=== PATIENT | male | born 1965 | race African-American/Black ===

== ENCOUNTER 2017-05-05 19:10 | Emergency (ER) | payer MEDICAID ==
[~2017-05-05] VITALS: Ht 180.3 cm; Wt 79.4 kg
[~2017-05-05 19:10] MED LIST: ASPI81CT89 PO; ATOR10TA PO; GABA300C PO; METF500T PO
[2017-05-05 19:20] VITALS: BP 137/73
[2017-05-05] MEDS ORDERED: KETOROLAC 60 MG/2 ML VIAL IM ONE (21:40)
[2017-05-05] MEDS ORDERED: VANCOMYCIN PER PHARMACY MC PRN (22:05)
[2017-05-05] MEDS ORDERED: VANCOMYCIN 1GM/DEXT 5% PREMIX 200 ML IV ONE (22:05)
[2017-05-05] MEDS ORDERED: NACL 0.9% 1,000 ML IV ONE (22:05)
[2017-05-05 22:30] LABS: HEMATOCRIT 40.6 % (36-52); HEMOGLOBIN 13.5 g/dL (12.0-18.0); MEAN CORPUSCULAR HEMOGLOBIN 30 pg (27-31); MEAN CORPUSCULAR HGB CONC 33 g/dL (33-37); MEAN CORPUSCULAR VOLUME 89 fL (80-94); PLATELET COUNT (AUTO) 405 K/uL (140-450); RED BLOOD CELL COUNT(AUTO) 4.54 MIL/uL (4.20-6.10); RED CELL DISTRIBUTION WIDTH 11.9 % (11.6-13.7)
[2017-05-05] MEDS ORDERED: VANCOMYCIN 1,000 MG in DEXTROSE 5% 250 ML IV ONE (22:30)
[2017-05-05] MEDS ORDERED: VANCOMYCIN 1,000 MG VIAL ONE (22:35)
[2017-05-05 22:41] LABS: WHITE BLOOD COUNT (AUTO) 15.6 K/uL (4.8-10.8)
[2017-05-05 22:42] LABS: LYMPHOCYTES % (MANUAL) 15 % (20-46); MONOCYTES % (MANUAL) 7 % (5-12)
[2017-05-05 22:50] LABS: ALBUMIN 2.7 g/dL (3.4-5.0); CARBON DIOXIDE 25.8 mmol/L (21-32); CREATININE 0.9 mg/dL (0.7-1.3); POTASSIUM 3.8 mmol/L (3.5-5.1); TOTAL BILIRUBIN 0.2 mg/dL (0.0-1.0)
[2017-05-05] MEDS ORDERED: INSULIN HUMAN REGULAR 100 UNITS/ML 10 ML VIAL IVP ONE (22:55)
[2017-05-06 06:05] VITALS: BP 115/70
== END 2017-05-06 06:06 | disposition short-term general hospital (02) ==
LOC: MED 19:10
DX: S61.241A Puncture wound with foreign body of left index finger without damage to nail, initial encounter (principal); L03.114 Cellulitis of left upper limb; E11.65 Type 2 diabetes mellitus with hyperglycemia; E78.5 Hyperlipidemia, unspecified; W32.0XXA Accidental handgun discharge, initial encounter; Y93.89 Activity, other specified; Y92.89 Other specified places as the place of occurrence of the external cause; Y99.8 Other external cause status
CPT/HCPCS: 36415; 73140; 80053; 85025; 87040; 87070; 87186; 90471; 90715; 96365; 96366; 96372; 96375; 99285; J1815; J1885; J3370; J7030; J7060

== ENCOUNTER 2022-03-11 15:14 | Emergency (ER) | payer MEDICAID ==
[~2022-03-11] VITALS: Ht 180.3 cm; Wt 68.0 kg
[~2022-03-11 15:14] MED LIST changes: +ASPI-1822 PO; -ASPI81CT89 PO; +METF-346 PO; -METF500T PO
[2022-03-11 16:05] VITALS: BP 118/72
--- NOTE | 2022-03-11 16:25 | NUR ---
BIB FRIEND C/O NECK , BACK PAIN X 4 DAYS. BLOOD SUGAR 304 AT THIS FERCHO. PMH: DM MED : NONE
[2022-03-11] MEDS ORDERED: NACL 0.9% 1,000 ML IV SCH (16:35)
[2022-03-11] MEDS ORDERED: LIDOCAINE 5% 1 EA PATCH TP SCH (17:30)
[2022-03-11] MEDS ORDERED: BACLOFEN 10 MG TAB PO SCH (17:30)
[2022-03-11] MEDS ORDERED: GABAPENTIN 300 MG CAP PO ONE (17:30)
[2022-03-11] MEDS ORDERED: KETOROLAC 30 MG/ML VIAL IVP ONE (17:30)
[2022-03-11 17:34] LABS: BASOPHILS # (AUTO) 0.1 K/uL (0.00-0.22); BASOPHILS % (AUTO) 0.8 % (0.0-2.0); EOSINOPHILS # (AUTO) 0.2 K/uL (0-0.4); EOSINOPHILS % (AUTO) 2.6 % (0.0-4.0); HEMATOCRIT 36.1 % (36-52); HEMOGLOBIN 11.7 g/dL (12.0-18.0); LYMPHOCYTES # (AUTO) 2.9 K/uL (2.0-11.5); LYMPHOCYTES % (AUTO) 40.5 % (20.5-51.1); MEAN CORPUSCULAR HEMOGLOBIN 28 pg (27-31); MEAN CORPUSCULAR HGB CONC 33 g/dL (33-37); MEAN CORPUSCULAR VOLUME 86.9 fL (80-94); MONOCYTES # (AUTO) 0.6 K/uL (0.8-1.0); MONOCYTES % (AUTO) 7.7 % (1.7-9.3); NEUTROPHILS # (AUTO) 3.5 K/uL (1.8-7.7); NEUTROPHILS % (AUTO) 48.4 % (42.2-75.2); PLATELET COUNT (AUTO) 294 K/uL (140-450); RED BLOOD CELL COUNT(AUTO) 4.16 MIL/uL (4.20-6.10); RED CELL DISTRIBUTION WIDTH 13.7 % (11.6-13.7); WHITE BLOOD COUNT (AUTO) 7.2 K/uL (4.8-10.8)
[2022-03-11 17:40] LABS: ACETONE, SERUM NEGATIVE (NEGATIVE)
[2022-03-11 17:52] LABS: ANION GAP 10.8 (8-16); CARBON DIOXIDE 30.6 mmol/L (21-32); CHLORIDE 103 mmol/L (98-107); CREATININE 1.2 mg/dL (0.6-1.3); GLUCOSE 331 mg/dL (74-106); POTASSIUM 4.4 mmol/L (3.5-5.1); SODIUM SERUM 140 mmol/L (136-145); UREA NITROGEN, BLOOD 21 mg/dL (7-18)
[2022-03-11 17:53] LABS: ALBUMIN 2.7 g/dL (3.4-5.0); ASPARTATE AMINOTRANSFERASE 33 U/L (15-37); GFR ARICAN-AMERICAN 80 mL/min (>90); LIPASE 80 U/L (73-393); TOTAL BILIRUBIN 0.4 mg/dL (0.0-1.0)
[2022-03-11 18:36] LABS: APPEARANCE,URINE CLEAR (CLEAR); BILIRUBIN,URINE NEGATIVE (NEGATIVE); BLOOD, URINE TRACE-I (NEGATIVE); COLOR,URINE YELLOW (YELLOW); LEUKOCYTE ESTERASE ,URINE NEGATIVE (NEGATIVE); NITRITE, URINE NEGATIVE (NEGATIVE); UGLUCOSE 1+ (NEGATIVE)
--- NOTE | 2022-03-11 18:37 | NUR ---
Damaris gilbert in ED - 03/11/22 at 1900 by [email or web address] PT AMB TO BED 12.
[2022-03-11 18:53] LABS: WBC,URINE 0-5 /HPF (0-5)
[2022-03-11 18:54] LABS: OTHER CASTS, URINE None Seen /LPF (None Seen)
[2022-03-11] MEDS ORDERED: KETOROLAC 30 MG/ML VIAL IM ONE (19:00)
[2022-03-11] MEDS ORDERED: METF-346 PO (19:00)
[2022-03-11] MEDS ORDERED: IBUP-2213 PO (19:00)
[2022-03-11] MEDS ORDERED: GABA300C PO (19:00)
[2022-03-11] MEDS ORDERED: BACL10TA4 PO (19:00)
[2022-03-11] MEDS ORDERED: GABAPENTIN 300 MG CAP ONE (19:06)
[2022-03-11 19:20] VITALS: BP 114/72
--- NOTE | 2022-03-11 19:21 | NUR ---
Patient discharged with v/s stable. Written and verbal after care instructions given and explained. Patient alert, oriented and verbalized understanding of instructions. Ambulatory with steady gait. All questions addressed prior to discharge. ID band removed. Patient advised to follow up with PMD. Rx of NEURONTIN, GLUCOPHAGE, IBUPROFEN given. Patient educated on indication of medication including possible reaction and side effects. Opportunity to ask questions provided and answered.
== END 2022-03-11 19:21 | disposition home or self-care (01) ==
LOC: MED 15:14
DX: S16.1XXA Strain of muscle, fascia and tendon at neck level, initial encounter (principal); S46.812A Strain of other muscles, fascia and tendons at shoulder and upper arm level, left arm, initial encounter; E11.65 Type 2 diabetes mellitus with hyperglycemia; F17.210 Nicotine dependence, cigarettes, uncomplicated; F12.90 Cannabis use, unspecified, uncomplicated; Z79.84 Long term (current) use of oral hypoglycemic drugs; Z79.82 Long term (current) use of aspirin; Z79.899 Other long term (current) drug therapy; Z98.890 Other specified postprocedural states; W01.0XXA Fall on same level from slipping, tripping and stumbling without subsequent striking against object, initial encounter; Y93.89 Activity, other specified; Y92.512 Supermarket, store or market as the place of occurrence of the external cause; Y99.8 Other external cause status
CPT/HCPCS: 36415; 71045; 72040; 80053; 81001; 82009; 83605; 83690; 85025; 87040; 87086; 96372; 99284; J1885

== ENCOUNTER 2022-06-23 19:37 | Emergency (ER) | payer MEDICAID ==
[~2022-06-23] VITALS: Ht 180.3 cm; Wt 65.8 kg
[~2022-06-23 19:37] MED LIST changes: +BACL10TA4 PO; +IBUP-2213 PO
[2022-06-23 19:49] VITALS: BP 129/84
--- NOTE | 2022-06-23 19:49 | NUR ---
to bed via wheelchair
--- NOTE | 2022-06-23 20:17 | NUR ---
ERMD by bedside
--- NOTE | 2022-06-23 20:30 | NUR ---
Pt came to ED accompanied by family member due to wound on left leg. Open wound noted on left leg, per pt, denies any pain at this time. Wound cleaned and dressing changed. Pt noted confused per pt, he drank 'alcohol and did drugs' today. Addendum: 06/23/22 at 2109 by [email or web address] PMHX: DM2 Allergy: JUAN
--- NOTE | 2022-06-23 20:35 | NUR ---
clin tech by bedside
[2022-06-23 20:43] LABS: BASOPHILS % (AUTO) 0.5 % (0.0-2.0); EOSINOPHILS # (AUTO) 0.1 K/uL (0-0.4); LYMPHOCYTES # (AUTO) 2.2 K/uL (2.0-11.5); MEAN CORPUSCULAR HEMOGLOBIN 27 pg (27-31); MEAN CORPUSCULAR HGB CONC 32 g/dL (33-37); MONOCYTES # (AUTO) 0.4 K/uL (0.8-1.0); MONOCYTES % (AUTO) 6.8 % (1.7-9.3); NEUTROPHILS # (AUTO) 2.6 K/uL (1.8-7.7); NEUTROPHILS % (AUTO) 49.7 % (42.2-75.2); PLATELET COUNT (AUTO) 136 K/uL (140-450); RED BLOOD CELL COUNT(AUTO) 3.68 MIL/uL (4.20-6.10); WHITE BLOOD COUNT (AUTO) 5.3 K/uL (4.8-10.8)
[2022-06-23 21:02] LABS: ANION GAP 11.4 (8-16); CARBON DIOXIDE 28.6 mmol/L (21-32); CREATININE 1.5 mg/dL (0.6-1.3); TOTAL BILIRUBIN 0.2 mg/dL (0.0-1.0)
[2022-06-23] MEDS ORDERED: INSULIN REGULAR, HUMAN 100 UNIT/ML VIAL SUBQ ONE (21:10)
--- NOTE | 2022-06-23 22:08 | NUR ---
Urine collected sent to lab
[2022-06-23 22:09] LABS: APPEARANCE,URINE CLEAR (CLEAR); BILIRUBIN,URINE NEGATIVE (NEGATIVE); BLOOD, URINE 1+ (NEGATIVE); COLOR,URINE YELLOW (YELLOW); LEUKOCYTE ESTERASE ,URINE NEGATIVE (NEGATIVE); NITRITE, URINE NEGATIVE (NEGATIVE); UGLUCOSE 3+ (NEGATIVE)
[2022-06-23 22:21] LABS: BARBITURATE, URINE NEGATIVE ng/ml (NEG <=200); BENZODIAZEPINE, URINE NEGATIVE ng/mL (NEG <=200); CANNABINOID, URINE POSITIVE ng/mL (NEG <=50); COCAINE, URINE NEGATIVE ng/mL (NEG <=300); OPIATE, URINE NEGATIVE ng/mL (NEG <=2000); PHENCYCLIDINE SCREEN,URINE POSITIVE ng/mL (NEG <=25); RBC,URINE 11-20 (MOD) /HPF (0-5); WBC,URINE NONE SEEN /HPF (0-5)
[2022-06-23] MEDS ORDERED: KETOROLAC 30 MG/ML VIAL IM ONE (22:45)
[2022-06-23] MEDS ORDERED: SULF-59 PO (22:59)
[2022-06-23] MEDS ORDERED: IBUP-2213 PO (22:59)
[2022-06-24 01:47] VITALS: BP 152/64
--- NOTE | 2022-06-24 01:49 | NUR ---
Patient discharged with v/s stable. Written and verbal after care instructions given and explained. New rx ibuprofen, bactrim Ds. Patient verbalized understanding. Ambulatory with steady gait. Picked up by sister. All questions addressed prior to discharge. Advised to follow up with PMD.
== END 2022-06-24 01:47 | disposition home or self-care (01) ==
LOC: MED 19:37
DX: S81.802A Unspecified open wound, left lower leg, initial encounter (principal); N17.9 Acute kidney failure, unspecified; E11.65 Type 2 diabetes mellitus with hyperglycemia; F19.10 Other psychoactive substance abuse, uncomplicated; Z79.899 Other long term (current) drug therapy; Z79.1 Long term (current) use of non-steroidal anti-inflammatories (NSAID); Z79.82 Long term (current) use of aspirin; X58.XXXA Exposure to other specified factors, initial encounter; Y92.89 Other specified places as the place of occurrence of the external cause; Y93.89 Activity, other specified; Y99.8 Other external cause status
CPT/HCPCS: 36415; 80053; 80305; 81001; 85025; 96372; 99284; G0482; J1815; J1885

== ENCOUNTER 2022-07-03 19:56 | Emergency (ER) | payer MEDICAID ==
[~2022-07-03] VITALS: Ht 170.2 cm; Wt 72.6 kg
[~2022-07-03 19:56] MED LIST changes: +SULF-59 PO
[2022-07-03 20:20] VITALS: BP 110/70
--- NOTE | 2022-07-03 20:23 | NUR ---
TO LOBBY A/W BED VIA W/C
--- NOTE | 2022-07-03 23:12 | NUR ---
PT TO BED 5 W/C
[2022-07-03 23:26] LABS: BASOPHILS % (AUTO) 0.3 % (0.0-2.0); EOSINOPHILS # (AUTO) 0.2 K/uL (0-0.4); EOSINOPHILS % (AUTO) 1.9 % (0.0-4.0); HEMATOCRIT 31.8 % (36-52); HEMOGLOBIN 10.3 g/dL (12.0-18.0); LYMPHOCYTES # (AUTO) 1.5 K/uL (2.0-11.5); MEAN CORPUSCULAR HEMOGLOBIN 27 pg (27-31); MEAN CORPUSCULAR HGB CONC 32 g/dL (33-37); MEAN CORPUSCULAR VOLUME 82.7 fL (80-94); MONOCYTES # (AUTO) 0.8 K/uL (0.8-1.0); MONOCYTES % (AUTO) 8.1 % (1.7-9.3); NEUTROPHILS # (AUTO) 6.9 K/uL (1.8-7.7); NEUTROPHILS % (AUTO) 73.7 % (42.2-75.2); PLATELET COUNT (AUTO) 175 K/uL (140-450); RED BLOOD CELL COUNT(AUTO) 3.85 MIL/uL (4.20-6.10); RED CELL DISTRIBUTION WIDTH 15.6 % (11.6-13.7); WHITE BLOOD COUNT (AUTO) 9.4 K/uL (4.8-10.8)
[2022-07-04 00:10] LABS: POTASSIUM 4.8 mmol/L (3.5-5.1); SODIUM SERUM 136 mmol/L (136-145)
[2022-07-04 00:11] LABS: CHLORIDE 105 mmol/L (98-107)
[2022-07-04 00:23] LABS: ANION GAP 11.6 (8-16); CARBON DIOXIDE 24.2 mmol/L (21-32); GLUCOSE 129 mg/dL (74-106); UREA NITROGEN, BLOOD 41 mg/dL (7-18)
[2022-07-04 00:24] LABS: ALBUMIN 2.8 g/dL (3.4-5.0); ASPARTATE AMINOTRANSFERASE 48 U/L (15-37); CREATININE 1.3 mg/dL (0.6-1.3); GFR ARICAN-AMERICAN 73 mL/min (>90); TOTAL BILIRUBIN 0.1 mg/dL (0.0-1.0)
[2022-07-04] MEDS ORDERED: VANCOMYCIN 1,000 MG in DEXTROSE 5% 250 ML IV ONE (00:40)
--- NOTE | 2022-07-04 00:50 | NUR ---
56YR OLD MALE BIB EMS . C/O OF PAIN. PT HAS OPEN WOUND CELLULITIS TO LL LEG [id number]. PT IS A&OX4. ON BEDSIDE MONITOR. HOB ELEVATED SKIN WARM AND DRY. WOUND FROM L KNEE TO ANKLE . SM OPEN WOUND ON FOOT. PENDING ADMIT ORDERS NKDA
[2022-07-04] MEDS ORDERED: VANCOMYCIN 1,000 MG VIAL ONE (02:07)
--- NOTE | 2022-07-04 05:25 | NUR ---
PT IS ASLEEP IN BED ON BEDSIDE HEAD ANIMAL TRAINER. HOB ELEVATED. RESP EVEN AND UNLABORED. DR CLARK AT BEDSIDE. PENDING DISPO
[2022-07-04 08:00] VITALS: BP 104/52
--- NOTE | 2022-07-04 10:10 | NUR ---
MD GAMBLE AT BEDSIDE FOR EVALUATION
--- NOTE | 2022-07-04 10:16 | NUR ---
PER MD GAMBLE "PT OK FOR D/C" "NO TREATMENT OR ADMISSION NEEDED AT THIS TIME" . ERMD AWARE
[2022-07-04] MEDS ORDERED: AMOX1TAB8 PO (10:19)
[2022-07-04 11:04] LABS: APPEARANCE,URINE CLEAR (CLEAR); BILIRUBIN,URINE NEGATIVE (NEGATIVE); BLOOD, URINE 2+ (NEGATIVE); COLOR,URINE YELLOW (YELLOW); LEUKOCYTE ESTERASE ,URINE 1+ (NEGATIVE); NITRITE, URINE NEGATIVE (NEGATIVE); PH,URINE 5.5 (5.0-9.0); UGLUCOSE 2+ (NEGATIVE)
--- NOTE | 2022-07-04 11:07 | NUR ---
SANDWICH AND JUICE PROVIDED REQUESTED, USED URINAL IN BED, VOIDED URINE. OK FOR D/C, STAFF WILL CALL FAMILY
== END 2022-07-04 12:16 | disposition home or self-care (01) ==
LOC: MED 19:56
DX: E11.649 Type 2 diabetes mellitus with hypoglycemia without coma (principal); Z20.822 Contact with and (suspected) exposure to COVID-19; L97.828 Non-pressure chronic ulcer of other part of left lower leg with other specified severity; F19.10 Other psychoactive substance abuse, uncomplicated; I10 Essential (primary) hypertension; Z79.4 Long term (current) use of insulin; Z79.899 Other long term (current) drug therapy
CPT/HCPCS: 36415; 71101; 73590; 80053; 81001; 82140; 83605; 84484; 85025; 85651; 86140; 87040; 87070; 87075; 87086; 87186; 87426; 93005; 93971; 96365; 99285; J3370; Q0092

== ENCOUNTER 2022-07-07 18:27 | Inpatient (IN) | payer MEDICAID ==
[~2022-07-07] VITALS: Ht 172.7 cm; Wt 77.1 kg
[~2022-07-07 18:27] MED LIST changes: +AMOX1TAB8 PO
[2022-07-07 18:28] VITALS: BP 87/54
--- NOTE | 2022-07-07 18:28 | NUR ---
1826- PT BIBA TO BED 2
--- NOTE | 2022-07-07 18:50 | NUR ---
rectal temp 84.7. dr. chavez aware. placed on [facility]
--- NOTE | 2022-07-07 18:51 | NUR ---
andreea from home for aloc today. per ems bs 208. hx dm. no meds. per ems royce down to 30 en route. awake but not answering questions. no facial droop. no slurred speech. - arm drift. 20 g piv to both ac. on defib monitor
[2022-07-07] MEDS ORDERED: NACL 0.9% 2,000 ML IV ONE (18:55)
--- NOTE | 2022-07-07 19:00 | NUR ---
PT IS HYPOTHERMIC, KATERINE HOPKINS IS IN CURRENTLY WORKING.
--- NOTE | 2022-07-07 19:01 | NUR ---
per dr. chavez ordered 2 liter ivf warmed
--- NOTE | 2022-07-07 19:03 | NUR ---
noted with open sore to left lower leg
--- NOTE | 2022-07-07 19:03 | NUR ---
labs drawn. given to lab
[2022-07-07] MEDS ORDERED: ONDANSETRON 4 MG/2 ML VIAL IVP ONE (19:20)
[2022-07-07] MEDS ORDERED: ONDANSETRON 4 MG/2 ML VIAL ONE (19:21)
--- NOTE | 2022-07-07 19:23 | NUR ---
report given to mikey perez
[2022-07-07 19:29] LABS: HEMATOCRIT 31.7 % (36-52); HEMOGLOBIN 10.2 g/dL (12.0-18.0); MEAN CORPUSCULAR HEMOGLOBIN 27 pg (27-31); MEAN CORPUSCULAR HGB CONC 32 g/dL (33-37); MEAN CORPUSCULAR VOLUME 82.6 fL (80-94); PLATELET COUNT (AUTO) 92 K/uL (140-450); RED BLOOD CELL COUNT(AUTO) 3.84 MIL/uL (4.20-6.10); RED CELL DISTRIBUTION WIDTH 15.4 % (11.6-13.7); WHITE BLOOD COUNT (AUTO) 21.7 K/uL (4.8-10.8)
[2022-07-07 19:52] LABS: PROTHROMBIN TIME 11.3 secs (10.8-13.4)
[2022-07-07 20:00] LABS: LYMPHOCYTES % (MANUAL) 3 % (20-46)
--- NOTE | 2022-07-07 20:00 | NUR ---
Damaris gilbert in ED - 07/07/22 at 2000 by LUTHER PATIENT WENT TO CT.
--- NOTE | 2022-07-07 20:00 | NUR ---
PT WENT TO CT.
[2022-07-07] MEDS ORDERED: PIPERACILLIN/TAZOBACTAM 3.375 GM in DEXTROSE 5% 50 ML IV ONE (20:15)
[2022-07-07] MEDS ORDERED: VANCOMYCIN 1,000 MG in DEXTROSE 5% 250 ML IV ONE (20:15)
[2022-07-07 20:27] LABS: ANION GAP 10.5 (8-16); ASPARTATE AMINOTRANSFERASE 67 U/L (15-37); CARBON DIOXIDE 23.8 mmol/L (21-32); CHLORIDE 105 mmol/L (98-107); CREATININE 1.8 mg/dL (0.6-1.3); GFR ARICAN-AMERICAN 50 mL/min (>90); GLUCOSE 195 mg/dL (74-106); MAGNESIUM 2.1 mg/dL (1.8-2.4); PHOSPHORUS 4.5 mg/dL (2.5-4.9); POTASSIUM 4.3 mmol/L (3.5-5.1); SODIUM SERUM 135 mmol/L (136-145); THYROID STIMULATING HORMONE 5.85 uIU/mL (0.34-3.74); UREA NITROGEN, BLOOD 52 mg/dL (7-18)
[2022-07-07 20:38] LABS: TOTAL BILIRUBIN 0.2 mg/dL (0.0-1.0)
[2022-07-07] MEDS ORDERED: VANCOMYCIN 1,000 MG VIAL ONE (21:03)
[2022-07-07] MEDS ORDERED: PIPERACILLIN/TAZOBACTAM 3.375 GM VIAL IV ONE (21:03)
[2022-07-07] MEDS ORDERED: ATROPINE 0.4 MG/ML VIAL IVP ONE (22:00)
[2022-07-07] MEDS ORDERED: DOCUSATE SODIUM 100 MG GELCAP PO PRN (22:45)
[2022-07-07] MEDS ORDERED: ACETAMINOPHEN 325 MG TAB PO PRN (22:45)
[2022-07-07] MEDS ORDERED: ZOLPIDEM 10 MG TAB PO PRN (22:45)
[2022-07-07] MEDS ORDERED: POTASSIUM CHLORIDE 10 MEQ TABER PO PRN (22:45)
[2022-07-07] MEDS ORDERED: MORPHINE SULFATE 2 MG/ML SYR IVP PRN (22:45)
[2022-07-07] MEDS ORDERED: LORazepam 2 MG/ML VIAL IVP PRN (22:45)
[2022-07-07] MEDS ORDERED: VANCOMYCIN PER PHARMACY MC PRN (22:45)
[2022-07-07] MEDS ORDERED: ONDANSETRON 4 MG/2 ML VIAL IVP PRN (22:45)
[2022-07-07] MEDS ORDERED: NOREPINEPHRINE 4 MG in DEXTROSE 5% 250 ML IV ONE (22:45)
[2022-07-07] MEDS ORDERED: DOPamine 400 MG/D5W PREMIX 250 ML IV ONE (23:00)
[2022-07-07] MEDS ORDERED: MIDAZOLAM 2 MG/2 ML VIAL ONE (23:29)
[2022-07-07] MEDS ORDERED: NOREPINEPHRINE 4 MG/4 ML VIAL IV ONE (23:44)
[2022-07-07] MEDS ORDERED: MIDAZOLAM 2 MG/2 ML VIAL IV ONE (23:55)
[2022-07-08] VITALS (28 sets, daily range): BP systolic 87–135; BP diastolic 47–90
--- NOTE | 2022-07-08 | NUR ---
UNABLE TO RECONCILE MEDICATIONS, PT ALTERED.
--- NOTE | 2022-07-08 | NUR ---
CENTRAL LINE IS IN PLACED BY DR SALMON
--- NOTE | 2022-07-08 00:10 | NUR ---
CLEARY IS INSERTED, PT IS ABLE TO TOLERATED WELL.
[2022-07-08] MEDS: NACL 0.9% 1,000 ML IV SCH ×3 (00:15→21:33)
--- NOTE | 2022-07-08 00:40 | NUR ---
UPN ADMISSION PTS TEMPERATURE WAS 85 F AND TAKEN TEMPORALLY, TYMPANICALLY AND ORALLY. BEARHUGGER PLACED OVER PTS CHEST AND WARMED BLANKETS PLACED OVER PTS BODY AND TOWELS WRAPPED AROUND THE HEAD COVERING THE EARS
[2022-07-08] MEDS ORDERED: NOREPINEPHRINE 8 MG in DEXTROSE 5% 250 ML IV PRN ×2 (01:20→08:05)
[2022-07-08 01:47] LABS: APPEARANCE,URINE CLEAR (CLEAR); BILIRUBIN,URINE NEGATIVE (NEGATIVE); BLOOD, URINE TRACE-I (NEGATIVE); COLOR,URINE YELLOW (YELLOW); LEUKOCYTE ESTERASE ,URINE 1+ (NEGATIVE); NITRITE, URINE NEGATIVE (NEGATIVE); PH,URINE 5.5 (5.0-9.0); UGLUCOSE 2+ (NEGATIVE)
--- NOTE | 2022-07-08 01:53 | NUR ---
Patient will be admitted to care of SEPSIS. Admited to [ICU]. Will go to room 2. Belongings list completed. Report to [ABHIJIT].
[2022-07-08 01:55] LABS: RBC,URINE 0-5 /HPF (0-5)
[2022-07-08] MEDS ORDERED: EPINEPHrine PFS 0.1 MG/ML SYR IVP ONE (02:22)
[2022-07-08] MEDS ORDERED: PROPOFOL 1000 MG/100 ML PREMIX 100 ML IV ONE (02:28)
--- NOTE | 2022-07-08 02:31 | NUR ---
dr gallardo came to bedside from er to intubate. et tube secured at 23 @ the lip, chest x ray ordered and sedation started and ogt inserted
--- NOTE | 2022-07-08 02:55 | NUR ---
0230 PATIENT WAS INTUBATED POST ABG RESULTS BY DR LUIS ANTONIO ROBLES DR. PT WAS INTUBATED WITH 7.5 TUBE AT 23 LIP. PT PLACED ON VENT WITH SETTINGS OF AC 18 VT 500 RR 18 FIO2 100%. WILL TITRATE FIO2
[2022-07-08 03:00] LABS: BARBITURATE, URINE NEGATIVE ng/ml (NEG <=200); BENZODIAZEPINE, URINE NEGATIVE ng/mL (NEG <=200); CANNABINOID, URINE POSITIVE ng/mL (NEG <=50); COCAINE, URINE NEGATIVE ng/mL (NEG <=300); OPIATE, URINE NEGATIVE ng/mL (NEG <=2000); PHENCYCLIDINE SCREEN,URINE POSITIVE ng/mL (NEG <=25)
[2022-07-08] MEDS: DOPamine 400 MG/D5W PREMIX 250 ML IV PRN (03:35)
--- NOTE | 2022-07-08 04:18 | NUR ---
0400 LOWERED RESPIRATORY RATE TO 16 POST ABG. LOWERED FIO2 TO 50%. POST ABG. SEE RESULTS
[2022-07-08 04:42] LABS: ANION GAP 13.2 (8-16); CARBON DIOXIDE 19.1 mmol/L (21-32); CREATININE 1.8 mg/dL (0.6-1.3); POTASSIUM 4.3 mmol/L (3.5-5.1)
[2022-07-08 04:44] LABS: BASOPHILS % (AUTO) 0.1 % (0.0-2.0); EOSINOPHILS % (AUTO) 0.1 % (0.0-4.0); HEMATOCRIT 30.8 % (36-52); HEMOGLOBIN 9.9 g/dL (12.0-18.0); LYMPHOCYTES # (AUTO) 0.9 K/uL (2.0-11.5); LYMPHOCYTES % (AUTO) 3.8 % (20.5-51.1); MEAN CORPUSCULAR HEMOGLOBIN 27 pg (27-31); MEAN CORPUSCULAR HGB CONC 32 g/dL (33-37); MEAN CORPUSCULAR VOLUME 82.5 fL (80-94); MONOCYTES # (AUTO) 0.5 K/uL (0.8-1.0); MONOCYTES % (AUTO) 2.4 % (1.7-9.3); NEUTROPHILS # (AUTO) 21.8 K/uL (1.8-7.7); NEUTROPHILS % (AUTO) 93.6 % (42.2-75.2); PLATELET COUNT (AUTO) 105 K/uL (140-450); RED BLOOD CELL COUNT(AUTO) 3.74 MIL/uL (4.20-6.10); RED CELL DISTRIBUTION WIDTH 15.8 % (11.6-13.7); WHITE BLOOD COUNT (AUTO) 23.3 K/uL (4.8-10.8)
--- NOTE | 2022-07-08 04:48 | NUR ---
SPUTUM SAMPLE UPTAINED AND SENT TO LAB
[2022-07-08] MEDS: PIPERACILLIN/TAZOBACTAM 2.25 GM in DEXTROSE 5% 50 ML IV SCH ×3 (05:45→21:04)
[2022-07-08] MEDS ORDERED: PIPERACILLIN/TAZOBACTAM 2.25 GM VIAL IV ONE (06:06)
--- NOTE | 2022-07-08 07:30 | NUR ---
RECEIVED PT IN BED, INTUBATED TUBE SIZE 7.5/23 LIP, TOLERATING VENT SETTINGS. NSR ON MONITOR. RIGHT IJ TRIPLE LUMEN INFUSING DOPAMINE AND PROPOFOL PER ORDERS. TITRATING PER ORDER. FC DRAINING TO GRAVITY. REMAINS HYPOTHERMIC, BEAR HUGGER ON PT. WITH WARM BLANKETS APPLIED. SAFETY MAINTAINED.
--- NOTE | 2022-07-08 07:30 | NUR ---
DR EISENBERG AT BEDSIDE WITH NEW ORDERS NOTED.
--- NOTE | 2022-07-08 07:50 | NUR ---
DR PADILLA AT BEDSIDE WITH NEW ORDERS NOTED
[2022-07-08] MEDS ORDERED: NACL 0.9% 1,000 ML IV SCH ×2 (08:05)
[2022-07-08] MEDS ORDERED: methylPREDNISolone SS 125 MG/2 ML VIAL IVP SCH (08:15)
--- NOTE | 2022-07-08 09:50 | NUR ---
PT HAD BM, CLEANED AND REPOSITIONED FOR COMFORT.
--- NOTE | 2022-07-08 10:13 | NUR ---
PATIENT HAS BEEN SCREENED AND CATEGORIZED HIGH NUTRITION RISK. PATIENT WILL BE SEEN WITHIN 1-2 DAYS OF ADMISSION. FNS CONSULT HAS BEEN RECEIVED FOR "WOUNDS/PRESSURE ULCERS" AND FNS REFERRAL RECEIVED FOR "UNHEALED WOUNDS" ON 07/08/22. REVIEWED BY CALVIN MATHEWS RD
--- NOTE | 2022-07-08 10:20 | NUR ---
DR WISEMAN AT BEDSIDE. NEW ORDERS NOTED.
--- NOTE | 2022-07-08 10:25 | NUR ---
US AT BEDSIDE.
[2022-07-08] MEDS: methylPREDNISolone SS 125 MG/2 ML VIAL IVP SCH ×2 (13:20→21:33)
--- NOTE | 2022-07-08 13:34 | NUR ---
DC PLANNING ASSESSMENT COMPLETE PLEASE REFER TO ASSESSMENT FOR ADDITIONAL DETAILS PT CURRENTLY INTUBATED THEREFORE, COLLAT INFO GATHERED INFORMATION FROM PTS SISTER, MATTHEW. MATTHEW REQUESTING, SHE BE 1ST POINT OF CONTACT PTS DAUGHTER IS CURRENTLY UNDERGOING CANCER [place] AND DOES NOT WANT TO STRESS HER OUT. ONLY KNOWN INFORMATION KNOWN TO MATTHEW WAS REPORTED. PT IS A 56 YR OLD MALE ADMITTED TO [facility] FROM HOME WITH DX OF SEPSIS. 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 ALYSSA REPORTS UNKNOWN HX OF SUBSTANCE USE HOWEVER, REPORTS BEING TOLD BY [employer] CONTACT THAT PT WAS REPORTEDLY USING METH. ALYSSA UNSURE HOW LONG OR IF PT IS CURRENTLY USING. PT UDS POSITIVE FOR AMPHETAMINE USE, PHENCYCLIDINE, AND CANNABIS. MATTHEW REPORT PATIENT IS HIGHLY STUBBORN AND REFUSES TO MEET WITH PCP WHEN NEEDED. MATTHEW REPORTS SEVERAL ATTEMPTS IN ATTEMPTING TO GET PT TO HIS PCP, HOWEVER CONTINUES TO STRUGGLE WITH PT ABOUT ATTENDING . PT IS REPORTED TO UTILIZE CANE NEEDED AND REQUIRES SOME ASSISTANCE WITH ADL'S THAT MATTHEW AIDS IN. PT RESIDES IN A SINGLE STORY HOME WITH HIS SISTER, AT THE ADDRESS LISTED ON FILE. MATTHEW REPORTS TENTATIVE DC PLAN FOR PT WILL BE BASED ON PHYSICIANS RECOMMENDATIONS Addendum: 07/08/22 at 1338 by Ayan WEBSTER Amended: Links added. Addendum: 07/08/22 at 1508 by Ayan WEBSTER CALLED TO PTS BEDSIDE TO MEET WITH PTS SISTER AT BEDSIDE. PROVIDED PTS SISTER MATTHEW WITH RESOURCES. ALYSAS INQUIRED ON ADV HLTH CARE DIRECTIVE. PROVIDED MATTHEW WITH DETAILED INFORMATION ON ALL RESOURCES PROVIDED AND ADV. MATTHEW ACCEPTED AND RECEPTIVE OF ALL INFORMATION PROVIDED.
[2022-07-08] MEDS: PROPOFOL 1000 MG/100 ML PREMIX 100 ML IV PRN ×2 (15:55→21:03)
--- NOTE | 2022-07-08 15:59 | NUR ---
PT NOTED WITH SEIZURE LIKE ACTIVITY LASTING APPROX 20 SECONDS. ONLY LEFT SIDE SHAKING , PAGED DR PADILLA FOR FURTHER ORDERS
--- NOTE | 2022-07-08 16:16 | NUR ---
DR JANE AT BEDSIDE
--- NOTE | 2022-07-08 16:29 | NUR ---
07/08/22 RD INITIAL ASSESSMENT COMPLETED PLEASE REFER TO NUTRITION ASSESSMENT UNDER CARE ACTIVITY FOR ESTIMATED NUTRITIONAL NEEDS. 1. MONITOR NPO STATUS 2. WHEN/IF MEDICALLY APPROPRIATE TO START TF, RECOMMEND VITAL AF 1.2 AT GOAL RATE 65 ML/HR, FWF 100 ML Q6H OR PER MD, WITH ELEN BID FOR WOUND/PRESSURE ULCER SUPPORT TOLERATED. (ELEN BID PROVIDES 160 KCAL AND 5 GM PROTEIN DAILY) - PROVIDES 1560 ML TOTAL VOLUME, 2032 KCAL, 122 GM PROTEIN AND 1665 ML FREE WATER DAILY MEETING 96% ESTIMATED KCAL NEEDS AND 100% ESTIMATED PROTEIN NEEDS; ADEQUATE - START TF AT 1O ML/HR INCREASE BY 1O ML Q4H UNTIL GOAL IS REACHED TOLERATED 3. MONITOR GI SYMPTOMS, GASTRIC RESIDUALS AND NUTRITION RELATED LAB VALUES 4. CONSULT RD PRN 5. RD TO FOLLOW-UP 2-3 DAYS, HIGH RISK REVIEWED BY CALVIN MATHEWS RD
--- NOTE | 2022-07-08 18:30 | NUR ---
PT TURNED AND REPOSITIONED FOR COMFORT. [place].
[2022-07-08] MEDS: levETIRAcetam 500 MG in NACL 0.9% 100 ML IV SCH (18:33)
--- NOTE | 2022-07-08 18:41 | NUR ---
DR RIVERA AT BEDSIDE FOR EVAL.
[2022-07-08] MEDS: VANCOMYCIN 1,000 MG in DEXTROSE 5% 250 ML IV SCH (21:04)
[2022-07-09] VITALS (31 sets, daily range): BP systolic 88–114; BP diastolic 54–79
[2022-07-09] MEDS: PROPOFOL 1000 MG/100 ML PREMIX 100 ML IV PRN ×5 (00:45→23:57)
[2022-07-09] MEDS: DOPamine 400 MG/D5W PREMIX 250 ML IV PRN ×2 (00:47→14:36)
[2022-07-09 04:29] LABS: BASOPHILS # (AUTO) 0.1 K/uL (0.00-0.22); BASOPHILS % (AUTO) 0.1 % (0.0-2.0); HEMATOCRIT 26.8 % (36-52); HEMOGLOBIN 8.8 g/dL (12.0-18.0); LYMPHOCYTES # (AUTO) 1.1 K/uL (2.0-11.5); LYMPHOCYTES % (AUTO) 3.1 % (20.5-51.1); MEAN CORPUSCULAR HEMOGLOBIN 27 pg (27-31); MEAN CORPUSCULAR HGB CONC 33 g/dL (33-37); MEAN CORPUSCULAR VOLUME 82.5 fL (80-94); MONOCYTES # (AUTO) 0.7 K/uL (0.8-1.0); MONOCYTES % (AUTO) 1.9 % (1.7-9.3); NEUTROPHILS # (AUTO) 33.2 K/uL (1.8-7.7); NEUTROPHILS % (AUTO) 94.9 % (42.2-75.2); PLATELET COUNT (AUTO) 95 K/uL (140-450); RED BLOOD CELL COUNT(AUTO) 3.25 MIL/uL (4.20-6.10); RED CELL DISTRIBUTION WIDTH 15.9 % (11.6-13.7); WHITE BLOOD COUNT (AUTO) 35.1 K/uL (4.8-10.8)
[2022-07-09] MEDS: NACL 0.9% 1,000 ML IV SCH (04:45)
[2022-07-09 04:48] LABS: ANION GAP 15.1 (8-16); CARBON DIOXIDE 16.4 mmol/L (21-32); CREATININE 2.3 mg/dL (0.6-1.3); POTASSIUM 4.5 mmol/L (3.5-5.1)
[2022-07-09] MEDS: PIPERACILLIN/TAZOBACTAM 2.25 GM in DEXTROSE 5% 50 ML IV SCH ×3 (05:11→20:43)
[2022-07-09] MEDS: methylPREDNISolone SS 125 MG/2 ML VIAL IVP SCH ×3 (05:11→20:44)
[2022-07-09] MEDS: levETIRAcetam 500 MG in NACL 0.9% 100 ML IV SCH ×2 (05:32→17:47)
[2022-07-09] MEDS ORDERED: LEVOTHYROXINE 0.075 MG TAB PO SCH (06:30)
--- NOTE | 2022-07-09 07:20 | NUR ---
RECEIVED BEDSIDE REPORT FROM PLASTIC FINISHER UNIVERSITY TEACHER FOR CONTINUITY OF CARE. PT SEDATED. PERRL. UNABLE TO FOLLOW COMMANDS. OPENS EYES SPONTANEOUSLY. RESPONSIVE TO ETERNAL STIMULI. ETT TO VENT, AC/VC FIO2 28%/VT 500/RR 16/PEEP 5. SR ON MONITOR. TLC TO RIJ INFUSING DOPAMINE AT 7 MCG/KG/MIN, PROPOFOL AT 40 MCG/KG/MIN, AND NS AT 100 ML/HR. OGT IN PLACE AND CLAMPED. F/C TO GRAVITY DRAINING CLEAR YELLOW URINE. BILATERAL WRIST RESTRAINTS IN PLACE FOR SAFETY, NO S/SX OF INJURY. HOB 30 DEGREES. STANDARD PRECAUTION. SEIZURE PRECAUTIONS. HEEL PROTECTOR BOOTS IN PLACE FOR PROPHYLAXIS. BED LOCKED AND IN LOWEST POSITION. Addendum: 07/09/22 at 1634 by Vicky Marrufo RN RESPONSIVE TO EXTERNAL STIMULI
--- NOTE | 2022-07-09 09:56 | NUR ---
ALYSSA PEDROZA (SISTER) CALLED FOR UPDATE. UPDATED ON POC, ALL QUESTIONS ANSWERED AT THIS TIME.
[2022-07-09] MEDS: LEVOTHYROXINE 0.025 MG TAB PO SCH (10:46)
[2022-07-09] MEDS: BLOOD GLUCOSE MONITORING 1 DEV DEV FS SCH ×3 (12:00→23:57)
[2022-07-09] MEDS: PANTOPRAZOLE 40 MG INJ VIAL IVP SCH (12:28)
[2022-07-09] MEDS: SODIUM BICARBONATE 8.4% 50 MEQ in DEXT 5% / NACL 0.45% 1,000 ML IV SCH ×2 (13:24→22:01)
--- NOTE | 2022-07-09 16:23 | NUR ---
DISCHARGE PLANNING A 56 YEAR OLD MALE PATIENT ADMITTED 07/07 FOR SEPTIC SHOCK,HYPOTHERMIA,ALTERED MENTAL STATUS,BRADYCARDIA WITH HX OF UNCONTROLLED DM,CHRONIC WOUND IN THE LEFT LEG AND POLYSUBSTANCE ABUSE .INTUBATED FOR ACUTE RESPIRATORY FAILURE.ON DOPAMINE AND PROPOFOL DRIPS.CONTINUE ABX (VANCO, ZOSYN) AND KEPPRA FOR SEIZURE.PULMO,RENAL,CARDIO AND INFECTIOUS DISEASE ON CONSULT.DC PLAN BACK TO LIVE WITH SISTER WHEN PATIENT IMPROVES AND RESPONDS TO TREATMENT. Addendum: 07/16/22 at 1418 by CARLIN CRAIG CM DC PLANNING PATIENT IS STILL INTUBATED.VERY AGITATED.ON DAILY CPAP TRIALS.FENTANYL AND PROPOFOL DRIPS IN PROGRESS.CONTINUE ABX PIPERACILLIN, VANCO,FLUCONAZOLE.SAME CONSULTS FOLLOWING.CM TO FOLLOW Addendum: 07/16/22 at 1657 by CARLIN CRAIG CM DC PLANNING PATIENT REMAINS INTUBATED.VERY AGITATED.ON DAILY CPAP TRIALS BUT FAILED TODAY.ON FENTANYL AND PROPOFOL DRIPS.CONTINUE ABX -PIPERACILLIN,VANCO AND FLUCONAZOLE.SAME CONSULTS FOLLOWING.CM TO FOLLOW. Addendum: 07/18/22 at 1400 by CARLIN CRAIG CM DC PLANNING STILL INTUBATED,SEDATED WITH PROPOFOL AND PRECEDEX.DOPAMINE DRIP FOR B/P SUPPORT. FAILING CPAP TRIALS. G-TUBE FEEDINGS CONTINUES. I&D,RENAL,NEURO,PULMO FOLLOWING.CM TO FOLLOW Addendum: 07/21/22 at 1355 by CARLIN CRAIG CM DC PLANNING STILL INTUBATED.MORE AWAKE TOLERATED CPAP TRIAL TODAY.PLAN FOR TRACHEOSTOMY IF PATIENT CANNOT BE EXTUBATED PER PULMO.ON DOPAMINE FOR B/P SUPPORT.ABX TO CONTINUE.CM TO FOLLOW. Addendum: 07/23/22 at 1201 by CARLIN CRAIG CM STILL INTUBATED.DAILY CPAP TRIALS AND TOLERATING SO FAR. CXR- WORSENING BILATERAL EDEMA/INFILTRATES.ON LASIX , ABX PROPOFOL AND DOPAMINE DRIPS.CM TO FOLLOW. Addendum: 07/24/22 at 1454 by CARLIN CRAIG CM DC PLANNING EXTUBATED 07/23/22 .TOLERATING 2LNC.LASIX DRIP ON BOARD.TAPERING DOWN PRECEDEX. OFF DOPAMINE. CM TO FOLLOW. Addendum: 07/24/22 at 1524 by CARLIN CRAIG CM DC PLANNING [facility] [id number] CALLED AND UPDATED OF PT'S STATUS.AUTH #[id number] TAKEN. Addendum: 08/01/22 at 1132 by CARLIN CRAIG CM DC PLANNING SPOKE WITH SISTER 07/31 AND UPDATED PLAN FOR SNF PLACEMENT.SISTER REQUESTED PATIENT TO BE TRANSFERRED TO [facility] FOR FURTHER MGT.DR. GAMBLE WAS ADVISED TO TALK TO THE SISTER AND UPDATE PT'S STATUS. SISTER MATTHEW AT BEDSIDE AND DR. GAMBLE DISCUSSED THE PROGRESS .ANGIO UE AND VENOUS US OF BILATERAL LE REQUESTED. SNF PLACEMENT DISCUSSED WITH SISTER AGAIN IF TRANSFER TO [facility] NOT POSSIBLE.CM TO FOLLOW. Addendum: 08/04/22 at 1224 by CARLIN CRAIG CM DC PLANNING PATIENT CAN BE TRANSFERRED TO HIGHER LEVEL OF CARE FOR VASCULAR SURGERY EVAL.CLINICALS FAXED TO [facility], [facility] AND [facility].DR. GAMBLE SPOKE WITH THE SISTER AND UPDATED OF PATIENT'S STATUS. Addendum: 08/04/22 at 1607 by Joycelyn Somers RN DC PLANNING: CALLED [facility] SPOKE WITH TRANSFER CENTER STATED STILL REVIEWING, CALLED [facility] SPOKE WITH [place] SONA GAMBLE'S NUMBER AND STATED WILL SUBMIT TO THEIR VASCULAR SURGEON AND CALL BACK. CM TO FOLLOW Addendum: 08/05/22 at 1238 by SUELLEN MONTERO CM RECEIVED ORDER CASSIE PATIENT TO GO TO SNF FOR PT. FAXED TO THE FOLLOWING SNF'S:[facility], [facility], [facility], [facility], [facility], [facility], [facility], [facility], [facility], [facility], [facility], [facility], [facility], [facility], [facility], [facility], [facility], [facility], [facility], [facility], [facility], [facility] AND 10 OTHERS. INSURANCE WAS ALSO FAXED WHO HAS THEIR OWN SNF TEAM WORKING ON CASE Addendum: 08/05/22 at 5089 by CARLIN CRAIG CM DC PLANNING [facility] WILL REVIEW PATIENT'S CLINICAL AND WILL CALL BACK IF PATIENT WILL BE ACCEPTED.SPOKE TO JAMIL AT TRANSFER CENTER. [facility] DENIED TRANSFER. DR. HENDRICKS CAN SEE PATIENT ON AN OUTPATIENT BASIS. TALKED TO MATTHEW(SISTER) ON THE PHONE AND UPDATED OF ABOVE CALLS FROM [facility] AND [facility].CM TO FOLLOW. Addendum: 08/05/22 at 1516 by CARLIN CRAIG CM DC PLANNING TALKED TO MADIE AT [facility] .NO AVAILABLE BED AND ACCEPTING PHYSICIAN YET.PATIENT FOR EVALUATION FOR VASCULAR STENTING. Addendum: 08/06/22 at 1439 by CARLIN CRAIG CM DC PLANNING SPOKE WITH BHARTI AT ADMISSIONS AT [facility] .AUTH GIVEN BY [facility] AT [facility] FOR TRANSFER-[id number].[facility].STILL WAITING FOR BED ACCEPTANCE AT [facility]. Addendum: 08/07/22 at 1306 by CARLIN CRAIG CM DC PLANNING PATIENT IS LETHARGIC TODAY.B/P 77/44.WAS RESTLESS LAST NIGHT AND WAS GIVEN ATIVAN. MIDODRINE STARTED.STATUS CHANGED TO TELEMETRY FOR CLOSE MONITORING.HGB 7.1.CM TO FOLLOW. Addendum: 08/07/22 at 1633 by CARLIN CRAIG CM DC PLANNING PATIENT WAS TRANSFERRED TO ICU FOR HYPOTENSION DESPITE BOLUS OF 2 LITERS.DOPAMINE DRIP STARTED.ON 3L NC .SISTER, MATTHEW UPDATED OF PATIENT'S CONDITION.TALKED TO VIRY AT TRANSFER CENTER AT [facility].REQUEST FOR TRANSFER DENIED. REASON -VENOUS STENTING CAN BE DONE ON AN OUTPATIENT BASIS. DC PLAN- TO DISCHARGE TO SNF WHEN STABLE. SISTER AGREED. Addendum: 08/08/22 at 1039 by CARLIN CRAIG CM DC PLANNING PATIENT STILL ON DOPAMINE DRIP.ON 2LNC .[facility] AT [facility] UPDATED OF PATIENT'S TRANSFER TO ICU FOR HYPOTENSION AND [facility]'S DENIAL.DC PLAN -SNF FOR PT AND WOUND CARE WHEN PATIENT STABILIZES .SISTER MATTHEW AGREED. Addendum: 08/11/22 at 1159 by CARLIN CRAIG CM DC PLANNING PATIENT IS LETHARGIC.DID NOT RESPONDING TO NAME CALLING.HAD ATIVAN LAST NIGHT.ON MIDODRINE TID AND DOPAMINE FOR B/P SUPPORT.ON RA.WBC DOWN FROM 20.3 08/10 TO 15.2 .BLOOD CULTURES NEGATIVE .SPUTUM GM STAIN PENDING.URINE CULTURE PENDING SENSITIVITY.NEPRO CX REQUESTED.CREAT.1.8 08/10 DOWN TO 1.6 TODAY.ON NGT FEEDING.REACHED OUT TO SKIP [facility] FOR POSSIBLE SNF PLACEMENT.LATTER WILL REVIEW CHART.KEVAN TO FOLLOW. Addendum: 08/12/22 at 1207 by CARLIN CRAIG CM DC PLANNING PATIENT STILL ON DOPAMINE AND MIDODRINE FOR B/P SUPPORT. SISTER MATTHEW AND HER AUNT RON CALLED AND UPDATED OF PATIENT'S CONDITION AND ASKED TO TALK TO ICU NURSE FOR MORE UPDATES.DR. GAMBLE ALREADY TALKED TO SISTER MATTHEW AT LENGTH THIS AM.CM TO FOLLOW. Addendum: 08/13/22 at 1206 by CARLIN CRAIG CM DC PLANNING MORE ALERT .OFF DOPAMINE.B/P IMPROVED.URINE (+) FOR ENTEROBACTER..ON MEROPENEM.ON RA.POSSIBLY DOWNGRADE TO TELEMETRY LATER .CM TO FOLLOW. Addendum: 08/15/22 at 1148 by SUELLEN MONTERO CM FAXED THE FOLLOWING SNF'S: [facility], [facility], [facility], [facility], [facility], [facility], [facility], [facility], AND [facility]. WILL FOLLOW UP WITH ACCEPTING AND DECLINING FACILITIES. Addendum: 08/15/22 at 1201 by SUELLEN MONTERO CM FAXED TO [facility]. Addendum: 08/15/22 at 1212 by SUELLEN MONTERO CM FAXED TO [facility]. WAITING FOR RESPONSES. Addendum: 08/18/22 at 1209 by SUELLEN MONTERO CM FAXED TO [facility], AND [facility]. Addendum: 08/18/22 at 1317 by SUELLEN MONTERO CM SPOKE WITH VIC AT [facility] LOCATED AT [address] [id number]. PATIENT WAS ACCEPTED AND WILL BE GOING TO ROOM 5D UNDER DR PADILLA. Addendum: 08/18/22 at 1331 by CARLIN CRAIG CM DC PLANNING PATIENT IS AWAKE.OPENS EYES TO NAME CALLING BUT WITH HARD OF HEARING. ANOTHER SISTER FROM [place] AT BEDSIDE.UPDATED OF PLAN FOR TRANSFER TO [facility].DESATURATING EARLIER AND WAS PLACED ON FACE MASK.CXR SHOWS WORSENING OF BILATERAL EDEMA/INFILTRATES BUT WITH IMPROVEMENT OF AERATION RIGHT LUNG BASE.OFF ANTIBIOTICS PER DR RIVERA.CM TO FOLLOW. Addendum: 08/19/22 at 1330 by CARLIN CRAIG CM DC PLANNING AUTOMOTIVE DESIGN LAYOUT DRAFTER WAS CALLED .PATIENT WAS REINTUBATED AND TRANSFERRED TO ICU.STARTED ON LEVOPHED AND PROPOFOL.BRONCHOSCOPY DONE AT BEDSIDE.DR. NUNO TO TALK TO MATTHEW AND WILL DISCUSS HOSPICE CARE IN THE FUTURE.I AND D, CARDIO AND PULMO FOLLOWING. CM TO FOLLOW. Addendum: 08/21/22 at 1322 by CARLIN CRAIG CM DC PLANNING PATIENT REMAINS INTUBATED ON 100%FIO2..ON LEVOPHED AND PROPOFOL DRIPS.CXR SHOWS PULM EDEMA ,PNA AND OR ARDS.WBC ELEVATED .RPT BLOOD CULTURE 08/18 NO GROWTH.SPUTUM CULTURE MOD YEAST.08/19 GM STAIN SPUTUM WITH RARE GM (+)COCCI.ON MEROPENEM AND FLUCONAZOLE. ADVISED DR. GAMBLE TO TALK TO SISTER MATTHEW TO GIVE UPDATES.CM TO FOLLOW. Addendum: 08/22/22 at 1436 by CARLIN CRAIG CM DC PLANNING PATIENT STILL INTUBATED .SELF EXTUBATED 08/20 AND REINTUBATED FOR THE 3RD TIME.CPAP TRIALS PER PULMO.ON LEVO AND PROPOFOL DRIPS.CARDIO,.NEPRO ,RENAL,1&D, PULMO FOLLOWING.MIGHT NEED PEG PLACEMENT IF FAILING SWALLOW EVAL PER RENAL.WOUND CARE NURSE TAKING CARE OF SACRAL DECUB ULCER AND BLE PRESSURE SORES. CALLED MATTHEW , PATIENT'S SISTER AND UPDATED OF PATIENT'S CONDITION.CM TO FOLLOW. Addendum: 08/22/22 at 1552 by CARLIN CRAIG CM DC PLANNING -LATE ENTRY [facility] UPDATED OF PATIENT'S CONDITION. Addendum: 08/27/22 at 1239 by CARLIN CRAIG CM DC PLANNING PATIENT REMAINS INTUBATED.FOR TRACHEOSTOMY 08/28/22.STILL ON LEVO AND PROPOFOL DRIPS.WBC DOWN TO 13.0URINE,BLOOD AND SPUTUM CULTURE (-)SPUTUM CULTURE FROM ETT SHOWS MOD YEAST.CXR5/8 SHOWS INTERVAL IMPROVEMENT .ON MEROPENEM.LEFT A MESSAGE TO VIC ,SNF COORDINATOR [facility] FOR SUBACUTE PLACEMENT. CM TO FOLLOW. Addendum: 08/28/22 at 1340 by CARLIN CRAIG CM DC PLANNING TRACHEOSTOMY AND PEG PLACEMENT DONE TODAY.SNF PLACEMENT REQUEST INITIATED .SO FAR NO BED AVAILABILITY YET AT [facility].CM TO FOLLOW. Addendum: 08/28/22 at 1349 by CARLIN CRAIG CM LATE ENTRY BACK TO VENT 35% FIO2.LEVOPHED TITRATED DOWN.STILL ON PROPOFOL DRIP.ALL CONSULTS ON BOARD AND FOLLOWING.CM TO FOLLOW. Addendum: 08/29/22 at 1133 by SUELLEN MONTERO CM RECEIVED ORDER THAT PATIENT NEED SUBACUTE FAXED ALL PAPERWORK TO [facility] [place]. REACHED OUT TO VIC AT [facility] WHO SAID SHE DIDN'T HAVE A SUBACUTE BED YET. WILL FOLLOW UP WITH MORE INFORMATION. Addendum: 08/29/22 at 1431 by SUELLEN MONTERO CM PATIENT WAS ACCEPTED TO GO SUBACUTE AT [facility] [place]. PATIENT WILL BE GOING TO ROOM 217B UNDER DR CARDOSO. AUTH WILL BE FAXED OVER TO [facility]. TRANSPORTATION WAS ARRANGED WITH MARIO AT [facility] FOR A WALLET ASSEMBLER TIME. ICU CHARGE AND PATIENT NURSE AWARE OF THE ABOVE INFORMATION. KEVAN GILLIS WILL BE CALLING SISTER TO INFORM HER OF THE ABOVE INFORMATION. Addendum: 08/29/22 at 1533 by CARLIN CRAIG CM DC PLANNING SISTER MATTHEW UPDATED OF PATIENT'S TRANSFER TO [facility] WALLET ASSEMBLER ARRANGED BY DC CELL ATTENDANT HELPER SUELLEN MONTERO.S/P TRACHESTOMY AND PEG PLACEMENT DONE 08/28/22.
--- NOTE | 2022-07-09 16:33 | NUR ---
STARTED TUBE FEEDING PER MD ORDER.
[2022-07-09] MEDS: INSULIN LISPRO SLIDING SCALE 100 UNITS/ML VIAL SUBQ PRN (17:39)
[2022-07-09] MEDS: MAG SULF 2000 MG/WATER PREMIX 50 ML IV PRN (18:20)
--- NOTE | 2022-07-09 19:04 | NUR ---
ENDORSED BEDSIDE REPORT TO TEXTILE DESIGNER RN BAUDILIO FOR CONTINUITY OF CARE
[2022-07-09] MEDS: VANCOMYCIN 1,000 MG in DEXTROSE 5% 250 ML IV SCH (20:43)
[2022-07-10] VITALS (27 sets, daily range): BP systolic 94–128; BP diastolic 62–83
[2022-07-10] MEDS: SODIUM BICARBONATE 8.4% 50 MEQ in DEXT 5% / NACL 0.45% 1,000 ML IV SCH ×3 (03:30→16:33)
[2022-07-10] MEDS: methylPREDNISolone SS 125 MG/2 ML VIAL IVP SCH ×3 (05:10→20:48)
[2022-07-10] MEDS: PROPOFOL 1000 MG/100 ML PREMIX 100 ML IV PRN ×3 (05:10→21:14)
[2022-07-10] MEDS: PIPERACILLIN/TAZOBACTAM 2.25 GM in DEXTROSE 5% 50 ML IV SCH ×3 (05:11→20:28)
[2022-07-10] MEDS: BLOOD GLUCOSE MONITORING 1 DEV DEV FS SCH ×2 (05:35→16:35)
[2022-07-10] MEDS: INSULIN LISPRO SLIDING SCALE 100 UNITS/ML VIAL SUBQ PRN ×2 (05:37)
[2022-07-10] MEDS: levETIRAcetam 500 MG in NACL 0.9% 100 ML IV SCH (05:40)
[2022-07-10] MEDS: LEVOTHYROXINE 0.025 MG TAB PO SCH (05:41)
[2022-07-10 06:20] LABS: BASOPHILS # (AUTO) 0.1 K/uL (0.00-0.22); BASOPHILS % (AUTO) 0.3 % (0.0-2.0); HEMATOCRIT 27.6 % (36-52); HEMOGLOBIN 8.9 g/dL (12.0-18.0); LYMPHOCYTES # (AUTO) 0.8 K/uL (2.0-11.5); LYMPHOCYTES % (AUTO) 2.8 % (20.5-51.1); MEAN CORPUSCULAR HEMOGLOBIN 27 pg (27-31); MEAN CORPUSCULAR HGB CONC 32 g/dL (33-37); MEAN CORPUSCULAR VOLUME 83.3 fL (80-94); MONOCYTES # (AUTO) 0.5 K/uL (0.8-1.0); MONOCYTES % (AUTO) 1.9 % (1.7-9.3); NEUTROPHILS # (AUTO) 26.1 K/uL (1.8-7.7); PLATELET COUNT (AUTO) 88 K/uL (140-450); RED BLOOD CELL COUNT(AUTO) 3.31 MIL/uL (4.20-6.10); RED CELL DISTRIBUTION WIDTH 16.2 % (11.6-13.7)
[2022-07-10 06:22] LABS: WHITE BLOOD COUNT (AUTO) 27.4 K/uL (4.8-10.8)
[2022-07-10 06:49] LABS: ANION GAP 19.1 (8-16); CARBON DIOXIDE 15.5 mmol/L (21-32); CREATININE 2.7 mg/dL (0.6-1.3); POTASSIUM 4.6 mmol/L (3.5-5.1)
[2022-07-10] MEDS: DOPamine 400 MG/D5W PREMIX 250 ML IV PRN (08:14)
[2022-07-10] MEDS: PANTOPRAZOLE 40 MG INJ VIAL IVP SCH (08:47)
--- NOTE | 2022-07-10 12:19 | NUR ---
DR ALLEN HERE STATED TO DECREASE PROPOFOL TO WEAN PT OFF VENTILATOR
--- NOTE | 2022-07-10 17:15 | NUR ---
07/10/22 RD FOLLOW UP COMPLETED PLEASE REFER TO NUTRITION ASSESSMENT UNDER CARE ACTIVITY FOR ESTIMATED NUTRITIONAL NEEDS. 1. RECOMMEND ELEN BID FOR WOUND/PRESSURE ULCER SUPPORT -PROVIDES 160 KCAL AND 5 GM PROTEIN DAILY 2. WHEN/IF MEDICALLY APPROPRIATE, RECOMMEND INCREASING VITAL AF 1.2 TO GOAL RATE 55 ML/HR, FWF 100 ML Q4H OR PER MD, WITH ELEN BID FOR WOUND/PRESSURE ULCER SUPPORT TOLERATED. - WITH PROPOFOL AT CURRENT RATE AND ELEN BID, PROVIDES 1320 ML TOTAL VOLUME, 2203 KCAL, 104 GM PROTEIN AND 1670 ML FREE WATER DAILY MEETING 100% ESTIMATED KCAL AND PROTEIN NEEDS; ADEQUATE - INCREASE TF BY 1O ML/HR Q4H UNTIL GOAL IS REACHED TOLERATED 3. MONITOR GI SYMPTOMS, GASTRIC RESIDUALS AND NUTRITION RELATED LAB VALUES 4. CONSULT RD PRN 5. RD TO FOLLOW-UP 2-3 DAYS, HIGH RISK REVIEWED BY CALVIN MATHEWS RD
--- NOTE | 2022-07-10 20:00 | NUR ---
RECEIVED PT ON BED ORALLY INTUBATED,SEDATED, ON NGT FEEDING OF VITAL AT 30 ML/HR. ASSESSMENT DONE. REPOSITIONED TO SIDE, SUPPORTED WITH PILLOWS. HOB UP, ASPIRATION AND SAFETY PRECAUTIONS OBSERVED. KEPT CLEAN AND DRY. AFEBRILE. SR/SB. CONT TO MONITOR.
--- NOTE | 2022-07-10 21:45 | NUR ---
RECEIVED A CALL FROM PT'S DAUGHTER JACKELINE, UPDATED ON PT CONDITION.
[2022-07-11] VITALS (26 sets, daily range): BP systolic 100–168; BP diastolic 64–117
--- NOTE | 2022-07-11 00:45 | NUR ---
MESSAGED DR. CARDOSO REGARDING BLOOD SUGAR 555, RECHECKED ON THE OTHER HAND, 575. AWAITING FOR A RETURN CALL.
[2022-07-11] MEDS: levETIRAcetam 500 MG in NACL 0.9% 100 ML IV SCH ×2 (00:56→06:24)
[2022-07-11] MEDS ORDERED: INSULIN LISPRO 100 UNITS/ML VIAL SUBQ SCH (01:15)
--- NOTE | 2022-07-11 01:15 | NUR ---
CALLED AND SPOKE WITH DR. CARDOSO, REPORTED ELEVATED BLOOD SUGAR, NEW ORDER GIVEN, NOTED AND CARRIED OUT.
[2022-07-11] MEDS: PROPOFOL 1000 MG/100 ML PREMIX 100 ML IV PRN ×3 (02:23→20:28)
[2022-07-11] MEDS: PIPERACILLIN/TAZOBACTAM 2.25 GM in DEXTROSE 5% 50 ML IV SCH ×3 (05:10→21:30)
[2022-07-11] MEDS: methylPREDNISolone SS 125 MG/2 ML VIAL IVP SCH ×3 (05:45→21:30)
[2022-07-11] MEDS: LEVOTHYROXINE 0.025 MG TAB PO SCH (06:05)
[2022-07-11 06:11] LABS: HEMATOCRIT 27.7 % (36-52); HEMOGLOBIN 8.9 g/dL (12.0-18.0); MEAN CORPUSCULAR HEMOGLOBIN 27 pg (27-31); MEAN CORPUSCULAR HGB CONC 32 g/dL (33-37); MEAN CORPUSCULAR VOLUME 83.4 fL (80-94); PLATELET COUNT (AUTO) 89 K/uL (140-450); RED BLOOD CELL COUNT(AUTO) 3.32 MIL/uL (4.20-6.10); RED CELL DISTRIBUTION WIDTH 16.2 % (11.6-13.7)
[2022-07-11 06:22] LABS: WHITE BLOOD COUNT (AUTO) 25.3 K/uL (4.8-10.8)
--- NOTE | 2022-07-11 06:30 | NUR ---
RECEIVED CRITICAL LAB RESULT GLUCOSE OF 662. CALLED AND LEFT MESSAGE FOR DR. CARDOSO REGARDING BS 662. AWAITING FOR A RETURN CALL.
[2022-07-11 06:32] LABS: ANION GAP 17.1 (8-16); BASOPHILS % (MANUAL) 0 % (0-2); CARBON DIOXIDE 18.3 mmol/L (21-32); CREATININE 2.6 mg/dL (0.6-1.3); EOSINOPHILS % (MANUAL) 0 % (0-4); LYMPHOCYTES % (MANUAL) 4 % (20-46); MONOCYTES % (MANUAL) 4 % (5-12); POTASSIUM 4.4 mmol/L (3.5-5.1)
[2022-07-11] MEDS: DOPamine 400 MG/D5W PREMIX 250 ML IV PRN (06:32)
[2022-07-11] MEDS: SODIUM BICARBONATE 8.4% 50 MEQ in DEXT 5% / NACL 0.45% 1,000 ML IV SCH (06:45)
--- NOTE | 2022-07-11 07:20 | NUR ---
SBAR REPORT GIVEN TO INCOMING AM NURSES ANGELA AND WILLARD. NO RETURN CALL FROM MD AT THIS TIME. GEN CONDITION CRITICAL.
--- NOTE | 2022-07-11 07:40 | NUR ---
RECEIVED PT ON ACVC TV500,F16,+5,24%. VENT WHEELS ARE LOCKED, PLUGGED INTO RED OUTLET, AMBUBAG AT BEDSIDE, ALARMS ARE SET AND AUDIBLE. WILL CONTINUE TO MONITOR
[2022-07-11] MEDS: PANTOPRAZOLE 40 MG INJ VIAL IVP SCH (08:25)
[2022-07-11] MEDS ORDERED: NIFEdipine 30 MG TABER PO SCH (10:10)
[2022-07-11] MEDS: INSULIN LANTUS 100 UNITS/ML 10 ML VIAL SUBQ SCH (10:10)
[2022-07-11] MEDS ORDERED: NIFEdipine 10 MG CAPLF PO SCH (11:30)
[2022-07-11] MEDS: ALBUTEROL SULFATE/IPRATROPIU 3 ML SOL IH SCH ×2 (12:08→19:12)
[2022-07-11] MEDS: BLOOD GLUCOSE MONITORING 1 DEV DEV FS SCH ×2 (12:08→18:15)
[2022-07-11] MEDS: ACETYLCYSTEINE 20% (200 MG/ML) 200 MG/ML VIAL INH SCH ×2 (12:09→19:12)
[2022-07-11] MEDS: INSULIN LISPRO SLIDING SCALE 100 UNITS/ML VIAL SUBQ PRN ×2 (12:10→18:17)
[2022-07-11] MEDS: fentaNYL citrate 1 MG in NACL 0.9% 80 ML IV PRN (12:13)
--- NOTE | 2022-07-11 19:40 | NUR ---
@1920 Received report at the bedside from Nancy SEO met pt sedated on Propofol and fentanyl drips unable to follow command moves all extremities. ETT to ventilator Fio2 32% tolerating well coarse lungs sound O2 sat 96% oral care and suctioned via ETT tolerated with mild discomfort . Close monitoring at the bedside for safety and restraints applied soft wrists as pt pulling on the ETT. Rodriguez to gravity with adequate urine output IV hydration and tube feeding ongoing tolerating well. Education on care plan but unable to comprehending teaching as at this time. Will continue to monitor and treat as per care plan
[2022-07-12] VITALS (30 sets, daily range): BP systolic 93–168; BP diastolic 56–121
[2022-07-12] MEDS: ALBUTEROL SULFATE/IPRATROPIU 3 ML SOL IH SCH ×4 (01:15→19:02)
[2022-07-12] MEDS: ACETYLCYSTEINE 20% (200 MG/ML) 200 MG/ML VIAL INH SCH ×4 (01:15→19:02)
[2022-07-12] MEDS: DOPamine 400 MG/D5W PREMIX 250 ML IV PRN ×3 (01:37→21:42)
[2022-07-12] MEDS: INSULIN LISPRO SLIDING SCALE 100 UNITS/ML VIAL SUBQ PRN ×4 (01:38→18:00)
[2022-07-12] MEDS: PROPOFOL 1000 MG/100 ML PREMIX 100 ML IV PRN ×5 (01:49→21:32)
[2022-07-12] MEDS: fentaNYL citrate 1 MG in NACL 0.9% 80 ML IV PRN ×2 (04:00→17:50)
[2022-07-12 06:07] LABS: BASOPHILS % (AUTO) 0.1 % (0.0-2.0); EOSINOPHILS % (AUTO) 0.1 % (0.0-4.0); HEMATOCRIT 27.2 % (36-52); HEMOGLOBIN 8.7 g/dL (12.0-18.0); LYMPHOCYTES # (AUTO) 0.7 K/uL (2.0-11.5); LYMPHOCYTES % (AUTO) 2.5 % (20.5-51.1); MEAN CORPUSCULAR HEMOGLOBIN 26 pg (27-31); MEAN CORPUSCULAR HGB CONC 32 g/dL (33-37); MEAN CORPUSCULAR VOLUME 81.9 fL (80-94); MONOCYTES % (AUTO) 3.5 % (1.7-9.3); NEUTROPHILS # (AUTO) 26.9 K/uL (1.8-7.7); NEUTROPHILS % (AUTO) 93.8 % (42.2-75.2); PLATELET COUNT (AUTO) 118 K/uL (140-450); RED BLOOD CELL COUNT(AUTO) 3.32 MIL/uL (4.20-6.10); RED CELL DISTRIBUTION WIDTH 16.4 % (11.6-13.7)
[2022-07-12 06:13] LABS: WHITE BLOOD COUNT (AUTO) 28.7 K/uL (4.8-10.8)
[2022-07-12] MEDS: levETIRAcetam 500 MG in NACL 0.9% 100 ML IV SCH ×2 (06:13→17:47)
[2022-07-12] MEDS: PIPERACILLIN/TAZOBACTAM 2.25 GM in DEXTROSE 5% 50 ML IV SCH ×3 (06:14→21:42)
[2022-07-12] MEDS: methylPREDNISolone SS 125 MG/2 ML VIAL IVP SCH ×3 (06:14→21:43)
[2022-07-12] MEDS: BLOOD GLUCOSE MONITORING 1 DEV DEV FS SCH ×4 (06:14→17:57)
[2022-07-12] MEDS: LEVOTHYROXINE 0.025 MG TAB PO SCH (06:16)
[2022-07-12 06:32] LABS: ANION GAP 14.5 (8-16); CARBON DIOXIDE 22.7 mmol/L (21-32); CREATININE 2.3 mg/dL (0.6-1.3); POTASSIUM 4.2 mmol/L (3.5-5.1)
--- NOTE | 2022-07-12 07:20 | NUR ---
RECEIVED REPORT FROM NATALIE SEO. PATIENT RESTING IN BED WITH EYES CLOSED. RESPONDS TO LIGHT PAIN, PERRL 3MM. MOVES BUE/BLE EXTREMITIES AT BASELINE; GENERALIZED WEAKNESS NOTED. NO SEIZURE ACTIVITY NOTED. S1 AND S2 AUSCULTATED, PULSES +2 BUE/ +1 BLE. CAPILLARY REFILL <3. SR ON MONITOR. IJ TO THE RIGHT NECK X3 LUMENS, INFUSING WITHOUT ISSUE, SITE APPEARS WNL. 20 G TO RIGHT UPPER ARM, FLUSHES WITHOUT ISSUE, SITE APPEARS WNL. +1 NON PITTING EDEMA TO BLE. ETT TO VENT AC VC 32, 500, 16, 5 SATURATING AT 96%. LUNG SOUNDS NOTED WITH COARSE CRACKLES TO ALL LINARES. PT SUCTIONED AND THICK ALLISON COLORED SPUTUM NOTED. BOWEL SOUNDS ACTIVE X4 QUADRANTS. VITAL AF RUNNING WITHOUT ISSUE AT 30ML/HR. MINIMAL RESIDUAL AT THIS TIME. F/C IN PLACE DRAINING LIGHT CARLOS COLORED URINE TO GRAVITY. SKIN IS DRY AND WARM. ARAVIND HUGGER IN PLACE AT 43 DEGREES C. WOUND NOTED TO LLE COVERED WITH DRESSING, DRESSING CDI. WOULD TO PLANTAR SURFACE OF FOOT NOTED. BILATERAL WRIST RESTRAINTS NOTED, NO SIGN OF INJURY. WILL CONTINUE TO MONITOR.
--- NOTE | 2022-07-12 07:25 | NUR ---
RECEIVED PATIENT FROM BRODY SEO. PATIENT RESTING IN BED WITH EYES CLOSED. PATIENT VS STABLE AT THIS TIME. SR ON MONITOR TUBE FEEDING STOPPED DT CLOG. TUBING CHANGED AND TUBE FEEDING RESUMED. TRACH IN PLACE TO VENT SETTINGS AC VC 24, 500, 14, 5. WOUNDS TO RIGHT POSTERIOR LOWER EXTREMITY, ABD AROUND GTUBE SITE AND SACROCOCCYX. F/C IN PLACE DRAINING CLEAR YELLOW URINE. 18 G TO RIGHT FA AND L FA. NS AT 3 ML/HR INFUSING THROUGH L FE IV. RIGHT FA IV FLUSHES WITHOUT S/S OF INFILTRATION OR PHLEBITIS. WILL CONTINUE TO MONITOR. Addendum: 07/12/22 at 1629 by SHAYNE RINCON RN DISREGARD THIS ENTERY, WRONG PATIENT.
[2022-07-12] MEDS: PANTOPRAZOLE 40 MG INJ VIAL IVP SCH (08:57)
[2022-07-12] MEDS: INSULIN LANTUS 100 UNITS/ML 10 ML VIAL SUBQ SCH (09:00)
[2022-07-12] MEDS ORDERED: NIFEdipine 10 MG CAPLF PO SCH ×2 (09:00)
[2022-07-12] MEDS ORDERED: VANCOMYCIN 1,000 MG in DEXTROSE 5% 250 ML IV SCH (10:00)
--- NOTE | 2022-07-12 10:05 | NUR ---
HERE TO SEE PATIENT. PER DR. GAMBLE OKAY TO START TITRATING DOPAMINE DOWN.
--- NOTE | 2022-07-12 12:00 | NUR ---
WOUND CARE EVALUATION NOTES: REASON FOR EVALUATION: BLE ULCERS WOUND ASSESSMENT COMPLETED ON THIS 56 Y/O MALE ADMITTED TO ICU UNIT FOR SEPSIS. PAST MEDICAL HISTORY INCLUDES UNCONTROLLED DIABETES, CHRONIC WOUND TO LEFT LEG, POLYSUBSTANCE ABUSE, ETOH ABUSE. ALL ABOVE INFORMATION WAS OBTAINED FROM THE ADMISSION H&P. PATIENT IS INTUBATED. SKIN IS WARM TO TOUCH. ORAL MUCOSAL MEMBRANES DRY. REQUIRES ASSISTANCE WITH TURNING. PLAN OF CARE AND PRESSURE PREVENTATIVE MEASURES DISCUSSED WITH PATIENT AND PRIMARY RN. PATIENT UNABLE TO COMPREHEND, INTUBATED. PATIENT ADMITTED WITH BLE ULCERS COMORBIDITIES RELATED TO FURTHER SKIN BREAKDOWN SUCH IMPAIRED MOBILITY AND S/S OF DEHYDRATION. INTEGUMENTARY: - LEFT ANTERIOR FIBULA STASIS ULCER 12 X 7 X 0.2 CM. WOUND BED PINK, DRY, NO DRAINAGE, NO ODOR. WOUND EDGES IRREGULAR SHAPE. PERIWOUND DRY, INTACT. - LEFT LOWER EXTREMITY LATERAL MALLEOLUS STASIS ULCER 3 X 1.8 X 0.5 CM. WOUND BED PINK, DRY, NO DRAINAGE, NO ODOR. WOUND EDGES IRREGULAR SHAPE. PERIWOUND DRY, INTACT. - LEFT POSTERIOR LEG CALF STASIS ULCER. WOUND BED PINK, DRY, NO DRAINAGE, NO ODOR. WOUND EDGES IRREGULAR SHAPE. PERIWOUND DRY, INTACT. - LEFT PLANTAR FOOT UNSTAGEABLE WOUND 3 X 3 X 0 CM. WOUND BED DRY, ROUGH, NO DRAINAGE, NO ODOR. WOUND EDGES IRREGULAR SHAPE. PERIWOUND, DRY, INTACT. - RIGHT POSTERIOR LATERAL STASIS ULCER 3 X 2.5 X 0.1 CM. WOUND BED YELLOW, NO DISCHARGE, NO ODOR. WOUND EDGES IRREGULAR. PERIWOUND DRY, INTACT. RECOMMENDATIONS: - LEFT ANTERIOR FIBULA STASIS ULCER: CLEANSE WITH NS, PAT DRY, APPLY HYDROGEL, COVER WITH DRY GAUZE, AND SECURE WITH KERLIX ROLL DAILY AND PRN IF SOILED. - LEFT LOWER EXTREMITY LATERAL MALLEOLUS STASIS ULCER:CLEANSE WITH NS, PAT DRY, APPLY HYDROGEL, COVER WITH DRY GAUZE, AND SECURE WITH KERLIX ROLL DAILY AND PRN IF SOILED. - LEFT POSTERIOR LEG CALF STASIS ULCER:CLEANSE WITH NS, PAT DRY, APPLY HYDROGEL, COVER WITH DRY GAUZE, AND SECURE WITH KERLIX ROLL DAILY AND PRN IF SOILED. - LEFT PLANTAR FOOT UNSTAGEABLE WOUND: CLEANSE WITH NS, PAT DRY, APPLY BETADINE TO WOUND BED AND SURROUNDINGS, AND LEAVE SPOOLING OPERATOR DAILY AND PRN IF SOILED. - RIGHT POSTERIOR LATERAL STASIS ULCER: CLEANSE WITH NS, PAT DRY, APPLY HYDROGEL, COVER WITH DRY DRESSING, AND SECURE WITH KERLIX ROLL DAILY AND PRN IF SOILED. - APPLY HYDRAGUARD CREAM THROUGHOUT DRY SKIN ON BILATERAL FOOT AND LOWER EXTREMITIES DAILY. - OFFLOAD BILATERAL HEELS BY PLACING BILATERAL HEEL PROTECTORS. - TURN AND REPOSITION PATIENT Q2H TO LEFT AND RIGHT SIDE TO OFFLOAD SACRALCOCCYX. - ASSESS AND MONITOR SKIN CONDITION DURING POSITION CHANGE. PLEASE PAY ATTENTION TO SACRALCOCCYX AND HEELS. - KEEP SKIN DRY AND CLEAN AT ALL TIMES. - RD CONSULT RECOMMENDATIONS DISCUSSED WITH PRIMARY RN. WILL FOLLOW-UP PATIENT Q7-10 DAYS AND PRN. PLEASE CONTACT WOUND CARE NURSE FOR ANY CONCERNS AND CHANGES IN WOUND CONDITION.
--- NOTE | 2022-07-12 13:03 | NUR ---
DR. SIMMS HERE TO SEE PATIENT. DR. GODDARD MADE AWARE THAT PAT DID NOT TOLERATE DECREASE OF DOPAMINE BY 5MCG. PER OKAY TO TITRATED BY LESS THAN 5MCG. NEW ORDER FOR CXR GIVEN. ORDER NOTED AND CARRIED OUT.
--- NOTE | 2022-07-12 13:10 | NUR ---
PATIENT'S DAUGHTER MIRANDA CALLING FOR UPDATE. ALL QUESTIONS ANSWERED AT THIS TIME.
--- NOTE | 2022-07-12 14:00 | NUR ---
PER CXR TODAY OGT HAS CORRECT PLACEMENT.
--- NOTE | 2022-07-12 19:05 | NUR ---
SPOKE WITH ALYSSA PATIENT'S CONTACT. GAVE AN UPDATE, ALL QUESTIONS ANSWERED.
--- NOTE | 2022-07-12 19:39 | NUR ---
BEDSIDE REPORT GIVEN TO KERRI RN AND BRODY RN. PATIENT STABLE AT THIS TIME.
--- NOTE | 2022-07-12 20:45 | NUR ---
Assumed pt care report received from Keron RN at the bedside, sedated ongoing Propofol and Fentanyl drip tolerating well occasional restlessness, unable to follow verbal command, moves all extremities, soft wrist restraints on upper extremities for safety skin checked, still on Dopamine drip for Heart rate and bloo pressure tx vitals signs stable ETT to ventialtor A/C v/c rate 16 fio2 28% TV 500 peep 5 O2 sat 98% oral care done and pt repositioned for comfort, oral care done and airway clearance. Mary Ellen care and milan to gravity with adequate urine output and pt repositioned for comfort.
--- NOTE | 2022-07-12 21:30 | NUR ---
Family updates Pt's daughter visiting at the bedside updates given on pt's condition ongoing tx, vitals signs, vent settings, pt's response to care, education on care plan and she verbalized understanding also encouraged her to verbalize her concerns she is grateful for the care pt is receiving at this hospital.
[2022-07-13] VITALS (26 sets, daily range): BP systolic 96–155; BP diastolic 57–90
[2022-07-13] MEDS: ALBUTEROL SULFATE/IPRATROPIU 3 ML SOL IH SCH ×4 (00:21→19:41)
[2022-07-13] MEDS: ACETYLCYSTEINE 20% (200 MG/ML) 200 MG/ML VIAL INH SCH ×3 (00:21→19:39)
[2022-07-13] MEDS: PROPOFOL 1000 MG/100 ML PREMIX 100 ML IV PRN ×6 (00:51→23:32)
[2022-07-13] MEDS: BLOOD GLUCOSE MONITORING 1 DEV DEV FS SCH ×4 (00:54→18:24)
[2022-07-13] MEDS: INSULIN LISPRO SLIDING SCALE 100 UNITS/ML VIAL SUBQ PRN ×4 (00:58→18:28)
[2022-07-13] MEDS: SKINTEGRITY HYDROGEL TP SCH ×2 (01:00→12:18)
[2022-07-13] MEDS: HYDRAGUARD CREAM TP SCH ×2 (01:13→12:17)
[2022-07-13] MEDS: PIPERACILLIN/TAZOBACTAM 2.25 GM in DEXTROSE 5% 50 ML IV SCH ×3 (05:18→22:32)
[2022-07-13] MEDS: methylPREDNISolone SS 125 MG/2 ML VIAL IVP SCH ×2 (05:19→12:17)
[2022-07-13] MEDS ORDERED: GENTAMICIN 80 MG/2 ML VIAL ONE (05:28)
[2022-07-13] MEDS: levETIRAcetam 500 MG in NACL 0.9% 100 ML IV SCH ×2 (05:41→18:02)
[2022-07-13] MEDS: LEVOTHYROXINE 0.025 MG TAB PO SCH (05:41)
[2022-07-13 06:20] LABS: HEMATOCRIT 27.1 % (36-52); HEMOGLOBIN 8.7 g/dL (12.0-18.0); MEAN CORPUSCULAR HEMOGLOBIN 26 pg (27-31); MEAN CORPUSCULAR HGB CONC 32 g/dL (33-37); MEAN CORPUSCULAR VOLUME 82.1 fL (80-94); PLATELET COUNT (AUTO) 103 K/uL (140-450); RED CELL DISTRIBUTION WIDTH 16.9 % (11.6-13.7)
[2022-07-13 06:23] LABS: WHITE BLOOD COUNT (AUTO) 29.3 K/uL (4.8-10.8)
[2022-07-13 06:57] LABS: BASOPHILS % (MANUAL) 0 % (0-2); EOSINOPHILS % (MANUAL) 0 % (0-4); LYMPHOCYTES % (MANUAL) 14 % (20-46); MONOCYTES % (MANUAL) 5 % (5-12)
--- NOTE | 2022-07-13 07:10 | NUR ---
End of shift report given to Yasemin SEO at the bedside as at this time all vitals signs stable pt in no distress no changes in care plan and pt's condition.
[2022-07-13 07:14] LABS: ANION GAP 14.8 (8-16); CARBON DIOXIDE 23.8 mmol/L (21-32); POTASSIUM 4.6 mmol/L (3.5-5.1)
[2022-07-13 07:15] LABS: CREATININE 2.1 mg/dL (0.6-1.3)
[2022-07-13] MEDS: fentaNYL citrate 1 MG in NACL 0.9% 80 ML IV PRN ×2 (07:24→20:00)
--- NOTE | 2022-07-13 07:53 | NUR ---
BEDSIDE REPORT RECEIVED FROM NATALIE SEO. PATIENT IS BRADYCARDIC AT 59 BPM ON MONITOR, MAP 99. SB ON MONITOR. Sa02 96%. ETT 28, 500, 16, 5. IJ TO RIGHT NECK INFUSING FENTANYL AT 80MCG/HR, DOPAMINE 5 MCG/KG/MIN, PROPOFOL 50 MCG/KG/MIN AND NS AT 5ML/HR. DRESSING IS CDI. PT IS RECEIVING CONTINUOUS OGTUBE FEEDING AT 30ML/HR. CLEARY CATHETER DRAINING URINE TO GRAVITY.
[2022-07-13] MEDS: PANTOPRAZOLE 40 MG INJ VIAL IVP SCH (08:05)
[2022-07-13] MEDS: INSULIN LANTUS 100 UNITS/ML 10 ML VIAL SUBQ SCH (08:10)
--- NOTE | 2022-07-13 11:03 | NUR ---
DR. GAMBLE HERE TO SEE PATIENT. PER DOCTOR PULMONARY TO INITIATE WEANING OFF VENTILATOR. NOTIFIED DOCTOR OF BLOOD GLUCOSE TRENDS. PER DOCTOR NO NEED TO INCREASE LANTUS AT THIS TIME.
[2022-07-13] MEDS: DOPamine 400 MG/D5W PREMIX 250 ML IV PRN (11:08)
[2022-07-13] MEDS ORDERED: INSULIN LANTUS 100 UNITS/ML 10 ML VIAL SUBQ SCH ×2 (14:00→14:20)
--- NOTE | 2022-07-13 14:02 | NUR ---
07/13/22 RD FOLLOW UP COMPLETED. PLEASE REFER TO NUTRITION ASSESSMENT UNDER CARE ACTIVITY FOR ESTIMATED NUTRITIONAL NEEDS. 1. RECOMMEND INCREASING VITAL AF 1.2 TO GOAL RATE OF 50 ML/HR, FWF 200 ML Q6H OR PER MD, - CONTINUE WITH ELEN BID (PROVIDES 160 KCAL AND 5 GM PROTEIN DAILY) FOR WOUND/PRESSURE ULCER SUPPORT TOLERATED. - INCREASE TF BY 1O ML/HR Q4H UNTIL GOAL IS REACHED TOLERATED - WITH PROPOFOL AT 21.4 ML/HR AND ELEN BID, PROVIDES 1200 ML VOLUME, 2164 KCAL, 95 GM PROTEIN AND 1773 ML FREE WATER DAILY MEETING 100% ESTIMATED KCAL AND PROTEIN NEEDS; ADEQUATE 2. MONITOR GASTRIC RESIDUALS AND NUTRITION RELATED LAB VALUES 3. RD TO FOLLOW-UP IN 2-3 DAYS PATIENT IS HIGH RISK. TARYN MARTIN RD
--- NOTE | 2022-07-13 14:03 | NUR ---
DR. GAMBLE NOTIFIED OF TARYN ANTON RECOMMENDATIONS FOR TUBE FEEDING; VITAL AF 1.2 MARCELA TO GOAL RATE 50ML/HR, WITH FWF 200ML Q 6HR. DOCTOR NOTIFIED OF BG OF 223 THIS AFTERNOON AFTER LANTUS THIS MORNING. PER DR. GAMBLE INCREASE LANTUS TO 15 UNITS Q DAILY, GIVEN LANTUS 5 UNITS X1 NOW. ORDERS NOTED AND CARRIED OUT. Addendum: 07/13/22 at 1408 by SHAYNE RINCON RN RESIDUAL IS 40 ML AT THIS TIME. ELEN GIVEN. TOLERATING WELL.
--- NOTE | 2022-07-13 19:25 | NUR ---
REPORT GIVEN TO NATALIE SEO AT BEDSIDE. PATIENT STABLE AT THIS TIME.
--- NOTE | 2022-07-13 19:35 | NUR ---
Bedside report received from Yasemin SEO, met pt sedated on Propofol and Fenatnyl GTT.Intubated ETT to ventilator FIO2 28% oral care done tolerating well unable to follow verbal command, restlessness on reposition and during oral care, moves all extremities, bilateral wrist restraints for safety, close monitoring for pt's comfort, OGT placement checked and verified by auscultation residual less than 10cc, and adjusted as per new orders, milan to gravity yellow urine, pt repositioned for comfort will continue to monitor and treat as per care plan.
[2022-07-13] MEDS: methylPREDNISolone SS 40 MG/ML VIAL IVP SCH (22:31)
--- NOTE | 2022-07-13 23:30 | NUR ---
Updates Dr Beck and Dr Goldberg about pt's condition no new order received as at this time.
[2022-07-14] VITALS (28 sets, daily range): BP systolic 109–173; BP diastolic 41–100
[2022-07-14] MEDS: SKINTEGRITY HYDROGEL TP SCH ×2 (01:00→13:00)
[2022-07-14] MEDS: ACETYLCYSTEINE 20% (200 MG/ML) 200 MG/ML VIAL INH SCH ×3 (01:11→13:54)
[2022-07-14] MEDS: ALBUTEROL SULFATE/IPRATROPIU 3 ML SOL IH SCH ×4 (01:37→19:47)
[2022-07-14] MEDS: HYDRAGUARD CREAM TP SCH ×2 (02:53→13:00)
[2022-07-14] MEDS: PROPOFOL 1000 MG/100 ML PREMIX 100 ML IV PRN ×6 (02:58→22:58)
[2022-07-14] MEDS: DOPamine 400 MG/D5W PREMIX 250 ML IV PRN (03:00)
[2022-07-14 04:22] LABS: ANION GAP 10.5 (8-16); CARBON DIOXIDE 25.1 mmol/L (21-32); CREATININE 2.1 mg/dL (0.6-1.3); POTASSIUM 4.6 mmol/L (3.5-5.1)
[2022-07-14 04:38] LABS: BASOPHILS % (AUTO) 0.1 % (0.0-2.0); EOSINOPHILS # (AUTO) 0.2 K/uL (0-0.4); EOSINOPHILS % (AUTO) 0.6 % (0.0-4.0); HEMATOCRIT 26.5 % (36-52); HEMOGLOBIN 8.3 g/dL (12.0-18.0); LYMPHOCYTES # (AUTO) 2.5 K/uL (2.0-11.5); LYMPHOCYTES % (AUTO) 7.9 % (20.5-51.1); MEAN CORPUSCULAR HEMOGLOBIN 26 pg (27-31); MEAN CORPUSCULAR HGB CONC 31 g/dL (33-37); MEAN CORPUSCULAR VOLUME 83.9 fL (80-94); MONOCYTES # (AUTO) 1.2 K/uL (0.8-1.0); MONOCYTES % (AUTO) 3.9 % (1.7-9.3); NEUTROPHILS # (AUTO) 27.9 K/uL (1.8-7.7); NEUTROPHILS % (AUTO) 87.5 % (42.2-75.2); PLATELET COUNT (AUTO) 98 K/uL (140-450); RED BLOOD CELL COUNT(AUTO) 3.16 MIL/uL (4.20-6.10); RED CELL DISTRIBUTION WIDTH 16.7 % (11.6-13.7)
[2022-07-14 04:39] LABS: WHITE BLOOD COUNT (AUTO) 31.8 K/uL (4.8-10.8)
[2022-07-14] MEDS: PIPERACILLIN/TAZOBACTAM 2.25 GM in DEXTROSE 5% 50 ML IV SCH ×3 (06:10→21:10)
[2022-07-14] MEDS: levETIRAcetam 500 MG in NACL 0.9% 100 ML IV SCH ×2 (06:11→18:16)
[2022-07-14] MEDS: BLOOD GLUCOSE MONITORING 1 DEV DEV FS SCH ×4 (06:22→18:16)
[2022-07-14] MEDS: INSULIN LISPRO SLIDING SCALE 100 UNITS/ML VIAL SUBQ PRN ×3 (06:29→18:13)
[2022-07-14] MEDS: LEVOTHYROXINE 0.025 MG TAB PO SCH (06:37)
--- NOTE | 2022-07-14 07:00 | NUR ---
DURING ROUTINE VENTILATOR CHECK, PT FOUND AWAKE AND IRRITABLE WITH LEFT SIDE RESTRAINT UNATTACHED. PT PLACED BACK ON RESTRAINT. RN NOTIFIED OF PT CONDITION AND SUGGESTED PT GOING ON HIGHER SEDATION. RN STATED PT IS ONLY AGITATED ONCE SUCTIONED AND PT WILL GO BACK TO SLEEP. VENTILATOR CHECK PERFORMED AND TX GIVEN IN LINE THROUGH VENTILATOR. NO COMPLICATIONS AT THIS TIME. VENTILATOR ALARMS ARE SET AND AUDIBLE. VENTILATOR WHEELS ARE LOCKED. VENTILATOR IS PLUGGED INTO RED OUTLET. PT AIRWAY IS PATENT AND SECURED BY ETT GUTIÉRREZ. ADEQUATE CHEST RISE AND FALL ARE NOTED AT THIS TIME. AMBU BAG AT PT BEDSIDE. WILL CONTINUE TO MONITOR PT.
--- NOTE | 2022-07-14 07:32 | NUR ---
Bedside report given to Nancy SEO for continuity of care as at this time pt's vital signs is stable pt in no distress and no changes in care plan
--- NOTE | 2022-07-14 07:45 | NUR ---
SBAR REPORT RECEIVED FROM NATALIE SEO, ALL CARES ASSUMED. PT IN BED, MOVING ALL FOUR EXTREMITIES, FACIAL GRIMACING, OCCASIONALLY OPENS EYES. PT INTUBATED AND SEDATED. ETT TO VENT, AC/VC 16, 500, 28%, 5. PROPOFOL 50MCG/KG/MIN, DOPAMINE 5 MCG/KG/MIN, FENTANYL 80 MCG/HR, NS 5ML/HR INFUSING TO RIGHT IJ CENTRAL LINE. VITAL AF 50ML/HR INFUSING TO OGT. CLEARY CATHETER DRAINING TO GRAVITY. BED IN LOW AND LOCKED POSITION.
[2022-07-14] MEDS: methylPREDNISolone SS 40 MG/ML VIAL IVP SCH ×2 (08:44→21:10)
[2022-07-14] MEDS: PANTOPRAZOLE 40 MG INJ VIAL IVP SCH (08:44)
[2022-07-14] MEDS: INSULIN LANTUS 100 UNITS/ML 10 ML VIAL SUBQ SCH (08:47)
[2022-07-14] MEDS ORDERED: VANCOMYCIN 1,000 MG in DEXTROSE 5% 250 ML IV SCH (10:00)
[2022-07-14] MEDS: fentaNYL citrate 1 MG in NACL 0.9% 80 ML IV PRN (10:34)
--- NOTE | 2022-07-14 11:40 | NUR ---
PT. WITH LOW FELA SCALE AT MODERATE TO HIGH RISK, CONTINUE TO FOLLOW PRESSURE INJURY PREVENTION INTERVENTIONS. PT. ADMITTED WITH MULTIPLE WOUNDS. CONTINUE TO FOLLOW CURRENT ORDERS, POC DISCUSSED WITH PRIMARY RN ANGELA. -POSITIONING: TURN AND REPOSITION PATIENT Q 2H OR SOONER USE PILLOWS TO KEEP BONY PROMINENCES FROM DIRECT CONTACT WITH SURFACES USE REPOSITIONING WEDGES TO PROVIDE 30-DEGREE ANGLE FOR SIDE LYING POSITIONS OFFLOADING OR FOAM DRESSING TO ALL TUBING TO PREVENT MEDICAL DEVICES RELATED PRESSURE INJURY -RE-EVALUATING AND MANAGING INCONTINENCE MONITOR SKIN CONDITION DURING POSITION CHANGE DO NOT MASSAGE REDNESS, BONY PROMINENCES FREQUENT JOHANN-CARE AND PROVIDE BARRIER CREAMS PRN IF SOILING MOISTURE CONTROL BY OFFER BED HOBBS/URINAL /ABSORBENT PAD TO WICK AND HOLD MOISTURE KEEP SKIN DRY AND PROTECT FROM FRICTION -MANAGE FRICTION/SHEAR/MOBILITY KEEP HOB AT THE LOWEST LEVEL OF ELEVATION NO MORE THAN 30 DEGREE UNLESS OTHERWISE CONTRAINDICATED USE LIFT SHEET OR TRANSFER DEVICE TO MOVE PATIENT AND PREVENT LATERAL SHEER. PROTECT HEELS, ELBOWS BONY PROMINENCES WITH SKIN BERRIES OR FOAM DRESSING IF EXPOSED TO FRICTION OFFLOAD BILATERAL HEELS BY PLACING PILLOWS UNDER CALVES AT ALL TIMES, UNLESS OTHERWISE CONTRAINDICATED -PRESSURE REDISTRIBUTION SURFACE THERAPY SHARON ISOFLEX MATTRESS -NUTRITION: PLEASE FOLLOW RD RECOMMENDATIONS AND OFFER NUTRITION SUPPLEMENTS IF ORDERED. PLEASE CONTACT WOUND CARE NURSE FOR ANY QUESTION AND CHANGE OF WOUND CONDITION.
[2022-07-14] MEDS ORDERED: LORazepam 2 MG/ML VIAL IVP PRN (13:55)
[2022-07-14] MEDS ORDERED: VANCOMYCIN PER PHARMACY MC PRN (17:55)
[2022-07-14] MEDS: FLUCONAZOLE 200 MG/NS PREMIX 100 ML IV SCH (20:36)
[2022-07-15] VITALS (30 sets, daily range): BP systolic 76–165; BP diastolic 40–91
[2022-07-15] MEDS: SKINTEGRITY HYDROGEL TP SCH ×2 (00:06→13:00)
[2022-07-15] MEDS: HYDRAGUARD CREAM TP SCH ×2 (00:06→13:00)
[2022-07-15] MEDS: BLOOD GLUCOSE MONITORING 1 DEV DEV FS SCH ×4 (00:22→17:58)
[2022-07-15] MEDS: INSULIN LISPRO SLIDING SCALE 100 UNITS/ML VIAL SUBQ PRN ×4 (00:23→18:02)
[2022-07-15] MEDS: ALBUTEROL SULFATE/IPRATROPIU 3 ML SOL IH SCH ×4 (01:07→20:16)
[2022-07-15] MEDS: PIPERACILLIN/TAZOBACTAM 2.25 GM in DEXTROSE 5% 50 ML IV SCH ×3 (05:00→21:30)
[2022-07-15] MEDS: PROPOFOL 1000 MG/100 ML PREMIX 100 ML IV PRN ×6 (05:40→21:21)
[2022-07-15] MEDS: levETIRAcetam 500 MG in NACL 0.9% 100 ML IV SCH ×2 (06:00→17:39)
[2022-07-15 06:52] LABS: BASOPHILS # (AUTO) 0.1 K/uL (0.00-0.22); BASOPHILS % (AUTO) 0.3 % (0.0-2.0); EOSINOPHILS # (AUTO) 0.4 K/uL (0-0.4); EOSINOPHILS % (AUTO) 1.5 % (0.0-4.0); HEMATOCRIT 29.1 % (36-52); HEMOGLOBIN 9.4 g/dL (12.0-18.0); LYMPHOCYTES # (AUTO) 2.7 K/uL (2.0-11.5); LYMPHOCYTES % (AUTO) 10.2 % (20.5-51.1); MEAN CORPUSCULAR HEMOGLOBIN 27 pg (27-31); MEAN CORPUSCULAR HGB CONC 32 g/dL (33-37); MEAN CORPUSCULAR VOLUME 82.8 fL (80-94); MONOCYTES # (AUTO) 0.7 K/uL (0.8-1.0); MONOCYTES % (AUTO) 2.6 % (1.7-9.3); NEUTROPHILS # (AUTO) 22.9 K/uL (1.8-7.7); NEUTROPHILS % (AUTO) 85.4 % (42.2-75.2); PLATELET COUNT (AUTO) 126 K/uL (140-450); RED BLOOD CELL COUNT(AUTO) 3.52 MIL/uL (4.20-6.10); RED CELL DISTRIBUTION WIDTH 16.5 % (11.6-13.7); WHITE BLOOD COUNT (AUTO) 26.8 K/uL (4.8-10.8)
[2022-07-15 07:11] LABS: ANION GAP 11.9 (8-16); CARBON DIOXIDE 26.3 mmol/L (21-32); CREATININE 1.5 mg/dL (0.6-1.3); POTASSIUM 4.2 mmol/L (3.5-5.1)
[2022-07-15] MEDS: LEVOTHYROXINE 0.025 MG TAB PO SCH (07:17)
--- NOTE | 2022-07-15 07:45 | NUR ---
SBAR REPORT RECEIVED FROM ABHIJIT RN, ALL CARES ASSUMED. PT IN BED, MOVING ALL FOUR EXTREMITIES, FACIAL GRIMACING, OCCASIONALLY OPENS EYES. PT INTUBATED AND SEDATED. ETT TO VENT, AC/VC 16, 500, 28%, 5. PROPOFOL 60MCG/KG/MIN, DOPAMINE 5 MCG/KG/MIN, FENTANYL 95MCG/HR, NS 5ML/HR INFUSING TO RIGHT IJ CENTRAL LINE. VITAL AF 50ML/HR INFUSING TO OGT. CLEARY CATHETER DRAINING TO GRAVITY. BED IN LOW AND LOCKED POSITION.
[2022-07-15 08:09] LABS: MAGNESIUM 2.1 mg/dL (1.8-2.4); PHOSPHORUS 3.7 mg/dL (2.5-4.9)
[2022-07-15] MEDS: PANTOPRAZOLE 40 MG INJ VIAL IVP SCH (08:45)
[2022-07-15] MEDS: methylPREDNISolone SS 40 MG/ML VIAL IVP SCH (08:45)
[2022-07-15] MEDS: INSULIN LANTUS 100 UNITS/ML 10 ML VIAL SUBQ SCH (08:50)
[2022-07-15] MEDS ORDERED: FUROSEMIDE 20 MG/2 ML VIAL IVP SCH (10:30)
[2022-07-15] MEDS: fentaNYL citrate 1 MG in NACL 0.9% 80 ML IV PRN ×2 (10:44→21:16)
[2022-07-15] MEDS: NACL 0.45% 1,000 ML IV SCH ×2 (10:47→19:35)
[2022-07-15] MEDS ORDERED: ALTEPLASE 2 MG VIAL MC SCH (11:15)
[2022-07-15] MEDS: FLUCONAZOLE 200 MG/NS PREMIX 100 ML IV SCH (18:39)
--- NOTE | 2022-07-15 19:04 | NUR ---
SBAR REPORT GIVEN TO AISHWARYA RN, ALL CARES ENDORSED.
[2022-07-15] MEDS: QUEtiapine FUMARATE 25 MG TAB PO SCH (21:31)
[2022-07-15] MEDS: DOPamine 400 MG/D5W PREMIX 250 ML IV PRN (23:12)
[2022-07-16] VITALS (29 sets, daily range): BP systolic 64–153; BP diastolic 42–86
[2022-07-16] MEDS: PROPOFOL 1000 MG/100 ML PREMIX 100 ML IV PRN ×3 (00:36→23:52)
[2022-07-16] MEDS: INSULIN LISPRO SLIDING SCALE 100 UNITS/ML VIAL SUBQ PRN ×3 (00:45→12:55)
[2022-07-16] MEDS: BLOOD GLUCOSE MONITORING 1 DEV DEV FS SCH ×4 (00:46→18:44)
[2022-07-16] MEDS: HYDRAGUARD CREAM TP SCH ×2 (01:00→13:19)
[2022-07-16] MEDS: SKINTEGRITY HYDROGEL TP SCH ×2 (01:00→13:20)
[2022-07-16] MEDS: ALBUTEROL SULFATE/IPRATROPIU 3 ML SOL IH SCH ×3 (01:04→19:18)
[2022-07-16] MEDS: PIPERACILLIN/TAZOBACTAM 2.25 GM in DEXTROSE 5% 50 ML IV SCH ×3 (05:08→21:02)
[2022-07-16] MEDS: NACL 0.45% 1,000 ML IV SCH ×2 (05:35→15:50)
[2022-07-16] MEDS: levETIRAcetam 500 MG in NACL 0.9% 100 ML IV SCH ×2 (06:07→17:41)
[2022-07-16 06:12] LABS: BASOPHILS # (AUTO) 0.1 K/uL (0.00-0.22); BASOPHILS % (AUTO) 0.2 % (0.0-2.0); EOSINOPHILS # (AUTO) 0.4 K/uL (0-0.4); EOSINOPHILS % (AUTO) 1.8 % (0.0-4.0); HEMATOCRIT 27.5 % (36-52); HEMOGLOBIN 8.7 g/dL (12.0-18.0); LYMPHOCYTES # (AUTO) 3.3 K/uL (2.0-11.5); LYMPHOCYTES % (AUTO) 14.1 % (20.5-51.1); MEAN CORPUSCULAR HEMOGLOBIN 26 pg (27-31); MEAN CORPUSCULAR HGB CONC 32 g/dL (33-37); MEAN CORPUSCULAR VOLUME 82.9 fL (80-94); MONOCYTES % (AUTO) 4.3 % (1.7-9.3); NEUTROPHILS # (AUTO) 18.7 K/uL (1.8-7.7); NEUTROPHILS % (AUTO) 79.6 % (42.2-75.2); PLATELET COUNT (AUTO) 222 K/uL (140-450); RED BLOOD CELL COUNT(AUTO) 3.31 MIL/uL (4.20-6.10); RED CELL DISTRIBUTION WIDTH 16.1 % (11.6-13.7); WHITE BLOOD COUNT (AUTO) 23.5 K/uL (4.8-10.8)
[2022-07-16 06:16] LABS: ANION GAP 12.9 (8-16); CARBON DIOXIDE 24.1 mmol/L (21-32); CREATININE 1.6 mg/dL (0.6-1.3)
[2022-07-16] MEDS: LEVOTHYROXINE 0.025 MG TAB PO SCH (06:26)
[2022-07-16 06:35] LABS: MAGNESIUM 1.9 mg/dL (1.8-2.4); PHOSPHORUS 3.2 mg/dL (2.5-4.9)
--- NOTE | 2022-07-16 07:00 | NUR ---
RECEIVED PT ON ACVC TV 500, F16,+5,28%. VENT WHEELS ARE LOCKED, PLUGGED INTO RED OUTLET, AMBUBAG AT BEDSIDE, ALARMS ARE SET AN AUDIBLE. BREATH SOUNDS WERE CLEAR. SATURATION 95%. WILL CONTINUE TO MONITOR.
[2022-07-16] MEDS: fentaNYL citrate 1 MG in NACL 0.9% 80 ML IV PRN ×2 (08:29→17:36)
[2022-07-16] MEDS: FLUCONAZOLE 200 MG/NS PREMIX 100 ML IV SCH (08:34)
[2022-07-16] MEDS: INSULIN LANTUS 100 UNITS/ML 10 ML VIAL SUBQ SCH (09:05)
[2022-07-16] MEDS: PANTOPRAZOLE 40 MG INJ VIAL IVP SCH (09:08)
[2022-07-16] MEDS: QUEtiapine FUMARATE 25 MG TAB PO SCH ×2 (09:09→21:02)
--- NOTE | 2022-07-16 09:18 | NUR ---
PT WENT APNEIC DURING WEANING TRIALS
--- NOTE | 2022-07-16 09:18 | NUR ---
CPAP TRIAL 03/24. PT WENT APNEIC WITHIN A FEW MINUTES. PT CURRENTLY BACK ON FULL VENTILATORY SUPPORT. WILL CONTINUE TO MONITOR.
[2022-07-16] MEDS ORDERED: VANCOMYCIN 1,000 MG in NACL 0.9% 250 ML IV SCH (09:30)
--- NOTE | 2022-07-16 11:59 | NUR ---
MIKE(SON) AT BEDSIDE
[2022-07-16] MEDS ORDERED: VANCOMYCIN PER PHARMACY MC PRN (12:00)
--- NOTE | 2022-07-16 14:46 | NUR ---
DR WASHBUNR HERE AT THIS TIME HERIBERTO MARRUFO
--- NOTE | 2022-07-16 15:21 | NUR ---
07/16/22 RD FOLLOW UP COMPLETED PLEASE REFER TO NUTRITION ASSESSMENT UNDER CARE ACTIVITY FOR ESTIMATED NUTRITIONAL NEEDS. 1. CONTINUE VITAL AF 1.2 @ 50 ML/HR, FWF 200 ML Q6H, ELEN BID TOLERATED - WITH PROPOFOL AT 23.9 ML/HR AND ELEN BID, PROVIDES 1200 ML VOLUME, 2230 KCAL, 95 GM PROTEIN AND 1773 ML FREE WATER DAILY MEETING 100% ESTIMATED KCAL AND PROTEIN NEEDS; ADEQUATE 2. MONITOR GASTRIC RESIDUALS AND NUTRITION RELATED LAB VALUES 3. RD TO FOLLOW-UP 2-3 DAYS, HIGH RISK REVIEWED BY CALVIN MATHEWS RD
--- NOTE | 2022-07-16 15:47 | NUR ---
LINEN CHANGED, MOUTH AND PERICARE PROVIDED
--- NOTE | 2022-07-16 19:00 | NUR ---
RECEIVED REPORT FROM CRISTINE Velasco RN. PATIENT VENTILATED AND SEDATED. VITALS: HR 58, SPO2 96%, RR 16, BP 128/76 (96), TEMPERATURE 97.1 F. VENTILATOR AC VC FIO2 28%, RR 16, TV 500 PEEP 5. RIGHT IJ RUNNING DOPAMINE 8 MCG/KG/MIN, FENTANYL 100 MCG/HR, PROPOFOL 55 MCG/KG/MIN. MILD EDEMA NOTED ON UPPER EXTREMITIES. PATIENT ON OG TUBE FEEDING VITAL AF AT 50ML/HR, RESIDUAL OF 160 ML. PATIENT HAS CLEARY CATHETER DRAINING YELLOW URINE AND A RECTAL TUBE IN PLACE.
[2022-07-16] MEDS: DOPamine 400 MG/D5W PREMIX 250 ML IV PRN (23:55)
[2022-07-17] VITALS (37 sets, daily range): BP systolic 94–180; BP diastolic 49–99
[2022-07-17] MEDS: BLOOD GLUCOSE MONITORING 1 DEV DEV FS SCH ×4 (00:07→18:14)
[2022-07-17] MEDS: HYDRAGUARD CREAM TP SCH ×2 (01:00→13:36)
[2022-07-17] MEDS: SKINTEGRITY HYDROGEL TP SCH ×2 (01:00→13:35)
[2022-07-17] MEDS: ALBUTEROL SULFATE/IPRATROPIU 3 ML SOL IH SCH ×4 (01:18→19:57)
--- NOTE | 2022-07-17 01:40 | NUR ---
RT AT BEDSIDE. VENT MODE CHANGED TO AC PRVC.
[2022-07-17] MEDS: NACL 0.45% 1,000 ML IV SCH ×2 (01:48→13:31)
[2022-07-17] MEDS: PROPOFOL 1000 MG/100 ML PREMIX 100 ML IV PRN ×3 (02:22→22:22)
--- NOTE | 2022-07-17 03:01 | NUR ---
PT SPO2 AT 92%, PATIENT WAS SUCTIONED, SPO2 FELL TO 92% AGAIN. RT NOTIFIED AND WILL CONTACT RT AGAIN IF SPO2 FALLS BELOW 90%.
[2022-07-17] MEDS: fentaNYL citrate 1 MG in NACL 0.9% 80 ML IV PRN ×2 (04:42→23:29)
[2022-07-17] MEDS: PIPERACILLIN/TAZOBACTAM 2.25 GM in DEXTROSE 5% 50 ML IV SCH ×3 (04:43→20:57)
[2022-07-17 05:48] LABS: BASOPHILS # (AUTO) 0.1 K/uL (0.00-0.22); BASOPHILS % (AUTO) 0.4 % (0.0-2.0); EOSINOPHILS # (AUTO) 0.8 K/uL (0-0.4); EOSINOPHILS % (AUTO) 4.7 % (0.0-4.0); HEMATOCRIT 28.1 % (36-52); HEMOGLOBIN 9.1 g/dL (12.0-18.0); LYMPHOCYTES # (AUTO) 3.2 K/uL (2.0-11.5); LYMPHOCYTES % (AUTO) 18.2 % (20.5-51.1); MEAN CORPUSCULAR HEMOGLOBIN 27 pg (27-31); MEAN CORPUSCULAR HGB CONC 32 g/dL (33-37); MEAN CORPUSCULAR VOLUME 81.7 fL (80-94); MONOCYTES # (AUTO) 0.9 K/uL (0.8-1.0); MONOCYTES % (AUTO) 5.2 % (1.7-9.3); NEUTROPHILS # (AUTO) 12.5 K/uL (1.8-7.7); NEUTROPHILS % (AUTO) 71.5 % (42.2-75.2); PLATELET COUNT (AUTO) 281 K/uL (140-450); RED BLOOD CELL COUNT(AUTO) 3.44 MIL/uL (4.20-6.10); RED CELL DISTRIBUTION WIDTH 15.9 % (11.6-13.7); WHITE BLOOD COUNT (AUTO) 17.5 K/uL (4.8-10.8)
[2022-07-17] MEDS: LEVOTHYROXINE 0.025 MG TAB PO SCH (06:06)
[2022-07-17 06:07] LABS: ANION GAP 10.9 (8-16); CARBON DIOXIDE 25.8 mmol/L (21-32); CREATININE 1.3 mg/dL (0.6-1.3); POTASSIUM 3.7 mmol/L (3.5-5.1)
[2022-07-17] MEDS: levETIRAcetam 500 MG in NACL 0.9% 100 ML IV SCH ×2 (06:07→18:18)
[2022-07-17 06:11] LABS: MAGNESIUM 1.7 mg/dL (1.8-2.4); PHOSPHORUS 3.2 mg/dL (2.5-4.9)
[2022-07-17] MEDS: INSULIN LISPRO SLIDING SCALE 100 UNITS/ML VIAL SUBQ PRN ×3 (06:30→23:53)
--- NOTE | 2022-07-17 06:45 | NUR ---
PATIENT REPORT GIVEN TO JAKY Velasco RN.
--- NOTE | 2022-07-17 07:00 | NUR ---
RCEIVED PT IN STABLE CONDITION, VSS, MAINTAINING HEMODYNAMICS
--- NOTE | 2022-07-17 07:14 | NUR ---
RECEIVED PT ON PRVC 500, F16,+5, 30%. ACCORDING TO CHART CHANGER, MODE WAS CHANGED TO PRVC DUE TO LOW VOLUMES. PT MAINTAINING VTEXP. VENT WHEELS ARE LOCKED, PLUGGED INTO RED OUTLET, AMBUBAG AT BEDSIDE, ALARMS ARE SET AND AUDIBLE. WILL CONTINUE TO MONITOR. CPAP SCHEDULED FOR THIS MORNING.
--- NOTE | 2022-07-17 08:02 | NUR ---
DR ROUSE AT BEDSIDE AT THIS TIME
[2022-07-17] MEDS: INSULIN LANTUS 100 UNITS/ML 10 ML VIAL SUBQ SCH (08:54)
--- NOTE | 2022-07-17 08:57 | NUR ---
PRVC RATE CHANGED FROM 16 TO 14. TIDAL VOLUME CHANGED FROM [address] WASHBURN. WILL CONTINUE TO MONITOR.
[2022-07-17] MEDS: PANTOPRAZOLE 40 MG INJ VIAL IVP SCH (09:02)
[2022-07-17] MEDS: QUEtiapine FUMARATE 25 MG TAB PO SCH ×2 (09:03→20:54)
[2022-07-17] MEDS ORDERED: ALTEPLASE 2 MG VIAL MC SCH (10:10)
[2022-07-17] MEDS: FLUCONAZOLE 200 MG/NS PREMIX 100 ML IV SCH (19:19)
[2022-07-18] VITALS (24 sets, daily range): BP systolic 94–164; BP diastolic 43–91
[2022-07-18] MEDS: BLOOD GLUCOSE MONITORING 1 DEV DEV FS SCH ×4 (00:11→18:57)
[2022-07-18] MEDS: HYDRAGUARD CREAM TP SCH ×2 (00:20→12:32)
[2022-07-18] MEDS: SKINTEGRITY HYDROGEL TP SCH ×2 (00:21→12:32)
--- NOTE | 2022-07-18 00:25 | NUR ---
AT 2200 07/17 THE FREEDING WAS STOPPED DUE TO HIGH RESIDUAL OF [id number]
[2022-07-18] MEDS: NACL 0.45% 1,000 ML IV SCH ×3 (01:00→18:12)
[2022-07-18] MEDS: DOPamine 400 MG/D5W PREMIX 250 ML IV PRN (01:47)
[2022-07-18] MEDS: PROPOFOL 1000 MG/100 ML PREMIX 100 ML IV PRN ×3 (01:55→22:39)
[2022-07-18] MEDS: ALBUTEROL SULFATE/IPRATROPIU 3 ML SOL IH SCH ×4 (02:43→19:29)
[2022-07-18] MEDS ORDERED: DEXMEDETOMIDINE HCL 100 MCG/ML 2 ML VIAL IV ONE (02:45)
[2022-07-18] MEDS: levETIRAcetam 500 MG in NACL 0.9% 100 ML IV SCH ×2 (04:41→18:15)
--- NOTE | 2022-07-18 05:17 | NUR ---
[id number]- PTS HEART RATE WAS 48 AND BP SYSTOLIC WAS 88 SO THE PROFOPOL DOWN TO 25 MCG/KG/ MIN AND PRECEDEX DOWN TO O.2 MCG/KG/HR AND FENTANYL DOWN TO 85MCG/HR. [id number] bP UP TO96/60 AND hr- UP TO 52
[2022-07-18] MEDS: PIPERACILLIN/TAZOBACTAM 2.25 GM in DEXTROSE 5% 50 ML IV SCH ×3 (05:40→20:59)
[2022-07-18 05:54] LABS: BASOPHILS % (AUTO) 0.1 % (0.0-2.0); EOSINOPHILS # (AUTO) 0.6 K/uL (0-0.4); EOSINOPHILS % (AUTO) 3.6 % (0.0-4.0); HEMATOCRIT 25.1 % (36-52); HEMOGLOBIN 8.2 g/dL (12.0-18.0); LYMPHOCYTES # (AUTO) 1.9 K/uL (2.0-11.5); LYMPHOCYTES % (AUTO) 11.2 % (20.5-51.1); MEAN CORPUSCULAR HEMOGLOBIN 27 pg (27-31); MEAN CORPUSCULAR HGB CONC 33 g/dL (33-37); MEAN CORPUSCULAR VOLUME 82.3 fL (80-94); MONOCYTES # (AUTO) 0.7 K/uL (0.8-1.0); MONOCYTES % (AUTO) 4.2 % (1.7-9.3); NEUTROPHILS # (AUTO) 13.7 K/uL (1.8-7.7); NEUTROPHILS % (AUTO) 80.9 % (42.2-75.2); PLATELET COUNT (AUTO) 268 K/uL (140-450); RED BLOOD CELL COUNT(AUTO) 3.05 MIL/uL (4.20-6.10)
[2022-07-18 06:00] LABS: ANION GAP 10.3 (8-16); CARBON DIOXIDE 23.9 mmol/L (21-32); CREATININE 1.1 mg/dL (0.6-1.3); POTASSIUM 3.2 mmol/L (3.5-5.1)
[2022-07-18 06:12] LABS: MAGNESIUM 1.6 mg/dL (1.8-2.4); PHOSPHORUS 3.5 mg/dL (2.5-4.9)
[2022-07-18] MEDS: LEVOTHYROXINE 0.025 MG TAB PO SCH (06:41)
--- NOTE | 2022-07-18 07:30 | NUR ---
RECEIVED REPORT FROM DAVIAN SEO PT IS INTUBATED ETT TO VENT AC/PC 50% 25 14 5. SAT 92%, IV FLUID HAT TLC ON RT IJ INFUSSING PROPOFOL , DOPAMINE,PRECIDEX AND FENTANYL. ALL INPROGRESS. OG TUBE FEEDING WITH VITAL AF 1.2 AT 50ML/HR. CLEARY CATH TO GRAVITY DRAINAGE HAS LIGHT YELLOW URINE RETURN. RECTAL TUBE HAS DARK GREEN LIQUID STOOL RETURNED.
--- NOTE | 2022-07-18 08:29 | NUR ---
CHANGED PT VENT SETTINGS TO PC 25 R 14 +5 DUE TO ELEVATED PEAK PRESSURES. MD ANDERSON NOTIFIED. Addendum: 07/18/22 at 1154 by JAGJIT BANEGAS RT CHANGED PT VENT SETTINGS TO PC 25 R 14 +5 DUE TO ELEVATED PEAK PRESSURES. MD WASHBURN NOTIFIED.
[2022-07-18] MEDS: QUEtiapine FUMARATE 25 MG TAB PO SCH ×2 (08:52→21:00)
[2022-07-18] MEDS: PANTOPRAZOLE 40 MG INJ VIAL IVP SCH (08:52)
[2022-07-18] MEDS ORDERED: VANCOMYCIN 1.25GM PREMIX 250 ML IV SCH (09:00)
[2022-07-18] MEDS: INSULIN LANTUS 100 UNITS/ML 10 ML VIAL SUBQ SCH (09:49)
[2022-07-18] MEDS ORDERED: MAG SULF 2000 MG/WATER PREMIX 50 ML IV SCH (10:00)
[2022-07-18] MEDS ORDERED: KCL 20 MEQ IN 100 mL PREMIX 200 ML IV ONE (10:00)
--- NOTE | 2022-07-18 10:00 | NUR ---
WOUND CARE RE-EVALUATION NOTE: SKIN ASSESSMENT WITH WOUND CARE DONE. POC DISCUSSED WITH PRIMARY RN CRISTINE AND INFORM OF FREQUENT ORAL CARE. F/C AND FLEXI SEAL PATENT, SACRALCOCCYX FOAM DRESSING CHANGE, SACRALCOCCYX SKIN INTACT. POSITION TO LEFT SIDE LYING WITH 2 PILLOWS OFFLOAD TO SACRALCOCCYX AND BILATERAL LOWER EXTREMITIES,. BLE MULTIPLE WOUNDS RESPONDING TO TX, AND WILL CONTINUE HYDROGEL ORDERED. INTEGUMENTARY: - LEFT ANTERIOR VASCULAR ULCER 11X 6X 0.2 CM. WOUND BED PINK, DRY, NO DRAINAGE, NO ODOR. WOUND EDGES FLAT AND ATTACHED, IRREGULAR SHAPE. PERIWOUND DRY, INTACT. - LEFT LOWER EXTREMITY LATERAL MALLEOLUS VASCULAR ULCER 3 X 1.8 X 0.3 CM. WOUND BED PINK, DRY, NO DRAINAGE, NO ODOR. WOUND EDGES FLAT AND ATTACHED, IRREGULAR SHAPE. JOHANN-WOUND DRY, INTACT - LEFT POSTERIOR LEG CALF VASCULAR ULCER 5X3CM WOUND BED THIN LIGHT YELLOW SLOUGH TISSUE, MOIST, NO ODOR. WOUND EDGES FLAT AND ATTACHED, IRREGULAR SHAPE. JOHANN-WOUND DRY, FLAKY INTACT SKIN . - LEFT PLANTAR FOOT UN-STAGEABLE WOUND 3 X 3 CM. DRY STABLE BROWN SCAB, NO DRAINAGE, NO ODOR. JOHANN-WOUND, DRY, INTACT. - RIGHT POSTERIOR LATERAL VASCULAR ULCER 3 X 2.5 X 0.1 CM. WOUND BED PINK, DRY, NO DRAINAGE, NO ODOR. WOUND EDGES FLAT AND ATTACHED, IRREGULAR SHAPE. JOHANN-WOUND DRY, FLAKY INTACT SKIN.
--- NOTE | 2022-07-18 10:00 | NUR ---
WOUND CARE NURSE AT BED SIDE DRESSING CHANGED ORDERED.
--- NOTE | 2022-07-18 10:39 | NUR ---
ASSUME CARE OF PT AT THIS TIME, WOUND CARE AT BEDSIDE WITH NURSING STUDENTS, PERICARE AND ORAL CARE PROVIDED, VSS.
--- NOTE | 2022-07-18 10:41 | NUR ---
PT IS ON AC/PC 25 RATE 14 FIO2 50% PEEP 5
--- NOTE | 2022-07-18 12:19 | NUR ---
BLOOD GLUCOSE RECHECK NOW 74 AFTER GIVEN D50, PT CONSTANTLY MOVING IN BED, RIGHT ARM IV OUT WITH NASAL CANNULA
--- NOTE | 2022-07-18 12:38 | NUR ---
RT REQUEST FOR AN XRAY FOR OS SAT INCREASING AND DECREASING
--- NOTE | 2022-07-18 12:39 | NUR ---
FAMILY AT BEDSIDE AT THIS TIME
--- NOTE | 2022-07-18 14:01 | NUR ---
07/18/22 RD FOLLOW UP COMPLETED PLEASE REFER TO NUTRITION ASSESSMENT UNDER CARE ACTIVITY FOR ESTIMATED NUTRITIONAL NEEDS. 1. RECOMMEND BANATROL BID FOR DIARRHEA UNTIL SYMPTOMS RESOLVED 2. CONTINUE VITAL AF 1.2 @ 50 ML/HR, FWF 200 ML Q6H, ELEN BID TOLERATED - WITH PROPOFOL AT 13 ML/HR AND ELEN BID, PROVIDES 1200 ML VOLUME, 1943 KCAL, 95 GM PROTEIN AND 1773 ML FREE WATER DAILY MEETING 93% ESTIMATED KCAL NEEDS AND 100% ESTIMATED PROTEIN NEEDS; ADEQUATE 3. MONITOR GASTRIC RESIDUALS AND NUTRITION RELATED LAB VALUES 4. RD TO FOLLOW-UP 2-3 DAYS, HIGH RISK REVIEWED BY CALVIN MATHEWS RD
--- NOTE | 2022-07-18 15:09 | NUR ---
charge nurse stopped feedings, blood glucose 65, resumed feedings, rechecked blood glucose 72, residual 60 cc, tolerating well
[2022-07-18] MEDS: FLUCONAZOLE 200 MG/NS PREMIX 100 ML IV SCH (18:13)
[2022-07-18] MEDS: MAG SULF 2000 MG/WATER PREMIX 50 ML IV PRN (22:43)
[2022-07-19] VITALS (30 sets, daily range): BP systolic 91–151; BP diastolic 48–85
[2022-07-19] MEDS: DEXTROSE 50% 50 ML SYR IVP PRN (00:18)
[2022-07-19] MEDS: BLOOD GLUCOSE MONITORING 1 DEV DEV FS SCH ×4 (00:30→17:41)
[2022-07-19] MEDS: SKINTEGRITY HYDROGEL TP SCH ×2 (01:00→13:18)
[2022-07-19] MEDS: ALBUTEROL SULFATE/IPRATROPIU 3 ML SOL IH SCH ×4 (01:00→19:00)
[2022-07-19] MEDS: HYDRAGUARD CREAM TP SCH ×2 (01:00→13:18)
[2022-07-19] MEDS: fentaNYL citrate 1 MG in NACL 0.9% 80 ML IV PRN (01:01)
[2022-07-19] MEDS: DOPamine 400 MG/D5W PREMIX 250 ML IV PRN ×2 (01:01→08:02)
[2022-07-19] MEDS ORDERED: DEXMEDETOMIDINE HCL 100 MCG/ML 2 ML VIAL IV ONE (03:24)
[2022-07-19] MEDS: NACL 0.45% 1,000 ML IV SCH ×3 (03:56→23:34)
[2022-07-19] MEDS: PIPERACILLIN/TAZOBACTAM 2.25 GM in DEXTROSE 5% 50 ML IV SCH ×3 (04:57→21:02)
[2022-07-19 05:32] LABS: BASOPHILS # (AUTO) 0.1 K/uL (0.00-0.22); BASOPHILS % (AUTO) 0.3 % (0.0-2.0); EOSINOPHILS # (AUTO) 0.6 K/uL (0-0.4); EOSINOPHILS % (AUTO) 3.5 % (0.0-4.0); HEMATOCRIT 24.8 % (36-52); LYMPHOCYTES # (AUTO) 1.5 K/uL (2.0-11.5); LYMPHOCYTES % (AUTO) 8.2 % (20.5-51.1); MEAN CORPUSCULAR HEMOGLOBIN 27 pg (27-31); MEAN CORPUSCULAR HGB CONC 32 g/dL (33-37); MEAN CORPUSCULAR VOLUME 82.7 fL (80-94); MONOCYTES # (AUTO) 0.7 K/uL (0.8-1.0); MONOCYTES % (AUTO) 3.7 % (1.7-9.3); NEUTROPHILS # (AUTO) 15.5 K/uL (1.8-7.7); PLATELET COUNT (AUTO) 291 K/uL (140-450); RED BLOOD CELL COUNT(AUTO) 2.99 MIL/uL (4.20-6.10); RED CELL DISTRIBUTION WIDTH 16.2 % (11.6-13.7); WHITE BLOOD COUNT (AUTO) 18.4 K/uL (4.8-10.8)
[2022-07-19] MEDS: PROPOFOL 1000 MG/100 ML PREMIX 100 ML IV PRN ×3 (05:37→23:33)
[2022-07-19 05:46] LABS: ANION GAP 8.6 (8-16); CARBON DIOXIDE 23.1 mmol/L (21-32); POTASSIUM 3.7 mmol/L (3.5-5.1)
[2022-07-19] MEDS: levETIRAcetam 500 MG in NACL 0.9% 100 ML IV SCH ×2 (05:59→17:15)
[2022-07-19] MEDS: LEVOTHYROXINE 0.025 MG TAB PO SCH (06:08)
[2022-07-19 06:47] LABS: NEUTROPHILS % (AUTO) 84.3 % (42.2-75.2)
[2022-07-19 07:08] LABS: PHOSPHORUS 3.7 mg/dL (2.5-4.9)
[2022-07-19] MEDS: DEXMEDETOMIDINE HCL 400 MCG in NACL 0.9% 96 ML IV PRN ×3 (07:10→23:28)
--- NOTE | 2022-07-19 07:10 | NUR ---
RECEIVED BEDSIDE REPORT FROM MANAGER BOOKS DOG OBEDIENCE INSTRUCTOR FOR CONTINUITY OF CARE. PT A/OX0, SEDATED. ETT TO VENT AC/PC 45%, RR 14, PEEP 5. SB ON MONITOR. TLC TO RIJ INFUSING DOPAMINE AT 12 MCG/KG/MIN, PROPOFOL AT 30 MCG/KG/MIN, FENTANYL AT 75 MCG/HR, PRECEDEX AT 0.4 MCG/KG/HR, D51/2NS AT 100 ML/HR, AND NS TKO 5 ML/HR. OGT IN PLACE WITH FEEDING OFF D/T HIGH RESIDUAL. RECTAL TUBE IN PLACE. F/C TO GRAVITY DRAINING CLEAR YELLOW URINE. BILATERAL SOFT WRIST RESTRAINTS IN PLACE NO S/SX OF INJURY. HOB 30 DEGREES. BED LOCKED AND IN LOWEST POSITION.
[2022-07-19] MEDS: QUEtiapine FUMARATE 25 MG TAB PO SCH ×2 (08:18→21:02)
[2022-07-19] MEDS: PANTOPRAZOLE 40 MG INJ VIAL IVP SCH (08:18)
--- NOTE | 2022-07-19 08:41 | NUR ---
D5 1/2 NS CHANGED TO ORDERED 1/2 NS AT 100 ML/HR.
[2022-07-19] MEDS: INSULIN LANTUS 100 UNITS/ML 10 ML VIAL SUBQ SCH (09:22)
--- NOTE | 2022-07-19 09:23 | NUR ---
SEEN AND EXAMINED BY DR. HARDY. ORDERS RECEIVED.
[2022-07-19] MEDS: METOCLOPRAMIDE 10 MG/2 ML INJ VIAL IVP SCH ×3 (09:52→17:14)
--- NOTE | 2022-07-19 10:00 | NUR ---
RESTARTED TUBE FEEDING AT 10 ML/HR
[2022-07-19] MEDS ORDERED: ALTEPLASE 2 MG VIAL MC SCH ×2 (10:55→14:00)
--- NOTE | 2022-07-19 11:30 | NUR ---
SEDATION VACATION PERFORMED. PT ABLE TO WAKE UP AND FOLLOW MINIMAL COMMANDS. TOLERATED 2 HRS OF CPAP ORDERED BY DR. HARDY.
[2022-07-19] MEDS ORDERED: ALTEPLASE 2 MG VIAL MC ONE (11:50)
--- NOTE | 2022-07-19 11:59 | NUR ---
PT TEMP 96 TEMPORAL ARTERY SCAN. APPLIED ARAVIND HUGGER.
--- NOTE | 2022-07-19 12:20 | NUR ---
PT TOLERATING FEEDING, 3 ML RESIDUAL. INCREASED FEEDING RATE TO 20 ML/HR.
--- NOTE | 2022-07-19 14:12 | NUR ---
Seen and examined by Dr. Preston. Reported WBC levels and temperature. Received order to renew vanco per pharmacy. Addendum: 07/19/22 at 1417 by Chyna Adams RN Received order to renew Mich.
--- NOTE | 2022-07-19 17:00 | NUR ---
SISTER, MATTHEW, AT BEDSIDE. UPDATED ON POC. ALL QUESTIONS ANSWERED AT THIS TIME.
[2022-07-19] MEDS: FLUCONAZOLE 200 MG/NS PREMIX 100 ML IV SCH (17:59)
--- NOTE | 2022-07-19 19:26 | NUR ---
ENDORSED BEDSIDE REPORT TO ABHIJIT, WILDLIFE FORENSIC GENETICIST RN, FOR CONTINUITY OF CARE.
[2022-07-19] MEDS: FUROSEMIDE 20 MG/2 ML VIAL IVP SCH (21:02)
[2022-07-20] VITALS (31 sets, daily range): BP systolic 91–132; BP diastolic 46–85
[2022-07-20] MEDS: BLOOD GLUCOSE MONITORING 1 DEV DEV FS SCH ×4 (00:06→18:07)
[2022-07-20] MEDS: ALBUTEROL SULFATE/IPRATROPIU 3 ML SOL IH SCH ×4 (01:00→19:00)
[2022-07-20] MEDS: DOPamine 400 MG/D5W PREMIX 250 ML IV PRN ×4 (01:03→20:45)
[2022-07-20] MEDS: HYDRAGUARD CREAM TP SCH ×2 (01:06→12:01)
[2022-07-20] MEDS: SKINTEGRITY HYDROGEL TP SCH ×2 (01:07→12:02)
[2022-07-20] MEDS: PIPERACILLIN/TAZOBACTAM 2.25 GM in DEXTROSE 5% 50 ML IV SCH ×3 (04:35→20:53)
[2022-07-20] MEDS: DEXTROSE 50% 50 ML SYR IVP PRN ×2 (05:47→07:14)
[2022-07-20] MEDS: levETIRAcetam 500 MG in NACL 0.9% 100 ML IV SCH ×2 (05:55→17:04)
--- NOTE | 2022-07-20 05:59 | NUR ---
PERIPHERAL BLOOD SUGAR READING ON FINGER READ TO BE 11 BUT THE BLOOD LOOKED TO BE DILUTED FAR LIGHER COLOR AND THINNER LOOKING CONSISTNCY IN THE FLUID. HANDS NOTED TO BE EDEMATOUS. CROSS CHECKED WITH RANDOM GLUCOSE TAKEN BY LAB AT 70 AND PRN D50 WAS GIVEN FOR GOOD MEASURE. DR ABURTO NOTIFIED OF READINGS AND INFORMED OF TUBE FEEDING TOLERANCE
[2022-07-20 06:13] LABS: BASOPHILS % (AUTO) 0.3 % (0.0-2.0); EOSINOPHILS # (AUTO) 0.4 K/uL (0-0.4); EOSINOPHILS % (AUTO) 2.9 % (0.0-4.0); HEMATOCRIT 24.7 % (36-52); LYMPHOCYTES # (AUTO) 1.3 K/uL (2.0-11.5); LYMPHOCYTES % (AUTO) 8.9 % (20.5-51.1); MEAN CORPUSCULAR HEMOGLOBIN 26 pg (27-31); MEAN CORPUSCULAR HGB CONC 32 g/dL (33-37); MONOCYTES # (AUTO) 0.8 K/uL (0.8-1.0); MONOCYTES % (AUTO) 5.5 % (1.7-9.3); NEUTROPHILS # (AUTO) 12.3 K/uL (1.8-7.7); NEUTROPHILS % (AUTO) 82.4 % (42.2-75.2); PLATELET COUNT (AUTO) 374 K/uL (140-450); RED BLOOD CELL COUNT(AUTO) 3.01 MIL/uL (4.20-6.10); RED CELL DISTRIBUTION WIDTH 16.2 % (11.6-13.7); WHITE BLOOD COUNT (AUTO) 14.9 K/uL (4.8-10.8)
[2022-07-20 06:30] LABS: ANION GAP 13.1 (8-16); CARBON DIOXIDE 22.8 mmol/L (21-32); CREATININE 1.4 mg/dL (0.6-1.3); POTASSIUM 3.9 mmol/L (3.5-5.1)
[2022-07-20 06:34] LABS: MAGNESIUM 1.9 mg/dL (1.8-2.4); PHOSPHORUS 3.6 mg/dL (2.5-4.9)
[2022-07-20] MEDS: LEVOTHYROXINE 0.025 MG TAB PO SCH (06:44)
--- NOTE | 2022-07-20 07:15 | NUR ---
RECEIVED BEDSIDE REPORT FROM SUPERVISOR POST WAVE PYROTECHNICIAN, ABHIJIT, FOR CONTINUITY OF CARE. PT A/OX0, SEDATED. ETT TO VENT AC/PC 35%, RR 14, PEEP 5. SR ON MONITOR. TLC TO RIJ INFUSING DOPAMINE AT 12 MCG/KG/MIN, PROPOFOL AT 30 MCG/KG/MIN, PRECEDEX AT 0.6 MCG/KG/HR, 0.45% NS AT 50 ML/HR, AND NS TKO 5 ML/HR. OGT IN PLACE INFUSING VITAL TUBE FEEDING AT 20 ML/HR. RECTAL TUBE IN PLACE, PATENT. F/C TO GRAVITY. BILATERAL SOFT WRIST RESTRAINTS IN PLACE NO S/SX OF INJURY. HOB 30 DEGREES. BED LOCKED AND IN LOWEST POSITION. CONTACT [facility] FOR POSSIBLE PENDING CDIFF CULTURE.
--- NOTE | 2022-07-20 07:22 | NUR ---
report given to bessie perez. informed of the hypoglycemic status of patient and intolerance of tube feeding. vitals stable
[2022-07-20] MEDS ORDERED: DEXMEDETOMIDINE HCL 100 MCG/ML 2 ML VIAL IV ONE (07:41)
[2022-07-20] MEDS: DEXMEDETOMIDINE HCL 400 MCG in NACL 0.9% 96 ML IV PRN ×3 (07:50→22:55)
[2022-07-20] MEDS: PANTOPRAZOLE 40 MG INJ VIAL IVP SCH (08:08)
[2022-07-20] MEDS: QUEtiapine FUMARATE 25 MG TAB PO SCH ×2 (08:08→20:52)
[2022-07-20] MEDS: INSULIN LANTUS 100 UNITS/ML 10 ML VIAL SUBQ SCH (08:08)
[2022-07-20] MEDS: METOCLOPRAMIDE 10 MG/2 ML INJ VIAL IVP SCH ×3 (08:08→17:04)
[2022-07-20] MEDS: FUROSEMIDE 20 MG/2 ML VIAL IVP SCH ×2 (08:08→20:45)
--- NOTE | 2022-07-20 08:39 | NUR ---
FOLLOW UP BLOOD GLUCOSE 116.
[2022-07-20] MEDS: NACL 0.45% 1,000 ML IV SCH (09:35)
--- NOTE | 2022-07-20 09:50 | NUR ---
PT PLACED ON SPONTANEOUS BREATHING TRIAL WITH A PRESSURE SUPPORT OF 8, PEEP OF 5, AND FIO2 35%. MD HARDY AT BEDSIDE. NO CHANGES AT THIS TIME. BACK UP ALARMS ARE SET AND AUDIBLE TO NURSING STATION. NO RESPIRATORY DISTRESS NOTED AT THIS TIME. RN NOTIFIED.
--- NOTE | 2022-07-20 09:52 | NUR ---
SEEN AND EXAMINED BY DR. HARDY. ORDERS RECEIVED.
[2022-07-20] MEDS ORDERED: VANCOMYCIN 1,000 MG in DEXTROSE 5% 250 ML IV SCH (10:00)
--- NOTE | 2022-07-20 10:30 | NUR ---
TUBE FEEDING RESIDUAL 80 ML, INCREASED TUBE FEEDING TO 30 ML/HR.
--- NOTE | 2022-07-20 10:56 | NUR ---
07/20/22 FOLLOW UP COMPLETED. PLEASE REFER TO NUTRITION ASSESSMENT UNDER CARE ACTIVITY FOR ESTIMATED NUTRITIONAL NEEDS. 1. CONTINUE BANATROL BID FOR DIARRHEA UNTIL SYMPTOMS RESOLVED 2. CONTINUE VITAL AF 1.2 @ 30 ML/HR, FWF 200 ML Q6H, ELEN BID TOLERATED. WHEN/IF MEDICALLY APPROPRIATE, GRADUALLY INCREASE TF TO 50 ML/HR PT TOLERATES. - WITH PROPOFOL AT 13 ML/HR, TF AT GOAL RATE OF 50 ML/HR, AND ELEN BID, PROVIDES 1200 ML VOLUME, 1944 KCAL, 95 GM PROTEIN AND 1773 ML FREE WATER DAILY MEETING 93% ESTIMATED KCAL NEEDS AND 100% ESTIMATED PROTEIN NEEDS; ADEQUATE 3. MONITOR GASTRIC RESIDUALS AND NUTRITION RELATED LAB VALUES 4. RD TO FOLLOW-UP IN 2-3 DAYS PATIENT IS HIGH RISK. TARYN MARTIN RD
--- NOTE | 2022-07-20 12:00 | NUR ---
SEDATION VACATION PERFORMED. PT ABLE TO FOLLOW SIMPLE COMMANDS. TOLERATED 1 HR 20 MINS OF CPAP. INTERRUPTED DUE TO LOW TIDAL VOLUME.
[2022-07-20] MEDS: PROPOFOL 1000 MG/100 ML PREMIX 100 ML IV PRN ×2 (12:20→20:20)
--- NOTE | 2022-07-20 12:25 | NUR ---
TUBE FEEDING RESIDUAL 30 ML, INCREASED TUBE FEEDING TO 40 ML/HR.
--- NOTE | 2022-07-20 15:00 | NUR ---
SON AT BEDSIDE. UPDATED ON POC.
--- NOTE | 2022-07-20 16:07 | NUR ---
TUBE FEED RESIDUAL 20 ML. INCREASED TUBE FEEDING RATE TO 50 ML/HR.
[2022-07-20] MEDS: FLUCONAZOLE 200 MG/NS PREMIX 100 ML IV SCH (18:07)
[2022-07-20] MEDS: INSULIN LISPRO SLIDING SCALE 100 UNITS/ML VIAL SUBQ PRN (18:08)
--- NOTE | 2022-07-20 19:10 | NUR ---
ENDORSED BEDSIDE REPORT TO [facility], FOR CONTINUITY OF CARE.
[2022-07-21] VITALS (32 sets, daily range): BP systolic 93–171; BP diastolic 52–90
[2022-07-21] MEDS: BLOOD GLUCOSE MONITORING 1 DEV DEV FS SCH ×4 (00:14→18:43)
[2022-07-21] MEDS: SKINTEGRITY HYDROGEL TP SCH ×2 (00:18→13:00)
[2022-07-21] MEDS: HYDRAGUARD CREAM TP SCH ×2 (00:18→13:00)
[2022-07-21] MEDS: INSULIN LISPRO SLIDING SCALE 100 UNITS/ML VIAL SUBQ PRN ×4 (00:21→18:44)
[2022-07-21] MEDS: ALBUTEROL SULFATE/IPRATROPIU 3 ML SOL IH SCH ×3 (01:55→12:58)
[2022-07-21] MEDS: DOPamine 400 MG/D5W PREMIX 250 ML IV PRN ×2 (04:28→22:06)
[2022-07-21] MEDS: PIPERACILLIN/TAZOBACTAM 2.25 GM in DEXTROSE 5% 50 ML IV SCH ×2 (04:29→12:46)
[2022-07-21] MEDS: PROPOFOL 1000 MG/100 ML PREMIX 100 ML IV PRN ×2 (05:16→22:04)
--- NOTE | 2022-07-21 06:46 | NUR ---
CHANGED CENTRAL LINE DRESSING, DRESSING C/D/I
[2022-07-21] MEDS: LEVOTHYROXINE 0.025 MG TAB PO SCH (06:53)
[2022-07-21] MEDS: levETIRAcetam 500 MG in NACL 0.9% 100 ML IV SCH ×2 (06:53→17:21)
[2022-07-21] MEDS ORDERED: DEXMEDETOMIDINE HCL 100 MCG/ML 2 ML VIAL IV ONE (07:14)
[2022-07-21] MEDS: DEXMEDETOMIDINE HCL 400 MCG in NACL 0.9% 96 ML IV PRN (07:18)
--- NOTE | 2022-07-21 07:20 | NUR ---
RECEIVED REPORT FROM AMAN [[facility]] PT.IS SLEEPING. SKIN DRY AND WARM TO TOUCH, ETT TO VENT SETTING AC/PC 30% RATE 14 PEEP5 IV FLUID HAS TLC ON RT IJ INFUSING DOPAMINE . PROPOFOL AND PRECEDEX AND NS TKO. HAS CLEARY'S CATH DRAIN YELLOW URINE WITH SEDIMENT RECTAL BAG HAS SMALL AMOUNT OF SMALL AMOUNT OF DARK GREEN LIQUID BM.
--- NOTE | 2022-07-21 07:25 | NUR ---
GAVE REPORT TO AND ENDORSED CARE TO EMANUEL RN WHO ASSUMED TOTAL CARE OF THE PATIENT ALL QUESTIONS AND CONCERNS ANSWERED
[2022-07-21] MEDS: PANTOPRAZOLE 40 MG INJ VIAL IVP SCH (09:00)
[2022-07-21] MEDS: QUEtiapine FUMARATE 25 MG TAB PO SCH ×2 (09:00→21:00)
[2022-07-21] MEDS: FUROSEMIDE 20 MG/2 ML VIAL IVP SCH ×2 (09:00→21:00)
[2022-07-21] MEDS: METOCLOPRAMIDE 10 MG/2 ML INJ VIAL IVP SCH ×3 (09:00→17:21)
--- NOTE | 2022-07-21 10:00 | NUR ---
REPOSITION ORAL CARE GIVEN.
[2022-07-21 11:07] LABS: ANION GAP 13.5 (8-16); CARBON DIOXIDE 22.2 mmol/L (21-32); CREATININE 1.6 mg/dL (0.6-1.3); POTASSIUM 3.7 mmol/L (3.5-5.1)
[2022-07-21 11:23] LABS: PHOSPHORUS 4.1 mg/dL (2.5-4.9)
[2022-07-21 11:32] LABS: ANION GAP 14.8 (8-16); CARBON DIOXIDE 21.9 mmol/L (21-32); CREATININE 1.6 mg/dL (0.6-1.3); POTASSIUM 3.7 mmol/L (3.5-5.1)
--- NOTE | 2022-07-21 11:55 | NUR ---
SEEN BY DR CARDOSO AT BEDSIDE NO NEW ORDER RECEIVED.
[2022-07-21 13:18] LABS: BASOPHILS # (AUTO) 0.1 K/uL (0.00-0.22); BASOPHILS % (AUTO) 1.2 % (0.0-2.0); EOSINOPHILS # (AUTO) 0.3 K/uL (0-0.4); EOSINOPHILS % (AUTO) 3.7 % (0.0-4.0); HEMOGLOBIN 8.1 g/dL (12.0-18.0); LYMPHOCYTES # (AUTO) 1.3 K/uL (2.0-11.5); LYMPHOCYTES % (AUTO) 14.1 % (20.5-51.1); MEAN CORPUSCULAR HEMOGLOBIN 27 pg (27-31); MEAN CORPUSCULAR HGB CONC 32 g/dL (33-37); MEAN CORPUSCULAR VOLUME 82.3 fL (80-94); MONOCYTES # (AUTO) 0.6 K/uL (0.8-1.0); MONOCYTES % (AUTO) 6.4 % (1.7-9.3); NEUTROPHILS # (AUTO) 6.9 K/uL (1.8-7.7); NEUTROPHILS % (AUTO) 74.6 % (42.2-75.2); PLATELET COUNT (AUTO) 466 K/uL (140-450); RED BLOOD CELL COUNT(AUTO) 3.04 MIL/uL (4.20-6.10); RED CELL DISTRIBUTION WIDTH 16.6 % (11.6-13.7); WHITE BLOOD COUNT (AUTO) 9.3 K/uL (4.8-10.8)
--- NOTE | 2022-07-21 13:30 | NUR ---
SEEN BY DR HARDY AT BED SIDE NO NEW ORDER RECEIVED.
--- NOTE | 2022-07-21 17:07 | NUR ---
DECREASE DOPAMINE TO 9MCG/KG/MIN , PROPOFOL TO 14MCG/KG/MIN. REPOSITION ORAL CARE GIVEN.
[2022-07-21] MEDS ORDERED: ALBUTEROL 0.083% 2.5 MG/3 ML NEBU INH ONE (19:16)
[2022-07-21] MEDS ORDERED: IPRATROPIUM 0.02% 0.5 MG/2.5 ML NEBU INH ONE (19:17)
--- NOTE | 2022-07-21 20:00 | NUR ---
SBAR REPORT RECEIVED FROM OUTGOING AM NURSE. RECEIVED PT SEDATED, ORALLY INTUBATED, ON PROPOFOL, DOPAMINE AND PRECEDEX DRIPS, RASS (-3). ASSESSMENT DONE. TOLERATING CURRENT VENT SETTING, OGT FEEDING GOING ON, ASPIRATION PRECAUTION MAINTAINED. REPOSITIONED TO SIDE, SUPPRTED WITH PILLOWS. NEEDS ATTENDED. ISOLATION PREUTION OBSERVED. CONT TO MONITOR.
[2022-07-22] VITALS (30 sets, daily range): BP systolic 98–133; BP diastolic 46–81
[2022-07-22] MEDS: BLOOD GLUCOSE MONITORING 1 DEV DEV FS SCH ×4 (00:45→18:20)
[2022-07-22] MEDS: HYDRAGUARD CREAM TP SCH ×2 (01:13→13:47)
[2022-07-22] MEDS: SKINTEGRITY HYDROGEL TP SCH ×2 (01:14→13:47)
[2022-07-22] MEDS: DEXMEDETOMIDINE HCL 400 MCG in NACL 0.9% 96 ML IV PRN ×2 (01:41→08:58)
[2022-07-22] MEDS ORDERED: IPRATROPIUM 0.02% 0.5 MG/2.5 ML NEBU INH ONE (02:27)
[2022-07-22] MEDS ORDERED: ALBUTEROL 0.083% 2.5 MG/3 ML NEBU INH ONE (02:27)
[2022-07-22] MEDS: ALBUTEROL 0.083% 2.5 MG/3 ML NEBU INH SCH (02:35)
[2022-07-22] MEDS: levETIRAcetam 500 MG in NACL 0.9% 100 ML IV SCH ×2 (05:35→18:20)
[2022-07-22] MEDS: INSULIN LISPRO SLIDING SCALE 100 UNITS/ML VIAL SUBQ PRN ×2 (05:57→13:08)
[2022-07-22] MEDS: LEVOTHYROXINE 0.025 MG TAB PO SCH (06:39)
--- NOTE | 2022-07-22 07:30 | NUR ---
REPORT GIVEN TO ANGELA, INCOMING AM RN. GEN CONDITION CRITICAL. WEEKLY PICTURES OF WOUND TAKEN, FILED IN CHART.
--- NOTE | 2022-07-22 07:50 | NUR ---
SBAR REPORT RECEIVED FROM KALANI RN, ALL CARES ASSUMED. PT INTUBATED AND SEDATED. PT BRIEFLY OPENS EYES, RASS-2. ETT TO VENT, AC/PC 14, 25%, 5. PROPOFOL 12MCG/KG/MIN, DOPAMINE 5MCG/KG/MIN, PRECEDEX 0.6MCG/KG/HR; DRIPS INFUSING TO TO RIGHT TRIPLE LUMEN CENTRAL LINE. VITAL AF 1.2 FEEDING AT 50ML/HR TO OGT. CLEARY CATHETER AND RECTAL TUBE DRAINING TO GRAVITY. BED IN LOW AND LOCKED POSITION.
[2022-07-22 08:43] LABS: ANION GAP 15.1 (8-16); CARBON DIOXIDE 24.3 mmol/L (21-32); CREATININE 1.6 mg/dL (0.6-1.3); POTASSIUM 3.4 mmol/L (3.5-5.1); TOTAL BILIRUBIN 0.2 mg/dL (0.0-1.0)
[2022-07-22] MEDS: QUEtiapine FUMARATE 25 MG TAB PO SCH ×2 (08:51→21:00)
[2022-07-22] MEDS: PANTOPRAZOLE 40 MG INJ VIAL IVP SCH (08:51)
[2022-07-22] MEDS: FUROSEMIDE 20 MG/2 ML VIAL IVP SCH ×2 (08:52→21:01)
[2022-07-22] MEDS: METOCLOPRAMIDE 10 MG/2 ML INJ VIAL IVP SCH ×3 (08:52→18:19)
[2022-07-22] MEDS: DOPamine 400 MG/D5W PREMIX 250 ML IV PRN (08:54)
[2022-07-22 08:56] LABS: BASOPHILS # (AUTO) 0.1 K/uL (0.00-0.22); BASOPHILS % (AUTO) 0.9 % (0.0-2.0); EOSINOPHILS # (AUTO) 0.4 K/uL (0-0.4); EOSINOPHILS % (AUTO) 3.9 % (0.0-4.0); HEMATOCRIT 24.1 % (36-52); HEMOGLOBIN 7.9 g/dL (12.0-18.0); LYMPHOCYTES # (AUTO) 1.1 K/uL (2.0-11.5); LYMPHOCYTES % (AUTO) 12.1 % (20.5-51.1); MEAN CORPUSCULAR HEMOGLOBIN 27 pg (27-31); MEAN CORPUSCULAR HGB CONC 33 g/dL (33-37); MEAN CORPUSCULAR VOLUME 81.6 fL (80-94); MONOCYTES # (AUTO) 0.6 K/uL (0.8-1.0); MONOCYTES % (AUTO) 6.2 % (1.7-9.3); NEUTROPHILS % (AUTO) 76.9 % (42.2-75.2); PLATELET COUNT (AUTO) 516 K/uL (140-450); RED BLOOD CELL COUNT(AUTO) 2.95 MIL/uL (4.20-6.10); RED CELL DISTRIBUTION WIDTH 16.2 % (11.6-13.7); WHITE BLOOD COUNT (AUTO) 9.1 K/uL (4.8-10.8)
[2022-07-22] MEDS: PROPOFOL 1000 MG/100 ML PREMIX 100 ML IV PRN (08:56)
--- NOTE | 2022-07-22 10:30 | NUR ---
DR HARDY ROUNDING AT BEDSIDE. PLAN OF CARE DISCUSSED. DR HARDY WILL PLACE ORDERS.
--- NOTE | 2022-07-22 15:09 | NUR ---
07/22/22 RD FOLLOW UP COMPLETED PLEASE REFER TO NUTRITION ASSESSMENT UNDER CARE ACTIVITY FOR ESTIMATED NUTRITIONAL NEEDS. 1. RECOMMEND SWITCHING TO GLUCERNA 1.2 @ 55ML/HR WITH ELEN BID -FWF: 100ML Q8H OR PER MD -START AT 10ML/HR AND INCREASE BY 10ML Q4H TOLERATED -WITH ELEN BID, PT WILL RECEIVE 1744KCAL AND 79G PROTEIN, MEETING 83% ESTIMATED KCAL AND 94% ESTIMATED PROTEIN NEEDS; ADEQUATE 2. MONITOR GASTRIC RESIDUALS, NUTRITION RELATED LAB VALUES, AND GI SYMPTOMS 3. IF PT EXTUBATED, RECOMMEND SWALLOW EVAL BEFORE ADVANCING DIET 4. CONSULT RD PRN 5. RD TO FOLLOW-UP IN 2-3 DAYS PATIENT IS HIGH RISK. CALVIN MATHEWS RD
[2022-07-22] MEDS: IPRATROPIUM 0.02% 0.5 MG/2.5 ML NEBU INH SCH (19:00)
--- NOTE | 2022-07-22 19:28 | NUR ---
SBAR REPORT GIVEN TO JAROD SEO, ALL CARES ENDORSED.
--- NOTE | 2022-07-22 19:48 | NUR ---
REPORT RECEIVED FROM JAROD SEO. PATIENT INTUBATED AND SEDATED. VITALS: HR 56, BP 123/91, RR 14, SPO2 95%. VENTILATOR SETTINGS A/C PC FIO2 28%, RR 14, PEEP 5. PATIENT HAS RIGHT IJ ACCESS RUNNING DOPAMINE 3MCG/KG/MIN, PROPOFOL 20MCG/KG/MIN, DRY WT 85 KG, AND PRECEDEX RUNNING 0.6 MCG/KG/HR. PATIENT ON OG TUBE FEEDING, VITAL AF RUNNING AT 50ML/HR. PATIENT HAS CLEARY CATHETER DRAINING URINE AND FLEXI SEAL IN PLACE. MULTIPLE WOUNDS NOTED SEE WOUND CARE CHARTING. FLACC 0. Addendum: 07/23/22 at 0339 by KAREN DOW RN PT HAS SOFT WRIST RESTRAINTS ON BILATERAL UPPER EXTREMITIES.
--- NOTE | 2022-07-22 22:30 | NUR ---
PT PRECEDEX TITRATED DOWN TO 0.4MCG/KG/HR. PT TOLERATING WELL.
[2022-07-23] VITALS (26 sets, daily range): BP systolic 96–139; BP diastolic 56–83
--- NOTE | 2022-07-23 | NUR ---
TEMP 95.7; ARAVIND ANGELA IN PLACE.
[2022-07-23] MEDS: IPRATROPIUM 0.02% 0.5 MG/2.5 ML NEBU INH SCH ×4 (00:48→18:59)
[2022-07-23] MEDS: ALBUTEROL 0.083% 2.5 MG/3 ML NEBU INH SCH ×4 (00:48→18:59)
[2022-07-23] MEDS: BLOOD GLUCOSE MONITORING 1 DEV DEV FS SCH ×4 (00:53→17:41)
[2022-07-23] MEDS: PROPOFOL 1000 MG/100 ML PREMIX 100 ML IV PRN ×2 (01:01→06:35)
[2022-07-23] MEDS: HYDRAGUARD CREAM TP SCH ×2 (01:48→12:02)
[2022-07-23] MEDS: SKINTEGRITY HYDROGEL TP SCH ×2 (01:48→12:03)
--- NOTE | 2022-07-23 02:00 | NUR ---
TEMP RECHECKED 96.4; CONTINUED ON ARAVIND HUGGER.PT STILL SEDATED, INTUBATED FIO2 28%.FLACC 0
--- NOTE | 2022-07-23 04:00 | NUR ---
PERFORMED PT AM CARE. PT WAS TURNED, CLEANED, AND LINEN WAS CHANGED.
[2022-07-23] MEDS: DEXMEDETOMIDINE HCL 400 MCG in NACL 0.9% 96 ML IV PRN ×2 (04:56→22:09)
[2022-07-23 05:23] LABS: BASOPHILS # (AUTO) 0.1 K/uL (0.00-0.22); BASOPHILS % (AUTO) 1.6 % (0.0-2.0); EOSINOPHILS # (AUTO) 0.4 K/uL (0-0.4); EOSINOPHILS % (AUTO) 7.3 % (0.0-4.0); HEMATOCRIT 20.7 % (36-52); LYMPHOCYTES # (AUTO) 1.6 K/uL (2.0-11.5); LYMPHOCYTES % (AUTO) 27.3 % (20.5-51.1); MEAN CORPUSCULAR HEMOGLOBIN 27 pg (27-31); MEAN CORPUSCULAR HGB CONC 33 g/dL (33-37); MEAN CORPUSCULAR VOLUME 81.2 fL (80-94); MONOCYTES # (AUTO) 0.4 K/uL (0.8-1.0); MONOCYTES % (AUTO) 5.9 % (1.7-9.3); NEUTROPHILS # (AUTO) 3.5 K/uL (1.8-7.7); NEUTROPHILS % (AUTO) 57.9 % (42.2-75.2); PLATELET COUNT (AUTO) 448 K/uL (140-450); RED BLOOD CELL COUNT(AUTO) 2.55 MIL/uL (4.20-6.10); RED CELL DISTRIBUTION WIDTH 16.1 % (11.6-13.7)
[2022-07-23 05:36] LABS: HEMOGLOBIN 6.8 g/dL (12.0-18.0)
[2022-07-23] MEDS: LEVOTHYROXINE 0.025 MG TAB PO SCH (06:08)
[2022-07-23] MEDS: levETIRAcetam 500 MG in NACL 0.9% 100 ML IV SCH ×2 (06:09→17:41)
[2022-07-23 06:10] LABS: ANION GAP 13.2 (8-16); CARBON DIOXIDE 25.1 mmol/L (21-32); CREATININE 1.5 mg/dL (0.6-1.3); POTASSIUM 3.3 mmol/L (3.5-5.1); TOTAL BILIRUBIN 0.2 mg/dL (0.0-1.0)
[2022-07-23] MEDS: INSULIN LISPRO SLIDING SCALE 100 UNITS/ML VIAL SUBQ PRN ×2 (06:38→11:56)
--- NOTE | 2022-07-23 07:05 | NUR ---
BEDSIDE REPORT GIVEN TO NAHEED SEO.
--- NOTE | 2022-07-23 07:16 | NUR ---
PHONE CALL TO PTS SISTER,MATTHEW PEDROZA,PTS NOK, SHE SAID SHE IS THE ONE GIVING DECISION FOR THE PT,CONSENT FOR BLOOD TRANSFUSION OBTAINED, WITNESSED BY LUANN SEO
--- NOTE | 2022-07-23 07:20 | NUR ---
Received pt sedated. Audie hugger in place. ETT to vent settings AC/PC FiO2@28% rate 14 PEEP 5. Sinus rhythm on monitor. OG-tube intact and in place with no gastric residual infusing Glucerna 1.2@50ml/hr with FWF 100 Q8hr. Rodriguez catheter intact and draining to gravity. Flexiseal in place. Central line on RIJ intact and patent infusing Dopamine @5mcg/kg/min, Precedex@0.4mcg/kg/hr, Propofol@20mcg/kg/min, and NS@TKO. Bilat soft wrist restraints in place with no signs of injury. Safety precautions in place.
[2022-07-23] MEDS: DOPamine 400 MG/D5W PREMIX 250 ML IV PRN (07:45)
[2022-07-23] MEDS: FUROSEMIDE 20 MG/2 ML VIAL IVP SCH (08:19)
[2022-07-23] MEDS: PANTOPRAZOLE 40 MG INJ VIAL IVP SCH (08:19)
[2022-07-23] MEDS: QUEtiapine FUMARATE 25 MG TAB PO SCH ×2 (08:19→20:25)
[2022-07-23] MEDS: METOCLOPRAMIDE 10 MG/2 ML INJ VIAL IVP SCH ×3 (08:19→16:33)
[2022-07-23] MEDS: POTASSIUM CHLORIDE 20% 40 MEQ/15 ML UDC GT PRN (08:20)
--- NOTE | 2022-07-23 08:30 | NUR ---
Seen and examined by Dr. Zimmer. No new orders.
--- NOTE | 2022-07-23 12:00 | NUR ---
RT at bedside and started CPAP trial.
--- NOTE | 2022-07-23 12:34 | NUR ---
Called infection control with no answer and left voice message with call back number. Awaiting for call back.
--- NOTE | 2022-07-23 12:40 | NUR ---
BEDSIDE ASSESSING PT AND STATES FOR PT TO BE EXTUBATED AND CLOSELY MONITOR RESPIRATORY STATUS. NURSE BEDSIDE AND AWARE OF VERBAL ORDER.
--- NOTE | 2022-07-23 12:40 | NUR ---
Dr. Romo at bedside examining patient and RT at bedside. Dr. Romo with new order to extubate patient.
--- NOTE | 2022-07-23 12:47 | NUR ---
RT at bedside and extubated per MD order. O2 sat 98% on 3L via nasal cannula and tolerating well.
--- NOTE | 2022-07-23 12:47 | NUR ---
PT EXTUBATED AND PLACED ON 3L NC. PT AWAKE NOT IN ANY DISTRESS. LEAK HEARD AROUND CUFF PRIOR TO EXTUBATION. NURSE BEDSIDE AND AWARE OF PT STATUS.
[2022-07-23] MEDS ORDERED: FUROSEMIDE 100 MG/10 ML VIAL IV SCH (13:00)
--- NOTE | 2022-07-23 18:05 | NUR ---
Seen and examined by Dr. Preston.
--- NOTE | 2022-07-23 18:11 | NUR ---
2ND attempt to call infection control to relay message from Dr. Preston regarding C. Diff stool sample with no answer. Left message with name and call back number.
[2022-07-23] MEDS: FUROSEMIDE 100 MG in DEXTROSE 5% 100 ML IV SCH (18:32)
[2022-07-23 19:01] LABS: ANION GAP 12.6 (8-16); CARBON DIOXIDE 24.9 mmol/L (21-32); CREATININE 1.6 mg/dL (0.6-1.3); POTASSIUM 3.5 mmol/L (3.5-5.1)
--- NOTE | 2022-07-23 19:13 | NUR ---
Endorsed to advertising account representative nurse Cecelia for continuity of care.
--- NOTE | 2022-07-23 19:15 | NUR ---
RECEIVED REPORT FROM AM SHIFT
--- NOTE | 2022-07-23 19:30 | NUR ---
ASSUMED CARE OF PT.INITIAL ASSESSMENT COMPLETED.ON 02NC AT 2LPM.TLC TO RT IJ,1 PORT NOT WORKING,2 PORTS W/GOOD BLOOD RETURN INFUSING LASIX DRIP AT 5MG/HR,PRECEDEX DRIP AT 0.2MCG/KG/HR AND NS AT TKO.NPO FOR NOW,FOR SWALLOW EVAL IN AM.CLEARY INTACT.ADEQUATE AMT OF YELLOW URINE.RECTAL TUBE ALSO IN PLACE.SEE WOUND ASSESSMENT,MULTIPLE WOUND NOTED.W/BILATERAL SOFT WRIST RESTRAINTS.NO INJURIES NOTED.FALL PRECAUTION IN PLACE.NO PAIN NOTED.WILL CONTINUE TO CLOSELY MONITOR PT
[2022-07-23] MEDS: MAG SULF 2000 MG/WATER PREMIX 50 ML IV PRN (20:24)
--- NOTE | 2022-07-23 21:00 | NUR ---
AL DUE MEDS GIVEN,PT AWAKE.NO SOB NOTED ON 02NC AT 2LPM.NO PAIN NOTED.
[2022-07-23 22:11] LABS: HEMATOCRIT 23.3 % (36-52); HEMOGLOBIN 7.7 g/dL (12.0-18.0)
--- NOTE | 2022-07-23 22:54 | NUR ---
FLEXI SEAL LEAKING, BALLOON ALSO HAS LEAK, CHANGED TO NEW FLEXI SEAL.
[2022-07-24] VITALS (24 sets, daily range): BP systolic 84–154; BP diastolic 48–108
--- NOTE | 2022-07-24 | NUR ---
AFEBRILE.MAINTAINED ON NPO FOR SWALLOW EVAL IN AM.PT AWAKE,STILL ON 02NC AT 2LPM, NO RESP DISTRESS NOTED.NO PAIN NOTED
[2022-07-24] MEDS: BLOOD GLUCOSE MONITORING 1 DEV DEV FS SCH ×4 (00:02→17:48)
[2022-07-24] MEDS: INSULIN LISPRO SLIDING SCALE 100 UNITS/ML VIAL SUBQ PRN ×2 (00:02→11:47)
[2022-07-24] MEDS: SKINTEGRITY HYDROGEL TP SCH ×2 (00:31→12:12)
[2022-07-24] MEDS: HYDRAGUARD CREAM TP SCH ×2 (00:31→12:12)
[2022-07-24] MEDS: IPRATROPIUM 0.02% 0.5 MG/2.5 ML NEBU INH SCH ×4 (01:15→19:09)
[2022-07-24] MEDS: ALBUTEROL 0.083% 2.5 MG/3 ML NEBU INH SCH ×4 (01:15→19:09)
--- NOTE | 2022-07-24 02:46 | NUR ---
PT APPEARS ASLEEP; NOT IN ANY DISTRESS AT THIS TIME.NO PAIN NOTED
--- NOTE | 2022-07-24 05:14 | NUR ---
MORNING CARE DONE.ORAL CARE RENDERED.PT ABLE TO FOLLOW SIMPLE COMMANDS, ORIENTED X 2 AT THIS TIME.WILL CONTINUE TO CLOSELY MONITOR PT
[2022-07-24] MEDS: LEVOTHYROXINE 0.025 MG TAB PO SCH (05:54)
[2022-07-24] MEDS: levETIRAcetam 500 MG in NACL 0.9% 100 ML IV SCH ×2 (05:54→17:48)
--- NOTE | 2022-07-24 07:20 | NUR ---
Received pt alert and oriented x3. Pt with low temp and lupis hugger placed. On 2L via nasal cannula. Sinus royce on monitor. Rectal tube and milan catheter in place draining to gravity. Central line on right IJ intact and infusing Lasix @5mg/hr, Precedex@0.2mcg/kg/hr and NS@TKO. Bilat soft wrist restraints in place with no signs of injury. Safety precautions in place.
[2022-07-24 07:45] LABS: BASOPHILS # (AUTO) 0.1 K/uL (0.00-0.22); BASOPHILS % (AUTO) 0.9 % (0.0-2.0); EOSINOPHILS # (AUTO) 0.4 K/uL (0-0.4); EOSINOPHILS % (AUTO) 6.1 % (0.0-4.0); HEMATOCRIT 26.2 % (36-52); HEMOGLOBIN 8.6 g/dL (12.0-18.0); LYMPHOCYTES # (AUTO) 1.5 K/uL (2.0-11.5); MEAN CORPUSCULAR HEMOGLOBIN 26 pg (27-31); MEAN CORPUSCULAR HGB CONC 33 g/dL (33-37); MEAN CORPUSCULAR VOLUME 80.5 fL (80-94); MONOCYTES # (AUTO) 0.4 K/uL (0.8-1.0); MONOCYTES % (AUTO) 6.7 % (1.7-9.3); NEUTROPHILS # (AUTO) 3.5 K/uL (1.8-7.7); NEUTROPHILS % (AUTO) 60.3 % (42.2-75.2); PLATELET COUNT (AUTO) 429 K/uL (140-450); RED BLOOD CELL COUNT(AUTO) 3.25 MIL/uL (4.20-6.10); WHITE BLOOD COUNT (AUTO) 5.8 K/uL (4.8-10.8)
[2022-07-24] MEDS: PANTOPRAZOLE 40 MG INJ VIAL IVP SCH (08:06)
[2022-07-24] MEDS: METOCLOPRAMIDE 10 MG/2 ML INJ VIAL IVP SCH ×3 (08:06→16:01)
[2022-07-24] MEDS: QUEtiapine FUMARATE 25 MG TAB PO SCH ×2 (08:08→20:32)
--- NOTE | 2022-07-24 08:25 | NUR ---
Dr. Zimmer at bedside examining patient.
[2022-07-24 08:51] LABS: ANION GAP 15.3 (8-16); CREATININE 1.4 mg/dL (0.6-1.3); POTASSIUM 3.3 mmol/L (3.5-5.1)
[2022-07-24] MEDS: POTASSIUM CHLORIDE 20% 40 MEQ/15 ML UDC GT PRN (09:11)
--- NOTE | 2022-07-24 10:36 | NUR ---
Sister Katie at bedside. All questions answered.
[2022-07-24] MEDS: FUROSEMIDE 100 MG in DEXTROSE 5% 100 ML IV SCH (11:53)
--- NOTE | 2022-07-24 12:05 | NUR ---
Seen and examined by Dr. Romo. Per Dr. Romo, continue with diuresis today.
--- NOTE | 2022-07-24 17:05 | NUR ---
ST Olson at bedside performing swallow eval. Recommendation puree diet with nectar thickened liquid.
--- NOTE | 2022-07-24 19:12 | NUR ---
Endorsed to electric cutter operator nurse for continuity of care.
--- NOTE | 2022-07-24 19:18 | NUR ---
ASSUMED CARE OF PT.INITIAL ASSESSMENT COMPLETED.SR ON MONITOR.ON 02NC AT 2LPM.TLC TO RT IJ,INFUSING LASIX DRIP AT 5MG/HR, NS AT TKO.PT ON PUREED DIET.CLEARY INTACT.ADEQUATE AMT OF YELLOW URINE.RECTAL TUBE ALSO IN PLACE.SEE WOUND ASSESSMENT,MULTIPLE WOUND NOTED.W/BILATERAL SOFT WRIST RESTRAINTS.NO INJURIES NOTED.FALL PRECAUTION IN PLACE.DENIES PAIN.WILL CONTINUE TO CLOSELY MONITOR PT Addendum: 07/24/22 at 1935 by Sandra Jacinto RN OFF BILATERAL WRIST RESTRAINTS AT THIS TIME, WILL ASSESS PT.
--- NOTE | 2022-07-24 21:30 | NUR ---
PT AWAKE,WATCHING TV.NO SOB NOTED ON 02NC AT 2LPM.DENIES PAIN.REPOSITIONED
[2022-07-25] VITALS (12 sets, daily range): BP systolic 97–134; BP diastolic 49–86
--- NOTE | 2022-07-25 | NUR ---
PT ASLEEP,STILL ON 02NC AT 2LPM.NO SOB NOTED.REPOSITIONED.
[2022-07-25] MEDS: BLOOD GLUCOSE MONITORING 1 DEV DEV FS SCH ×4 (00:05→17:47)
[2022-07-25] MEDS: INSULIN LISPRO SLIDING SCALE 100 UNITS/ML VIAL SUBQ PRN ×3 (00:07→11:45)
[2022-07-25] MEDS: SKINTEGRITY HYDROGEL TP SCH ×2 (00:33→13:57)
[2022-07-25] MEDS: HYDRAGUARD CREAM TP SCH ×2 (00:33→13:56)
[2022-07-25] MEDS: ALBUTEROL 0.083% 2.5 MG/3 ML NEBU INH SCH ×4 (01:30→19:00)
[2022-07-25] MEDS: IPRATROPIUM 0.02% 0.5 MG/2.5 ML NEBU INH SCH ×4 (01:30→19:00)
--- NOTE | 2022-07-25 02:05 | NUR ---
RT AT BEDSIDE,PT OFF 02 SUPPLEMENT AT THIS TIME.02SAT ABOVE 95%.WILL CONTINUE TO CLOSELY MONITOR PT
--- NOTE | 2022-07-25 04:30 | NUR ---
MORNING CARE DONE.PT NOTED WITH PERIODS OF CONFUSION.CENTRAL LINE TO RT IJ INTACT,CLEARY CATHETER AND RECTAL TUBE INTACT.NO PAIN NOTED
[2022-07-25] MEDS: levETIRAcetam 500 MG in NACL 0.9% 100 ML IV SCH ×2 (06:33→17:48)
[2022-07-25] MEDS: LEVOTHYROXINE 0.025 MG TAB PO SCH (06:37)
--- NOTE | 2022-07-25 06:55 | NUR ---
ALL DUE MEDS GIVEN.PTS CONDITION REMAINS UNCHANGED.DENIES PAIN
[2022-07-25] MEDS: POTASSIUM CHLORIDE 20% 40 MEQ/15 ML UDC GT PRN (08:23)
[2022-07-25] MEDS: PANTOPRAZOLE 40 MG INJ VIAL IVP SCH (08:23)
[2022-07-25] MEDS: QUEtiapine FUMARATE 25 MG TAB PO SCH ×2 (08:24→22:08)
[2022-07-25] MEDS: METOCLOPRAMIDE 10 MG/2 ML INJ VIAL IVP SCH ×3 (08:24→17:47)
--- NOTE | 2022-07-25 09:31 | NUR ---
ON DUTY RECEIVED THIS PT ALERT, SLIGHTLY LETHARGIC AND SOME SORT OF CONFUSION, VS. STABLE ON 2L @NC. NO ACUTE DISTRESS. RT DONE THE BREATHING TX @08AM. BREAKFAST WAS FED TO PT BY STUDENT NURSE. MORNING MEDS GIVEN @10AM. MORNING ROUND DONE. PT WAS ORDERED TO DOWN GRADE TO TELE, BED IS PENDING.
--- NOTE | 2022-07-25 10:14 | NUR ---
WOUND NURSE WILLARD CAME IN. WOUND CARE DONE BEDSIDE.
--- NOTE | 2022-07-25 10:23 | NUR ---
WOUND CARE RE-EVALUATION NOTE: SKIN ASSESSMENT DONE WITH PRIMARY RN JOSE. NOTICE PT. WITH REYMUNDO TO COCCYX. PER JOSE THAT COCCYX WOUND IDENTIFIED ON 07/22 2022. WOUND PHOTOS OBTAINED, F/C AND FLEXI SEAL PATENT, POC DISCUSSED WITH JOSE AND MOLD CHIPPER HIM WITH SKIN REYMUNDO REPORTING AND POLICY. JOSE VERBALIZES UNDERSTANDING. PER JOSE PT. WILL BE TRANSFER TO TELE. POC DISCUSSED WITH [facility] CHARGE NURSE DUSTIN OF PT AT HI RISK WITH CONTINUE OF PI INTERVENTIONS INTEGUMENTARY: -COCCYX PRESSURE INJURY STAGE 2 WITH 1.5X1X0.1CM WOUND BED PALE PINK, MOIST, NO ODOR, JOHANN WOUND SKIN DRY, INTACT. - LEFT LE ANTERIOR VASCULAR ULCER 10X5.2X 0.2 CM. WOUND BED PINK, DRY, NO DRAINAGE, NO ODOR. WOUND EDGES FLAT AND ATTACHED, IRREGULAR SHAPE. PERIWOUND DRY, INTACT. - LEFT LOWER EXTREMITY LATERAL MALLEOLUS VASCULAR ULCER 2.5 X 1.5X 0.3 CM. WOUND BED PINK, DRY, NO DRAINAGE, NO ODOR. WOUND EDGES FLAT AND ATTACHED, IRREGULAR SHAPE. JOHANN-WOUND DRY, INTACT - LEFT POSTERIOR LEG CALF VASCULAR ULCER 5X3CM WOUND BED THIN BROWN SCAB DRY, NO ODOR. WOUND EDGES FLAT AND ATTACHED, IRREGULAR SHAPE. JOHANN-WOUND DRY, INTACT SKIN. - LEFT PLANTAR FOOT UN-STAGEABLE WOUND 3X3 CM. DRY STABLE BROWN SCAB, NO DRAINAGE, NO ODOR. JOHANN-WOUND, DRY, INTACT. - RIGHT POSTERIOR LATERAL VASCULAR ULCER 2.5X1X 0.1 CM. WOUND BED PINK, DRY, NO DRAINAGE, NO ODOR. WOUND EDGES FLAT AND ATTACHED, IRREGULAR SHAPE. JOHANN-WOUND DRY, FLAKY INTACT SKIN. RECOMMENDATION: -CONTINUE HYDROGEL TO BLE WOUNDS. -CLEANSE COCCYX WITH NS, PAT DRY, APPLY HYDROCOLLOID DRESSING Q3 DAY AND PRN IF SOILING. PLEASE CHECK FOR DRESSING FOR PLACEMENT QD -POSITIONING: TURN AND REPOSITION PATIENT Q 2H OR SOONER USE PILLOWS TO KEEP BONY PROMINENCES FROM DIRECT CONTACT WITH SURFACES USE REPOSITIONING WEDGES TO PROVIDE 30-DEGREE ANGLE FOR SIDE LYING POSITIONS OFFLOADING OR FOAM DRESSING TO ALL TUBING TO PREVENT MEDICAL DEVICES RELATED PRESSURE INJURY -RE-EVALUATING AND MANAGING INCONTINENCE MONITOR SKIN CONDITION DURING POSITION CHANGE DO NOT MASSAGE REDNESS, BONY PROMINENCES FREQUENT JOHANN-CARE AND PROVIDE BARRIER CREAMS PRN IF SOILING MOISTURE CONTROL BY OFFER BED HOBBS/URINAL /ABSORBENT PAD TO WICK AND HOLD MOISTURE. MAY OBTAIN ORDER FOR FLEX SEAL, RECTAL BAG OR CLEARY CATHETER PER PHYSICIAN ORDER UNLESS OTHERWISE CONTRAINDICATED KEEP SKIN DRY AND PROTECT FROM FRICTION -MANAGE FRICTION/SHEAR/MOBILITY KEEP HOB AT THE LOWEST LEVEL OF ELEVATION NO MORE THAN 30 DEGREES UNLESS OTHERWISE CONTRAINDICATED USE LIFT SHEET OR TRANSFER DEVICE TO MOVE PATIENT AND PREVENT LATERAL SHEER. CONSIDER TRAPEZE IF APPROPRIATE PROTECT HEELS, ELBOWS BONY PROMINENCES WITH SKIN BERRIES OR FOAM DRESSING IF EXPOSED TO FRICTION OFFLOAD BILATERAL HEELS BY PLACING PILLOWS UNDER CALVES AT ALL TIMES, UNLESS OTHERWISE CONTRAINDICATED -PRESSURE REDISTRIBUTION SURFACE THERAPY SHARON ISOFLEX HARPER MATTRESS -NUTRITION: PLEASE FOLLOW RD RECOMMENDATIONS AND OFFER NUTRITION SUPPLEMENTS IF ORDERED. PLEASE CONTACT WOUND CARE NURSE FOR ANY QUESTION AND CHANGE OF WOUND CONDITION.
--- NOTE | 2022-07-25 10:43 | NUR ---
DR. DOMÍNGUEZ CAME TO SEE PT. LASIX DRIP WAS ORDERED TO D/C. LASIX 40MG IVP BID WAS ORDERED. PT WAS ORDERED TO TRANSFER TO TEL.
--- NOTE | 2022-07-25 12:10 | NUR ---
PT GOT ROOM 110 A. REPORT WAS CALLED AND GIVEN TO DILIA. GABBI.
[2022-07-25] MEDS ORDERED: HYDROCOLLOID DRESSING TP PRN (14:00)
--- NOTE | 2022-07-25 16:17 | NUR ---
07/25/22 RD FOLLOW UP COMPLETED PLEASE REFER TO NUTRITION ASSESSMENT UNDER CARE ACTIVITY FOR ESTIMATED NUTRITIONAL NEEDS. 1. RECOMMEND ADDING [id number] TO PUREE, NECTAR THICK DIET TOLERATED 2. RECOMMEND ADDING ELEN BID FOR WOUND SUPPORT -PROVIDES 160 KCAL AND 5 GM PROTEIN DAILY 3. RECOMMEND GLUCERNA 1/DAY -PROVIDES 220 KCAL AND 10 GM PROTEIN DAILY 4. MONITOR PO INTAKE 5. RD TO FOLLOW-UP 3-5 DAYS, MODERATE RISK REVIEWED BY CALVIN MATHEWS RD
[2022-07-25] MEDS: FUROSEMIDE 40 MG/4 ML VIAL IVP SCH (17:47)
[2022-07-26] VITALS: BP 119/61
[2022-07-26] MEDS: ALBUTEROL 0.083% 2.5 MG/3 ML NEBU INH SCH ×4 (01:00→19:00)
[2022-07-26] MEDS: BLOOD GLUCOSE MONITORING 1 DEV DEV FS SCH ×4 (01:27→18:52)
[2022-07-26] MEDS: HYDRAGUARD CREAM TP SCH ×2 (01:28→13:00)
[2022-07-26] MEDS: SKINTEGRITY HYDROGEL TP SCH ×2 (01:29→13:00)
[2022-07-26] MEDS: IPRATROPIUM 0.02% 0.5 MG/2.5 ML NEBU INH SCH ×4 (03:28→19:00)
[2022-07-26 04:00] VITALS: BP 106/55
[2022-07-26] MEDS: levETIRAcetam 500 MG in NACL 0.9% 100 ML IV SCH ×2 (06:45→18:57)
[2022-07-26] MEDS: LEVOTHYROXINE 0.025 MG TAB PO SCH (06:59)
[2022-07-26] MEDS: INSULIN LISPRO SLIDING SCALE 100 UNITS/ML VIAL SUBQ PRN ×2 (07:10→13:10)
[2022-07-26 07:19] LABS: BASOPHILS % (AUTO) 0.5 % (0.0-2.0); EOSINOPHILS # (AUTO) 0.2 K/uL (0-0.4); EOSINOPHILS % (AUTO) 1.9 % (0.0-4.0); HEMATOCRIT 23.8 % (36-52); HEMOGLOBIN 7.8 g/dL (12.0-18.0); LYMPHOCYTES # (AUTO) 0.8 K/uL (2.0-11.5); LYMPHOCYTES % (AUTO) 7.8 % (20.5-51.1); MEAN CORPUSCULAR HEMOGLOBIN 27 pg (27-31); MEAN CORPUSCULAR HGB CONC 33 g/dL (33-37); MEAN CORPUSCULAR VOLUME 81.5 fL (80-94); MONOCYTES # (AUTO) 0.5 K/uL (0.8-1.0); MONOCYTES % (AUTO) 4.2 % (1.7-9.3); NEUTROPHILS # (AUTO) 9.2 K/uL (1.8-7.7); NEUTROPHILS % (AUTO) 85.6 % (42.2-75.2); PLATELET COUNT (AUTO) 393 K/uL (140-450); RED BLOOD CELL COUNT(AUTO) 2.92 MIL/uL (4.20-6.10); RED CELL DISTRIBUTION WIDTH 16.2 % (11.6-13.7); WHITE BLOOD COUNT (AUTO) 10.7 K/uL (4.8-10.8)
[2022-07-26 07:30] LABS: ANION GAP 14.1 (8-16); CREATININE 1.5 mg/dL (0.6-1.3); POTASSIUM 4.1 mmol/L (3.5-5.1)
--- NOTE | 2022-07-26 07:52 | NUR ---
RECEIVED PATIENT FROM PM NURSE FOR CONTINUATION OF CARE
[2022-07-26 08:00] VITALS: BP 92/60
[2022-07-26] MEDS: QUEtiapine FUMARATE 25 MG TAB PO SCH ×2 (09:50→22:02)
[2022-07-26] MEDS: METOCLOPRAMIDE 10 MG/2 ML INJ VIAL IVP SCH ×3 (09:50→17:59)
[2022-07-26] MEDS: FUROSEMIDE 40 MG/4 ML VIAL IVP SCH ×2 (09:52→17:58)
[2022-07-26] MEDS: PANTOPRAZOLE 40 MG INJ VIAL IVP SCH (09:52)
[2022-07-26 12:00] VITALS: BP 102/55
[2022-07-26] MEDS: HYDROCOLLOID DRESSING TP SCH (13:00)
--- NOTE | 2022-07-26 15:25 | NUR ---
PATIENT SEEN STABLE. BLOOD GLUCOSE 115. NO COVERAGE NEEDED.
[2022-07-26 16:00] VITALS: BP 108/71
--- NOTE | 2022-07-26 19:20 | NUR ---
ENDORSED PATIENT TO PM SHIFT NURSE FOR CONTINUITY OF CARE.
[2022-07-26 20:00] VITALS: BP 121/58
[2022-07-27] VITALS: BP 110/59
[2022-07-27] MEDS: INSULIN LISPRO SLIDING SCALE 100 UNITS/ML VIAL SUBQ PRN (00:45)
[2022-07-27] MEDS: HYDRAGUARD CREAM TP SCH ×2 (00:46→13:00)
[2022-07-27] MEDS: SKINTEGRITY HYDROGEL TP SCH ×2 (00:47→13:00)
[2022-07-27] MEDS: BLOOD GLUCOSE MONITORING 1 DEV DEV FS SCH ×4 (00:50→18:00)
[2022-07-27] MEDS: IPRATROPIUM 0.02% 0.5 MG/2.5 ML NEBU INH SCH ×4 (01:00→19:00)
[2022-07-27] MEDS: ALBUTEROL 0.083% 2.5 MG/3 ML NEBU INH SCH ×4 (01:00→19:00)
[2022-07-27 04:00] VITALS: BP 127/68
[2022-07-27] MEDS: levETIRAcetam 500 MG in NACL 0.9% 100 ML IV SCH ×2 (06:25→18:38)
[2022-07-27] MEDS: LEVOTHYROXINE 0.025 MG TAB PO SCH (07:01)
--- NOTE | 2022-07-27 07:33 | NUR ---
PT AWAKE, VERBALLY RESPONSIVE WITH CONFUSION, NO SOB OR DISTRESS. V/S STABLE . NO S/S OF SEIZURES. CONTINUE WITH LOOSE B/M, MODERATE. PT CARE ENDORSED TO INCOMING RN
--- NOTE | 2022-07-27 07:35 | NUR ---
RECEIVED PATIENT FROM PM NURSE FOR CONTINUATION OF CARE. PATIENT SEEN ON BED, AWAKE WATCHING TV. PATIENT MONITORING AND CARE CONTINUED.
[2022-07-27 08:00] VITALS: BP 130/67
[2022-07-27] MEDS: METOCLOPRAMIDE 10 MG/2 ML INJ VIAL IVP SCH ×3 (09:58→17:00)
[2022-07-27] MEDS: QUEtiapine FUMARATE 25 MG TAB PO SCH ×2 (09:58→20:46)
[2022-07-27] MEDS: PANTOPRAZOLE 40 MG INJ VIAL IVP SCH (09:58)
[2022-07-27] MEDS: FUROSEMIDE 40 MG/4 ML VIAL IVP SCH ×2 (10:00→17:00)
[2022-07-27 12:00] VITALS: BP 110/57
[2022-07-27] MEDS: HYDROCOLLOID DRESSING TP SCH (13:00)
[2022-07-27 16:00] VITALS: BP 134/61
--- NOTE | 2022-07-27 19:20 | NUR ---
RECEIVED PATIENT FROM AM NURSE FOR CONTINUITY OF CARE. PT IS STABLE
[2022-07-27 20:00] VITALS: BP 109/59
[2022-07-28] VITALS: BP 130/73
[2022-07-28] MEDS: IPRATROPIUM 0.02% 0.5 MG/2.5 ML NEBU INH SCH ×3 (01:00→14:30)
[2022-07-28] MEDS: ALBUTEROL 0.083% 2.5 MG/3 ML NEBU INH SCH ×3 (01:00→14:30)
--- NOTE | 2022-07-28 01:00 | NUR ---
PATIENT ASLEEP, NO DISTRESS NOTED
[2022-07-28] MEDS: HYDRAGUARD CREAM TP SCH ×2 (01:24→12:07)
[2022-07-28] MEDS: SKINTEGRITY HYDROGEL TP SCH ×2 (01:25→12:07)
[2022-07-28 04:00] VITALS: BP 139/85
[2022-07-28] MEDS: BLOOD GLUCOSE MONITORING 1 DEV DEV FS SCH ×5 (05:41→23:41)
[2022-07-28] MEDS: levETIRAcetam 500 MG in NACL 0.9% 100 ML IV SCH ×2 (05:41→17:20)
[2022-07-28] MEDS: LEVOTHYROXINE 0.025 MG TAB PO SCH (05:42)
--- NOTE | 2022-07-28 07:08 | NUR ---
receive the patient from the punch card operator rn in rm 116 aox1 with episode of confusion . will continue to monitor
[2022-07-28 08:00] VITALS: BP 155/81
[2022-07-28] MEDS: FUROSEMIDE 40 MG/4 ML VIAL IVP SCH ×2 (09:01→18:45)
[2022-07-28] MEDS: PANTOPRAZOLE 40 MG INJ VIAL IVP SCH (09:01)
[2022-07-28] MEDS: QUEtiapine FUMARATE 25 MG TAB PO SCH ×2 (09:01→20:52)
[2022-07-28] MEDS: METOCLOPRAMIDE 10 MG/2 ML INJ VIAL IVP SCH ×3 (09:02→18:46)
[2022-07-28 12:00] VITALS: BP 134/71
[2022-07-28] MEDS ORDERED: VANCOMYCIN 500 MG VIAL PO SCH (12:00)
[2022-07-28] MEDS: HYDROCOLLOID DRESSING TP SCH (12:08)
[2022-07-28] MEDS: VANCOMYCIN HCL 25 MG/ML SOLN PO SCH ×3 (12:40→23:36)
[2022-07-28] MEDS: INSULIN LISPRO SLIDING SCALE 100 UNITS/ML VIAL SUBQ PRN ×2 (17:19→23:44)
--- NOTE | 2022-07-28 19:06 | NUR ---
will endorse to home therapy clinician rn for continuity of care
--- NOTE | 2022-07-28 19:15 | NUR ---
RECEIVED PATIENT LYING ON THE BED, IN NO ACUTE DISTRESS, PATIENT IS ALERT, ORIENTED TO PERSON ONLY. ALL SAFETY MEASURES IN PLACE.
[2022-07-28 20:00] VITALS: BP 113/65
--- NOTE | 2022-07-28 20:55 | NUR ---
SCHEDULED MEDICATIONS GIVEN ORDERED.
--- NOTE | 2022-07-28 23:40 | NUR ---
SCHEDULED PO ANTIBIOTIC GIVEN ORDERED. BLOOD SUGAR 183 MG/DL, INSULIN GIVEN ORDERED.
[2022-07-29] VITALS: BP 152/77
--- NOTE | 2022-07-29 00:40 | NUR ---
WOUND CARE DONE ON WOUND ON COCCYX AND ON BILATERAL LOWER EXTREMITIES ORDERED. PATIENT TOLERATED WELL. WILL CONTINUE TO MONITOR THE PATIENT. PATIENT HAS BILATERAL HEEL PROTECTOR, LOWER EXTREMITIES ELEVATED WITH PILLOW.
[2022-07-29] MEDS: HYDRAGUARD CREAM TP SCH ×2 (00:43→13:31)
[2022-07-29] MEDS: SKINTEGRITY HYDROGEL TP SCH ×2 (00:44→13:31)
--- NOTE | 2022-07-29 03:02 | NUR ---
PATIENT IS ASLEEP, NO SIGNS OF DISTRESS NOTED, NO SIGNS OF PAIN NOTED, BILATERAL LOWER EXTREMTIES ELEVATED WITH PILLOW. ALL SAFETY MEASURES MAINTAINED.
[2022-07-29 04:00] VITALS: BP 141/77
[2022-07-29] MEDS: VANCOMYCIN HCL 25 MG/ML SOLN PO SCH ×3 (05:05→18:03)
[2022-07-29] MEDS: levETIRAcetam 500 MG in NACL 0.9% 100 ML IV SCH ×2 (05:06→18:03)
[2022-07-29] MEDS: BLOOD GLUCOSE MONITORING 1 DEV DEV FS SCH ×3 (05:17→18:02)
--- NOTE | 2022-07-29 05:17 | NUR ---
BLOOD SUGAR 112 MG/DL, NO INSULIN COVERAGE NEEDED. SCHEDULED PO ANTIBIOTIC GIVEN ORDERED.
[2022-07-29] MEDS: LEVOTHYROXINE 0.025 MG TAB PO SCH (06:33)
--- NOTE | 2022-07-29 07:31 | NUR ---
ENDORSED TO DAY NURSE FOR CONTINUITY OF CARE. PATIENT IS IN STABLE CONDITION.
[2022-07-29] MEDS: ALBUTEROL 0.083% 2.5 MG/3 ML NEBU INH SCH ×3 (07:39→19:30)
[2022-07-29] MEDS: IPRATROPIUM 0.02% 0.5 MG/2.5 ML NEBU INH SCH ×3 (07:40→19:30)
[2022-07-29 08:00] VITALS: BP 136/69
[2022-07-29] MEDS: METOCLOPRAMIDE 10 MG/2 ML INJ VIAL IVP SCH ×3 (09:38→18:03)
[2022-07-29] MEDS: FUROSEMIDE 40 MG/4 ML VIAL IVP SCH ×2 (09:38→18:02)
[2022-07-29] MEDS: PANTOPRAZOLE 40 MG INJ VIAL IVP SCH (09:38)
[2022-07-29] MEDS: QUEtiapine FUMARATE 25 MG TAB PO SCH ×2 (09:39→20:34)
--- NOTE | 2022-07-29 12:10 | NUR ---
patient was brought for computed tomography of head
[2022-07-29] MEDS: HYDROCOLLOID DRESSING TP SCH (13:31)
--- NOTE | 2022-07-29 15:50 | NUR ---
07/29/22 RD FOLLOW UP COMPLETED PLEASE REFER TO NUTRITION ASSESSMENT UNDER CARE ACTIVITY FOR ESTIMATED NUTRITIONAL NEEDS. 1. CONTINUE [id number] PUREE, NECTAR THICK DIET TOLERATED 2. CONTINUE ELEN BID FOR WOUND SUPPORT -PROVIDES 160 KCAL AND 5 GM PROTEIN DAILY 3. CONTINUE GLUCERNA 1/DAY -PROVIDES 220 KCAL AND [address] TO FOLLOW-UP 3-5 DAYS, MODERATE RISK REVIEWED BY CALVIN MATHEWS RD
[2022-07-29 16:00] VITALS: BP 126/68
--- NOTE | 2022-07-29 16:30 | NUR ---
blood sugar check was done 59dl . gave d50/50 went up 203 dl . no humalog was given
--- NOTE | 2022-07-29 17:30 | NUR ---
the blood pressure was on low side 99/78 / until the rn infuse the packed red blood cells continuously . the blood pressure went up to 120/78 after 40 minutse of infusion . will continue to monitor
[2022-07-29] MEDS: DEXTROSE 50% 50 ML SYR IVP PRN (18:05)
--- NOTE | 2022-07-29 18:06 | NUR ---
P.T. NOTES P.T. EVAL COMPLETED; REFER TO EVAL FOR DETAILS.
--- NOTE | 2022-07-29 19:03 | NUR ---
will endorse to table games shift manager rn for continuity of care . to still monitor encephalopathy
--- NOTE | 2022-07-29 19:04 | NUR ---
RECEIVED SHIFT REPORT FROM JUANCHO RN (REGISTRY), PATIENT WAS NOTED STABLE AT THIS TIME. PATIENT WAS EATING DINNER BY HIMSELF. PATIENT TO RESPOND TO DIRECT QUESTION WITHOUT INCIDENT. NURSING WILL RETURN TO CLEAN HIM AND RECORD FOOD INTAKE. IT WAS NOTED PATIENT HAS A RECTAL TUBE AND CLEARY CATH. NO COMPLAINTS OF PAIN/DISCOMFORT AT THIS TIME. NO NOTED RESPIRATORY DISTRESS. SIDE RAILS UP X 3 FOR COMFORT AND REPOSITIONING. CALL LIGHT WITHIN REACH FOR ASSISTANCE. [email or web address]
[2022-07-30] VITALS: BP 92/44
--- NOTE | 2022-07-30 00:08 | NUR ---
PATIENT'S BLOOD SUGAR WAS 156. 2 UNITS OF HUMALOG WAS GIVEN PER ORDERS. NURSING WILL CONTINUE TO MONITOR FOR HYPER/HYPOGLYCEMIA D/T SHIFT REPORT INDICATED PATIENT BLOOD SUGAR DROPPED. NURSING WILL FREQUENT THE ROOM FOR ANTICIPATED NEEDS AND ASSESSMENTS. [email or web address]
[2022-07-30] MEDS: BLOOD GLUCOSE MONITORING 1 DEV DEV FS SCH ×4 (00:21→17:02)
[2022-07-30] MEDS: INSULIN LISPRO SLIDING SCALE 100 UNITS/ML VIAL SUBQ PRN ×2 (00:23→12:17)
[2022-07-30] MEDS: VANCOMYCIN HCL 25 MG/ML SOLN PO SCH ×3 (00:27→12:11)
[2022-07-30] MEDS: HYDRAGUARD CREAM TP SCH ×2 (01:20→12:12)
[2022-07-30] MEDS: SKINTEGRITY HYDROGEL TP SCH ×2 (01:20→12:13)
--- NOTE | 2022-07-30 03:04 | NUR ---
PATIENT NOTED IN BED ASLEEP. NO NOTED S/S OF PAIN/DISCOMFORT. NO NOTED S/S OF RESPIRATORY DISTRESS. CALL LIGHT WITHIN REACH. SIDE RAILS UP FOR SAFETY AND ADJUSTMENT. [email or web address]
--- NOTE | 2022-07-30 05:51 | NUR ---
PATIENT NOTED IN BED ASLEEP. PATIENT KEPT CLEAN AND DRY. NO NOTED S/S OF PAIN/DISCOMFORT. NO NOTED S/S OF RESPIRATORY DISTRESS. CALL LIGHT WITHIN REACH. SIDE RAILS UP FOR SAFETY AND ADJUSTMENT. [email or web address]
[2022-07-30] MEDS: LEVOTHYROXINE 0.025 MG TAB PO SCH (06:30)
[2022-07-30] MEDS: levETIRAcetam 500 MG in NACL 0.9% 100 ML IV SCH ×2 (06:55→17:01)
--- NOTE | 2022-07-30 07:02 | NUR ---
receive the patient from the shift manager rn in 116 [id number] confuse with admitting diagnosis of abdominal bypass . will continue to monitor
--- NOTE | 2022-07-30 07:03 | NUR ---
receive the patient form the casino shift manager rn in rm 116 [id number] with admitting diagnosis of abdominal bypass . will continue to monitor
--- NOTE | 2022-07-30 07:19 | NUR ---
ENDORSED PATIENT CARE FOR CONTINUITY CARE TO JUANCHO RN (REGISTRY), PATIENT WAS STABLE DURING SHIFT REPORT. [email or web address]
[2022-07-30] MEDS: ALBUTEROL 0.083% 2.5 MG/3 ML NEBU INH SCH ×2 (07:22→19:00)
[2022-07-30] MEDS: IPRATROPIUM 0.02% 0.5 MG/2.5 ML NEBU INH SCH ×2 (07:22→19:00)
[2022-07-30 08:00] VITALS: BP 124/60
[2022-07-30] MEDS: FUROSEMIDE 40 MG/4 ML VIAL IVP SCH ×2 (09:45→17:01)
[2022-07-30] MEDS: QUEtiapine FUMARATE 25 MG TAB PO SCH ×2 (09:46→21:00)
[2022-07-30] MEDS: PANTOPRAZOLE 40 MG INJ VIAL IVP SCH (09:46)
[2022-07-30] MEDS: METOCLOPRAMIDE 10 MG/2 ML INJ VIAL IVP SCH ×3 (09:46→17:01)
[2022-07-30] MEDS: HYDROCOLLOID DRESSING TP SCH (12:13)
--- NOTE | 2022-07-30 13:16 | NUR ---
WOUND CARE RE-EVALUATION NOTE: SKIN ASSESSMENT DONE WITH PRIMARY RN JUANCHO AND PHYSICAL THERAPY, INFORM JUANCHO OF CHANGE OF COCCYX WOUND CONDITION AND DELAY WOUNDS HEALING TO BLE. PHOTOS TAKEN, POC DISCUSSED WITH PRIMARY PT. NEED ATTENTION OF ORAL/FACIAL CARE AND FULL BODY BED BATH. PT. WITH FLEXI SEAL AND F/C. INTEGUMENTARY: -COCCYX PRESSURE INJURY UN-STAGEABLE WITH 2X2 CM WOUND BED 100% BROWN SLOUGH TISSUE, MOIST, NO ODOR, JOHANN WOUND SKIN DRY, INTACT. - LEFT LE ANTERIOR VASCULAR ULCER 10X5X 0.2 CM. WOUND BED PINK, DRY, NO DRAINAGE, NO ODOR. WOUND EDGES FLAT AND ATTACHED, IRREGULAR SHAPE. JOHANN WOUND DRY, INTACT. - LEFT LOWER EXTREMITY LATERAL MALLEOLUS VASCULAR ULCER 2X1.5X 0.2 CM. WOUND BED PINK, DRY, NO DRAINAGE, NO ODOR. WOUND EDGES FLAT AND ATTACHED, IRREGULAR SHAPE. JOHANN-WOUND DRY, INTACT - LEFT POSTERIOR LEG CALF VASCULAR ULCER 4X3X0.1CM WOUND BED RED, MOIST, NO DRAINAGE, NO ODOR. WOUND EDGES FLAT AND ATTACHED, IRREGULAR SHAPE. JOHANN-WOUND DRY, INTACT - LEFT PLANTAR FOOT UN-STAGEABLE WOUND 3X3 CM. DRY STABLE BROWN SCAB, NO DRAINAGE, NO ODOR. JOHANN-WOUND, DRY, INTACT. - RIGHT POSTERIOR LATERAL VASCULAR ULCER 4.5X2.5X 0.1 CM. WOUND BED PALE PINK, MOIST, NO DRAINAGE, NO ODOR. WOUND EDGES FLAT AND ATTACHED, IRREGULAR SHAPE. JOHANN-WOUND DRY, FLAKY INTACT SKIN. RECOMMENDATION: -DIETARY CONSULT -CONTINUE HYDROGEL TO BLE DAILY WOUND DRESSING CHOI. -CLEANSE COCCYX WITH NS, PAT DRY, APPLY THERAHONEY GEL TO WOUND BED, COVER WITH FOAM DRESSING QD AND PRN IF SOILING. Addendum: 07/30/22 at 1537 by Virginia Colbert RN (Grace) CALL TO ALYSSA, PERSON TO NOTIFIED, MESSAGE LEFT TO CALL BACK TO [facility] CHARGE NURSE FOR SKIN REYMUNDO REPORT.
[2022-07-30] MEDS ORDERED: THERAHONEY GEL 42.5 GM TP PRN (15:20)
[2022-07-30 16:00] VITALS: BP 127/55
[2022-07-30] MEDS: THERAHONEY GEL 42.5 GM TP SCH (17:02)
--- NOTE | 2022-07-30 18:37 | NUR ---
will endorse to hourly shift manager rn for continuity of care . for long term facility for wound and physical therapy .
[2022-07-30] MEDS ORDERED: LORazepam 2 MG/ML VIAL ONE (18:52)
[2022-07-30 20:00] VITALS: BP 125/60
[2022-07-31] MEDS: HYDRAGUARD CREAM TP SCH ×2 (01:53→13:00)
[2022-07-31] MEDS: SKINTEGRITY HYDROGEL TP SCH ×2 (01:53→13:00)
[2022-07-31] MEDS: levETIRAcetam 500 MG in NACL 0.9% 100 ML IV SCH ×2 (05:18→18:19)
[2022-07-31] MEDS: LEVOTHYROXINE 0.025 MG TAB PO SCH (05:25)
[2022-07-31] MEDS: BLOOD GLUCOSE MONITORING 1 DEV DEV FS SCH ×4 (06:00→18:48)
[2022-07-31] MEDS: IPRATROPIUM 0.02% 0.5 MG/2.5 ML NEBU INH SCH ×3 (07:00→19:00)
[2022-07-31] MEDS: ALBUTEROL 0.083% 2.5 MG/3 ML NEBU INH SCH ×3 (07:00→19:00)
[2022-07-31 07:01] LABS: ANION GAP 11.4 (8-16); CARBON DIOXIDE 32.6 mmol/L (21-32); CREATININE 1.4 mg/dL (0.6-1.3)
--- NOTE | 2022-07-31 07:20 | NUR ---
RECEIVED PATIENT FROM PM NURSE FOR CONTINUATION OF CARE. PATIENT SEEN IN BED ASLEEP. NORMAL RISE AND FALL OF CHEST. NORMAL VITAL SIGNS. CARE AND OBSERVATION RESUMED.
--- NOTE | 2022-07-31 07:45 | NUR ---
tried to give pt tx he kept taking it off and didnt want it. no signs of distress. [id number] spo2 94%
[2022-07-31 08:00] VITALS: BP 142/73
[2022-07-31] MEDS: PANTOPRAZOLE 40 MG INJ VIAL IVP SCH (09:50)
[2022-07-31] MEDS: FUROSEMIDE 40 MG/4 ML VIAL IVP SCH ×2 (09:51→16:53)
[2022-07-31] MEDS: METOCLOPRAMIDE 10 MG/2 ML INJ VIAL IVP SCH ×3 (09:51→16:53)
[2022-07-31] MEDS: QUEtiapine FUMARATE 25 MG TAB PO SCH ×2 (09:53→21:15)
--- NOTE | 2022-07-31 11:40 | NUR ---
CHANGED PATIENT GOWN, SPONGE BATH APPLIED. SHEETS REPLACED. NEW DRESSING FOR COXYX WOUND APPLIED.
[2022-07-31] MEDS: THERAHONEY GEL 42.5 GM TP SCH (13:00)
[2022-07-31 16:00] VITALS: BP 127/66
[2022-07-31] MEDS: INSULIN LISPRO SLIDING SCALE 100 UNITS/ML VIAL SUBQ PRN (16:31)
[2022-07-31] MEDS: POTASSIUM CHLORIDE 20% 40 MEQ/15 ML UDC GT PRN (16:53)
--- NOTE | 2022-07-31 18:56 | NUR ---
RECEIVED PATIENT FROM NURSE FOR CONTINUATION OF CARE. PATIENT SEEN IN BED ASLEEP. NORMAL RISE AND FALL OF CHEST. NORMAL VITAL SIGNS. CARE AND OBSERVATION RESUMED. Addendum: 07/31/22 at 1857 by SUNNY MEDINA RN ERROR WRONG TIME INPUT.
--- NOTE | 2022-07-31 19:48 | NUR ---
ENDORSED PT TO PM NURSE FOR CONTINUATION OF CARE
--- NOTE | 2022-07-31 20:17 | NUR ---
PT REFUSED Tx CURRENT SPO2 100%-99% ON RA W/ NO DISTRESS NOTED WILL CONTINUE TO MONITOR
--- NOTE | 2022-07-31 21:05 | NUR ---
PATIENT AWAKE ON ROOM AIR IN NO ACUTE DISTRESS. BREATHING NORMAL WITH SYMMETRICAL RISE AND FALL OF THE CHEST. DENIES PAIN. CLEARY CATHETER DRAINING CLEAR YELLOW URINE. RECTAL TUBE IN PLACE. ALL SAFETY PRECAUTIONS ARE IN PLACE. CALL LIGHT WITHIN REACH. WILL CONTINUE TO MONITOR.
--- NOTE | 2022-07-31 21:14 | NUR ---
ADMINISTERED SCHEDULED DUE MEDICATIONS.
[2022-08-01] VITALS: BP 121/55
[2022-08-01] MEDS: HYDRAGUARD CREAM TP SCH ×2 (00:30→13:44)
[2022-08-01] MEDS: SKINTEGRITY HYDROGEL TP SCH ×2 (00:30→13:44)
[2022-08-01] MEDS: BLOOD GLUCOSE MONITORING 1 DEV DEV FS SCH ×4 (00:38→17:49)
[2022-08-01] MEDS: INSULIN LISPRO SLIDING SCALE 100 UNITS/ML VIAL SUBQ PRN ×3 (00:39→17:53)
[2022-08-01] MEDS: levETIRAcetam 500 MG in NACL 0.9% 100 ML IV SCH ×2 (05:34→18:01)
[2022-08-01] MEDS: LEVOTHYROXINE 0.025 MG TAB PO SCH (05:35)
--- NOTE | 2022-08-01 05:49 | NUR ---
CHECKED BLOOD SUGAR WAS 99. NO INSULIN COVERAGE NEEDED.
--- NOTE | 2022-08-01 07:15 | NUR ---
RECEIVED REPORT FROM NIGHT NURSE NOAH FOR CONTINUITY OF CARE. INITIAL ASSESSMENT DONE. IV ON SL. RECTAL TUBE INTACT, F/C INTACT DRAINING YELLOW URINE. NO S/S OF ANY PAIN OR DISCOMFORT. CALL LIGHT KEPT WITHIN REACH. WILL CONTINUE TO MONITOR.
--- NOTE | 2022-08-01 07:19 | NUR ---
GAVE REPORT TO DAY SHIFT NURSE FOR CONTINUITY OF CARE.
[2022-08-01 08:00] VITALS: BP 112/64
--- NOTE | 2022-08-01 08:00 | NUR ---
Patient's Plan of Care was discussed and reviewed with INSTRUCTOR PRODUCT INSPECTION: JASMEET
[2022-08-01] MEDS: FUROSEMIDE 40 MG/4 ML VIAL IVP SCH ×2 (08:33→17:00)
[2022-08-01] MEDS: METOCLOPRAMIDE 10 MG/2 ML INJ VIAL IVP SCH ×3 (08:33→17:00)
[2022-08-01] MEDS: PANTOPRAZOLE 40 MG INJ VIAL IVP SCH (08:33)
--- NOTE | 2022-08-01 08:33 | NUR ---
SCHEDULED MEDICATIONS IVP GIVEN BY ROBERT SEO. TOLERATED WELL.
[2022-08-01] MEDS: QUEtiapine FUMARATE 25 MG TAB PO SCH ×2 (08:39→21:38)
--- NOTE | 2022-08-01 08:39 | NUR ---
SCHEDULED SEROQUEL PO AND HEPARIN SQ GIVEN. TOLERATED WELL.
[2022-08-01 10:33] LABS: CARBON DIOXIDE 32.1 mmol/L (21-32); CREATININE 1.5 mg/dL (0.6-1.3); POTASSIUM 3.1 mmol/L (3.5-5.1)
[2022-08-01 10:37] LABS: BASOPHILS # (AUTO) 0.1 K/uL (0.00-0.22); BASOPHILS % (AUTO) 0.9 % (0.0-2.0); EOSINOPHILS # (AUTO) 0.6 K/uL (0-0.4); HEMATOCRIT 26.8 % (36-52); HEMOGLOBIN 8.6 g/dL (12.0-18.0); LYMPHOCYTES % (AUTO) 22.6 % (20.5-51.1); MAGNESIUM 1.3 mg/dL (1.8-2.4); MEAN CORPUSCULAR HEMOGLOBIN 26 pg (27-31); MEAN CORPUSCULAR HGB CONC 32 g/dL (33-37); MEAN CORPUSCULAR VOLUME 81.9 fL (80-94); MONOCYTES # (AUTO) 0.7 K/uL (0.8-1.0); MONOCYTES % (AUTO) 8.1 % (1.7-9.3); NEUTROPHILS # (AUTO) 5.5 K/uL (1.8-7.7); NEUTROPHILS % (AUTO) 61.4 % (42.2-75.2); PHOSPHORUS 3.6 mg/dL (2.5-4.9); PLATELET COUNT (AUTO) 272 K/uL (140-450); RED BLOOD CELL COUNT(AUTO) 3.27 MIL/uL (4.20-6.10); RED CELL DISTRIBUTION WIDTH 16.1 % (11.6-13.7)
[2022-08-01] MEDS: MAG SULF 2000 MG/WATER PREMIX 50 ML IV PRN (11:11)
--- NOTE | 2022-08-01 11:11 | NUR ---
MAG NASCIMENTO WAS GIVEN BY ROBERT SEO FOR MAGNESIUM 1.3. TOLERATED WELL.
--- NOTE | 2022-08-01 11:19 | NUR ---
SISTER MATTHEW AT BEDSIDE. SKIN CONDITION UPDATE WITH POC AND COMORBIDITIES EXPLAINS. EXPLAIN PT'S COCCYX OPEN WOUND POSSIBLE FROM FRICTIONS DUE TO RESTLESS BEHAVIORS AND NUTRITION, PT'S ALBUMIN 1.0 07/23/2022. SISTER QUESTION PUREE DIET,EXPLAIN THAT WITH SWALLOW EVALUATION AND RECOMMEND PUREE DIET FOR PREVENTION OF ASPIRATION. ABOVE INFORMATION INFORM PRIMARY RN JASMEET.
--- NOTE | 2022-08-01 11:51 | NUR ---
BS CHECKED 161. INSULIN WAS GIVEN PER SLIDING SCALE.
[2022-08-01] MEDS: THERAHONEY GEL 42.5 GM TP SCH (13:43)
--- NOTE | 2022-08-01 13:44 | NUR ---
WOUND CARE DONE. NO DRAINAGE, NO BLEEDING NOTED. TOLERATED WELL.
[2022-08-01] MEDS: POTASSIUM CHLORIDE 20% 40 MEQ/15 ML UDC GT PRN (14:02)
--- NOTE | 2022-08-01 14:02 | NUR ---
POTASSIUM 3.1. PRN POTASSIUM WAS GIVEN. TOLERATED WELL.
[2022-08-01 16:00] VITALS: BP 121/65
--- NOTE | 2022-08-01 16:30 | NUR ---
RECTAL TUBE REMOVED AND CLEARY CATHETER REMOVED. TOLERATING WELL.
[2022-08-01] MEDS: IPRATROPIUM 0.02% 0.5 MG/2.5 ML NEBU INH SCH ×2 (17:48→18:06)
[2022-08-01] MEDS: ALBUTEROL 0.083% 2.5 MG/3 ML NEBU INH SCH ×2 (17:48→18:06)
--- NOTE | 2022-08-01 17:49 | NUR ---
BS CHECKED 161. INSULIN WAS GIVEN PER SLIDING SCALE.
--- NOTE | 2022-08-01 18:01 | NUR ---
SCHEDULED IV MEDICATIONS GIVEN BY ROBERT. TOLERATED WELL.
--- NOTE | 2022-08-01 19:20 | NUR ---
REPORT GIVEN TO STOCK HANDLER NOAH FOR CONTINUITY OF CARE. REMAINS STABLE.
--- NOTE | 2022-08-01 21:35 | NUR ---
PATIENT AWAKE WELL RESTED ON ROOM AIR. NO ACUTE DISTRESS NOTED. SKIN WARM AND DRY TO THE TOUCH. PATIENT ABLE TO COMMUNICATE WITH HIS NEEDS. NEEDS ATTENDED TO. DENIES PAIN. CALL LIGHT WITHIN REACH. ALL SAFETY PRECAUTIONS ARE IN PLACE.
--- NOTE | 2022-08-01 21:37 | NUR ---
ADMINISTERED SCHEDULED MEDICATIONS ORDERED.
[2022-08-02] VITALS: BP 98/65
[2022-08-02] MEDS: BLOOD GLUCOSE MONITORING 1 DEV DEV FS SCH ×4 (00:04→17:30)
[2022-08-02] MEDS: SKINTEGRITY HYDROGEL TP SCH ×2 (01:00→13:00)
[2022-08-02] MEDS: HYDRAGUARD CREAM TP SCH ×2 (01:00→13:00)
[2022-08-02] MEDS: levETIRAcetam 500 MG in NACL 0.9% 100 ML IV SCH ×2 (06:25→18:33)
[2022-08-02] MEDS: LEVOTHYROXINE 0.025 MG TAB PO SCH (06:26)
--- NOTE | 2022-08-02 07:30 | NUR ---
RECEIVED REPORT FROM NIGHT NURSE NOAH FOR CONTINUITY OF CARE. INITIAL ASSESSMENT DONE. PT PULLED OUT RIJ CATHETER. NO BLEEDING. CATHETER INTACT. DRESSING APPLIED. PER NOAH PT NO OUTPUT OVERNIGHT. WILL NOTIFY MD. NO C/O PAIN OR DISCOMFORT. CALL LIGHT KEPT WITHIN REACH. WILL CONTINUE TO MONITOR.
[2022-08-02 08:00] VITALS: BP 120/69
--- NOTE | 2022-08-02 08:10 | NUR ---
SEEN BY DR. ROUSE. WITH NEW ORDERS: ABDOMINAL ULTRASOUND AND MAY INSERT PICC LINE. NOTED AND CARRIED OUT.
[2022-08-02] MEDS: QUEtiapine FUMARATE 25 MG TAB PO SCH ×2 (08:35→21:25)
--- NOTE | 2022-08-02 08:35 | NUR ---
SCHEDULED MEDICATIONS GIVEN. TOLERATING WELL.
--- NOTE | 2022-08-02 09:10 | NUR ---
INSERTED IV TO LT HAND 22G, WITH GOOD BLOOD RETURN.
[2022-08-02] MEDS: IPRATROPIUM 0.02% 0.5 MG/2.5 ML NEBU INH SCH ×3 (09:54→20:27)
[2022-08-02] MEDS: ALBUTEROL 0.083% 2.5 MG/3 ML NEBU INH SCH ×3 (09:54→20:27)
[2022-08-02] MEDS: PANTOPRAZOLE 40 MG INJ VIAL IVP SCH (10:23)
[2022-08-02] MEDS: METOCLOPRAMIDE 10 MG/2 ML INJ VIAL IVP SCH ×3 (10:24→19:04)
[2022-08-02] MEDS: FUROSEMIDE 40 MG/4 ML VIAL IVP SCH (10:24)
[2022-08-02] MEDS: INSULIN LISPRO SLIDING SCALE 100 UNITS/ML VIAL SUBQ PRN ×2 (12:24→17:36)
--- NOTE | 2022-08-02 12:24 | NUR ---
BS CHECKED 237. INSULIN WAS GIVEN PER SLIDING SCALE.
[2022-08-02] MEDS: THERAHONEY GEL 42.5 GM TP SCH (13:00)
--- NOTE | 2022-08-02 13:00 | NUR ---
PT DIDN'T WANT HIS BREATHING TREATMENT AT THIS TIME, SAID TO COME BACK LATER.
--- NOTE | 2022-08-02 13:40 | NUR ---
INCONTINENT CARE RENDERED WITH SMALL BM.
--- NOTE | 2022-08-02 13:50 | NUR ---
PT SCHEDULED FOR CT ANGIO. IV INSERTION DONE TO RAC 20 G. WITH GOOD BLOOD RETURN. TOLERATED WELL. NOTED PT SATTING ON 84-87% RA. PLACED ON O2 @ 5L/NC. SATTING @ 94-96%. CALLED RT SPOKE TO MARYAM, MADE AWARE.
--- NOTE | 2022-08-02 14:00 | NUR ---
PUT PT ON 7L BUBBLE NASAL CANNULA. PT SATURATION 96%. WILL CONTINUE TO MONITOR.
--- NOTE | 2022-08-02 14:30 | NUR ---
RECHECKED PT SATTING ON 92-94% BUBBLE NASAL CANNULA.
[2022-08-02 16:00] VITALS: BP 116/69
--- NOTE | 2022-08-02 17:40 | NUR ---
PT ABLE TO USE URINAL WITH 300 URINE OUTPUT. INCONTINENT CARE RENDERED.
[2022-08-02] MEDS ORDERED: KCL 20 MEQ IN 100 mL PREMIX 200 ML IV SCH (18:30)
[2022-08-02] MEDS: POTASSIUM CHL 20 MEQ/ 1/2 NS 1,000 ML IV SCH (18:34)
--- NOTE | 2022-08-02 18:34 | NUR ---
SCHEDULED IV MEDICATIONS GIVEN BY MARIO SEO. TOLERATED WELL.
[2022-08-02 18:45] LABS: ALBUMIN 1.5 g/dL (3.4-5.0); ANION GAP 10.3 (8-16); CARBON DIOXIDE 30.3 mmol/L (21-32); CREATININE 1.8 mg/dL (0.6-1.3); POTASSIUM 3.6 mmol/L (3.5-5.1); TOTAL BILIRUBIN 0.2 mg/dL (0.0-1.0)
--- NOTE | 2022-08-02 19:15 | NUR ---
DR. ROUSE NOTIFIED REGARDING RENEWAL OF RESTRAINTS, AGREED AND GIVE ORDER. NOTED AND CARRIED OUT.
--- NOTE | 2022-08-02 19:15 | NUR ---
ENDORSED TO NIGHT NURSE FOR CONTINUITY OF CARE. REMAINS STABLE.
--- NOTE | 2022-08-02 19:16 | NUR ---
RECEIVED PATIENT AWAKE ON 7L O2 VIA NC. NO SOB NOTED. IV SITE TO RAC 20 GAUGE AND LEFT HAND 22 GAUGE SALINE LOCK. SKIN WARM AND DRY TO THE TOUCH. DENIES PAIN. CALL LIGHT WITHIN REACH. SAFETY MEASURES ARE IN PLACE. ON BILATERAL WRIST RESTRAINTS.
[2022-08-03] VITALS: BP 116/69
[2022-08-03] MEDS: HYDRAGUARD CREAM TP SCH ×2 (01:10→13:33)
[2022-08-03] MEDS: SKINTEGRITY HYDROGEL TP SCH ×2 (01:11→13:33)
[2022-08-03] MEDS: levETIRAcetam 500 MG in NACL 0.9% 100 ML IV SCH ×2 (06:13→18:30)
[2022-08-03] MEDS: LEVOTHYROXINE 0.025 MG TAB PO SCH (06:14)
[2022-08-03] MEDS: INSULIN LISPRO SLIDING SCALE 100 UNITS/ML VIAL SUBQ PRN ×2 (06:23→13:41)
[2022-08-03] MEDS: BLOOD GLUCOSE MONITORING 1 DEV DEV FS SCH ×5 (06:23→23:29)
[2022-08-03 07:04] LABS: MAGNESIUM 1.8 mg/dL (1.8-2.4); PHOSPHORUS 3.5 mg/dL (2.5-4.9)
[2022-08-03] MEDS: IPRATROPIUM 0.02% 0.5 MG/2.5 ML NEBU INH SCH ×3 (07:45→19:00)
[2022-08-03] MEDS: ALBUTEROL 0.083% 2.5 MG/3 ML NEBU INH SCH ×3 (07:45→19:00)
[2022-08-03 07:53] VITALS: BP 114/52
[2022-08-03 08:05] LABS: ANION GAP 11.3 (8-16); CARBON DIOXIDE 28.4 mmol/L (21-32); CREATININE 1.8 mg/dL (0.6-1.3); POTASSIUM 3.7 mmol/L (3.5-5.1)
[2022-08-03 08:28] LABS: BASOPHILS # (AUTO) 0.1 K/uL (0.00-0.22); BASOPHILS % (AUTO) 0.5 % (0.0-2.0); EOSINOPHILS # (AUTO) 0.3 K/uL (0-0.4); EOSINOPHILS % (AUTO) 2.3 % (0.0-4.0); HEMATOCRIT 25.8 % (36-52); HEMOGLOBIN 8.3 g/dL (12.0-18.0); LYMPHOCYTES # (AUTO) 1.8 K/uL (2.0-11.5); LYMPHOCYTES % (AUTO) 13.6 % (20.5-51.1); MEAN CORPUSCULAR HEMOGLOBIN 26 pg (27-31); MEAN CORPUSCULAR HGB CONC 32 g/dL (33-37); MEAN CORPUSCULAR VOLUME 82.1 fL (80-94); MONOCYTES # (AUTO) 1.2 K/uL (0.8-1.0); NEUTROPHILS # (AUTO) 10.1 K/uL (1.8-7.7); NEUTROPHILS % (AUTO) 74.6 % (42.2-75.2); PLATELET COUNT (AUTO) 301 K/uL (140-450); RED BLOOD CELL COUNT(AUTO) 3.15 MIL/uL (4.20-6.10); RED CELL DISTRIBUTION WIDTH 16.2 % (11.6-13.7); WHITE BLOOD COUNT (AUTO) 13.5 K/uL (4.8-10.8)
[2022-08-03] MEDS: POTASSIUM CHL 20 MEQ/ 1/2 NS 1,000 ML IV SCH ×2 (08:38→22:11)
[2022-08-03] MEDS: PANTOPRAZOLE 40 MG INJ VIAL IVP SCH (09:03)
[2022-08-03] MEDS: QUEtiapine FUMARATE 25 MG TAB PO SCH ×2 (09:03→21:39)
[2022-08-03] MEDS: METOCLOPRAMIDE 10 MG/2 ML INJ VIAL IVP SCH ×3 (09:03→17:30)
[2022-08-03] MEDS: FUROSEMIDE 40 MG/4 ML VIAL IVP SCH ×2 (09:13→17:30)
--- NOTE | 2022-08-03 12:17 | NUR ---
PATIENT AGITATION/ANXIETY YELLING TRYING TO GET OUT OF BED. NEEDED ATIVAN FOR FURTHER INTERVENTION IS AN OPTION.
[2022-08-03] MEDS: LORazepam 2 MG/ML VIAL IVP PRN (12:44)
--- NOTE | 2022-08-03 12:45 | NUR ---
PATIENT PULLED OUT IV SITE. NEW IV 22 GAUGE START ON RIGHT FOREARM PER ASSIST OF CHARGE NURSE. GIVEN NEEDED ATIVAN.
[2022-08-03] MEDS: THERAHONEY GEL 42.5 GM TP SCH (13:33)
--- NOTE | 2022-08-03 14:57 | NUR ---
08/03/22 RD FOLLOW UP COMPLETED.PLEASE REFER TO NUTRITION ASSESSMENT UNDER CARE ACTIVITY FOR ESTIMATED NUTRITIONAL NEEDS. 1. CONTINUE [id number] PUREE, NECTAR THICK DIET TOLERATED 2. CONTINUE ELEN BID FOR WOUND SUPPORT -PROVIDES 160 KCAL AND 5 GM PROTEIN DAILY 3. CONTINUE GLUCERNA 1/DAY -PROVIDES 220 KCAL AND [address] DAILY 4. RD TO FOLLOW-UP IN 3-5 DAYS PATIENT IS MODERATE RISK. TARYN MARTIN RD
[2022-08-03 16:00] VITALS: BP 93/56
--- NOTE | 2022-08-03 21:39 | NUR ---
ADMINISTERED SCHEDULED DUE MEDICATIONS. PATIENT IS DROWSY. NO S/S OF RESPIRATORY DISTRESS. ON 2L O2 VIA NC SATING 97%. AFEBRILE. IVF INFUSING WELL. CALL LIGHT ON EASY REACH. SAFETY PRECAUTIONS ARE IN PLACE. NEEDS ATTENDED TO.
--- NOTE | 2022-08-03 22:55 | NUR ---
PATIENT IV PULLED OUT. STARTED A NEW IV TO THE LEFT FOREARM 22 GAUGE WITH GOOD BACK FLOW OF BLOOD. TOLERATED WELL.
[2022-08-04] VITALS: BP 109/60
[2022-08-04] MEDS: SKINTEGRITY HYDROGEL TP SCH ×2 (01:07→13:10)
[2022-08-04] MEDS: HYDRAGUARD CREAM TP SCH ×2 (01:07→13:10)
[2022-08-04] MEDS: POTASSIUM CHL 20 MEQ/ 1/2 NS 1,000 ML IV SCH ×3 (02:58→18:07)
[2022-08-04] MEDS: LEVOTHYROXINE 0.025 MG TAB PO SCH (05:50)
[2022-08-04] MEDS: levETIRAcetam 500 MG in NACL 0.9% 100 ML IV SCH ×2 (05:50→18:06)
[2022-08-04] MEDS: BLOOD GLUCOSE MONITORING 1 DEV DEV FS SCH ×3 (06:24→17:42)
--- NOTE | 2022-08-04 06:24 | NUR ---
CHECKED BLOOD SUGAR WAS 118 NO INSULIN COVERAGE NEEDED.
--- NOTE | 2022-08-04 07:20 | NUR ---
RECEIVED REPORT FROM HULL OUTFIT SUPERVISOR FOR CONTINUITY OF CARE. INITIAL ASSESSMENT DONE. ASLEEP AT THIS TIME. ON CONT. O2 @ 2L/NC. RESP. EVEN AND UNLABORED. IVF INFUSING WELL. ON BILATERAL SOFT RESTRAINTS. NO INJURIES NOTED. NOT IN ANY DISTRESS NOTED. CALL LIGHT KEPT WITHIN REACH. WILL CONTINUE TO MONITOR.
--- NOTE | 2022-08-04 07:25 | NUR ---
GAVE REPORT TO MORNING SHIFT NURSE FOR CONTINUITY OF CARE.
[2022-08-04 08:00] VITALS: BP 111/57
[2022-08-04] MEDS: QUEtiapine FUMARATE 25 MG TAB PO SCH ×2 (09:06→21:43)
--- NOTE | 2022-08-04 09:06 | NUR ---
SCHEDULED MEDICATIONS GIVEN. TOLERATING WELL.
[2022-08-04] MEDS: IPRATROPIUM 0.02% 0.5 MG/2.5 ML NEBU INH SCH ×3 (10:41→19:54)
[2022-08-04] MEDS: ALBUTEROL 0.083% 2.5 MG/3 ML NEBU INH SCH ×3 (10:41→19:54)
[2022-08-04] MEDS: FUROSEMIDE 40 MG/4 ML VIAL IVP SCH ×2 (10:44→18:06)
[2022-08-04] MEDS: PANTOPRAZOLE 40 MG INJ VIAL IVP SCH (10:44)
[2022-08-04] MEDS: METOCLOPRAMIDE 10 MG/2 ML INJ VIAL IVP SCH ×3 (10:44→18:06)
--- NOTE | 2022-08-04 12:20 | NUR ---
BS CHECKED 124. NO COVERAGE NEEDED.
[2022-08-04] MEDS: THERAHONEY GEL 42.5 GM TP SCH (13:10)
--- NOTE | 2022-08-04 13:10 | NUR ---
WOUND CARE DONE. TOLERATED WELL.
--- NOTE | 2022-08-04 14:00 | NUR ---
PT REFUSED HIS 1300 TX. HE SAID HE IS FINE . NO THANK YOU , NO DISTRESS IS NOTED AT THIS TIME. WILL CONTINUE TO MONITOR.
--- NOTE | 2022-08-04 14:02 | NUR ---
REGLAN IVP WAS GIVEN BY DEMETRIO SEO. TOLERATED WELL.
[2022-08-04 16:00] VITALS: BP 103/63
[2022-08-04] MEDS: INSULIN LISPRO SLIDING SCALE 100 UNITS/ML VIAL SUBQ PRN (17:42)
--- NOTE | 2022-08-04 17:42 | NUR ---
BS CHECKED 152. INSULIN WAS GIVEN PER SLIDING SCALE.
--- NOTE | 2022-08-04 18:06 | NUR ---
SCHEDULED IV MEDICATIONS WAS GIVEN BY KIKA SEO. TOLERATED WELL.
--- NOTE | 2022-08-04 19:30 | NUR ---
REPORT GIVEN TO NIGHT NURSE NOAH FOR CONTINUITY OF CARE. REMAINS STABLE.
--- NOTE | 2022-08-04 19:31 | NUR ---
RECEIVED REPORT FROM AM NURSE. PATIENT AWAKE RESTING IN NO ACUTE DISTRESS NOTED. ON 2L O2 VIA NC. PATIENT IS VERBALLY RESPONSIVE. NO COMPLAINTS OF PAIN. IVF INFUSING WELL. BED WHEELS LOCK IN THE LOWEST POSITION. CALL LIGHT WITHIN REACH.
--- NOTE | 2022-08-04 20:00 | NUR ---
Patient's Plan of Care was discussed and reviewed with FASHION STYLING INTERN: KATHY HALLMAN
--- NOTE | 2022-08-04 21:42 | NUR ---
ADMINISTERED SCHEDULED DUE MEDICATIONS.
[2022-08-05] VITALS: BP 115/63
[2022-08-05] MEDS: BLOOD GLUCOSE MONITORING 1 DEV DEV FS SCH ×4 (00:36→17:44)
--- NOTE | 2022-08-05 00:36 | NUR ---
CHECKED BLOOD SUGAR WAS 248. ADMINISTERED HUMALOG INSULIN ORDERED PER SLIDING SCALE.
[2022-08-05] MEDS: INSULIN LISPRO SLIDING SCALE 100 UNITS/ML VIAL SUBQ PRN ×4 (00:38→17:45)
[2022-08-05] MEDS: HYDRAGUARD CREAM TP SCH ×2 (01:23→13:12)
[2022-08-05] MEDS: SKINTEGRITY HYDROGEL TP SCH ×2 (01:23→13:11)
[2022-08-05] MEDS: levETIRAcetam 500 MG in NACL 0.9% 100 ML IV SCH ×2 (05:50→18:14)
[2022-08-05] MEDS: LEVOTHYROXINE 0.025 MG TAB PO SCH (05:51)
[2022-08-05] MEDS: ALBUTEROL 0.083% 2.5 MG/3 ML NEBU INH SCH ×3 (07:00→19:55)
[2022-08-05] MEDS: IPRATROPIUM 0.02% 0.5 MG/2.5 ML NEBU INH SCH ×3 (07:00→19:56)
--- NOTE | 2022-08-05 07:24 | NUR ---
RECEIVED REPORT FROM TECHNICAL ADVISOR FOR CONTINUITY OF CARE. INITIAL ASSESSMENT DONE. IVF INFUSING WELL. ON CONT. O2 @ 2L/NC. RESP. EVEN AND UNLABORED. NOT IN ANY DISTRESS NOTED. CALL LIGHT KEPT WITHIN REACH. WILL CONTINUE TO MONITOR.
--- NOTE | 2022-08-05 07:28 | NUR ---
GAVE REPORT TO AM NURSE FOR CONTINUITY OF CARE.
[2022-08-05 08:00] VITALS: BP 97/59
--- NOTE | 2022-08-05 08:00 | NUR ---
Patient's Plan of Care was discussed and reviewed with TEASEL GIG OPERATOR: JASMEET
[2022-08-05] MEDS: FUROSEMIDE 40 MG/4 ML VIAL IVP SCH ×2 (09:00→17:00)
[2022-08-05] MEDS: QUEtiapine FUMARATE 25 MG TAB PO SCH ×2 (09:06→21:45)
--- NOTE | 2022-08-05 09:06 | NUR ---
ADMINISTERED SCHEDULED MEDICATIONS. TOLERATING WELL.
[2022-08-05] MEDS: PANTOPRAZOLE 40 MG INJ VIAL IVP SCH (10:34)
[2022-08-05] MEDS: METOCLOPRAMIDE 10 MG/2 ML INJ VIAL IVP SCH ×3 (10:36→17:00)
--- NOTE | 2022-08-05 10:36 | NUR ---
SCHEDULED IV MEDICATIONS WAS GIVEN BY ROBERT SEO. TOLERATED WELL. LASIX ON HOLD D/T LOW BP.
[2022-08-05] MEDS: POTASSIUM CHL 20 MEQ/ 1/2 NS 1,000 ML IV SCH (10:43)
--- NOTE | 2022-08-05 11:15 | NUR ---
PATIENT WAS TRIALED ON ROOM AIR SATING AT 95%.
--- NOTE | 2022-08-05 12:04 | NUR ---
BS CHECKED 220. INSULIN WAS GIVEN PER SLIDING SCALE.
[2022-08-05] MEDS: THERAHONEY GEL 42.5 GM TP SCH (13:11)
--- NOTE | 2022-08-05 13:11 | NUR ---
WOUND CARE DONE. NOTED SLIGHT BLEEDING. TOLERATED STEIN.
--- NOTE | 2022-08-05 13:15 | NUR ---
REGLAN IVP GIVEN BY ROBERT SEO. TOLERATED WELL.
[2022-08-05 14:55] LABS: CARBON DIOXIDE 27.9 mmol/L (21-32); CREATININE 1.9 mg/dL (0.6-1.3); POTASSIUM 3.9 mmol/L (3.5-5.1)
[2022-08-05 16:00] VITALS: BP 93/56
--- NOTE | 2022-08-05 18:14 | NUR ---
SCHEDULED IV MEDICATION GIVEN BY ROBERT SEO. TOLERATED WELL.
--- NOTE | 2022-08-05 19:16 | NUR ---
ENDORSED TO ADVANCE SEAL DELIVERY SYSTEM MAINTAINER NURSE FOR CONTINUITY OF CARE. REMAINS STABLE.
--- NOTE | 2022-08-05 19:40 | NUR ---
PATIENT AWAKE WITH CONFUSION. NO SOB NOTED ON ROOM AIR. AFEBRILE. SKIN WARM AND DRY TO THE TOUCH. FLACC 0. IV SITE TO LEFT FOREARM SALINE LOCK. BED WHEELS LOCK IN LOWEST POSITION. CALL LIGHT WITHIN REACH.
--- NOTE | 2022-08-05 21:44 | NUR ---
SCHEDULED MEDICATIONS DUE ADMINISTERED ORDERED. ATTENDED PATIENT'S NEEDS.
[2022-08-06] VITALS: BP 109/57
[2022-08-06] MEDS: INSULIN LISPRO SLIDING SCALE 100 UNITS/ML VIAL SUBQ PRN ×4 (01:14→16:55)
[2022-08-06] MEDS: SKINTEGRITY HYDROGEL TP SCH ×2 (01:16→13:32)
[2022-08-06] MEDS: HYDRAGUARD CREAM TP SCH ×2 (01:16→13:31)
--- NOTE | 2022-08-06 04:35 | NUR ---
PATIENT PULLED OUT IV, REFUSED TO REINSERT.
[2022-08-06] MEDS: BLOOD GLUCOSE MONITORING 1 DEV DEV FS SCH ×4 (05:47→16:56)
[2022-08-06] MEDS: levETIRAcetam 500 MG in NACL 0.9% 100 ML IV SCH ×2 (06:00→17:57)
[2022-08-06] MEDS: LEVOTHYROXINE 0.025 MG TAB PO SCH (06:42)
[2022-08-06] MEDS: POTASSIUM CHL 20 MEQ/ 1/2 NS 1,000 ML IV SCH ×2 (07:23→15:12)
--- NOTE | 2022-08-06 07:37 | NUR ---
ENDORSED PATIENT TO DAY SHIFT NURSE FOR CONTINUITY OF CARE.
[2022-08-06] MEDS: IPRATROPIUM 0.02% 0.5 MG/2.5 ML NEBU INH SCH (07:41)
[2022-08-06] MEDS: ALBUTEROL 0.083% 2.5 MG/3 ML NEBU INH SCH (07:41)
--- NOTE | 2022-08-06 07:56 | NUR ---
GOT REPORT FROM THE NIGHT NURSE, PT AWAKE TRYING TO GET OUT OF BED, RESTRAINT IN PLACE. NO SOB.[id number]
[2022-08-06] MEDS: PANTOPRAZOLE 40 MG INJ VIAL IVP SCH (09:00)
[2022-08-06] MEDS: QUEtiapine FUMARATE 25 MG TAB PO SCH ×2 (09:00→20:43)
[2022-08-06] MEDS: FUROSEMIDE 40 MG/4 ML VIAL IVP SCH ×2 (09:41→16:05)
[2022-08-06] MEDS: METOCLOPRAMIDE 10 MG/2 ML INJ VIAL IVP SCH ×3 (09:42→16:05)
[2022-08-06 10:00] VITALS: BP 123/64
[2022-08-06 10:25] LABS: BASOPHILS % (AUTO) 0.2 % (0.0-2.0); EOSINOPHILS # (AUTO) 0.1 K/uL (0-0.4); EOSINOPHILS % (AUTO) 0.7 % (0.0-4.0); HEMATOCRIT 25.5 % (36-52); HEMOGLOBIN 8.2 g/dL (12.0-18.0); LYMPHOCYTES # (AUTO) 1.2 K/uL (2.0-11.5); LYMPHOCYTES % (AUTO) 8.8 % (20.5-51.1); MEAN CORPUSCULAR HEMOGLOBIN 26 pg (27-31); MEAN CORPUSCULAR HGB CONC 32 g/dL (33-37); MEAN CORPUSCULAR VOLUME 81.5 fL (80-94); MONOCYTES # (AUTO) 1.1 K/uL (0.8-1.0); MONOCYTES % (AUTO) 7.9 % (1.7-9.3); NEUTROPHILS # (AUTO) 11.4 K/uL (1.8-7.7); NEUTROPHILS % (AUTO) 82.4 % (42.2-75.2); PLATELET COUNT (AUTO) 268 K/uL (140-450); RED BLOOD CELL COUNT(AUTO) 3.12 MIL/uL (4.20-6.10); RED CELL DISTRIBUTION WIDTH 16.6 % (11.6-13.7); WHITE BLOOD COUNT (AUTO) 13.8 K/uL (4.8-10.8)
[2022-08-06 10:37] LABS: ANION GAP 11.3 (8-16); CARBON DIOXIDE 27.4 mmol/L (21-32); CREATININE 1.8 mg/dL (0.6-1.3); POTASSIUM 3.7 mmol/L (3.5-5.1)
[2022-08-06 10:42] LABS: MAGNESIUM 1.6 mg/dL (1.8-2.4); PHOSPHORUS 3.6 mg/dL (2.5-4.9)
[2022-08-06] MEDS: LORazepam 2 MG/ML VIAL IVP PRN (11:03)
--- NOTE | 2022-08-06 11:03 | NUR ---
GIVEN ONE MG ATIVAN ORDERED FOR AGITATION. PT KICKED ME ON THE SHOULDER AND KICKED THE STUDENT NURSE IN THE EAR, LEDY ABOUT SIX OF US NURSES TRYING TO HELP HIM START THE IV HE NEEDS.[id number]
--- NOTE | 2022-08-06 11:24 | NUR ---
WOUND CARE RE-EVALUATION NOTE: SKIN ASSESSMENT DONE WITH POLICY MANAGER'S ASSISTANCE. PT. RESTLESS, UNABLE TO TAKE WOUND PHOTOS. PT. WITH BILATERAL WRIST SOFT RESTRAINTS IN PLACE, WRIST SKIN INTACT. BILATERAL LE SWING SIDE TO SIDE. POC DISCUSSED WITH PRIMARY RN. BLE DRESSING ORDER CHANGED TO HYDROCOLLOID DRESSING Q3D INTEGUMENTARY: -COCCYX PRESSURE INJURY UN-STAGEABLE WITH 2.5X2 CM WOUND BED 100% BROWN SLOUGH TISSUE, MOIST, NO ODOR, JOHANN WOUND SKIN DRY, INTACT. -LEFT LE ANTERIOR VASCULAR ULCER 10X5X 0.2 CM. WOUND BED PINK, DRY, NO DRAINAGE, NO ODOR. WOUND EDGES FLAT AND ATTACHED, IRREGULAR SHAPE. JOHANN WOUND DRY, INTACT. - LEFT LOWER EXTREMITY LATERAL MALLEOLUS VASCULAR ULCER 2X1.5X 0.2 CM. WOUND BED PINK, DRY, NO DRAINAGE, NO ODOR. WOUND EDGES FLAT AND ATTACHED, IRREGULAR SHAPE. JOHANN-WOUND DRY, INTACT - LEFT POSTERIOR LEG CALF VASCULAR ULCER 4X3X0.1CM WOUND BED RED, MOIST, NO DRAINAGE, NO ODOR. WOUND EDGES FLAT AND ATTACHED, IRREGULAR SHAPE. JHOANN-WOUND DRY, INTACT - LEFT PLANTAR FOOT UN-STAGEABLE WOUND 3X3 CM. DRY STABLE BROWN SCAB, NO DRAINAGE, NO ODOR. JOHANN-WOUND, DRY, INTACT. - RIGHT POSTERIOR LATERAL VASCULAR ULCER 4.5X2.5X 0.1 CM. WOUND BED PALE PINK, MOIST, NO DRAINAGE, NO ODOR. WOUND EDGES FLAT AND ATTACHED, IRREGULAR SHAPE. JOHANN-WOUND DRY, FLAKY INTACT SKIN. RECOMMENDATION: -CONTINUE THERAHONEY TO COCCYX WOUND DAILY DRESSING CHOI. -CLEANSE BLE WOUNDS WITH NS, PAT DRY, APPLY HYDROCOLLOID DRESSING TO WOUND BED, COVER WITH TRANSPARENT DRESSING Q3D AND PRN IF SOILING.
--- NOTE | 2022-08-06 12:00 | NUR ---
INSERTED 20G IV ON THE RIGHT ARM AND GAVE ALL THE IV MED. PT SPITED OUT THE PO MED.
[2022-08-06] MEDS: THERAHONEY GEL 42.5 GM TP SCH (13:32)
[2022-08-06] MEDS: ALBUTEROL SULFATE/IPRATROPIU 3 ML SOL IH SCH ×2 (13:54→19:02)
[2022-08-06] MEDS ORDERED: HYDROCOLLOID DRESSING TP PRN (15:30)
[2022-08-06 16:00] VITALS: BP 90/63
[2022-08-06] MEDS: MAG SULF 2000 MG/WATER PREMIX 50 ML IV PRN (16:23)
--- NOTE | 2022-08-06 19:11 | NUR ---
GIVEN THE REPORT TO THE NIGHT NURSE,HALINA
--- NOTE | 2022-08-06 19:20 | NUR ---
RECEIVED PATIENT ASLEEP, IN NO SIGNS OF ACUTE DISTRESS, PATIENT HAS BILATERAL SOFT WRIST RESTRAINTS, IV ON LEFT ARM, PATENT AND INTACT. ALL SAFETY MEASURES IN PLACE.
--- NOTE | 2022-08-06 20:43 | NUR ---
SCHEDULED MEDICATIONS GIVEN MIXED WITH APPLE SAUCE, PATIENT TOOK MEDICATIONS. OTHER SCHEDULED MEDICATIONS GIVEN ORDERED.
[2022-08-07] VITALS (13 sets, daily range): BP systolic 77–106; BP diastolic 44–62
--- NOTE | 2022-08-07 00:05 | NUR ---
PATIENT'S BLOOD SUGAR IS 146 MG/DL, NO INSULIN COVERAGE NEEDED.
[2022-08-07] MEDS: BLOOD GLUCOSE MONITORING 1 DEV DEV FS SCH ×4 (00:18→18:07)
[2022-08-07] MEDS: ALBUTEROL SULFATE/IPRATROPIU 3 ML SOL IH SCH ×4 (01:00→19:19)
[2022-08-07] MEDS: HYDRAGUARD CREAM TP SCH ×2 (01:28→13:48)
--- NOTE | 2022-08-07 03:04 | NUR ---
CHECK ON PATIENT, PATIENT IS ASLEEP, ON O2 @3LPM NC, NO SIGNS OF DISTRESS NOTED, NO SIGNS OF PAIN NOTED.
[2022-08-07] MEDS: levETIRAcetam 500 MG in NACL 0.9% 100 ML IV SCH ×2 (05:10→18:08)
--- NOTE | 2022-08-07 05:20 | NUR ---
BLOOD SUGAR IS 145 MG/DL, NO INSULIN COVERAGE NEEDED. PATIENT IS ASLEEP, ON O2 @3LPM NC, NO SIGNS OF DISTRESS NOTED. IV KEPPRA GIVEN ORDERED.
[2022-08-07] MEDS: LEVOTHYROXINE 0.025 MG TAB PO SCH (05:59)
--- NOTE | 2022-08-07 07:17 | NUR ---
ENDORSED PATIENT TO DAY NURSE FOR CONTINUITY OF CARE. PATIENT IN STABLE CONDITION.
--- NOTE | 2022-08-07 07:20 | NUR ---
GOT REPORT FROM THE NIGHT NURSE , PT SLEEPING NO SOB.[id number]
[2022-08-07] MEDS: METOCLOPRAMIDE 10 MG/2 ML INJ VIAL IVP SCH ×3 (09:00→18:08)
[2022-08-07] MEDS: FUROSEMIDE 40 MG/4 ML VIAL IVP SCH (09:00)
[2022-08-07] MEDS: PANTOPRAZOLE 40 MG INJ VIAL IVP SCH (09:00)
[2022-08-07 10:21] LABS: BASOPHILS # (AUTO) 0.1 K/uL (0.00-0.22); BASOPHILS % (AUTO) 0.6 % (0.0-2.0); EOSINOPHILS # (AUTO) 0.3 K/uL (0-0.4); EOSINOPHILS % (AUTO) 2.3 % (0.0-4.0); HEMATOCRIT 22.6 % (36-52); HEMOGLOBIN 7.1 g/dL (12.0-18.0); LYMPHOCYTES # (AUTO) 1.3 K/uL (2.0-11.5); LYMPHOCYTES % (AUTO) 9.8 % (20.5-51.1); MEAN CORPUSCULAR HEMOGLOBIN 26 pg (27-31); MEAN CORPUSCULAR HGB CONC 31 g/dL (33-37); MEAN CORPUSCULAR VOLUME 82.7 fL (80-94); MONOCYTES # (AUTO) 0.9 K/uL (0.8-1.0); MONOCYTES % (AUTO) 6.6 % (1.7-9.3); NEUTROPHILS # (AUTO) 10.5 K/uL (1.8-7.7); NEUTROPHILS % (AUTO) 80.7 % (42.2-75.2); PLATELET COUNT (AUTO) 173 K/uL (140-450); RED BLOOD CELL COUNT(AUTO) 2.73 MIL/uL (4.20-6.10); RED CELL DISTRIBUTION WIDTH 16.8 % (11.6-13.7); WHITE BLOOD COUNT (AUTO) 13.1 K/uL (4.8-10.8)
[2022-08-07] MEDS: QUEtiapine FUMARATE 25 MG TAB PO SCH ×2 (10:51→21:55)
[2022-08-07] MEDS ORDERED: MIDODRINE 5 MG TAB ONE (11:10)
[2022-08-07 11:11] LABS: ALBUMIN 1.2 g/dL (3.4-5.0); CARBON DIOXIDE 24.7 mmol/L (21-32); CREATININE 1.7 mg/dL (0.6-1.3); POTASSIUM 3.7 mmol/L (3.5-5.1); TOTAL BILIRUBIN 0.2 mg/dL (0.0-1.0)
[2022-08-07] MEDS: POTASSIUM CHL 20 MEQ/ 1/2 NS 1,000 ML IV SCH ×2 (12:40→17:40)
[2022-08-07] MEDS ORDERED: MIDODRINE 5 MG TAB PO SCH (13:00)
[2022-08-07] MEDS: THERAHONEY GEL 42.5 GM TP SCH (13:00)
--- NOTE | 2022-08-07 14:16 | NUR ---
08/07/22 RD FOLLOW UP COMPLETED PLEASE REFER TO NUTRITION ASSESSMENT UNDER CARE ACTIVITY FOR ESTIMATED NUTRITIONAL NEEDS. 1. CONTINUE [id number] PUREE, NECTAR THICK DIET TOLERATED 2. CONTINUE ELEN BID FOR WOUND SUPPORT -PROVIDES 160 KCAL AND 5 GM PROTEIN DAILY 3. CONTINUE GLUCERNA 1/DAY -PROVIDES 220 KCAL AND [address] DAILY 4. RD TO FOLLOW-UP 2-3 DAYS, HIGH RISK REVIEWED BY CALVIN MATHEWS RD
[2022-08-07] MEDS ORDERED: NOREPINEPHRINE 4 MG in DEXTROSE 5% 250 ML IV PRN ×2 (14:20→14:40)
[2022-08-07] MEDS ORDERED: NACL 0.9% 1,000 ML IV SCH (14:40)
--- NOTE | 2022-08-07 14:56 | NUR ---
PT TRANSFERRED TO ICU C/O LOW BLOOD PRESSURE THAT WAS NOT CORRECTED BY INFUSING TWO LITTERS NS, GAVE THE REPORT TO THE ICU NURSE, PT IS IN ICU BED ONE. CALLED HIS DAUGHTER AT [phone] AND EXPLAINED THAT HE IS TRANSFERRED TO ICU C/O LOW BP. [id number]
--- NOTE | 2022-08-07 15:02 | NUR ---
CALLED SISTER, ALYSSA, TO UPDATE ON PT STATUS. NO FURTHER QUESTIONS AT THIS TIME.
[2022-08-07] MEDS: DOPamine 400 MG/D5W PREMIX 250 ML IV PRN (15:15)
--- NOTE | 2022-08-07 16:24 | NUR ---
P.T. NOTES HOLD P.T., TRANSFERRED TO ICU, WILL AWAIT P.T. RE EVAL WHEN APPROPRIATE.
--- NOTE | 2022-08-07 16:25 | NUR ---
PHYSICAL THERAPY CO-SIGN The Physical Therapy Progress Notes documented by Customer Experience Retail Clerk have been reviewed. Reviewed/Co-Signed by: Judith Zavala PT Documentation Done by:ELPIDIO CHEN PASSENGER CAR UPHOLSTERER APPRENTICE Addendum: 08/07/22 at 1625 by Judith Zavala PT Amended: Links added.
--- NOTE | 2022-08-07 16:30 | NUR ---
PICC NURSE AT BEDSIDE STATED PICC IS OK TO USE.
[2022-08-07] MEDS ORDERED: FUROSEMIDE 20 MG/2 ML VIAL IVP SCH (17:00)
[2022-08-07] MEDS: MIDODRINE 5 MG TAB PO SCH ×2 (18:08→18:32)
--- NOTE | 2022-08-07 18:32 | NUR ---
ATTEMPTED TO FEED PT ORDERED DIET. PT TOO LETHARGIC TO EAT AT THIS TIME. HIGH RISK FOR ASPIRATION. PO MIDODRINE HELD.
[2022-08-07] MEDS ORDERED: VANCOMYCIN PER PHARMACY MC PRN (18:35)
--- NOTE | 2022-08-07 19:19 | NUR ---
ENDORSED BEDSIDE REPORT TO AUSTYN GOLF COURSE ARCHITECT OPTICAL EFFECTS LAYOUT PERSON, FOR CONTINUITY OF CARE.
[2022-08-07] MEDS ORDERED: VANCOMYCIN 1,000 MG in DEXTROSE 5% 250 ML IV SCH (19:30)
[2022-08-07] MEDS: MEROPENEM 1,000 MG in NACL 0.9% 50 ML IV SCH (21:51)
[2022-08-08] VITALS (23 sets, daily range): BP systolic 86–117; BP diastolic 52–69
[2022-08-08] MEDS: HYDRAGUARD CREAM TP SCH ×2 (01:00→12:15)
[2022-08-08] MEDS: ALBUTEROL SULFATE/IPRATROPIU 3 ML SOL IH SCH ×4 (01:01→19:00)
--- NOTE | 2022-08-08 02:18 | NUR ---
ONE UNIT OF PRBC RETURNED TO BLOOD BANK, UNABLE TO VERIFY.THE UNIT NUMBER IS DIFFERENT FROM WHAT IS ON PATIENT HAND BAND ( PATIENT HAND BAND HAS ..[id number] , THIS IS DIFFERENT FROM WHAT IS ON THE RECEIVED UNIT OF PRBC. LAB WILL CALL WHEN THIS RESOLVED
[2022-08-08] MEDS: MEROPENEM 1,000 MG in NACL 0.9% 50 ML IV SCH ×3 (05:00→21:30)
[2022-08-08 05:23] LABS: ANION GAP 14.8 (8-16); CARBON DIOXIDE 22.1 mmol/L (21-32); CREATININE 1.8 mg/dL (0.6-1.3); POTASSIUM 3.9 mmol/L (3.5-5.1)
[2022-08-08 05:26] LABS: BASOPHILS # (AUTO) 0.1 K/uL (0.00-0.22); HEMOGLOBIN 7.8 g/dL (12.0-18.0); MEAN CORPUSCULAR HEMOGLOBIN 26 pg (27-31); NEUTROPHILS # (AUTO) 15.8 K/uL (1.8-7.7)
[2022-08-08] MEDS: BLOOD GLUCOSE MONITORING 1 DEV DEV FS SCH ×4 (06:00→18:17)
[2022-08-08] MEDS: levETIRAcetam 500 MG in NACL 0.9% 100 ML IV SCH ×2 (06:06→18:18)
[2022-08-08] MEDS: DOPamine 400 MG/D5W PREMIX 250 ML IV PRN (06:10)
[2022-08-08] MEDS: LEVOTHYROXINE 0.025 MG TAB PO SCH (06:30)
[2022-08-08] MEDS: MIDODRINE 5 MG TAB PO SCH ×3 (07:00→21:34)
--- NOTE | 2022-08-08 07:15 | NUR ---
RECEIVED BEDSIDE REPORT FROM PHARMACIST IN CHARGE OWNER AUSTYN SEO. PT IS SLEEP. NC 2L, NO S/S OF ACUTE RESPIRATORY DISTRESS. SR ON MONITOR. PICC TO ZOHREH, INFUSING, KCL @ 70MLS/H, DOPAMINE @ 7 MCG/KG/MIN, TKO @ 5 MLS/H. NPO, WAIT FOR SWALLOW EVAL. INCONTINENT. GENERALIZED WEAKNESS, BEDBOUND, SEE WOUND ASSESSMENT. BILAT RESTRAIN IN PLACE. SEIZURE PRECAUTION IN PLACE, SAFETY PRECAUTION IN PLACE, WILL CONTINUE TO MONITOR.
--- NOTE | 2022-08-08 07:47 | NUR ---
DR PADMA MARI AT BEDSIDE. UPDATED PT INFORMATION. NO NEW ORDER RECEIVED.
[2022-08-08 07:56] LABS: BASOPHILS % (AUTO) 0.6 % (0.0-2.0); EOSINOPHILS # (AUTO) 0.4 K/uL (0-0.4); HEMATOCRIT 24.8 % (36-52); LYMPHOCYTES # (AUTO) 0.9 K/uL (2.0-11.5); LYMPHOCYTES % (AUTO) 4.9 % (20.5-51.1); MEAN CORPUSCULAR HGB CONC 31 g/dL (33-37); MEAN CORPUSCULAR VOLUME 82.1 fL (80-94); MONOCYTES # (AUTO) 0.9 K/uL (0.8-1.0); MONOCYTES % (AUTO) 5.2 % (1.7-9.3); NEUTROPHILS % (AUTO) 87.3 % (42.2-75.2); PLATELET COUNT (AUTO) 238 K/uL (140-450); RED BLOOD CELL COUNT(AUTO) 3.02 MIL/uL (4.20-6.10); RED CELL DISTRIBUTION WIDTH 16.8 % (11.6-13.7); WHITE BLOOD COUNT (AUTO) 18.1 K/uL (4.8-10.8)
[2022-08-08] MEDS: PANTOPRAZOLE 40 MG INJ VIAL IVP SCH (08:24)
[2022-08-08] MEDS: METOCLOPRAMIDE 10 MG/2 ML INJ VIAL IVP SCH ×3 (08:24→17:29)
[2022-08-08] MEDS: QUEtiapine FUMARATE 25 MG TAB PO SCH ×2 (08:25→21:33)
[2022-08-08] MEDS ORDERED: VANCOMYCIN 1,000 MG in DEXTROSE 5% 250 ML IV SCH (11:00)
--- NOTE | 2022-08-08 11:53 | NUR ---
DR SAINI ROUNDING AT BEDSIDE. UPDATED INFORMATION. ORDERED INSERT CLEARY TO MONITOR INPUT AND OUTPUT.
--- NOTE | 2022-08-08 12:50 | NUR ---
DR VALERIE MARI AT BEDSIDE. UPDATED PT INFORMATION.
[2022-08-08] MEDS: THERAHONEY GEL 42.5 GM TP SCH (13:25)
--- NOTE | 2022-08-08 16:15 | NUR ---
COLLECTED SPUTUM SAMPLE VIA NASAL TRACHEAL SUCTIONING. BROUGHT SAMPLE TO THE LAB
--- NOTE | 2022-08-08 17:10 | NUR ---
ST PERFORMED SWALLOWING EVAL AT BEDSIDE. PER ST, PT IS POCKETING, NOT SWALLOWING, SHOULD KEEP NPO. LONG TIME CONTINUOUS TRAINING AT [facility] MAY HELP.
[2022-08-08] MEDS: POTASSIUM CHL 20 MEQ/ 1/2 NS 1,000 ML IV SCH (17:29)
--- NOTE | 2022-08-08 17:38 | NUR ---
PT WAS SEENF OR DYSPHAGIA. PT WAS POCKETING FOR TRIALS OF APPLE SAUCE AND MILD COUGH FOR NTL. RECOMMENDATION NPO
[2022-08-08] MEDS: INSULIN LISPRO SLIDING SCALE 100 UNITS/ML VIAL SUBQ PRN (18:20)
--- NOTE | 2022-08-08 19:27 | NUR ---
ENDORSED TO RATING EXAMINER AUSTYN SEO FOR CONTINUITY OF CARE. ALL QUESTIONS ANSWERED.
[2022-08-08] MEDS: FUROSEMIDE 20 MG/2 ML VIAL IVP SCH (21:40)
[2022-08-09] VITALS (22 sets, daily range): BP systolic 93–127; BP diastolic 46–84
[2022-08-09] MEDS: BLOOD GLUCOSE MONITORING 1 DEV DEV FS SCH ×5 (00:46→23:12)
[2022-08-09] MEDS: HYDRAGUARD CREAM TP SCH ×2 (01:00→12:54)
[2022-08-09 04:41] LABS: BASOPHILS # (AUTO) 0.1 K/uL (0.00-0.22); BASOPHILS % (AUTO) 0.6 % (0.0-2.0); EOSINOPHILS # (AUTO) 0.4 K/uL (0-0.4); EOSINOPHILS % (AUTO) 2.1 % (0.0-4.0); HEMATOCRIT 27.6 % (36-52); HEMOGLOBIN 8.8 g/dL (12.0-18.0); LYMPHOCYTES # (AUTO) 2.7 K/uL (2.0-11.5); LYMPHOCYTES % (AUTO) 14.1 % (20.5-51.1); MEAN CORPUSCULAR HEMOGLOBIN 26 pg (27-31); MEAN CORPUSCULAR HGB CONC 32 g/dL (33-37); MONOCYTES # (AUTO) 1.4 K/uL (0.8-1.0); MONOCYTES % (AUTO) 7.5 % (1.7-9.3); NEUTROPHILS # (AUTO) 14.5 K/uL (1.8-7.7); NEUTROPHILS % (AUTO) 75.7 % (42.2-75.2); PLATELET COUNT (AUTO) 208 K/uL (140-450); RED BLOOD CELL COUNT(AUTO) 3.37 MIL/uL (4.20-6.10); RED CELL DISTRIBUTION WIDTH 16.8 % (11.6-13.7); WHITE BLOOD COUNT (AUTO) 19.1 K/uL (4.8-10.8)
[2022-08-09] MEDS: MEROPENEM 1,000 MG in NACL 0.9% 50 ML IV SCH ×3 (04:46→20:26)
[2022-08-09 05:38] LABS: ANION GAP 14.7 (8-16); CARBON DIOXIDE 23.1 mmol/L (21-32); CREATININE 2.2 mg/dL (0.6-1.3); POTASSIUM 3.8 mmol/L (3.5-5.1)
[2022-08-09 05:55] LABS: MAGNESIUM 1.7 mg/dL (1.8-2.4); PHOSPHORUS 4.3 mg/dL (2.5-4.9)
[2022-08-09] MEDS: levETIRAcetam 500 MG in NACL 0.9% 100 ML IV SCH ×2 (06:05→17:27)
[2022-08-09] MEDS: MIDODRINE 5 MG TAB PO SCH ×3 (06:05→18:10)
[2022-08-09] MEDS: LEVOTHYROXINE 0.025 MG TAB PO SCH (06:07)
--- NOTE | 2022-08-09 07:15 | NUR ---
RECEIVED BEDSIDE REPORT FROM ROOF TRUSS DETAILER AUSTYN SEO. PT IS AWAKE. NOT ALERT AND ORIENTED, ABLE TO FOLLOW SIMPLE COMMAND. NC 2L, NO S/S OF ACUTE RESPIRATORY DISTRESS. SR ON MONITOR. PICC TO ZOHREH, INFUSING, KCL @ 70MLS/H, DOPAMINE @ 7 MCG/KG/MIN, TKO @ 5 MLS/H. LT FOREARM IV 20 G, SALINE LOCK. NGT TO LT NARE, CLAMPED, NPO. INCONTINENT. GENERALIZED WEAKNESS, BEDBOUND, SEE WOUND ASSESSMENT. BILAT RESTRAIN IN PLACE. SEIZURE PRECAUTION IN PLACE, SAFETY PRECAUTION IN PLACE, WILL CONTINUE TO MONITOR. Addendum: 08/09/22 at 1040 by Jarrod Forrester RN CLEARY IN PLACE TO GRAVITY, URINE YELLOW AND WITH SEDIMENTS.
[2022-08-09] MEDS: POTASSIUM CHL 20 MEQ/ 1/2 NS 1,000 ML IV SCH ×2 (08:00→21:48)
[2022-08-09] MEDS: METOCLOPRAMIDE 10 MG/2 ML INJ VIAL IVP SCH ×3 (08:25→17:08)
[2022-08-09] MEDS: FUROSEMIDE 20 MG/2 ML VIAL IVP SCH (08:25)
[2022-08-09] MEDS: PANTOPRAZOLE 40 MG INJ VIAL IVP SCH (08:25)
[2022-08-09] MEDS: QUEtiapine FUMARATE 25 MG TAB PO SCH ×2 (08:25→20:26)
[2022-08-09] MEDS: ALBUTEROL SULFATE/IPRATROPIU 3 ML SOL IH SCH ×3 (08:40→19:38)
--- NOTE | 2022-08-09 10:05 | NUR ---
DR WASHBURN ROUNDING AT BEDSIDE. UPDATED PT INFORMATION. NO NEW ORDER.
--- NOTE | 2022-08-09 10:18 | NUR ---
DR ABURTO ROUNDCARA AT BEDSIDE. UPDATED PT INFORMATION. ORDER MAG RIDER 2G IV ONCE.
[2022-08-09] MEDS ORDERED: MAG SULF 2000 MG/WATER PREMIX 50 ML IV SCH (10:38)
[2022-08-09] MEDS: THERAHONEY GEL 42.5 GM TP SCH (12:55)
[2022-08-09] MEDS: HYDROCOLLOID DRESSING TP SCH (12:55)
--- NOTE | 2022-08-09 14:05 | NUR ---
DR JANE ROUNDING AT BEDSIDE. UPDATED PT INFORMATION.
--- NOTE | 2022-08-09 15:50 | NUR ---
SEEN AND EXAMINED BY DR SAINI. UPDATED PT INFORMATION.
--- NOTE | 2022-08-09 16:10 | NUR ---
SEEN AND EXAMINED BY DR RIVERA. UPDATED PT INFORMATION.
[2022-08-09] MEDS: DOPamine 400 MG/D5W PREMIX 250 ML IV PRN (17:05)
--- NOTE | 2022-08-09 20:03 | NUR ---
ENDORSED TO BROOCH AND BRACELET MAKER BRODY RN FOR CONTINUITY OF CARE. ALL QUESTIONS ANSWERED. PT VS STABLE.
--- NOTE | 2022-08-09 21:45 | NUR ---
report was received from Jemma Combs and pt. is quieter today . Dopamine is going at 2 mcg/kg/min. On sr without ectopy
[2022-08-09] MEDS: INSULIN LISPRO SLIDING SCALE 100 UNITS/ML VIAL SUBQ PRN (23:16)
--- NOTE | 2022-08-09 23:33 | NUR ---
ORAL CARE DONE
--- NOTE | 2022-08-09 23:33 | NUR ---
REPOSITIONED EVRY 2 HOURS
[2022-08-10] VITALS (22 sets, daily range): BP systolic 86–123; BP diastolic 38–76
--- NOTE | 2022-08-10 00:33 | NUR ---
0004 ASLEEP , SR AND NO COMPLAINTS. AFEBRILE
[2022-08-10] MEDS: HYDRAGUARD CREAM TP SCH ×2 (01:00→13:00)
--- NOTE | 2022-08-10 03:36 | NUR ---
PT IS AGGITATED, SCREAMING AND RESISTS BEDSIDE NURSING CARE PROCEDURES. DR. ABURTO INFORMED WITH ORDER TO GIVE ATIVAN 1 MG IV - GIVEN.
--- NOTE | 2022-08-10 04:15 | NUR ---
0430- [facility]
--- NOTE | 2022-08-10 05:06 | NUR ---
0500- COMPLETE BED BATH AND COMPLETE LINEN CHANGED DONE AND WOUND DRESSING DONE
[2022-08-10] MEDS: levETIRAcetam 500 MG in NACL 0.9% 100 ML IV SCH ×2 (05:20→18:26)
[2022-08-10] MEDS: LEVOTHYROXINE 0.025 MG TAB PO SCH (05:23)
--- NOTE | 2022-08-10 05:31 | NUR ---
0530- ORAL CARE DONE. REPOSITIONED EVERY TWO HRS.
[2022-08-10] MEDS: BLOOD GLUCOSE MONITORING 1 DEV DEV FS SCH ×3 (06:00→18:00)
[2022-08-10] MEDS: INSULIN LISPRO SLIDING SCALE 100 UNITS/ML VIAL SUBQ PRN ×3 (06:03→19:10)
[2022-08-10 06:05] LABS: BASOPHILS # (AUTO) 0.1 K/uL (0.00-0.22); BASOPHILS % (AUTO) 0.3 % (0.0-2.0); EOSINOPHILS # (AUTO) 0.5 K/uL (0-0.4); EOSINOPHILS % (AUTO) 2.4 % (0.0-4.0); HEMATOCRIT 26.2 % (36-52); HEMOGLOBIN 8.5 g/dL (12.0-18.0); MEAN CORPUSCULAR HEMOGLOBIN 27 pg (27-31); MEAN CORPUSCULAR HGB CONC 32 g/dL (33-37); MEAN CORPUSCULAR VOLUME 82.1 fL (80-94); MONOCYTES # (AUTO) 0.9 K/uL (0.8-1.0); MONOCYTES % (AUTO) 4.6 % (1.7-9.3); NEUTROPHILS # (AUTO) 16.8 K/uL (1.8-7.7); PLATELET COUNT (AUTO) 180 K/uL (140-450); RED BLOOD CELL COUNT(AUTO) 3.19 MIL/uL (4.20-6.10); RED CELL DISTRIBUTION WIDTH 16.5 % (11.6-13.7); WHITE BLOOD COUNT (AUTO) 20.3 K/uL (4.8-10.8)
[2022-08-10 06:10] LABS: MAGNESIUM 2.1 mg/dL (1.8-2.4); PHOSPHORUS 4.3 mg/dL (2.5-4.9)
[2022-08-10] MEDS: MIDODRINE 5 MG TAB PO SCH ×3 (06:25→18:29)
[2022-08-10 06:42] LABS: NEUTROPHILS % (AUTO) 82.7 % (42.2-75.2)
--- NOTE | 2022-08-10 07:10 | NUR ---
RECEIVED PT ON BED, AWAKE AND CONFUSED. ON SEMI-DAVIS'S POSITION. ON ROOM AIR AT 100% SPO2 - NOT IN RESPIRATORY DISTRESS. ON DOPAMINE DRIP AT 2 MCG/KG/MIN WITH NS AT 5ML/HR - INFUSING WELL OVER RIGHT UPPER PICC LINE. WITH PERIPHERAL IV ON LEFT ARM VIA G 20 ON SALINE LOCK - PATENT. WITH VITAL AF AT 40 ML/HR WITH FREE WATER FLUSHES OF 200 Q 6HRS VIA NGT AT LEFT NARE - INTACT. ON BILATERAL SOFT WRIST RESTRAINTS. WITH CLEARY BAG CATHETER DRAINING BY GRAVITY TO BAG WITH YELLOW-COLORED URINE NOTED - INTACT AND FLOWING WELL. WITH WOUND DRESSINGS NOTED ON RIGHT ARM, SACRALCOCCYX, AND ON BOTH LOWER LEGS - DRY AND INTACT. INITIAL ASSESSMENT DONE. CALL LIGHT WITHIN REACH. KEPT SAFE AND MONITORED. Addendum: 08/10/22 at 1206 by MANUEL FITZPATRICK RN RECEIVED PT FROM DENISA CORTÉS RN.
--- NOTE | 2022-08-10 07:15 | NUR ---
STABLE BP NOTED IN 2 HRS. BP CHECKED - 122/70 MMHG (MAP-87). DOPAMINE DRIP TITRATED DOWN TO 1 MCG/KG/MIN. BP MONITORED CLOSELY.
[2022-08-10] MEDS: ALBUTEROL SULFATE/IPRATROPIU 3 ML SOL IH SCH ×3 (07:39→19:11)
--- NOTE | 2022-08-10 08:00 | NUR ---
CHECKED RESIDUAL OF NGT: LESS THAN 50ML VOLUME NOTED. FEEDING OF VITAL AF INCREASED TO 50 ML/HR WITH FWF OF 200 Q6HRS - TOLERATED WELL BY PT.
[2022-08-10] MEDS: MEROPENEM 1,000 MG in NACL 0.9% 50 ML IV SCH ×3 (08:14→23:39)
[2022-08-10] MEDS: PANTOPRAZOLE 40 MG INJ VIAL IVP SCH (08:39)
[2022-08-10] MEDS: METOCLOPRAMIDE 10 MG/2 ML INJ VIAL IVP SCH ×3 (08:41→17:26)
[2022-08-10] MEDS: QUEtiapine FUMARATE 25 MG TAB PO SCH ×2 (08:42→21:19)
--- NOTE | 2022-08-10 09:00 | NUR ---
DUE MEDICATIONS GIVEN. TURNED TO SIDE AND PRESSURE RELEASED.
[2022-08-10 09:07] LABS: ANION GAP 16.3 (8-16); CARBON DIOXIDE 21.4 mmol/L (21-32); POTASSIUM 3.7 mmol/L (3.5-5.1)
--- NOTE | 2022-08-10 09:35 | NUR ---
STABLE BP AND MAP NOTED - LATEST: 120/70 MMHG (MAP-80). DOPAMINE DRIP PUT ON HOLD. BP MONITORED CLOSELY.
--- NOTE | 2022-08-10 09:40 | NUR ---
SEEN AND EXAMINED BY DR. ABURTO. UPDATED PT INFORMATION. Addendum: 08/10/22 at 1235 by MANUEL FITZPATRICK RN INFORMED OF V/S TRENDS AND DOPAMINE DRIP ON HOLD STATUS - ACKNOWLEDGED.
[2022-08-10] MEDS ORDERED: VANCOMYCIN 1,000 MG in DEXTROSE 5% 250 ML IV SCH (10:00)
[2022-08-10 10:31] LABS: ANION GAP 13.9 (8-16); CARBON DIOXIDE 23.6 mmol/L (21-32); POTASSIUM 3.5 mmol/L (3.5-5.1)
--- NOTE | 2022-08-10 10:36 | NUR ---
SEEN AND EXAMINED BY DR. WASHBURN. UPDATED PT INFORMATION. INFORMED OF PTS PRESENT STATUS.
--- NOTE | 2022-08-10 10:54 | NUR ---
08/10/22 RD FOLLOW UP COMPLETED.PLEASE REFER TO NUTRITION ASSESSMENT UNDER CARE ACTIVITY FOR ESTIMATED NUTRITIONAL NEEDS. 1. CONTINUE VITAL AF 1.2 @ 50ML/HR; FWF 200 Q6H PT TOLERATES 2. RECOMMEND ELEN BID TO PROMOTE WOUND HEALING -WITH ELEN BID AND TUBE FEEDING, THIS WILL PROVIDE 1600 KCAL, 95 GRAMS OF PROTEIN, AND 1773 ML FREE WATER DAILY MEETING 76% ESTIMATED KCAL NEEDS AND 100% OF ESTIMATED PROTEIN NEEDS; ADEQUATE 3. IF PT EXTUBATED, RECOMMEND SWALLOW EVAL TO PROGRESS DIET TO CCHO 60 GM WHEN/IF MEDICALLY APPROPRIATE. 4.RD TO FOLLOW-UP IN 2-3 DAYS PATIENT IS HIGH RISK. TARYN MARTIN RD
[2022-08-10] MEDS: POTASSIUM CHL 20 MEQ/ 1/2 NS 1,000 ML IV SCH (11:27)
--- NOTE | 2022-08-10 12:00 | NUR ---
BLOOD SUGAR CHECKED- 215 NOTED. HUMULOG 4 UNITS GIVEN PER SQ.
[2022-08-10] MEDS: THERAHONEY GEL 42.5 GM TP SCH (13:00)
--- NOTE | 2022-08-10 13:56 | NUR ---
EDUCATION PROVIDED TO PATIENT ON NASOTRACHEAL SUCTION/SPUTUM COLLECTION; HYPEROXYGENATION THROUGHOUT PROCEDURE AT 5 LPM NC; USING A STERILE TECHNIQUE APPLIED LUBRICANT TO THE DISTAL END OF A 14FR SUCTION CATHETER; INSERTED INTO THE RIGHT NASAL SEPTUM THROUGH OROPHARYNGEAL REGION; TRIGGERING STRONG COUGH; CONTINUED INSERTION PASS THE EPIGLOTTIS INTO MAIN BRONCHUS; FORMENTIONED APPLICATION TIMES TWO; OBTAINING LARGE THICK YELLOW/ALLISON SECRETIONS; NO ADVERSE REACTIONS NOTED; SPECIMEN FORWARDED TO LAB
--- NOTE | 2022-08-10 14:51 | NUR ---
RECOMMEND TF GLUCERNA 1.2 MARCELA @ 55 ML/HR, FWF 150 ML Q4H WITH ELEN BID DUE TO SHORTAGE OF VITAL AF 1.2 MARCELA. RN MADE AWARE OF RECOMMENDATION.
[2022-08-10] MEDS: LORazepam 2 MG/ML VIAL IM/IVP PRN (15:38)
[2022-08-10 17:18] LABS: CREATININE 1.9 mg/dL (0.6-1.3)
[2022-08-10 17:19] LABS: CREATININE 1.9 mg/dL (0.6-1.3)
--- NOTE | 2022-08-10 19:30 | NUR ---
RECEIVED PATIENT FROM AM SHIFT RN PATIENT IS CONFUSED , FOLLOWS SIMPLE COMMANDS AT TIMES. PATIENT IS ON ROOM AIR, WITH NO SIGNS OF DISTRESS NOTED. PATIENT HAS A LNGT; TUBE FEED HAS BEEN PAUSED DUE TO HIGH RESIDUALS. PATIENT HAS A CLEARY CATHETER INTACT AND SECURE DRAINING VIA GRAVITY. PATIENT HAS A ZOHREH PICC LINE INTACT AND SECURE, DRESSING C/D/I INFUSING DOPAMINE @ 2MCG/KG/MIN AND 0.45% NS WITH 20 MEQ POTASSIUM @ 70ML/HR. PATIENT HAS A LFA PIV INTACT, PATENT AND SECURE DRESSING C/D/I, SALINE LOCK. SAFETY MEASURES IN PLACE WILL CONTINUE TO MONITOR PATIENT. Addendum: 08/11/22 at 0400 by Agency 01 GABBI [employer] PATIENT HAS BILAT SOFT WRIST RESTRAINTS ON WITH NO SIGNS OF IMPAIRED CIRCULATION NOTED.
--- NOTE | 2022-08-10 19:36 | NUR ---
ENDORSED PT TO BRUSH STAINER NURSE GABBI GOLDBERG. ALL QUESTIONS ANSWERED.
[2022-08-11] VITALS (22 sets, daily range): BP systolic 85–116; BP diastolic 45–73
[2022-08-11] MEDS: BLOOD GLUCOSE MONITORING 1 DEV DEV FS SCH ×4 (00:14→18:38)
[2022-08-11] MEDS: HYDRAGUARD CREAM TP SCH ×2 (00:14→13:52)
[2022-08-11] MEDS: INSULIN LISPRO SLIDING SCALE 100 UNITS/ML VIAL SUBQ PRN ×2 (00:15→18:42)
[2022-08-11] MEDS: POTASSIUM CHL 20 MEQ/ 1/2 NS 1,000 ML IV SCH ×2 (02:04→16:57)
--- NOTE | 2022-08-11 02:25 | NUR ---
RECEIVED A CALL FROM DESEAN ROME AND RECEIVED RECOMMENDATION TO CHANGE TUBE FEEDING ORDER FROM VITAL AF 1.2 TO GLUCERNA 1.2, GOAL RATE OF 50 ML/HR WITH FWF OF 200 ML Q6H WITH SUPPLEMENT OF ELEN BID DUE TO SHORTAGE OF VITAL AF 1.2.
--- NOTE | 2022-08-11 05:13 | NUR ---
GAVE PATIENT BED BATH, AND PROVIDED WOUND CARE, WELL TOOK PICTURES OF WOUNDS AND CHANGED DRESSINGS PATIENT TOLERATED WELL
[2022-08-11 05:52] LABS: BASOPHILS % (AUTO) 0.3 % (0.0-2.0); EOSINOPHILS # (AUTO) 0.3 K/uL (0-0.4); EOSINOPHILS % (AUTO) 2.2 % (0.0-4.0); HEMATOCRIT 26.6 % (36-52); HEMOGLOBIN 8.5 g/dL (12.0-18.0); LYMPHOCYTES # (AUTO) 1.2 K/uL (2.0-11.5); LYMPHOCYTES % (AUTO) 7.7 % (20.5-51.1); MEAN CORPUSCULAR HEMOGLOBIN 26 pg (27-31); MEAN CORPUSCULAR HGB CONC 32 g/dL (33-37); MEAN CORPUSCULAR VOLUME 82.2 fL (80-94); MONOCYTES # (AUTO) 0.8 K/uL (0.8-1.0); MONOCYTES % (AUTO) 5.5 % (1.7-9.3); NEUTROPHILS # (AUTO) 12.8 K/uL (1.8-7.7); NEUTROPHILS % (AUTO) 84.3 % (42.2-75.2); PLATELET COUNT (AUTO) 153 K/uL (140-450); RED BLOOD CELL COUNT(AUTO) 3.23 MIL/uL (4.20-6.10); RED CELL DISTRIBUTION WIDTH 16.7 % (11.6-13.7); WHITE BLOOD COUNT (AUTO) 15.2 K/uL (4.8-10.8)
[2022-08-11] MEDS: LEVOTHYROXINE 0.025 MG TAB PO SCH (06:02)
[2022-08-11] MEDS: levETIRAcetam 500 MG in NACL 0.9% 100 ML IV SCH ×2 (06:02→18:09)
[2022-08-11] MEDS: MIDODRINE 5 MG TAB PO SCH ×3 (06:03→18:10)
[2022-08-11] MEDS: MEROPENEM 1,000 MG in NACL 0.9% 50 ML IV SCH ×3 (06:36→21:34)
--- NOTE | 2022-08-11 07:10 | NUR ---
RECEIVED REPORT FROM COOK FROZEN DESSERT NURSE YUSUF. ALL CARES ASSUMED. PT RECEIVED ON BED, SLEEPING. NEURO STATUS CHECKED - AROUSABLE. ON SEMI-DAVIS'S POSITION. ON ROOM AIR AT 96% SPO2 - NOT IN RESPIRATORY DISTRESS. BP- 109/66 MMHG, HR- 52 BPM, TEMP-85.0 F. ON DOPAMINE DRIP AT 2 MCG/KG/MIN WITH NS AT 5ML/HR - INFUSING WELL OVER RIGHT UPPER PICC LINE. WITH PERIPHERAL IV ON LEFT ARM VIA G 20 ON SALINE LOCK - PATENT. WITH NGT OVER LEFT NARES, PATENT AND INTACT- FEEDING ON HOLD. ON BILATERAL SOFT WRIST RESTRAINTS. WITH CLEARY BAG CATHETER DRAINING BY GRAVITY TO BAG WITH YELLOW-COLORED URINE NOTED - INTACT AND FLOWING WELL. WITH WOUND DRESSINGS NOTED ON RIGHT ARM, SACRALCOCCYX, AND ON BOTH LOWER LEGS - DRESSINGS DRY AND INTACT. INITIAL ASSESSMENT DONE. CALL LIGHT WITHIN REACH. KEPT SAFE AND MONITORED.
--- NOTE | 2022-08-11 07:13 | NUR ---
GAVE REPORT TO CÉSAR SEO WHO ASSUMED TOTAL CARE OF THE PATIENT, ALL QUESTIONS AND CONCERNS ANSWERED
[2022-08-11 07:16] LABS: MAGNESIUM 2.2 mg/dL (1.8-2.4); PHOSPHORUS 4.4 mg/dL (2.5-4.9)
--- NOTE | 2022-08-11 08:00 | NUR ---
RECHECKED TEMPERATURE - 85.6 F. APPLIED ARAVIND HUGGER AND KEPT WARM. TEMP MONITORED Q30 MINS. NGT PLACEMENT CHECKED - IN WITH ACTIVE BOWEL SOUNDS NOTED UPON AUSCULTATION. NGT RESIDUAL CHECKED- LESS THAN <50 ML GASTRIC ASPIRATES OBTAINED. VITAL AF 1.2 TUBE FEEDING CONTINUED AT 50 ML/HR WITH FWF OF 200ML Q 6H. ELEN SUPPLEMENT GIVEN.
[2022-08-11] MEDS: ALBUTEROL SULFATE/IPRATROPIU 3 ML SOL IH SCH ×3 (08:07→18:53)
[2022-08-11] MEDS: PANTOPRAZOLE 40 MG INJ VIAL IVP SCH (08:30)
[2022-08-11] MEDS: METOCLOPRAMIDE 10 MG/2 ML INJ VIAL IVP SCH ×3 (08:30→16:58)
[2022-08-11 08:57] LABS: ANION GAP 16.2 (8-16); CARBON DIOXIDE 22.6 mmol/L (21-32); CREATININE 1.6 mg/dL (0.6-1.3); POTASSIUM 3.8 mmol/L (3.5-5.1)
[2022-08-11] MEDS: QUEtiapine FUMARATE 25 MG TAB PO SCH ×2 (09:00→21:26)
--- NOTE | 2022-08-11 09:00 | NUR ---
DUE MEDICATIONS GIVEN.
--- NOTE | 2022-08-11 09:25 | NUR ---
SEEN AND EXAMINED BY DR. GAMBLE. UPDATED PT INFORMATION. NO NEW ORDERS.
--- NOTE | 2022-08-11 11:20 | NUR ---
SEEN AND EXAMINED BY DR. SAINI. UPDATED PT INFORMATION. NO NEW ORDERS.
--- NOTE | 2022-08-11 13:00 | NUR ---
BM NOTED - NORMAL. KEPT PT CLEAN AND DRY. WOUND DRESSING CHANGED WITH THERAHONEY APPLIED. HYDRADERM APPLIED ON SKIN.
--- NOTE | 2022-08-11 13:05 | NUR ---
SEEN AND EXAMINED BY DR. JANE. UPDATED PT INFORMATION. WITH NEW ORDERS -ACKNOWLEDGED.
--- NOTE | 2022-08-11 13:06 | NUR ---
SEEN AND EXAMINED BY DR. HARDY. UPDATED PT INFORMATION. NO NEW ORDERS.
[2022-08-11] MEDS: THERAHONEY GEL 42.5 GM TP SCH (15:07)
--- NOTE | 2022-08-11 17:53 | NUR ---
SEEN AND EXAMINED BY SPEECH THERAPIST. TRIED SWALLOW EVALUATION TO PT BUT FAILED SWALLOW EVAL.
--- NOTE | 2022-08-11 18:00 | NUR ---
DOPAMINE DRIP DECREASED TO 1MCG/KG/MIN. BP STABLE.
--- NOTE | 2022-08-11 19:00 | NUR ---
ENDORSED PT AB CORTÉS RN. ALL QUESTIONS ANSWERED.
--- NOTE | 2022-08-11 22:07 | NUR ---
RECEIVED REPORT FROM RODRIGO
--- NOTE | 2022-08-11 22:08 | NUR ---
2200- HAD A BIG SOFT STOOL, PERINIAL CARE DONE, TOTAL BED BATH DONE AND LINEN CHANGED DONE
[2022-08-12] VITALS (24 sets, daily range): BP systolic 85–130; BP diastolic 48–73
--- NOTE | 2022-08-12 | NUR ---
asleep, on sr without ectopy
[2022-08-12] MEDS: DOPamine 400 MG/D5W PREMIX 250 ML IV PRN (01:37)
[2022-08-12] MEDS: HYDRAGUARD CREAM TP SCH (02:12)
[2022-08-12 05:33] LABS: BASOPHILS # (AUTO) 0.1 K/uL (0.00-0.22); BASOPHILS % (AUTO) 0.4 % (0.0-2.0); EOSINOPHILS # (AUTO) 0.6 K/uL (0-0.4); EOSINOPHILS % (AUTO) 3.6 % (0.0-4.0); HEMATOCRIT 27.2 % (36-52); HEMOGLOBIN 8.6 g/dL (12.0-18.0); LYMPHOCYTES # (AUTO) 2.7 K/uL (2.0-11.5); LYMPHOCYTES % (AUTO) 15.7 % (20.5-51.1); MEAN CORPUSCULAR HEMOGLOBIN 26 pg (27-31); MEAN CORPUSCULAR HGB CONC 32 g/dL (33-37); MEAN CORPUSCULAR VOLUME 81.1 fL (80-94); MONOCYTES # (AUTO) 1.4 K/uL (0.8-1.0); MONOCYTES % (AUTO) 8.3 % (1.7-9.3); NEUTROPHILS # (AUTO) 12.2 K/uL (1.8-7.7); PLATELET COUNT (AUTO) 192 K/uL (140-450); RED BLOOD CELL COUNT(AUTO) 3.36 MIL/uL (4.20-6.10); RED CELL DISTRIBUTION WIDTH 16.8 % (11.6-13.7); WHITE BLOOD COUNT (AUTO) 16.9 K/uL (4.8-10.8)
[2022-08-12] MEDS: levETIRAcetam 500 MG in NACL 0.9% 100 ML IV SCH ×2 (05:52→18:01)
[2022-08-12 06:13] LABS: PHOSPHORUS 3.7 mg/dL (2.5-4.9)
[2022-08-12] MEDS: INSULIN LISPRO SLIDING SCALE 100 UNITS/ML VIAL SUBQ PRN (06:13)
[2022-08-12 06:14] LABS: ANION GAP 11.4 (8-16); CARBON DIOXIDE 24.1 mmol/L (21-32); CREATININE 1.8 mg/dL (0.6-1.3); POTASSIUM 4.5 mmol/L (3.5-5.1)
[2022-08-12] MEDS: MEROPENEM 1,000 MG in NACL 0.9% 50 ML IV SCH ×3 (06:15→23:13)
[2022-08-12] MEDS: BLOOD GLUCOSE MONITORING 1 DEV DEV FS SCH ×4 (06:16→18:01)
[2022-08-12] MEDS: POTASSIUM CHL 20 MEQ/ 1/2 NS 1,000 ML IV SCH ×2 (06:23→21:27)
[2022-08-12] MEDS: LEVOTHYROXINE 0.025 MG TAB PO SCH (06:30)
--- NOTE | 2022-08-12 07:25 | NUR ---
SBAR REPORT RECEIVED FROM MOO SEO, ALL CARES ASSUMED. PT RESTING IN BED WITH EYES CLOSED, ON ROOM AIR. NG TUBE INFUSING TUBE FEEDING. CLEARY CATHETER DRAINING CLEAR YELLOW URINE TO GRAVITY. DOPAMINE 2 MCG/KG/MIN INFUSING TO ZOHREH PICC. VSS. BED IN LOW AND LOCKED POSITION. CALL LIGHT WITHIN REACH.
[2022-08-12] MEDS: MIDODRINE 5 MG TAB PO SCH ×3 (07:59→18:01)
[2022-08-12] MEDS: METOCLOPRAMIDE 10 MG/2 ML INJ VIAL IVP SCH ×3 (08:06→17:00)
[2022-08-12] MEDS: QUEtiapine FUMARATE 25 MG TAB PO SCH ×2 (08:06→21:28)
[2022-08-12] MEDS: PANTOPRAZOLE 40 MG INJ VIAL IVP SCH (08:06)
[2022-08-12] MEDS: ALBUTEROL SULFATE/IPRATROPIU 3 ML SOL IH SCH ×3 (08:40→19:13)
[2022-08-12] MEDS: HYDROCOLLOID DRESSING TP SCH (09:59)
[2022-08-12] MEDS: THERAHONEY GEL 42.5 GM TP SCH (13:41)
--- NOTE | 2022-08-12 15:09 | NUR ---
08/12/22 RD FOLLOW UP COMPLETED PLEASE REFER TO NUTRITION ASSESSMENT UNDER CARE ACTIVITY FOR ESTIMATED NUTRITIONAL NEEDS. 1. RECOMMEND INCREASING GLUCERNA 1.2 GOAL RATE TO 60ML/HR; FWF 200 Q6H WITH ELEN BID TO PROMOTE WOUND HEALING TOLERATED -WITH ELEN BID AND TUBE FEEDING @ 60 ML/HR, THIS WILL PROVIDE 1888 KCAL, 91 GRAMS OF PROTEIN, AND 1959 ML FREE WATER DAILY MEETING 89% ESTIMATED KCAL NEEDS AND 100% OF ESTIMATED PROTEIN NEEDS; ADEQUATE 2. IF PT EXTUBATED, RECOMMEND SWALLOW EVAL TO PROGRESS DIET TO CCHO 60 GM WITH TEXTURE MODIFICATIONS PER ST SWALLOW EVAL RECOMMENDATIONS WHEN/IF MEDICALLY APPROPRIATE. 3. RD TO FOLLOW-UP 2-3 DAYS, HIGH RISK REVIEWED BY CALVIN MATHEWS RD
[2022-08-13] VITALS (23 sets, daily range): BP systolic 82–163; BP diastolic 63–88
[2022-08-13] MEDS: INSULIN LISPRO SLIDING SCALE 100 UNITS/ML VIAL SUBQ PRN ×3 (01:07→23:50)
[2022-08-13] MEDS: levETIRAcetam 500 MG in NACL 0.9% 100 ML IV SCH ×2 (05:27→17:56)
[2022-08-13] MEDS: BLOOD GLUCOSE MONITORING 1 DEV DEV FS SCH ×5 (05:28→23:48)
[2022-08-13 05:31] LABS: BASOPHILS # (AUTO) 0.1 K/uL (0.00-0.22); BASOPHILS % (AUTO) 0.4 % (0.0-2.0); EOSINOPHILS # (AUTO) 0.8 K/uL (0-0.4); EOSINOPHILS % (AUTO) 5.1 % (0.0-4.0); HEMOGLOBIN 8.4 g/dL (12.0-18.0); LYMPHOCYTES # (AUTO) 3.2 K/uL (2.0-11.5); LYMPHOCYTES % (AUTO) 20.5 % (20.5-51.1); MEAN CORPUSCULAR HEMOGLOBIN 26 pg (27-31); MEAN CORPUSCULAR HGB CONC 32 g/dL (33-37); MONOCYTES # (AUTO) 1.6 K/uL (0.8-1.0); MONOCYTES % (AUTO) 10.1 % (1.7-9.3); NEUTROPHILS # (AUTO) 9.9 K/uL (1.8-7.7); NEUTROPHILS % (AUTO) 63.9 % (42.2-75.2); PLATELET COUNT (AUTO) 165 K/uL (140-450); RED BLOOD CELL COUNT(AUTO) 3.17 MIL/uL (4.20-6.10); WHITE BLOOD COUNT (AUTO) 15.5 K/uL (4.8-10.8)
[2022-08-13 06:06] LABS: ANION GAP 12.5 (8-16); CARBON DIOXIDE 23.8 mmol/L (21-32); CREATININE 1.8 mg/dL (0.6-1.3); POTASSIUM 4.3 mmol/L (3.5-5.1)
[2022-08-13 06:09] LABS: MAGNESIUM 1.9 mg/dL (1.8-2.4); PHOSPHORUS 4.5 mg/dL (2.5-4.9)
[2022-08-13] MEDS: MEROPENEM 1,000 MG in NACL 0.9% 50 ML IV SCH ×3 (06:34→22:28)
[2022-08-13] MEDS: LEVOTHYROXINE 0.025 MG TAB PO SCH (06:35)
[2022-08-13] MEDS: MIDODRINE 5 MG TAB PO SCH ×3 (06:36→19:32)
[2022-08-13] MEDS: METOCLOPRAMIDE 10 MG/2 ML INJ VIAL IVP SCH ×3 (08:29→17:56)
[2022-08-13] MEDS: QUEtiapine FUMARATE 25 MG TAB PO SCH ×2 (08:29→20:52)
[2022-08-13] MEDS: PANTOPRAZOLE 40 MG INJ VIAL IVP SCH (08:29)
[2022-08-13] MEDS: ALBUTEROL SULFATE/IPRATROPIU 3 ML SOL IH SCH ×3 (08:52→19:07)
[2022-08-13] MEDS: POTASSIUM CHL 20 MEQ/ 1/2 NS 1,000 ML IV SCH (11:55)
[2022-08-13] MEDS: THERAHONEY GEL 42.5 GM TP SCH (13:23)
--- NOTE | 2022-08-13 13:25 | NUR ---
WOUND CARE RE-EVALUATION NOTE: PT. AT ICU,SACRALCOCCYX WOUND NOT RESPONDING TO CURRENT TX. BLE WOUND BEDS MOIST, SLOW HEALING. -COCCYX PRESSURE INJURY UN-STAGEABLE WITH 3X2 CM WOUND BED 100% BROWN SLOUGH TISSUE, MOIST, NO ODOR, JOHANN WOUND SKIN DRY, INTACT. -LEFT LE ANTERIOR VASCULAR ULCER 10X5X 0.2 CM. WOUND BED PINK, DRY, NO DRAINAGE, NO ODOR. WOUND EDGES FLAT AND ATTACHED, IRREGULAR SHAPE. JOHANN WOUND DRY, INTACT. - LEFT LOWER EXTREMITY LATERAL MALLEOLUS VASCULAR ULCER 2X1.5X 0.2 CM. WOUND BED PINK, DRY, NO DRAINAGE, NO ODOR. WOUND EDGES FLAT AND ATTACHED, IRREGULAR SHAPE. JOHANN-WOUND DRY, INTACT - LEFT POSTERIOR LEG CALF VASCULAR ULCER 4X3X0.1CM WOUND BED RED, MOIST, NO DRAINAGE, NO ODOR. WOUND EDGES FLAT AND ATTACHED, IRREGULAR SHAPE. JOHANN-WOUND DRY, INTACT - LEFT PLANTAR FOOT UN-STAGEABLE WOUND 3X3 CM. DRY STABLE BROWN SCAB, NO DRAINAGE, NO ODOR. JOHANN-WOUND, DRY, INTACT. - RIGHT POSTERIOR LATERAL VASCULAR ULCER 4.5X2.5X 0.1 CM. WOUND BED PALE PINK, MOIST, NO DRAINAGE, NO ODOR. WOUND EDGES FLAT AND ATTACHED, IRREGULAR SHAPE. JOHANN-WOUND DRY, FLAKY INTACT SKIN.
--- NOTE | 2022-08-13 13:29 | NUR ---
SACRALCOCCYX WOUND NOT RESPONDING TO CURRENT TREATMENT. POC DISCUSSED WITH DR. ROUSE. RECOMMEND SURGEON CONSULT FOR DEBRIDEMENT. PER DR. ROUSE TO HAVE DR. RODRIGUEZ TO CONSULT. ORDER PLACED AND DR. RODRIGUEZ NOTIFIED.
--- NOTE | 2022-08-13 15:30 | NUR ---
PT MOVING HIMSELF AROUND IN BED, MOVED HIMSELF TOWARD END OF BED AND FOUND WITH NG TUBE OUT OF NOSE , LAYING NEXT TO HIM. DR ROUSE NOTIFIED. TELEPHONE ORDER RECEIVED TO REINSERT NG TUBE AND OBTAIN CHEST XRAY.
--- NOTE | 2022-08-13 17:00 | NUR ---
NG TUBE INSERTED TO RIGHT NARE. AUSCULTATED TO CONFIRM PLACEMENT. AWAITING XRAY FOR FINAL VERIFICATION.
--- NOTE | 2022-08-13 22:08 | NUR ---
1930- RECD REPORT FROM DAY SHIFT RN, PT. IS OFF THE DOPAMINE
--- NOTE | 2022-08-13 22:09 | NUR ---
2000- REPOSITIONED. No BM . oral care DONE
--- NOTE | 2022-08-13 22:10 | NUR ---
2200-VITALS ARE STABLE, RESTRAINTS INTACT BOTH WRISTS
[2022-08-14] VITALS (15 sets, daily range): BP systolic 101–129; BP diastolic 55–96
[2022-08-14] MEDS: POTASSIUM CHL 20 MEQ/ 1/2 NS 1,000 ML IV SCH ×2 (02:11→15:51)
--- NOTE | 2022-08-14 03:20 | NUR ---
0000 TO 0200- QUIETLY SLEEPING, ON SR
--- NOTE | 2022-08-14 03:21 | NUR ---
HAD A BIG SEMI SOFT STOOL IN HUGE AMT. PERINIAL CARE DONE AND COMPLETE BTH AND LINEN CHANGED DONE . WOUND CARE DONE
[2022-08-14] MEDS: BLOOD GLUCOSE MONITORING 1 DEV DEV FS SCH ×3 (05:04→17:40)
[2022-08-14] MEDS: levETIRAcetam 500 MG in NACL 0.9% 100 ML IV SCH ×2 (05:06→17:28)
[2022-08-14] MEDS: LEVOTHYROXINE 0.025 MG TAB PO SCH (05:56)
[2022-08-14] MEDS: MEROPENEM 1,000 MG in NACL 0.9% 50 ML IV SCH ×3 (06:23→22:32)
[2022-08-14] MEDS: MIDODRINE 5 MG TAB PO SCH ×3 (06:26→18:33)
--- NOTE | 2022-08-14 06:41 | NUR ---
0620 PROAMATINE WAS NOT GIVEN BPS- 118 135
--- NOTE | 2022-08-14 07:39 | NUR ---
RT AT BEDSIDE AT THIS TIME
--- NOTE | 2022-08-14 07:48 | NUR ---
CHRISTINA ROUSE AT BEDSIDE
[2022-08-14] MEDS: QUEtiapine FUMARATE 25 MG TAB PO SCH ×2 (08:00→20:55)
[2022-08-14] MEDS: METOCLOPRAMIDE 10 MG/2 ML INJ VIAL IVP SCH ×3 (08:00→17:26)
[2022-08-14] MEDS: PANTOPRAZOLE 40 MG INJ VIAL IVP SCH (08:00)
[2022-08-14] MEDS: ALBUTEROL SULFATE/IPRATROPIU 3 ML SOL IH SCH ×3 (08:08→19:34)
[2022-08-14] MEDS: THERAHONEY GEL 42.5 GM TP SCH (13:35)
--- NOTE | 2022-08-14 13:52 | NUR ---
SBAR TO [facility] TO ROOM 115
--- NOTE | 2022-08-14 14:07 | NUR ---
08/14/22 RD FOLLOW UP COMPLETED PLEASE REFER TO NUTRITION ASSESSMENT UNDER CARE ACTIVITY FOR ESTIMATED NUTRITIONAL NEEDS. 1. RECOMMEND INCREASING GLUCERNA 1.2 TO GOAL RATE 60ML/HR; FWF 200 Q6H WITH ELEN BID TO PROMOTE WOUND HEALING TOLERATED -WITH ELEN BID AND TUBE FEEDING @ 60 ML/HR, THIS WILL PROVIDE 1888 KCAL, 91 GRAMS OF PROTEIN, AND 1959 ML FREE WATER DAILY MEETING 89% ESTIMATED KCAL NEEDS AND 100% OF ESTIMATED PROTEIN NEEDS; ADEQUATE 2. IF PT PASSES SWALLOW EVAL, RECOMMEND CCHO 60 GM DIET WITH TEXTURE MODIFICATIONS PER ST SWALLOW EVAL RECOMMENDATIONS AND ELEN BID FOR WOUND SUPPORT 3. RD TO FOLLOW-UP 2-3 DAYS, HIGH RISK REVIEWED BY CALVIN MATHEWS RD
--- NOTE | 2022-08-14 14:43 | NUR ---
RECEIVED THE PATIENT AND THE REPORT, ORIENTED PT TO THE PLACE, AND THE FEEDING AND IV STARTED.[id number]
[2022-08-14] MEDS ORDERED: POTASSIUM CHL 20 MEQ/D5-1/2NS 1,000 ML IV ONE (14:46)
--- NOTE | 2022-08-14 19:34 | NUR ---
GAVE REPORT TO THE MACHINE WOODWORKING SANDER.[email or web address]
--- NOTE | 2022-08-14 19:35 | NUR ---
RECEIVED REPORT FROM CORRIE SEO FOR CONTINUITY OF CARE. PATIENT WAS STABLE DURING SHIFT REPORT. PATIENT TRANSFERRED FROM ICU. PATIENT IS ON NG TUBE FEEDING AND IT IS NOTED IN PLACE. PATIENT IS ON RESTRAINS D/T PULLING OUT ALL MEDICAL LINES. IV HYDRATION IS RUNNING WITHOUT INCIDENT. PATIENT KEPT CLEAN AND DRY. ASLEEP BUT EASY TO AROUSE BY CALLING HIS NAME. PATIENT DID NOT HAVE HER OXYGEN ON AND NO S/S OF RESPIRATORY DISTRESS OR DISCOMFORT. NO NOTED PAIN/DISCOMFORT AT THIS TIME. SIDE RAILS UP X 3 FOR SAFETY AND COMFORT. CALL LIGHT WITHIN REACH. NURSING WILL FREQUENT THIS ROOM FOR ANTICIPATED NEEDS. [email or web address]
--- NOTE | 2022-08-14 19:36 | NUR ---
Patient's Plan of Care was discussed and reviewed with NILESH: SANDRA
--- NOTE | 2022-08-14 19:42 | NUR ---
FOUND PT ON 5L NC WITH SPO2 OF 100%. TITRATED O2 TO 2L NC WITH SPO2 OF 96%. RN NOTIFIED. WILL CONTINUE TO MONITOR PT
--- NOTE | 2022-08-14 20:30 | NUR ---
PATIENT PULLED OT THE NG TUBE FEEDING. MD WAS NOTIFIED AND NEW ORDERS TO KEEP NG TUBE OUT FOR ASPIRATION PRECAUTION. PATIENT IS CONFUSED AND INSIST ON NURSING LOOK FOR HIS DAUGHTER UNDER THE PILLOW. SOFT WRIST RESTRAINS WERE ON DURING HIM PULLING THE TUBING OUT. ALL OTHER VITAL IV LINE ARE SECURED AND INTACT. NURSING WILL FREQUENT THIS ROOM FOR ANTICIPATED NEEDS. [email or web address]
[2022-08-15] MEDS: BLOOD GLUCOSE MONITORING 1 DEV DEV FS SCH ×4 (00:11→17:59)
[2022-08-15] MEDS: INSULIN LISPRO SLIDING SCALE 100 UNITS/ML VIAL SUBQ PRN (00:11)
--- NOTE | 2022-08-15 01:23 | NUR ---
PATIENT NOTED IN BED ASLEEP. CONTINUES ON CURRENT SOFT WRIST RESTRAINTS. CHEST RISING AND FALLING EVENLY. NO NOTED S/S OF PAIN/DISCOMFORT. NO NOTED S/S OF RESPIRATORY DISTRESS. CALL LIGHT WITHIN REACH. [email or web address]
--- NOTE | 2022-08-15 03:05 | NUR ---
DURING ROUNDS NURSING NOTED PATIENT ASLEEP. NO NOTED S/S OF PAIN/DISCOMFORT. NO NOTED S/S OR RESPIRATORY DISTRESS. CHEST RISING AND FALLING EVENLY. SIDE RAILS UP X 2 CALL LIGHT WITHIN REACH. NURSING WILL FREQUENT THIS ROOM FOR ANTICIPATED ASSISTANCE. [email or web address]
[2022-08-15] MEDS: POTASSIUM CHL 20 MEQ/ 1/2 NS 1,000 ML IV SCH (04:59)
[2022-08-15] MEDS: levETIRAcetam 500 MG in NACL 0.9% 100 ML IV SCH ×2 (05:03→18:00)
--- NOTE | 2022-08-15 05:08 | NUR ---
NURSING NOTED PATIENT ASLEEP. NO NOTED S/S OF PAIN/DISCOMFORT. NO NOTED S/S OR RESPIRATORY DISTRESS. CHEST RISING AND FALLING EVENLY. SIDE RAILS UP X 2 CALL LIGHT WITHIN REACH. [email or web address]
[2022-08-15] MEDS: LEVOTHYROXINE 0.025 MG TAB PO SCH (06:21)
[2022-08-15] MEDS: MIDODRINE 5 MG TAB PO SCH ×3 (06:21→18:49)
[2022-08-15] MEDS: MEROPENEM 1,000 MG in NACL 0.9% 50 ML IV SCH ×2 (06:25→15:00)
--- NOTE | 2022-08-15 07:21 | NUR ---
ENDORSED TO AM SHIFT NURSE FOR CONTINUITY OF CARE. PLEASE FOLLOW UP WITH SWALLOW EVALUATION TO TAKE MEDICATION ORALLY. [email or web address]
[2022-08-15] MEDS: ALBUTEROL SULFATE/IPRATROPIU 3 ML SOL IH SCH ×3 (07:34→19:00)
[2022-08-15] MEDS: QUEtiapine FUMARATE 25 MG TAB PO SCH (09:00)
--- NOTE | 2022-08-15 09:00 | NUR ---
RECEIVED PT FROM SUNNY RN FOR CONTINUITY OF CARE. INITIAL ASSESSMENT DONE. AWAKE, CONFUSED PER BASELINE. RESP. EVEN AND UNLABORED. IVF INFUSING WELL. PICC LINE INTACT TO ZOHREH. F/C INTACT DRAINING YELLOW URINE. NOT IN ANY DISTRESS NOTED. CALL LIGHT KEPT WITHIN REACH. WILL CONTINUE TO MONITOR.
[2022-08-15] MEDS: PANTOPRAZOLE 40 MG INJ VIAL IVP SCH (09:37)
[2022-08-15] MEDS: METOCLOPRAMIDE 10 MG/2 ML INJ VIAL IVP SCH ×3 (09:39→17:00)
--- NOTE | 2022-08-15 09:39 | NUR ---
SCHEDULED IV MEDICATIONS GIVEN BY SUNNY SEO. TOLERATED WELL.
[2022-08-15] MEDS: HYDROCOLLOID DRESSING TP SCH (09:41)
--- NOTE | 2022-08-15 09:41 | NUR ---
SCHEDULED HEPARIN SQ WAS GIVEN. TOLERATED WELL. SEROQUEL PO NOT GIVEN D/T PT ON NPO.
--- NOTE | 2022-08-15 12:16 | NUR ---
BS CHECKED 84. NO COVERAGE NEEDED.
[2022-08-15] MEDS: THERAHONEY GEL 42.5 GM TP SCH (13:48)
--- NOTE | 2022-08-15 14:03 | NUR ---
SEEN BY WITH RECOMMENDATIONS: PUREE DIET, HONEY THICK LIQUID. NO STRAW. DR. ROUSE MADE AWARE.
--- NOTE | 2022-08-15 14:40 | NUR ---
POC DISCUSSED WITH CHARGE NURSE EMANUEL NO DEBRIDEMENT PER SURGEON. POC DISCUSSED WITH PRIMARY PHYSICIAN AND CNO. SANTYL OINTMENT WILL START WHEN AVAILABLE.
--- NOTE | 2022-08-15 15:10 | NUR ---
PT SATTING 87-88% RA. PLACED ON 4L/NC, SATTING @ 3L/MIN. CALLED RT MADE AWARE.
--- NOTE | 2022-08-15 15:34 | NUR ---
RECEIVED CALLED FROM RT, PT PLACED ON 2L/NC SATTING@ 95%. PT WILL MONITOR CLOSELY.
--- NOTE | 2022-08-15 16:07 | NUR ---
SCHEDULED PO MEDICATION GIVEN. TOLERATED WELL.
--- NOTE | 2022-08-15 16:37 | NUR ---
IV MEROPENEM GIVEN BY SUNNY SEO. TOLERATED WELL.
--- NOTE | 2022-08-15 17:59 | NUR ---
BS CHECKED 95. NO COVERAGE NEEDED.
--- NOTE | 2022-08-15 18:50 | NUR ---
SCHEDULED IV MEDICATIONS GIVEN BY SUNNY SEO. TOLERATED WELL.
--- NOTE | 2022-08-15 19:05 | NUR ---
PT WAS SLEEPING WITH 2L NC SPO2 94%. NO WHEEZING. PT DID NOT WANT TO TAKE BREATHING TREATMENT. NO SIGNS OF RESP DISTRESS NOTED AT THIS TIME. WILL LET THE PT REST AND CHECK BACK LATER TO SEE IF HE IS READY OR NEEDS TX.
--- NOTE | 2022-08-15 19:30 | NUR ---
BEDSIDE REPORT GIVEN TO ELEUTERIO SEO. FOR CONTINUITY OF CARE. REMAINS STABLE.
[2022-08-15 20:00] VITALS: BP 143/83
[2022-08-16] VITALS: BP 148/75
[2022-08-16] MEDS: MEROPENEM 1,000 MG in NACL 0.9% 50 ML IV SCH ×3 (00:39→16:16)
[2022-08-16] MEDS: QUEtiapine FUMARATE 25 MG TAB PO SCH ×3 (00:39→21:00)
[2022-08-16] MEDS: LORazepam 2 MG/ML VIAL IM/IVP PRN (00:45)
[2022-08-16] MEDS: POTASSIUM CHL 20 MEQ/ 1/2 NS 1,000 ML IV SCH ×2 (00:54→15:34)
[2022-08-16] MEDS: levETIRAcetam 500 MG in NACL 0.9% 100 ML IV SCH ×2 (06:18→17:48)
[2022-08-16] MEDS: MIDODRINE 5 MG TAB PO SCH ×4 (06:19→19:00)
[2022-08-16] MEDS: LEVOTHYROXINE 0.025 MG TAB PO SCH (06:19)
[2022-08-16] MEDS: BLOOD GLUCOSE MONITORING 1 DEV DEV FS SCH ×4 (06:26→17:59)
[2022-08-16 06:38] VITALS: BP 146/80
--- NOTE | 2022-08-16 08:00 | NUR ---
NURSE REPORT REPORT OBTAINED FROM DENISA MCCLELLAN AT 0715 AND THIS NURSE ASSUMED CARE OF PATIENT. VSS. AFEB, TELE MONITOR WITH SB 52. NO C/O PAIN OR DISCOMFORT. IV 1/2NS AND 20 MEQ KCL INFUSING AT 70 ML/HR INTO ZOHREH PICC. MARQUEZ LUNDBERG RN
[2022-08-16] MEDS: PANTOPRAZOLE 40 MG INJ VIAL IVP SCH (09:20)
[2022-08-16] MEDS: METOCLOPRAMIDE 10 MG/2 ML INJ VIAL IVP SCH ×3 (09:21→17:56)
[2022-08-16] MEDS: INSULIN LISPRO SLIDING SCALE 100 UNITS/ML VIAL SUBQ PRN (12:53)
[2022-08-16] MEDS: COLLAGENASE 250 UNIT/GM TP SCH (13:00)
[2022-08-16] MEDS ORDERED: COMMUNICATION ORDER MC SCH (13:00)
[2022-08-16] MEDS: GAUZE TP SCH (13:00)
[2022-08-16] MEDS: ALBUTEROL SULFATE/IPRATROPIU 3 ML SOL IH SCH ×3 (13:01→19:29)
--- NOTE | 2022-08-16 18:02 | NUR ---
NURSE NOTES BG BEFORE DINNER 123- NO SLIDING SCALE INSULIN NEEDED
[2022-08-16 20:00] VITALS: BP 149/82
--- NOTE | 2022-08-17 01:49 | NUR ---
AT 1930 PT WAS BEGINNING TO DESATURATE ON 2L. INCREASED O2 TO 5L AND ADDED A HUMIDIFIER. PT NOW HAS A SATURATION OF 98%. AT 56, PT WAS SLEEPING WITH 5L NC SPO2 98%. NO SIGNS OF RESP DISTRESS NOTED AT THIS TIME. DID NOT ADMINISTER TREATMENT, LETTING PATIENT SLEEP.
[2022-08-17] MEDS: LEVOTHYROXINE 0.025 MG TAB PO SCH (05:40)
[2022-08-17] MEDS: levETIRAcetam 500 MG in NACL 0.9% 100 ML IV SCH ×2 (05:40→17:19)
[2022-08-17] MEDS: POTASSIUM CHL 20 MEQ/ 1/2 NS 1,000 ML IV SCH ×2 (05:47→15:50)
[2022-08-17] MEDS: BLOOD GLUCOSE MONITORING 1 DEV DEV FS SCH ×4 (06:00→18:23)
[2022-08-17] MEDS: ALBUTEROL SULFATE/IPRATROPIU 3 ML SOL IH SCH ×3 (07:39→19:14)
--- NOTE | 2022-08-17 07:39 | NUR ---
RECEIVED ON SUPPLEMENTAL OXYGEN AT 3 LPM VIA NC SATURATION 98%; POST HHN THERAPY TITRATED FIO2 2 LPM; BIOLOGIST AIDE TO MONITOR; LISA/GABBI NOTIFIED
[2022-08-17 08:35] LABS: ANION GAP 9.2 (8-16); CARBON DIOXIDE 26.6 mmol/L (21-32); CREATININE 1.3 mg/dL (0.6-1.3); POTASSIUM 4.8 mmol/L (3.5-5.1)
[2022-08-17] MEDS: MIDODRINE 5 MG TAB PO SCH ×3 (10:37→18:35)
[2022-08-17] MEDS: PANTOPRAZOLE 40 MG INJ VIAL IVP SCH (10:37)
[2022-08-17] MEDS: QUEtiapine FUMARATE 25 MG TAB PO SCH ×2 (10:39→22:04)
[2022-08-17] MEDS: METOCLOPRAMIDE 10 MG/2 ML INJ VIAL IVP SCH ×3 (10:40→17:18)
[2022-08-17 11:29] LABS: BASOPHILS # (AUTO) 0.2 K/uL (0.00-0.22); BASOPHILS % (AUTO) 1.1 % (0.0-2.0); EOSINOPHILS # (AUTO) 0.5 K/uL (0-0.4); EOSINOPHILS % (AUTO) 3.2 % (0.0-4.0); HEMATOCRIT 26.3 % (36-52); HEMOGLOBIN 8.5 g/dL (12.0-18.0); LYMPHOCYTES # (AUTO) 1.5 K/uL (2.0-11.5); LYMPHOCYTES % (AUTO) 9.8 % (20.5-51.1); MEAN CORPUSCULAR HEMOGLOBIN 26 pg (27-31); MEAN CORPUSCULAR HGB CONC 32 g/dL (33-37); MONOCYTES # (AUTO) 0.7 K/uL (0.8-1.0); MONOCYTES % (AUTO) 4.7 % (1.7-9.3); NEUTROPHILS # (AUTO) 12.7 K/uL (1.8-7.7); NEUTROPHILS % (AUTO) 81.2 % (42.2-75.2); PLATELET COUNT (AUTO) 257 K/uL (140-450); WHITE BLOOD COUNT (AUTO) 15.6 K/uL (4.8-10.8)
[2022-08-17] MEDS: INSULIN LISPRO SLIDING SCALE 100 UNITS/ML VIAL SUBQ PRN (12:16)
[2022-08-17] MEDS: GAUZE TP SCH (12:24)
[2022-08-17] MEDS: COLLAGENASE 250 UNIT/GM TP SCH (12:26)
--- NOTE | 2022-08-17 13:52 | NUR ---
TEA TREE FARMER ASSIST WITH LAUNDRY HOUSEKEEPING AIDE X 20 MINUTES; PATIENT PHYSICAL HYGIENE AND REPOSITION, BED LINEN AND ANNA REMOVAL AND REPLACED
[2022-08-17 16:46] VITALS: BP 114/63
--- NOTE | 2022-08-17 18:53 | NUR ---
08/17/22 RD FOLLOW UP COMPLETED.PLEASE REFER TO NUTRITION ASSESSMENT UNDER CARE ACTIVITY FOR ESTIMATED NUTRITIONAL NEEDS. 1.CONTINUE WITH PUREE CCHO DIET; HONEY THICKENED LIQUIDS PER SPEECH RECOMMENDATIONS 2.RECOMMEND ELEN BID (PROVIDES 160 KCAL, 5 G PROTEIN) FOR WOUND SUPPORT 3.MONITOR PO INTAKE AND BLOOD GLUCOSE LEVELS. 4. RD TO FOLLOW-UP IN 3-5 DAYS PATIENT IS MODERATE RISK. TARYN MARTIN RD
--- NOTE | 2022-08-17 19:26 | NUR ---
ENDORSE PATIENT IN STABLE CONDITION TO PM SHIFT NURSE WHILE 1/2NS 20MEQ KCL INFUSING @70ML/HR VIA ZOHREH PICC. PATIENT IS ON 3 LITER VIA NC WITH BREATH TREATMENT.
[2022-08-17 20:00] VITALS: BP 103/71
[2022-08-18] VITALS (9 sets, daily range): BP systolic 103–125; BP diastolic 58–77
[2022-08-18] MEDS: INSULIN LISPRO SLIDING SCALE 100 UNITS/ML VIAL SUBQ PRN (01:31)
[2022-08-18] MEDS: POTASSIUM CHL 20 MEQ/ 1/2 NS 1,000 ML IV SCH ×2 (05:23→19:28)
[2022-08-18] MEDS: BLOOD GLUCOSE MONITORING 1 DEV DEV FS SCH ×4 (06:00→18:34)
[2022-08-18] MEDS: MIDODRINE 5 MG TAB PO SCH ×3 (06:24→19:26)
[2022-08-18] MEDS: LEVOTHYROXINE 0.025 MG TAB PO SCH (06:24)
[2022-08-18] MEDS: levETIRAcetam 500 MG in NACL 0.9% 100 ML IV SCH ×2 (06:26→17:41)
[2022-08-18] MEDS: ALBUTEROL SULFATE/IPRATROPIU 3 ML SOL IH SCH ×3 (07:33→19:34)
--- NOTE | 2022-08-18 07:33 | NUR ---
RECEIVED ON SUPPLEMENTAL OXYGEN AT 2 LP VIA NC; SATURATION 96%
[2022-08-18] MEDS: METOCLOPRAMIDE 10 MG/2 ML INJ VIAL IVP SCH ×3 (09:32→17:40)
[2022-08-18] MEDS: PANTOPRAZOLE 40 MG INJ VIAL IVP SCH (09:33)
--- NOTE | 2022-08-18 09:33 | NUR ---
LABEL DRIER CALLED TO BEDSIDE BY LISA/GABBI; PATIENT PRESENTING WITH DESCENDING SATURATION OF 80% ON SUPPLEMENTAL OXYGEN AT 2 LPM VIA NC; LOC AWAKE AND ALERT; TACHYPNEIC AT 24 BPM; GOOD CHEST RISE; BREATH SOUNDS DIFFUSED RHONCHI BILATERAL; LABEL DRIER OBSERVATION OF LARGE THICK YELLOW WITH BLOOD TINGE SECRETIONS ON TOWEL; LABEL DRIER TO GIVEN HHN PRN THERAPY; LABEL DRIER REQUESTED DIAZ TO ORDER STAT CXR FOR SOB, WORSENING PULMONARY STATUS; REVIEWED PREVIOUS CXR ON 08/13 Addendum: 08/18/22 at 1036 by John Navarro RT REVIEWED PMHX: NO COPD; INCREASED SUPPLEMENTAL OXYGEN TO 6 LPM VIA NC
[2022-08-18] MEDS: QUEtiapine FUMARATE 25 MG TAB PO SCH ×2 (09:41→21:38)
[2022-08-18] MEDS: HYDROCOLLOID DRESSING TP SCH (09:48)
--- NOTE | 2022-08-18 09:50 | NUR ---
POST HHN THERAPY PLACED ON SUPPLEMENTAL OXYGEN AT 15 LPM VIA NON REBREATHER; LISA/RN NOTIFIED; SUPERVISOR BENZENE REFINING TO MONITOR
[2022-08-18] MEDS: ALBUTEROL SULFATE/IPRATROPIU 3 ML SOL IH PRN (10:06)
--- NOTE | 2022-08-18 10:06 | NUR ---
ON OR ABOUT THIS TIME REVIEWED WITH DR. AUGUSTA GAMBLE PATIENT PULMONARY STATUS WITH DESCENDING SATURATION; STAT CXR
--- NOTE | 2022-08-18 10:50 | NUR ---
CALLED DR. AUGUSTA GAMBLE AT [facility] TO REVIEW STAT CXR IMPRESSION; BLAIRE/EXCHANGE TO KIMI GARCIA MD; PATIENT INFORMATION AND CALL BACK NUMBER GIVEN
--- NOTE | 2022-08-18 10:54 | NUR ---
CALL BACK FROM DR. AUGUSTA GAMBLE; REVIEWED STAT CXR (08/18 714) INFORMATION; JOEL GAMBLE: CALL CONSULTED PULMONARY GROUP
--- NOTE | 2022-08-18 10:55 | NUR ---
CALLED [facility] [phone]; RONALD/EXCHANGE TO CALL LISTED DR.OWAIS SARAVIA; PATIENT INFORMATION AND CALL BACK NUMBER GIVEN
--- NOTE | 2022-08-18 11:23 | NUR ---
PER ICU STAFF DR. MARIE WASHBURN ROUNDING; CONTACTED FOREMENTIONED MD THROUGH ICU CELL; REVIEWED WITH MD SPONTANEOUS EXUDATION OF LARGE THICK YELLOW WITH BLOOD TINGE SECRETIONS; DESCENDING SATURATION TO 80% ON SUPPLEMENTAL OXYGEN AT 2 LPM VIA NC (0733 96%/2 LPM); INCREASED WOB AT 24-28 BPM; STAT CXR (08/18 1036) IMPRESSION; TORBO DR. WASHBURN: HHN Q6 WITH DUONEB WITH MUCOMYST 1ml/20%; KEEP SATURATION GREATER THAN 92%; NURSING ORDER: LASIX 40mg IVP X 1; SOLAR ENERGY TECHNICIAN TO FORWARD ORDER TO MST STEWARD/STEWARDESS ECONOMY CLASS AND/OR LIL/RN
--- NOTE | 2022-08-18 11:39 | NUR ---
FORWARDED DR. WU MALDONADO OF LASIX 40mg IVP X 1 TO ELLEN/MST SENIOR PRINCIPAL
[2022-08-18] MEDS ORDERED: FUROSEMIDE 40 MG/4 ML VIAL IVP SCH (11:45)
--- NOTE | 2022-08-18 11:46 | NUR ---
PLACED PATIENT ON A VAPOTHERM HIGH FLOW NASAL CANNULA NOTED PLUGGED INTO RED OUTLET TOLERATING WELL WITHOUT ADVERSE REACTIONS NOTED LISA/RN NOTIFIED
[2022-08-18] MEDS ORDERED: ACETYLCYSTEINE 10% (100 MG/ML) 100 MG/ML VIAL INH SCH (13:00)
[2022-08-18] MEDS: GAUZE TP SCH (13:06)
[2022-08-18] MEDS: COLLAGENASE 250 UNIT/GM TP SCH (13:07)
--- NOTE | 2022-08-18 13:21 | NUR ---
LISA/RN AND INDUSTRIAL TRUCK OPERATOR AT BEDSIDE FOR PATIENT PHYSICAL HYGIENE AND REPOSITION, TRANSLATOR DEAF TO ATTEMPT HHN THERAPY AT A LATER TIME
--- NOTE | 2022-08-18 13:50 | NUR ---
STABLE TOLERATING VAPOTHERM HIGH FLOW NASAL CANNULA NOTED WITHOUT COMPLICATIONS NOTED GOOD CHEST RISE; HHN THERAPY GIVEN WITH A UD DUONEB AND 2ml/10% MUCOMYST; UNABLE TO GIVE 1ml/20% MUCOMYST OMINICELL DISPERSED 10% INSTEAD OF 20%; POST HHN THERAPY CALLED RAJI/PHARMACIST; REVIEWED MUCOMYST ORDER; NOW CORRECTED TO 1ml/20%
[2022-08-18] MEDS: ACETYLCYSTEINE 20% (200 MG/ML) 200 MG/ML VIAL INH SCH (19:35)
--- NOTE | 2022-08-18 19:54 | NUR ---
ENDORSE PATIENT IN STABLE CONDITION TO PM SHIFT WHILE 1/2NS 20MEQ KCL INFUSING @70ML/HR VIA R. UPPER ARM PICC SITE. PATIENT IS ON HIGH FLOW 25L/MIN WITH FIO2 60%. BLOOD CULTURE & URINE SPECIMENS COLLECTED FOR SCREEN SEPSIS
--- NOTE | 2022-08-18 20:50 | NUR ---
RECEIVED PATIENT FROM JORGE SEO FOR CONTINUITY OF CARE. PATIENT ON HIGH FLOW AT 40L FIO2 80% SATING 92%. NO S/S OF RESPIRATORY DISTRESS. IVF 1/2 NS WITH 20 MEQ KCL INFUSING 70 ML/HR TO ZOHREH PICC LINE. PATIENT WITH BILATERAL SOFT WRIST RESTRAINTS. CLEARY CATHETER DRAINING CLEAR YELLOW OUTPUT. SAFETY MEASURES IN PLACE. CALL LIGHT WITHIN REACH.
[2022-08-18] MEDS: CEFEPIME 1,000 MG in DEXTROSE 5% 50 ML IV SCH (21:35)
--- NOTE | 2022-08-18 21:35 | NUR ---
ALL SCHEDULED DUE MEDICATIONS ADMINISTERED ORDERED.
[2022-08-19] VITALS (22 sets, daily range): BP systolic 75–179; BP diastolic 48–96
[2022-08-19] MEDS: BLOOD GLUCOSE MONITORING 1 DEV DEV FS SCH ×4 (00:20→18:00)
--- NOTE | 2022-08-19 00:20 | NUR ---
CHECKED BLOOD SUGAR WAS 151. ADMINISTERED HUMALOG INSULIN ORDERED PER SLIDING SCALE.
[2022-08-19] MEDS: INSULIN LISPRO SLIDING SCALE 100 UNITS/ML VIAL SUBQ PRN (00:21)
[2022-08-19] MEDS: ALBUTEROL SULFATE/IPRATROPIU 3 ML SOL IH SCH ×4 (01:25→20:19)
[2022-08-19] MEDS: ACETYLCYSTEINE 20% (200 MG/ML) 200 MG/ML VIAL INH SCH ×4 (01:25→20:19)
[2022-08-19] MEDS: levETIRAcetam 500 MG in NACL 0.9% 100 ML IV SCH ×2 (05:47→18:00)
[2022-08-19] MEDS: LEVOTHYROXINE 0.025 MG TAB PO SCH (05:48)
[2022-08-19] MEDS: MIDODRINE 5 MG TAB PO SCH ×3 (07:00→19:13)
--- NOTE | 2022-08-19 07:29 | NUR ---
BEDSIDE REPORT GIVEN TO AM NURSE FOR CONTINUITY OF CARE.
--- NOTE | 2022-08-19 07:37 | NUR ---
GOT REPORT FROM THE NIGHT NURSE, PT IN HIGH FLOW VIA NC.[email or web address]
[2022-08-19] MEDS: QUEtiapine FUMARATE 25 MG TAB PO SCH ×2 (08:05→21:45)
[2022-08-19] MEDS: PANTOPRAZOLE 40 MG INJ VIAL IVP SCH (08:11)
[2022-08-19] MEDS: CEFEPIME 1,000 MG in DEXTROSE 5% 50 ML IV SCH ×2 (08:21→21:43)
[2022-08-19] MEDS: POTASSIUM CHL 20 MEQ/ 1/2 NS 1,000 ML IV SCH ×2 (09:59→23:53)
[2022-08-19] MEDS ORDERED: NOREPINEPHRINE 4 MG in DEXTROSE 5% 250 ML IV PRN (10:50)
[2022-08-19] MEDS ORDERED: DEXMEDETOMIDINE HCL 400 MCG in NACL 0.9% 96 ML IV PRN (10:50)
--- NOTE | 2022-08-19 11:04 | NUR ---
PT INTUBATED, AND TRANSFERRED, REPORT GIVEN TO THE NURSE TO ICU
[2022-08-19] MEDS ORDERED: PROPOFOL 1000 MG/100 ML PREMIX 100 ML IV ONE (11:19)
[2022-08-19] MEDS ORDERED: FUROSEMIDE 20 MG/2 ML VIAL IVP ONE (11:20)
[2022-08-19] MEDS ORDERED: FUROSEMIDE 20 MG/2 ML VIAL IVP SCH (11:23)
--- NOTE | 2022-08-19 11:33 | NUR ---
ASSUMED CARE OF PATIENT AFTER UPGRADE TO ICU. INTUBATED ON TELE FLOOR WITHOUT COMPLICATION. NGT INSERTED IN LEFT NARE WITHOUT COMPLICATION. LEVOPHED STARTED AND PROPOFOL RUNNING THROUGH RIGHT UPPER ARM PICC. PICTURES TAKEN OF SACRAL WOUND. CONSENT OBTAINED FROM SISTER ALYSSA PEDROZA FOR BRONCHOSCOPY.
--- NOTE | 2022-08-19 11:48 | NUR ---
BRONCHOSCOPY PROCEDURE DONE BY ETT PULLED BACK 2CM TO NOW 22 @TEETH/GUM.
[2022-08-19] MEDS ORDERED: FUROSEMIDE 40 MG/4 ML VIAL IVP ONE (11:50)
[2022-08-19] MEDS: NOREPINEPHRINE 8 MG in DEXTROSE 5% 250 ML IV PRN (12:39)
[2022-08-19] MEDS: GAUZE TP SCH (13:17)
[2022-08-19] MEDS: COLLAGENASE 250 UNIT/GM TP SCH (13:43)
--- NOTE | 2022-08-19 16:04 | NUR ---
P.T. NOTES HOLD P.T. TX, Pt TRANSFERRED TO ICU; WILL AWAIT P.T. RE EVAL ORDER WHEN APPROPRIATE.
--- NOTE | 2022-08-19 18:56 | NUR ---
PT IS ON LEVOPHED 1 MCG/MIN AND VENT IS AT 80% ON PRESSURE SUPPORT. CURRENTLY STABLE AND AFEBRILE. NO TUBE FEEDING ORDERED AT THIS MOMENT
[2022-08-19] MEDS: methylPREDNISolone SS 40 MG/ML VIAL IVP SCH (21:45)
[2022-08-19] MEDS ORDERED: VANCOMYCIN PER PHARMACY MC PRN (22:10)
[2022-08-19] MEDS ORDERED: VANCOMYCIN 1,000 MG in DEXTROSE 5% 250 ML IV SCH (23:05)
[2022-08-19] MEDS ORDERED: VANCOMYCIN 1,000 MG VIAL ONE (23:33)
[2022-08-19] MEDS: PROPOFOL 1000 MG/100 ML PREMIX 100 ML IV PRN (23:51)
[2022-08-20] VITALS (19 sets, daily range): BP systolic 87–172; BP diastolic 38–98
[2022-08-20] MEDS: BLOOD GLUCOSE MONITORING 1 DEV DEV FS SCH ×4 (00:29→22:12)
--- NOTE | 2022-08-20 03:30 | NUR ---
PT SELF EXTUBATED WITH BILATERAL WRIST RESTRAINTS ON. RT NOTIFIED, AND MD NOTIFIED. PT STABLE AT PRESENT (PLEASE SEE VITAL SIGN FLOW SHEETS FOR DETAILS) AND DOES NOT APPEAR TO BE IN RESPIRATORY DISTRESS. NURSE WILL CONTINUE TO MONITOR PATIENT AND FOLLOW THROUGH ON ANY ORDERS THE MD PLACES.
[2022-08-20] MEDS ORDERED: RACEPINEPHRINE 2.25% 13.5 MG/0.5 ML NEBU INH PRN (03:55)
--- NOTE | 2022-08-20 05:56 | NUR ---
@0338 ICU INFORMED ME THAT ICU7 HAD SELF EXTUBATED. UPON ARRIVAL PATIENT IS AGITATED AND COMBATIVE BUT SATURATING WELL, 94-97. BS AND TRACHEAL SWELLING WERE ASSESSED BUT DID NOT YIELD ANYTHING BUT PT WAS A BIT SHORT OF BREATH. PT WAS PLACED ON NRB TO HELP HIM RECOVER. ER DOCTOR WAS NOTIFIED AND A PRN OF RACEPI WAS ORDERED. WILL CONTINUE TO MONITOR PT THROUGHOUT REMAINDER OF SHIFT.
[2022-08-20] MEDS: MIDODRINE 5 MG TAB PO SCH ×3 (06:20→22:01)
[2022-08-20] MEDS: LEVOTHYROXINE 0.025 MG TAB PO SCH (06:21)
[2022-08-20] MEDS: levETIRAcetam 500 MG in NACL 0.9% 100 ML IV SCH ×2 (06:21→21:52)
[2022-08-20] MEDS ORDERED: NOREPINEPHRINE 4 MG/4 ML VIAL IV ONE (07:11)
--- NOTE | 2022-08-20 07:30 | NUR ---
RECEIVED REPORT FROM RONI, PT. IS AWAKE AND ALERT ,RESTLESS YELLING SOMETIME , HE EXTUBATE HIMSELF LAST NIGHT. ON O2 1005 nonrebreathing mask o2 sat 92% iv has picc on rt upper arm. milan cath drain clear yellow urine no bm at the time.
[2022-08-20] MEDS: ALBUTEROL SULFATE/IPRATROPIU 3 ML SOL IH SCH ×3 (07:58→19:43)
[2022-08-20] MEDS: ACETYLCYSTEINE 20% (200 MG/ML) 200 MG/ML VIAL INH SCH ×3 (07:58→19:43)
--- NOTE | 2022-08-20 07:58 | NUR ---
RECEIVED ON SUPPLEMENTAL OXYGEN AT 1 5 LPM VIA NON REBREATHER TOLERATING WELL WITHOUT COMPLICATIONS NOTED AWAKE GOOD CHEST RISE; ENCOURAGED PATIENT FOR DEEP BREATH AND COUGH DURING THERAPY; SPONTANEOUS INTERMITTENT STRONG COUGH DURING THERAPY; OROPHARYNGEAL SUCTION FOR LARGE THI YELLOW SECRETIONS AIRWAY PATENT; PATIENT APPROPRIATE FOR HIGH FLOW NASAL CANNULA Addendum: 08/20/22 at 1320 by John Navarro RT 1 5 = 15
[2022-08-20] MEDS: PANTOPRAZOLE 40 MG INJ VIAL IVP SCH (09:00)
[2022-08-20] MEDS: QUEtiapine FUMARATE 25 MG TAB PO SCH ×2 (09:00→21:54)
[2022-08-20] MEDS: methylPREDNISolone SS 40 MG/ML VIAL IVP SCH ×2 (09:00→21:54)
[2022-08-20] MEDS: CEFEPIME 1,000 MG in DEXTROSE 5% 50 ML IV SCH (09:00)
--- NOTE | 2022-08-20 09:33 | NUR ---
PLACED ON A VAPOTHERM HIGH NASAL CANNULA NOTED NO DISTRESS NOTED
--- NOTE | 2022-08-20 11:26 | NUR ---
WOUND CARE RE-EVALUATION NOTE: SACRALCOCCYX WOUND TREATMENT WITH SANTYL OINTMENT, JOHANN-WOUND SKIN WITH RED GRANULATION TISSUE AND PREVIOUS UN-STAGEABLE ALLISON /YELLOW SLOUGH TISSUE ASSESSED. POC DISCUSSED WITH PRIMARY RN. CONTINUE SANTYL. BLE ULCERS IMPROVING WITH HYDROCOLLOID DRESSING. -COCCYX PRESSURE INJURY UN-STAGEABLE WITH 8X3.5X0.3CM WOUND BED 75% ALLISON/YELLOW SLOUGH TISSUE, 25% RED GRANULATION TISSUE,AREA MOIST, NO ODOR, JOHANN WOUND SKIN MOIST,NON-BLANCHABLE REDNESS FURTHER DAMAGE INDICATED. -LEFT LE ANTERIOR VASCULAR ULCER 10X5X 0.2 CM. WOUND BED PINK, DRY, NO DRAINAGE, NO ODOR. WOUND EDGES FLAT AND ATTACHED, IRREGULAR SHAPE. JOHANN WOUND DRY, INTACT. - LEFT LOWER EXTREMITY LATERAL MALLEOLUS VASCULAR ULCER 1X1.5X 0.2 CM. WOUND BED PINK, DRY, NO DRAINAGE, NO ODOR. WOUND EDGES FLAT AND ATTACHED, IRREGULAR SHAPE. JOHANN-WOUND DRY, INTACT -LEFT POSTERIOR LEG CALF VASCULAR ULCER 4X3X0.1CM WOUND BED RED, MOIST, NO DRAINAGE, NO ODOR. WOUND EDGES FLAT AND ATTACHED, IRREGULAR SHAPE. JOHANN-WOUND DRY, INTACT - LEFT PLANTAR FOOT UN-STAGEABLE WOUND 2X2 CM. DRY STABLE BROWN SCAB, NO DRAINAGE, NO ODOR. JOHANN-WOUND, DRY, INTACT. - RIGHT POSTERIOR LATERAL VASCULAR ULCER HEALING WITH THIN SCAR PALE PINK, MOIST, NO DRAINAGE, NO ODOR. WOUND EDGES FLAT AND ATTACHED, IRREGULAR SHAPE. JOHANN-WOUND DRY, FLAKY INTACT SKIN.
--- NOTE | 2022-08-20 11:33 | NUR ---
STABLE GOOD CHEST RISE TOLERATING VAPOTHERM HIGH FLOW NASAL CANNULA WITHOUT ADVERSE REACTIONS NOTED
[2022-08-20] MEDS: GAUZE TP SCH (13:00)
[2022-08-20] MEDS: COLLAGENASE 250 UNIT/GM TP SCH (13:00)
--- NOTE | 2022-08-20 13:38 | NUR ---
DR. HENRIQUE WASHBURN ROUNDING; INCREASED FIO2 TO 100% FLOW TO 40 LPM; LOC ASLEEP NASOTRACHEAL SUCTION FOR LARGE THIN PALE YELLOW SECRETIONS
[2022-08-20] MEDS ORDERED: LORazepam 2 MG/ML VIAL ONE (13:59)
--- NOTE | 2022-08-20 14:00 | NUR ---
pt became restless try to pull out his tube dr. yeager notified , order ativan prn,
[2022-08-20 14:12] LABS: HEMATOCRIT 24.6 % (36-52); HEMOGLOBIN 7.7 g/dL (12.0-18.0); MEAN CORPUSCULAR HEMOGLOBIN 26 pg (27-31); MEAN CORPUSCULAR HGB CONC 31 g/dL (33-37); MEAN CORPUSCULAR VOLUME 82.1 fL (80-94); PLATELET COUNT (AUTO) 244 K/uL (140-450); RED CELL DISTRIBUTION WIDTH 17.6 % (11.6-13.7)
[2022-08-20 14:13] LABS: WHITE BLOOD COUNT (AUTO) 46.5 K/uL (4.8-10.8)
[2022-08-20 14:25] LABS: LYMPHOCYTES % (MANUAL) 1 % (20-46); MONOCYTES % (MANUAL) 2 % (5-12)
[2022-08-20] MEDS ORDERED: LORazepam 2 MG/ML VIAL IVP PRN (14:25)
[2022-08-20 14:35] LABS: ANION GAP 12.8 (8-16); CARBON DIOXIDE 24.5 mmol/L (21-32); CREATININE 1.5 mg/dL (0.6-1.3); POTASSIUM 5.3 mmol/L (3.5-5.1)
[2022-08-20] MEDS ORDERED: DEXMEDETOMIDINE HCL 400 MCG in NACL 0.9% 96 ML IV PRN (14:35)
[2022-08-20] MEDS: POTASSIUM CHL 20 MEQ/ 1/2 NS 1,000 ML IV SCH (15:06)
--- NOTE | 2022-08-20 15:46 | NUR ---
08/20/22 RD FOLLOW UP COMPLETED PLEASE REFER TO NUTRITION ASSESSMENT UNDER CARE ACTIVITY FOR ESTIMATED NUTRITIONAL NEEDS. 1. PT CURRENTLY ON NPO PER RN 2. WHEN/IF MEDICALLY APPROPRIATE TO START TF, RECOMMEND GLUCERNA 1.2 GOAL RATE TO 65 ML/HR; FWF 200 Q6H WITH ELEN BID TO PROMOTE WOUND HEALING TOLERATED -WITH ELEN BID AND TUBE FEEDING @ 65 ML/HR, THIS WILL PROVIDE 1992 KCAL, 91 GRAMS OF PROTEIN, AND 2058 ML FREE WATER DAILY MEETING 94% ESTIMATED KCAL NEEDS AND 86% OF ESTIMATED PROTEIN NEEDS; ADEQUATE -START TF AT 10 ML/HR AND INCREASE BY 10 ML Q4H TOLERATED. 3. RECOMMEND SWALLOW EVAL BEFORE ADVANCING DIET 4. MONITOR GI, ASTRIC RESIDUALS, AND NUTRITION RELATED LAB VALUES. 5. RD TO FOLLOW-UP 2-3 DAYS, HIGH RISK REVIEWED BY CALVIN MATHEWS RD
[2022-08-20] MEDS ORDERED: VANCOMYCIN 1,000 MG in DEXTROSE 5% 250 ML IV SCH (16:00)
--- NOTE | 2022-08-20 17:10 | NUR ---
SEEN BY DR. JANE VISIT AT BED SITE NO ORDER RECEIVE.,
[2022-08-20 18:09] LABS: HEMATOCRIT 24.5 % (36-52); HEMOGLOBIN 7.6 g/dL (12.0-18.0); LYMPHOCYTES # (AUTO) 0.6 K/uL (2.0-11.5); LYMPHOCYTES % (AUTO) 1.3 % (20.5-51.1); MEAN CORPUSCULAR HEMOGLOBIN 26 pg (27-31); MEAN CORPUSCULAR HGB CONC 31 g/dL (33-37); MEAN CORPUSCULAR VOLUME 82.1 fL (80-94); MONOCYTES # (AUTO) 0.4 K/uL (0.8-1.0); MONOCYTES % (AUTO) 0.9 % (1.7-9.3); NEUTROPHILS # (AUTO) 45.3 K/uL (1.8-7.7); NEUTROPHILS % (AUTO) 97.8 % (42.2-75.2); PLATELET COUNT (AUTO) 230 K/uL (140-450); RED BLOOD CELL COUNT(AUTO) 2.99 MIL/uL (4.20-6.10); RED CELL DISTRIBUTION WIDTH 17.6 % (11.6-13.7)
--- NOTE | 2022-08-20 18:12 | NUR ---
APPLIED BEHAVIOR SCIENCE SPECIALIST CALLED TO BEDSIDE; PATIENT PRESENTING WITH DESCENDING SATURATION TO 86% ON VAPOTHERM HIGH FLOW NASAL CANNULA AT 100%; ADDED A NON REBREATHER AT 15 LPM SATURATION ASCENDED TO 90%; APPLIED BEHAVIOR SCIENCE SPECIALIST TO ENDORSE TO NOC APPLIED BEHAVIOR SCIENCE SPECIALIST POSSIBLE INTUBATION
[2022-08-20 18:15] LABS: WHITE BLOOD COUNT (AUTO) 46.3 K/uL (4.8-10.8)
--- NOTE | 2022-08-20 18:23 | NUR ---
TEXTED DR. WASHBURN IN REGARDS TO [id number]
--- NOTE | 2022-08-20 18:24 | NUR ---
CALL BACK FROM DR. WASHBURN; TORBO: REINTUBATE WITH PREVIOUS VENTILATOR SETTINGS; ABG AFTER 1 HOUR; CALL FORMENTIONED
--- NOTE | 2022-08-20 18:45 | NUR ---
ALL EQUIPMENT CHECKED AND FUNCTIONING PROPERLY. AT APPROXIMATELY 1855 DR. AHUMADA (ED MD) SUCCESSFULLY INTUBATED PT WITH ETT SIZE 8.0 AND AND SECURED AT 24cm @ GUM. DOCTOR AUSCULTATED FOR BREATH SOUNDS, POSITIVE COLOR CHANGE ON COLORIMETRIC CO2. PT WAS PLACED ON VENT SETTINGS PRVC RR 20, VT 450, PEEP 5, FiO2 100%. VENT PLUGGED IN RED OUTLET. ALARMS SET AND AUDIBLE. XRAY TAKEN AT BEDSIDE SHOWS ETT WAS JUST ABOVE THE RUTHY. PULL ETT BACK TO 22cm @GUM/TEETH. BILATERAL BREATH SOUNDS ON AUSCULTATION, SPO2 95%, ADEQUATE TIDAL VOLUMES. XRAY TAKEN AT BEDSIDE. WILL WAIT FOR XRAY OFFICIAL INTERPRETATION. SPUTUM SAMPLE COLLECTED AND SENT TO LAB.
--- NOTE | 2022-08-20 18:50 | NUR ---
dr MENCHACA COME TO INTUBATE PT. ETOMIDATE 20MG AND [id number] GIVEN FOR THE PROCEDURE.
--- NOTE | 2022-08-20 19:00 | NUR ---
INTUBATION SUCCESS CHEST X-RAY BEING DONE.
[2022-08-20] MEDS ORDERED: SUCCINYLCHOLINE CHLORIDE 200 MG/10 ML VIAL IVP ONE (19:15)
--- NOTE | 2022-08-20 19:24 | NUR ---
REPORT GIVE TO BAUDILIO HAYES
[2022-08-20] MEDS ORDERED: ETOMIDATE 20 MG/10 ML VIAL IVP SCH (19:30)
--- NOTE | 2022-08-20 21:18 | NUR ---
ABG RESULTS WERE REPORTED TO DR. WASHBURN. ORDERED TO INCREASE PEEP TO 10 cmH20 AND LATER TO [id number] IF INDICATED. PEEP TITRATED TO 10 cmH20. PT TOLERATING WELL AT THIS TIME. WILL CONTINUE TO MONITOR PT
[2022-08-20] MEDS: MEROPENEM 1,000 MG in NACL 0.9% 50 ML IV SCH (21:54)
[2022-08-20] MEDS: FLUCONAZOLE 200 MG/NS PREMIX 100 ML IV SCH (21:54)
[2022-08-20] MEDS: INSULIN LISPRO SLIDING SCALE 100 UNITS/ML VIAL SUBQ PRN (22:12)
[2022-08-21] VITALS (33 sets, daily range): BP systolic 84–165; BP diastolic 36–91
[2022-08-21] MEDS: BLOOD GLUCOSE MONITORING 1 DEV DEV FS SCH ×4 (00:28→17:57)
[2022-08-21] MEDS: INSULIN LISPRO SLIDING SCALE 100 UNITS/ML VIAL SUBQ PRN (00:30)
[2022-08-21] MEDS: ALBUTEROL SULFATE/IPRATROPIU 3 ML SOL IH SCH ×4 (02:21→18:39)
[2022-08-21] MEDS: ACETYLCYSTEINE 20% (200 MG/ML) 200 MG/ML VIAL INH SCH ×4 (02:21→18:38)
--- NOTE | 2022-08-21 02:32 | NUR ---
SPO2 100%. TITRATED FiO2 FROM 100% TO 90%. PT TOLERATING WELL AT THIS TIME. SPO2 99%. RN NOTIFIED. WILL CONTINUE TO MONITOR PT
[2022-08-21] MEDS: levETIRAcetam 500 MG in NACL 0.9% 100 ML IV SCH ×2 (06:00→17:57)
[2022-08-21] MEDS: POTASSIUM CHL 20 MEQ/ 1/2 NS 1,000 ML IV SCH ×2 (06:01→19:11)
[2022-08-21] MEDS: MEROPENEM 1,000 MG in NACL 0.9% 50 ML IV SCH ×3 (06:01→20:30)
[2022-08-21] MEDS: PROPOFOL 1000 MG/100 ML PREMIX 100 ML IV PRN ×2 (06:03→14:29)
[2022-08-21] MEDS: MIDODRINE 5 MG TAB PO SCH ×3 (06:11→18:51)
[2022-08-21] MEDS: LEVOTHYROXINE 0.025 MG TAB PO SCH (06:30)
--- NOTE | 2022-08-21 07:30 | NUR ---
RECEIVED REPORT FROM SHOE COVERER
[2022-08-21] MEDS: NOREPINEPHRINE 8 MG in DEXTROSE 5% 250 ML IV PRN (08:30)
--- NOTE | 2022-08-21 08:30 | NUR ---
PT IN BED WITH HOB ELEVATED. ETT TO VENT ACPRVC FIO2 70% TV 450 RATE 20 PEEP 7. RESPIRATION ARE FAST AND SHALLOW. O2SAT 96%. NO APPARENT S/S OF PAIN. SEDATED RASS -3. WITH ZOHREH PICC RUNNING PROPOFOL AT 15MCG, LEVOPHED AT 6MCG, AND NS .45 + 20MEQ POTASSIUM 70ML/HR. OGT RUNNING TUBE FEEDING ORDERED WITH 150CC RESIDUAL VOLUME. CLEARY CATH INTACT AND PATENT, DRAINING DARK CARLOS URINE WITH SEDIMENTS
[2022-08-21 08:45] LABS: BASOPHILS % (AUTO) 0.1 % (0.0-2.0); HEMATOCRIT 24.1 % (36-52); HEMOGLOBIN 7.5 g/dL (12.0-18.0); LYMPHOCYTES # (AUTO) 0.4 K/uL (2.0-11.5); LYMPHOCYTES % (AUTO) 0.9 % (20.5-51.1); MEAN CORPUSCULAR HEMOGLOBIN 26 pg (27-31); MEAN CORPUSCULAR HGB CONC 31 g/dL (33-37); MEAN CORPUSCULAR VOLUME 82.2 fL (80-94); MONOCYTES # (AUTO) 0.5 K/uL (0.8-1.0); NEUTROPHILS # (AUTO) 46.8 K/uL (1.8-7.7); PLATELET COUNT (AUTO) 237 K/uL (140-450); RED BLOOD CELL COUNT(AUTO) 2.94 MIL/uL (4.20-6.10); RED CELL DISTRIBUTION WIDTH 17.5 % (11.6-13.7)
[2022-08-21 09:07] LABS: WHITE BLOOD COUNT (AUTO) 47.8 K/uL (4.8-10.8)
[2022-08-21] MEDS: PANTOPRAZOLE 40 MG INJ VIAL IVP SCH (09:29)
[2022-08-21] MEDS: methylPREDNISolone SS 40 MG/ML VIAL IVP SCH ×2 (09:30→20:30)
[2022-08-21] MEDS: QUEtiapine FUMARATE 25 MG TAB PO SCH ×2 (09:30→20:31)
[2022-08-21] MEDS: HYDROCOLLOID DRESSING TP SCH (09:30)
--- NOTE | 2022-08-21 09:30 | NUR ---
DUE MEDS GIVEN. TURNED AND REPOSITIONED. ORAL CARE DONE
[2022-08-21 09:42] LABS: MAGNESIUM 1.7 mg/dL (1.8-2.4); PHOSPHORUS 4.7 mg/dL (2.5-4.9)
[2022-08-21 10:59] LABS: ANION GAP 17.4 (8-16); CARBON DIOXIDE 19.9 mmol/L (21-32); CREATININE 1.8 mg/dL (0.6-1.3)
[2022-08-21 11:00] LABS: POTASSIUM 6.3 mmol/L (3.5-5.1)
[2022-08-21] MEDS ORDERED: MAG SULF 2000 MG/WATER PREMIX 50 ML IV SCH (13:15)
[2022-08-21] MEDS: GAUZE TP SCH (13:19)
[2022-08-21] MEDS: COLLAGENASE 250 UNIT/GM TP SCH (13:19)
[2022-08-21] MEDS ORDERED: CALCIUM GLUC 1 GM/50 mL NS BAG 50 ML IV SCH ×2 (13:21→14:00)
[2022-08-21] MEDS ORDERED: FUROSEMIDE 40 MG/4 ML VIAL IVP SCH (13:25)
[2022-08-21] MEDS ORDERED: SODIUM POLYSTYRENE 15 GM/60 ML UDBTL PO SCH (13:27)
--- NOTE | 2022-08-21 13:30 | NUR ---
seen and examined by dr Jimenez. Orders noted and carried out
[2022-08-21 18:17] LABS: CARBON DIOXIDE 21.3 mmol/L (21-32)
[2022-08-21 18:18] LABS: POTASSIUM 6.3 mmol/L (3.5-5.1)
[2022-08-21] MEDS ORDERED: DEXTROSE 50% 50 ML SYR IVP SCH (18:25)
[2022-08-21] MEDS ORDERED: INSULIN REGULAR, HUMAN 100 UNIT/ML VIAL SUBQ SCH (18:25)
[2022-08-21] MEDS ORDERED: CALCIUM CHLORIDE 10% 100 MG/ML SYR IVP SCH (18:25)
[2022-08-21] MEDS ORDERED: SODIUM BICARBONATE 8.4% PFS 50 MEQ/50 ML SYR IVP SCH (18:25)
--- NOTE | 2022-08-21 18:32 | NUR ---
CRITICAL LAB K 6.3, NOTIFIED DR LIPSCOMB. ORDERS RECEIVED
[2022-08-21] MEDS ORDERED: SODIUM BICARBONATE 8.4% PFS 50 MEQ/50 ML SYR IVP ONE (18:37)
[2022-08-21] MEDS ORDERED: CALCIUM CHLORIDE 10% 100 MG/ML SYR IVP ONE (18:38)
--- NOTE | 2022-08-21 18:40 | NUR ---
RECEIVED REPORT FROM AM SHIFT. PATIENT WAS SEEN AND ASSESSED. PATIENT IS SEDATED AND INTUBATED WITH ETT SIZE 8.0 AND SECURED WITH A BITING BLOCK ANCHOR-FAST 22cm @ GUM. PATIENT IS ON VENTILATOR SUPPORT. VENT SETTINGS: AC/PRVC RR 20, VT 450, PEEP 5, FiO2 45% WITH SPO2 OF 96%. VENTILATOR PLUGGED IN RED OUTLET. VENTILATOR ALARMS SET APPROPRIATELY AND AUDIBLE TO ENVIRONMENT. AMBU BAG AT BEDSIDE. HEAD OF BED GREATER THAN 30 DEGREES. NOTICED ADEQUATE BILATERAL CHEST RISE AND FALL. PATIENT IS IN NO RESPIRATORY DISTRESS AT THIS TIME. SUCTIONED SCANT WHITE THIN SECRETIONS FROM ETT AND SMALL CLEAR WHITE THIN ORALLY. ORAL CARE WAS DONE AND PT TOLERATED WELL. BILATERAL BREATH SOUNDS ON AUSCULTATION; UPPER LOBES: COARSE CRACKLES LOWER LOBES: COARSE CRACKLES PEAK PRESSURE: 24 cmH20 PLATEAU PRESSURE: 22 cmH20 DRIVING PRESSURE: 17 cmH20 CPT AND SCHEDULE TX GIVEN ORDERED AND PT TOLERATED WELL WITH NO ADVERSE REACTION. WILL CONTINUE TO MONITOR PATIENT.
[2022-08-21] MEDS: DEXTROSE 50% 50 ML SYR IVP PRN (18:50)
[2022-08-21] MEDS: FLUCONAZOLE 200 MG/NS PREMIX 100 ML IV SCH (18:51)
[2022-08-22] VITALS (30 sets, daily range): BP systolic 97–167; BP diastolic 29–94
[2022-08-22] MEDS: ALBUTEROL SULFATE/IPRATROPIU 3 ML SOL IH SCH ×4 (01:10→18:58)
[2022-08-22] MEDS: ACETYLCYSTEINE 20% (200 MG/ML) 200 MG/ML VIAL INH SCH ×4 (01:11→18:58)
[2022-08-22] MEDS: INSULIN LISPRO SLIDING SCALE 100 UNITS/ML VIAL SUBQ PRN ×3 (01:40→12:36)
[2022-08-22 04:53] LABS: BASOPHILS # (AUTO) 0.2 K/uL (0.00-0.22); BASOPHILS % (AUTO) 0.4 % (0.0-2.0); EOSINOPHILS # (AUTO) 0.1 K/uL (0-0.4); EOSINOPHILS % (AUTO) 0.1 % (0.0-4.0); HEMATOCRIT 25.5 % (36-52); LYMPHOCYTES # (AUTO) 1.1 K/uL (2.0-11.5); LYMPHOCYTES % (AUTO) 2.8 % (20.5-51.1); MEAN CORPUSCULAR HEMOGLOBIN 26 pg (27-31); MEAN CORPUSCULAR HGB CONC 31 g/dL (33-37); MEAN CORPUSCULAR VOLUME 82.3 fL (80-94); MONOCYTES # (AUTO) 0.5 K/uL (0.8-1.0); MONOCYTES % (AUTO) 1.2 % (1.7-9.3); NEUTROPHILS # (AUTO) 39.2 K/uL (1.8-7.7); NEUTROPHILS % (AUTO) 95.5 % (42.2-75.2); PLATELET COUNT (AUTO) 332 K/uL (140-450); RED BLOOD CELL COUNT(AUTO) 3.09 MIL/uL (4.20-6.10); RED CELL DISTRIBUTION WIDTH 17.8 % (11.6-13.7)
[2022-08-22 04:55] LABS: WHITE BLOOD COUNT (AUTO) 41.1 K/uL (4.8-10.8)
[2022-08-22] MEDS: MEROPENEM 1,000 MG in NACL 0.9% 50 ML IV SCH ×3 (04:57→20:49)
[2022-08-22 04:58] LABS: ANION GAP 16.1 (8-16); CARBON DIOXIDE 22.9 mmol/L (21-32); CREATININE 1.9 mg/dL (0.6-1.3)
[2022-08-22] MEDS: BLOOD GLUCOSE MONITORING 1 DEV DEV FS SCH ×4 (06:39→18:09)
[2022-08-22] MEDS: LEVOTHYROXINE 0.025 MG TAB PO SCH (06:40)
[2022-08-22] MEDS: levETIRAcetam 500 MG in NACL 0.9% 100 ML IV SCH ×2 (06:40→18:11)
[2022-08-22] MEDS: MIDODRINE 5 MG TAB PO SCH ×3 (06:41→19:48)
[2022-08-22] MEDS: ALBUTEROL SULFATE/IPRATROPIU 3 ML SOL IH PRN (07:41)
[2022-08-22] MEDS ORDERED: VANCOMYCIN 1,000 MG in DEXTROSE 5% 250 ML IV SCH (08:00)
[2022-08-22] MEDS: PANTOPRAZOLE 40 MG INJ VIAL IVP SCH (08:06)
[2022-08-22] MEDS: QUEtiapine FUMARATE 25 MG TAB PO SCH ×2 (08:06→20:49)
[2022-08-22] MEDS: methylPREDNISolone SS 40 MG/ML VIAL IVP SCH ×2 (08:06→20:50)
--- NOTE | 2022-08-22 10:53 | NUR ---
WOUND CARE NOTE: PT. WITH LARGE LOOSE BM, PER PRIMARY RN ANGELA PT. ON KAYEXALATE FOR ELEVATED POTASSIUM. WOUND PHOTO OBTAINED; WOUND ASSESSMENT DONE WITH PRIMARY RN. SACRALCOCCYX WOUND NO CHANGE FROM LAST VISIT. ELEVATE WBC, WILL RECOMMEND DR. GAMBLE FOR WOUND CX. POC DISCUSSED WITH PRIMARY RN. CONTINUE SANTYL. BLE ULCERS HYDROCOLLOID DRESSING CHANGE. -COCCYX PRESSURE INJURY UN-STAGEABLE WITH 8X3.5X0.3CM WOUND BED 75% ALLISON/YELLOW SLOUGH TISSUE, 25% RED GRANULATION TISSUE, AREA MOIST, NO ODOR, JOHANN WOUND SKIN MOIST, NON-BLANCHABLE REDNESS FURTHER DAMAGE INDICATED. -LEFT LE ANTERIOR VASCULAR ULCER 10X5X 0.2 CM. WOUND BED PINK, DRY, NO DRAINAGE, NO ODOR. WOUND EDGES FLAT AND ATTACHED, IRREGULAR SHAPE. JOHANN WOUND DRY, INTACT. - LEFT LOWER EXTREMITY LATERAL MALLEOLUS VASCULAR ULCER 1X1.5X 0.2 CM. WOUND BED PINK, DRY, NO DRAINAGE, NO ODOR. WOUND EDGES FLAT AND ATTACHED, IRREGULAR SHAPE. JOHANN-WOUND DRY, INTACT -LEFT POSTERIOR LEG CALF VASCULAR ULCER 4X3X0.1CM WOUND BED RED, MOIST, NO DRAINAGE, NO ODOR. WOUND EDGES FLAT AND ATTACHED, IRREGULAR SHAPE. JOHANN-WOUND DRY, INTACT - LEFT PLANTAR FOOT UN-STAGEABLE WOUND 2X2 CM. DRY STABLE BROWN SCAB, NO DRAINAGE, NO ODOR. JOHANN-WOUND, DRY, INTACT. - RIGHT POSTERIOR LATERAL VASCULAR ULCER HEALED WITH THIN SCAR PALE PINK, FOAM DRESSING APPLIED Addendum: 08/22/22 at 1327 by Virginia Colbert RN (Grace) INFORM DR. TYE WOODRUFF OPEN WOUND NO ODOR, NO PURULENT DRAINAGE, PENDING RESPONSE FROM DR. GAMBLE IF WANT TO ORDER FOR WOUND CX. POC DISCUSSED WITH PRIMARY RN ANGELA TO FOLLOW.
[2022-08-22] MEDS ORDERED: SODIUM ZIRCONIUM CYCLOSILICATE 10 GM POWD.PACK PO SCH (12:07)
[2022-08-22] MEDS: PROPOFOL 1000 MG/100 ML PREMIX 100 ML IV PRN ×2 (12:25→16:39)
[2022-08-22] MEDS: COLLAGENASE 250 UNIT/GM TP SCH (12:28)
[2022-08-22] MEDS: GAUZE TP SCH (12:28)
--- NOTE | 2022-08-22 13:30 | NUR ---
PT PLACED ON CPAP WITH PRESSURE SUPPORT OF 10 AND PEEP OF 5. PT IS AWAKE AND ALERT BUT DOES NOT FOLLOW COMMANDS. VENT ALARM SETTINGS ARE SET AND AUDIBLE TO NURSE STATION. RN NOTIFIED. WILL CONTINUE TO MONITOR.
--- NOTE | 2022-08-22 14:49 | NUR ---
08/22/22 RD FOLLOW UP COMPLETED PLEASE REFER TO NUTRITION ASSESSMENT UNDER CARE ACTIVITY FOR ESTIMATED NUTRITIONAL NEEDS. 1. CONTINUE GLUCERNA 1.2 AT GOAL RATE 65 ML/HR; FWF 200 ML Q6H WITH ELEN BID TO PROMOTE WOUND HEALING TOLERATED -WITH ELEN BID AND TUBE FEEDING @ 65 ML/HR, THIS WILL PROVIDE 1992 KCAL, 91 GRAMS OF PROTEIN, AND 2058 ML FREE WATER DAILY MEETING 94% ESTIMATED KCAL NEEDS AND 86% OF ESTIMATED PROTEIN NEEDS; ADEQUATE 2. RECOMMEND SWALLOW EVAL BEFORE ADVANCING DIET 3. MONITOR GI, GASTRIC RESIDUALS, AND NUTRITION RELATED LAB VALUES. 4. RD TO FOLLOW-UP 2-3 DAYS, HIGH RISK REVIEWED BY CALVIN MATHEWS RD
[2022-08-22] MEDS: FLUCONAZOLE 200 MG/NS PREMIX 100 ML IV SCH (19:49)
[2022-08-23] VITALS (29 sets, daily range): BP systolic 106–160; BP diastolic 43–93
[2022-08-23] MEDS: BLOOD GLUCOSE MONITORING 1 DEV DEV FS SCH ×5 (00:12→23:34)
[2022-08-23] MEDS: INSULIN LISPRO SLIDING SCALE 100 UNITS/ML VIAL SUBQ PRN ×5 (00:14→23:37)
[2022-08-23] MEDS: ALBUTEROL SULFATE/IPRATROPIU 3 ML SOL IH SCH ×4 (01:17→19:05)
[2022-08-23] MEDS: ACETYLCYSTEINE 20% (200 MG/ML) 200 MG/ML VIAL INH SCH ×4 (01:17→19:05)
[2022-08-23] MEDS: PROPOFOL 1000 MG/100 ML PREMIX 100 ML IV PRN ×3 (03:50→23:02)
[2022-08-23] MEDS: MEROPENEM 1,000 MG in NACL 0.9% 50 ML IV SCH ×3 (04:38→20:49)
[2022-08-23 05:32] LABS: ANION GAP 13.1 (8-16); CARBON DIOXIDE 23.4 mmol/L (21-32); CREATININE 1.6 mg/dL (0.6-1.3); POTASSIUM 5.5 mmol/L (3.5-5.1)
[2022-08-23 05:42] LABS: HEMOGLOBIN 7.2 g/dL (12.0-18.0); MEAN CORPUSCULAR HEMOGLOBIN 27 pg (27-31); MEAN CORPUSCULAR HGB CONC 33 g/dL (33-37); MEAN CORPUSCULAR VOLUME 82.3 fL (80-94); PLATELET COUNT (AUTO) 255 K/uL (140-450); RED BLOOD CELL COUNT(AUTO) 2.67 MIL/uL (4.20-6.10); WHITE BLOOD COUNT (AUTO) 22.4 K/uL (4.8-10.8)
[2022-08-23] MEDS: levETIRAcetam 500 MG in NACL 0.9% 100 ML IV SCH ×2 (06:22→17:42)
[2022-08-23] MEDS: LEVOTHYROXINE 0.025 MG TAB PO SCH (06:27)
[2022-08-23] MEDS: MIDODRINE 5 MG TAB PO SCH ×4 (06:27→18:08)
--- NOTE | 2022-08-23 07:20 | NUR ---
RECEIVED REPORT FROM DRUM MAKER NURSEAISWHARYA. RECEIVED ASLEEP. ON PROPOFOL AT 10 ON IRGHT UPPER PICC LINE- INTACT AND PATENT. WITH ETT TO VENT WITH THE FF SETTINGS: FIO2 35% TV 450ML RATE 20 PEEP 5. WITH NGT OVER LEFT NARES - ON FEEDING WITH GLUCERNA 1.2 AT 30 ML/HR W/ 200 ML FWF Q 6H. WITH SACRAL WOUND WITH DRESSING. WITH WOUNDS ON LOWER EXTREMETIES - DRESSINGS DRY AND INTACT. WITH CLEARY CATH IN PLACE. WITH BILATERAL SOFT WRIST RESTRAINTS. SAFETY PRECAUTIONS IN PLACE. KEPT SAFE.
--- NOTE | 2022-08-23 07:40 | NUR ---
CIPAP TRIAL STARTED BY RT. PROPOFOL TITRATED DOWN ACCORDINGLY.
--- NOTE | 2022-08-23 08:00 | NUR ---
RESIDUAL <50 ML. FEEDING INCREASED GRADUALLY.
[2022-08-23 08:03] LABS: EOSINOPHILS % (MANUAL) 2 % (0-4); LYMPHOCYTES % (MANUAL) 6 % (20-46); MONOCYTES % (MANUAL) 2 % (5-12)
[2022-08-23] MEDS ORDERED: SODIUM ZIRCONIUM CYCLOSILICATE 10 GM POWD.PACK PO SCH (08:18)
--- NOTE | 2022-08-23 08:25 | NUR ---
SEEN AND EXAMINED BY DR. RODRIGUEZ. UPDATED PT INFORMATION.
[2022-08-23] MEDS ORDERED: ETOMIDATE 20 MG/10 ML VIAL IVP ONE (09:00)
[2022-08-23] MEDS ORDERED: SUCCINYLCHOLINE CHLORIDE 200 MG/10 ML VIAL IVP ONE (09:00)
[2022-08-23] MEDS ORDERED: ROCURONIUM 50 MG/5 ML VIAL IV ONE (09:00)
[2022-08-23] MEDS: PANTOPRAZOLE 40 MG INJ VIAL IVP SCH (09:08)
[2022-08-23] MEDS: methylPREDNISolone SS 40 MG/ML VIAL IVP SCH ×2 (09:08→20:49)
[2022-08-23] MEDS: QUEtiapine FUMARATE 25 MG TAB PO SCH ×2 (09:09→20:50)
[2022-08-23] MEDS ORDERED: VANCOMYCIN 1,000 MG in DEXTROSE 5% 250 ML IV SCH (10:00)
--- NOTE | 2022-08-23 10:30 | NUR ---
PT PLACED BACK ON PREVIOUS SETTINGS. SUCCESSFULLY TOLERATED CPAP
--- NOTE | 2022-08-23 10:30 | NUR ---
CIPAP TRIAL DONE. PT ABLE TO TOLERATE. SPO2 92-98%.
--- NOTE | 2022-08-23 11:15 | NUR ---
SEEN AND EXAMINED BY DR. CRUZ. UPDATED PT INFORMATION.
[2022-08-23] MEDS: COLLAGENASE 250 UNIT/GM TP SCH (13:00)
[2022-08-23] MEDS: GAUZE TP SCH (13:00)
--- NOTE | 2022-08-23 13:00 | NUR ---
HGB 7.2 - CONSENT FOR BT SECURED. LAB INFORMED.
--- NOTE | 2022-08-23 14:00 | NUR ---
BT STARTED AFTER PROPER IDENTIFICATION WITH NURSE CÉSAR. V/S STABLE. MONITORED CLOSELY FOR BT REACTIONS. V/S MONITORED CLOSELY.
--- NOTE | 2022-08-23 16:47 | NUR ---
BT COMPLETED. NO BT REACTIONS OBSERVED.
--- NOTE | 2022-08-23 19:10 | NUR ---
ENDORSED REPORT TO CONE BAKER MACHINE NURSE AISHWARYA. Marciano QUESTIONS ANSWERED.
[2022-08-23 19:27] LABS: BASOPHILS # (AUTO) 0.2 K/uL (0.00-0.22); BASOPHILS % (AUTO) 0.6 % (0.0-2.0); HEMATOCRIT 26.7 % (36-52); HEMOGLOBIN 8.7 g/dL (12.0-18.0); LYMPHOCYTES # (AUTO) 1.5 K/uL (2.0-11.5); LYMPHOCYTES % (AUTO) 6.1 % (20.5-51.1); MEAN CORPUSCULAR HEMOGLOBIN 27 pg (27-31); MEAN CORPUSCULAR HGB CONC 33 g/dL (33-37); MEAN CORPUSCULAR VOLUME 81.8 fL (80-94); MONOCYTES # (AUTO) 0.7 K/uL (0.8-1.0); MONOCYTES % (AUTO) 2.8 % (1.7-9.3); NEUTROPHILS # (AUTO) 22.7 K/uL (1.8-7.7); NEUTROPHILS % (AUTO) 90.5 % (42.2-75.2); PLATELET COUNT (AUTO) 303 K/uL (140-450); RED BLOOD CELL COUNT(AUTO) 3.26 MIL/uL (4.20-6.10)
[2022-08-23] MEDS: FLUCONAZOLE 200 MG/NS PREMIX 100 ML IV SCH (19:55)
[2022-08-23 20:04] LABS: WHITE BLOOD COUNT (AUTO) 25.1 K/uL (4.8-10.8)
[2022-08-24] VITALS (24 sets, daily range): BP systolic 122–151; BP diastolic 68–103
[2022-08-24] MEDS: ALBUTEROL SULFATE/IPRATROPIU 3 ML SOL IH SCH ×4 (01:54→18:59)
[2022-08-24] MEDS: ACETYLCYSTEINE 20% (200 MG/ML) 200 MG/ML VIAL INH SCH ×4 (01:55→18:59)
[2022-08-24] MEDS: MEROPENEM 1,000 MG in NACL 0.9% 50 ML IV SCH ×3 (05:19→20:31)
[2022-08-24] MEDS: PROPOFOL 1000 MG/100 ML PREMIX 100 ML IV PRN ×4 (05:38→21:11)
[2022-08-24 06:24] LABS: HEMATOCRIT 26.5 % (36-52); HEMOGLOBIN 8.9 g/dL (12.0-18.0); MEAN CORPUSCULAR HEMOGLOBIN 27 pg (27-31); MEAN CORPUSCULAR HGB CONC 33 g/dL (33-37); MEAN CORPUSCULAR VOLUME 81.4 fL (80-94); PLATELET COUNT (AUTO) 290 K/uL (140-450); RED BLOOD CELL COUNT(AUTO) 3.26 MIL/uL (4.20-6.10); RED CELL DISTRIBUTION WIDTH 16.8 % (11.6-13.7)
[2022-08-24] MEDS: levETIRAcetam 500 MG in NACL 0.9% 100 ML IV SCH ×2 (06:24→17:50)
[2022-08-24 06:35] LABS: ANION GAP 12.5 (8-16); CARBON DIOXIDE 25.7 mmol/L (21-32); CREATININE 1.6 mg/dL (0.6-1.3); POTASSIUM 5.2 mmol/L (3.5-5.1)
[2022-08-24] MEDS: LEVOTHYROXINE 0.025 MG TAB PO SCH (06:49)
[2022-08-24] MEDS: BLOOD GLUCOSE MONITORING 1 DEV DEV FS SCH ×3 (06:50→18:05)
[2022-08-24 06:51] LABS: WHITE BLOOD COUNT (AUTO) 25.5 K/uL (4.8-10.8)
[2022-08-24] MEDS: INSULIN LISPRO SLIDING SCALE 100 UNITS/ML VIAL SUBQ PRN ×3 (06:51→18:07)
[2022-08-24] MEDS: MIDODRINE 5 MG TAB PO SCH ×3 (06:53→18:17)
--- NOTE | 2022-08-24 07:10 | NUR ---
RECEIVED REPORT FROM LIQUID HYDROGEN PLANT OPERATOR NURSE, AISHWARYA RN. ALL CARES ASSUMED.
--- NOTE | 2022-08-24 07:15 | NUR ---
PT ROUNDED. PT RECEIVED SEDATED. WITH ETT TO VENT WITH THE FF SETTINGS: FIO2 28% VT-450ML RATE-20CPM PEEP-5 - SPO2 OF 92% NOTED WITHOUT RESP. DISTRESS NOTED. WITH PICC LINE OVER RIGHT UPPER ARM -PATENT& INTACT- W/ ONGOING PROPOFOL DRIP AT 30 MCG/KG/MIN. W/ NGT - PATENT AND INTACT WITH GLUCERNA 1.2 AT 60 ML FEEDING RATE AT 200 ML FWF Q6H. WITH CLEARY CATHETER IN PLACE-DRAINING WELL BY GRAVITY. WITH BILATERAL SOFT WRIST RESTRAINTS. WITH SACRAL PRESSURE ULCERS NOTED WITH DRY AND INTACT DRESSINGS. WOUND ULCERS NOTED OVER LEFT LEG- DRESSINGS DRY AND INTACT. MINOR WOUND NOTED OVER RIGHT LEG - DRESSING CHANGED. SAFETY AND SEIZURES PRECAUTIONS OBSERVED AND MAINTAINED. WILL MONITOR CLOSELY.
[2022-08-24 07:21] LABS: BASOPHILS % (MANUAL) 0 % (0-2); EOSINOPHILS % (MANUAL) 0 % (0-4); LYMPHOCYTES % (MANUAL) 7 % (20-46); MONOCYTES % (MANUAL) 2 % (5-12)
--- NOTE | 2022-08-24 08:00 | NUR ---
ORAL CARE AND HYGIENE DONE Q4H.
--- NOTE | 2022-08-24 08:04 | NUR ---
CIPAP TRIAL STARTED BY RT - FIO2 AT 40%, SPO2 AT 95%. KEPT MONITORED FOR ANY SIGNS OF RESP DISTRESS.
--- NOTE | 2022-08-24 08:20 | NUR ---
SEEN AND EXAMINED BY DR. RODRIGUEZ.UPDATED PT INFORMATION.
[2022-08-24] MEDS: methylPREDNISolone SS 40 MG/ML VIAL IVP SCH ×2 (08:51→20:30)
[2022-08-24] MEDS: PANTOPRAZOLE 40 MG INJ VIAL IVP SCH (08:51)
[2022-08-24] MEDS: QUEtiapine FUMARATE 25 MG TAB PO SCH ×2 (08:52→20:30)
[2022-08-24] MEDS ORDERED: SODIUM ZIRCONIUM CYCLOSILICATE 10 GM POWD.PACK PO ONE (09:00)
[2022-08-24] MEDS: HYDROCOLLOID DRESSING TP SCH (09:00)
--- NOTE | 2022-08-24 09:30 | NUR ---
SEEN AND EXAMINED BY DR. ABURTO. UPDATED PT INFORMATION.
--- NOTE | 2022-08-24 11:00 | NUR ---
BILATERAL LOWER EXTREMITIES WOUND CLEANSING AND DRESSING CHANGE DONE. INTACT.
--- NOTE | 2022-08-24 12:25 | NUR ---
SEEN AND EXAMINED BY DR. CRUZ. UPDATED PT INFORMATION.
[2022-08-24] MEDS: COLLAGENASE 250 UNIT/GM TP SCH (13:04)
[2022-08-24] MEDS: GAUZE TP SCH (13:04)
--- NOTE | 2022-08-24 16:58 | NUR ---
SEEN AND EXAMINED BY DR. JANE. UPDATED PT INFORMATION.
--- NOTE | 2022-08-24 18:13 | NUR ---
SEEN AND EXAMINED BY DR. RIVERA. UPDATED PT INFORMATION.
[2022-08-24] MEDS: FLUCONAZOLE 200 MG/NS PREMIX 100 ML IV SCH (18:38)
--- NOTE | 2022-08-24 19:10 | NUR ---
ENDORSED REPORT TO GAS DISTRIBUTION PLANT OPERATOR NURSE, BRODY RN. ALL QUESTIONS ANSWERED.
--- NOTE | 2022-08-24 19:15 | NUR ---
RECEIVED PATIENT, SEDATED WITH PROPOFOL DRIP; ORALLY INTUBATED AND VENTILATED AT 35% FIO2, S02 97%.CARDIACSCOPE SHOWS ON SINUS RHYTHM HR 89/MIN NO ARRHYTMIAS SEEN. ABDOMEN IS SOFT, NON TENDER WITH ACTIVE BOWEL SOUNDS; ON CONTINOUS TUBE FEEDING GLUCERNA 1.2 AT 60 ML/HR VIA NGT TO RIGHT NARE, TOLERATED WITH MINIMAL RESIDUAL. CLEARY CATH IN SITU TO GRAVITY DRAINAGE BAG DRAINING TO CLEAR YELLOW URINE OUTPUT; PATENT AND INTACT.
--- NOTE | 2022-08-24 20:30 | NUR ---
TURNED AND REPOSITIONED PATIENT; ORAL CARE DONE WITH VAP KIT.
[2022-08-25] VITALS (26 sets, daily range): BP systolic 128–164; BP diastolic 33–107
[2022-08-25] MEDS: BLOOD GLUCOSE MONITORING 1 DEV DEV FS SCH ×5 (00:38→23:59)
[2022-08-25] MEDS: INSULIN LISPRO SLIDING SCALE 100 UNITS/ML VIAL SUBQ PRN ×4 (00:39→23:57)
[2022-08-25] MEDS: ALBUTEROL SULFATE/IPRATROPIU 3 ML SOL IH SCH ×4 (02:04→19:00)
[2022-08-25] MEDS: ACETYLCYSTEINE 20% (200 MG/ML) 200 MG/ML VIAL INH SCH ×3 (02:05→14:31)
--- NOTE | 2022-08-25 04:00 | NUR ---
HAD BM TO A LARGE AMOUNT OF WATERY YELLOW STOOL; KEPT CLEAN DRY AND COMFORTABLE; REPOSITIONED PATIENT.
[2022-08-25] MEDS: MEROPENEM 1,000 MG in NACL 0.9% 50 ML IV SCH ×3 (04:19→21:50)
[2022-08-25] MEDS: levETIRAcetam 500 MG in NACL 0.9% 100 ML IV SCH ×2 (05:36→18:51)
[2022-08-25 05:47] LABS: BASOPHILS % (AUTO) 0.1 % (0.0-2.0); HEMATOCRIT 26.5 % (36-52); HEMOGLOBIN 8.5 g/dL (12.0-18.0); LYMPHOCYTES # (AUTO) 1.4 K/uL (2.0-11.5); LYMPHOCYTES % (AUTO) 7.8 % (20.5-51.1); MEAN CORPUSCULAR HEMOGLOBIN 27 pg (27-31); MEAN CORPUSCULAR HGB CONC 32 g/dL (33-37); MEAN CORPUSCULAR VOLUME 82.4 fL (80-94); MONOCYTES # (AUTO) 0.8 K/uL (0.8-1.0); MONOCYTES % (AUTO) 4.3 % (1.7-9.3); NEUTROPHILS # (AUTO) 15.4 K/uL (1.8-7.7); NEUTROPHILS % (AUTO) 87.8 % (42.2-75.2); PLATELET COUNT (AUTO) 239 K/uL (140-450); RED BLOOD CELL COUNT(AUTO) 3.22 MIL/uL (4.20-6.10); RED CELL DISTRIBUTION WIDTH 17.2 % (11.6-13.7); WHITE BLOOD COUNT (AUTO) 17.5 K/uL (4.8-10.8)
[2022-08-25 05:56] LABS: ANION GAP 10.7 (8-16); CARBON DIOXIDE 27.6 mmol/L (21-32); CREATININE 1.4 mg/dL (0.6-1.3); POTASSIUM 5.3 mmol/L (3.5-5.1)
[2022-08-25] MEDS: PROPOFOL 1000 MG/100 ML PREMIX 100 ML IV PRN (06:03)
[2022-08-25] MEDS: LEVOTHYROXINE 0.025 MG TAB PO SCH (06:03)
[2022-08-25] MEDS: methylPREDNISolone SS 40 MG/ML VIAL IVP SCH ×2 (09:00→21:50)
[2022-08-25] MEDS: QUEtiapine FUMARATE 25 MG TAB PO SCH ×2 (09:00→21:50)
[2022-08-25] MEDS: PANTOPRAZOLE 40 MG INJ VIAL IVP SCH (09:00)
--- NOTE | 2022-08-25 09:45 | NUR ---
POC DISCUSSED WITH CHARGE NURSE EMANUEL, PREVIOUS PRIMARY RN ANEGLA DID NOT FOLLOW UP WITH RECOMMENDATION. PER TODAY'S NOTE PT. HAS LARGE WATERY LOOSE STOOL. POC DISCUSSED WITH CHARGE NURSE CASTELLANOS WITH RECOMMENDATIONS DISCUSSED. Addendum: 08/25/22 at 1231 by Virginia Colbert RN (Grace) CALLED AND SPOKE TO SISTER MATTHEW [phone], ALL WOUNDS CONDITION AND ABOVE INFORMATION UPDATE. ALBUMIN LEVEL 1.2.
[2022-08-25] MEDS ORDERED: VANCOMYCIN 1,000 MG in DEXTROSE 5% 250 ML IV SCH (10:00)
[2022-08-25] MEDS: COLLAGENASE 250 UNIT/GM TP SCH (13:00)
[2022-08-25] MEDS: GAUZE TP SCH (13:00)
--- NOTE | 2022-08-25 14:45 | NUR ---
08/25/22 RD FOLLOW UP COMPLETED PLEASE REFER TO NUTRITION ASSESSMENT UNDER CARE ACTIVITY FOR ESTIMATED NUTRITIONAL NEEDS. 1. NEPRO WITH CARB STEADY@40ML/HR WITH FWF 200ML Q6H OR PER MD -START AT 20ML/HR AND INCREASE BY 20ML Q4H TOLERATED UNTIL THE GOAL IS REACHED -WILL PROVIDE 1728KCAL AND 77G PROTEIN, MEETING 82% OF ESTIMATED KCAL AND 110% OF ESTIMATED PROTEIN NEEDS; ADEQUATE 2. MONITOR GASTRIC RESIDUAL, WEIGHT CHANGES AND NUTRITION-RELATED LAB VALUES 3. RD TO FOLLOW-UP 2-3 DAYS, HIGH RISK LIZ PELAEZ, DESEAN
[2022-08-25] MEDS ORDERED: SODIUM ZIRCONIUM CYCLOSILICATE 10 GM POWD.PACK PO SCH (15:30)
--- NOTE | 2022-08-25 17:56 | NUR ---
FAMILY AT BEDSIDE AT THIS TIME TWIN SISTER
[2022-08-26] VITALS (30 sets, daily range): BP systolic 110–172; BP diastolic 60–101
[2022-08-26] MEDS: ALBUTEROL SULFATE/IPRATROPIU 3 ML SOL IH SCH ×4 (01:10→20:10)
[2022-08-26] MEDS: PROPOFOL 1000 MG/100 ML PREMIX 100 ML IV PRN ×5 (01:43→21:25)
[2022-08-26] MEDS: MEROPENEM 1,000 MG in NACL 0.9% 50 ML IV SCH ×3 (05:00→21:00)
[2022-08-26 05:17] LABS: BASOPHILS % (AUTO) 0.3 % (0.0-2.0); EOSINOPHILS # (AUTO) 0.1 K/uL (0-0.4); EOSINOPHILS % (AUTO) 0.7 % (0.0-4.0); HEMATOCRIT 28.4 % (36-52); HEMOGLOBIN 9.5 g/dL (12.0-18.0); LYMPHOCYTES # (AUTO) 0.9 K/uL (2.0-11.5); LYMPHOCYTES % (AUTO) 6.4 % (20.5-51.1); MEAN CORPUSCULAR HEMOGLOBIN 28 pg (27-31); MEAN CORPUSCULAR HGB CONC 33 g/dL (33-37); MEAN CORPUSCULAR VOLUME 82.7 fL (80-94); MONOCYTES # (AUTO) 0.5 K/uL (0.8-1.0); MONOCYTES % (AUTO) 3.2 % (1.7-9.3); NEUTROPHILS % (AUTO) 89.4 % (42.2-75.2); PLATELET COUNT (AUTO) 179 K/uL (140-450); RED BLOOD CELL COUNT(AUTO) 3.44 MIL/uL (4.20-6.10); WHITE BLOOD COUNT (AUTO) 14.5 K/uL (4.8-10.8)
[2022-08-26 05:35] LABS: ANION GAP 8.7 (8-16); CARBON DIOXIDE 30.8 mmol/L (21-32); POTASSIUM 4.5 mmol/L (3.5-5.1)
[2022-08-26 05:40] LABS: MAGNESIUM 1.6 mg/dL (1.8-2.4); PHOSPHORUS 3.1 mg/dL (2.5-4.9)
[2022-08-26] MEDS: BLOOD GLUCOSE MONITORING 1 DEV DEV FS SCH ×4 (06:05→23:44)
[2022-08-26] MEDS: INSULIN LISPRO SLIDING SCALE 100 UNITS/ML VIAL SUBQ PRN ×4 (06:05→23:48)
[2022-08-26] MEDS: levETIRAcetam 500 MG in NACL 0.9% 100 ML IV SCH ×2 (06:07→17:47)
[2022-08-26] MEDS: LEVOTHYROXINE 0.025 MG TAB PO SCH (06:08)
--- NOTE | 2022-08-26 07:15 | NUR ---
RECEIVED REPORT FROM EPOXY FABRICATION SUPERVISOR NURSE GABBI KONG. PT ETT TO VENT A/C PRVC FIO2 35%, VT 450, RR 20, PEEP 5. PT HAS PICC LINE ON R ARM WITH PROPOFOL INFUSING AT 30 MCG/KG/MIN AND NS TKO 5 ML/HR. PERIPHERAL IV ON L AC 20G. REPOSITIONED BED TO LOWEST SETTING WITH HOB ELEVATED AT 30 DEGREES.
--- NOTE | 2022-08-26 07:27 | NUR ---
REPORT GIVEN TO JON SEO FOR CONTINUITY OF CARE.
[2022-08-26] MEDS ORDERED: DEXMEDETOMIDINE HCL 400 MCG in NACL 0.9% 96 ML IV PRN (09:00)
[2022-08-26] MEDS: methylPREDNISolone SS 40 MG/ML VIAL IVP SCH ×2 (09:35→21:00)
[2022-08-26] MEDS: QUEtiapine FUMARATE 25 MG TAB PO SCH ×2 (09:35→21:00)
[2022-08-26] MEDS: PANTOPRAZOLE 40 MG INJ VIAL IVP SCH (09:35)
--- NOTE | 2022-08-26 10:30 | NUR ---
DR. GAMBLE ROUNDED AT PATIENT BEDSIDE. NO NEW ORDERS RECEIVED.
--- NOTE | 2022-08-26 11:20 | NUR ---
NOTIFIED DR GAMBLE OF HYPERTENSION ORDERS RECEIVED FOR HYDRALAZINE.
[2022-08-26] MEDS ORDERED: hydrALAZINE 20 MG/ML VIAL IVP PRN (11:35)
--- NOTE | 2022-08-26 12:30 | NUR ---
INSERTED FLEXISEAL PER MD ORDERS. PATIENT TOLERATED WELL.
[2022-08-26] MEDS: GAUZE TP SCH (13:00)
[2022-08-26] MEDS: COLLAGENASE 250 UNIT/GM TP SCH (13:00)
--- NOTE | 2022-08-26 15:00 | NUR ---
STARTED NEPRO TUBE FEEDING AT 20 ML/HR WITH FWF 200 Q6H
--- NOTE | 2022-08-26 16:30 | NUR ---
DR. SARAVIA ROUNDED AT PATIENT BEDSIDE. ORDERS RECEIVED TO D/C RICKY
--- NOTE | 2022-08-26 19:30 | NUR ---
ENDORSED BEDSIDE REPORT TO ASSEMBLER TUBING REGISTRY NURSE GABBI OTERO. CONTINUE WITH CONTINUITY OF CARE.
[2022-08-27] VITALS (28 sets, daily range): BP systolic 91–193; BP diastolic 42–83
[2022-08-27] MEDS: ALBUTEROL SULFATE/IPRATROPIU 3 ML SOL IH SCH ×4 (00:46→19:27)
[2022-08-27 04:56] LABS: BASOPHILS % (AUTO) 0.1 % (0.0-2.0); EOSINOPHILS % (AUTO) 0.1 % (0.0-4.0); HEMATOCRIT 30.1 % (36-52); HEMOGLOBIN 9.9 g/dL (12.0-18.0); LYMPHOCYTES # (AUTO) 1.4 K/uL (2.0-11.5); LYMPHOCYTES % (AUTO) 10.4 % (20.5-51.1); MEAN CORPUSCULAR HEMOGLOBIN 27 pg (27-31); MEAN CORPUSCULAR HGB CONC 33 g/dL (33-37); MEAN CORPUSCULAR VOLUME 81.3 fL (80-94); MONOCYTES # (AUTO) 0.7 K/uL (0.8-1.0); MONOCYTES % (AUTO) 5.5 % (1.7-9.3); NEUTROPHILS # (AUTO) 10.9 K/uL (1.8-7.7); NEUTROPHILS % (AUTO) 83.9 % (42.2-75.2); PLATELET COUNT (AUTO) 194 K/uL (140-450); RED CELL DISTRIBUTION WIDTH 16.7 % (11.6-13.7)
[2022-08-27] MEDS: MEROPENEM 1,000 MG in NACL 0.9% 50 ML IV SCH ×3 (05:00→21:18)
[2022-08-27 05:32] LABS: CARBON DIOXIDE 28.3 mmol/L (21-32); CREATININE 1.2 mg/dL (0.6-1.3)
[2022-08-27 06:10] LABS: ANION GAP 12.1 (8-16); POTASSIUM 3.4 mmol/L (3.5-5.1)
[2022-08-27] MEDS: BLOOD GLUCOSE MONITORING 1 DEV DEV FS SCH ×4 (06:37→23:52)
[2022-08-27] MEDS: levETIRAcetam 500 MG in NACL 0.9% 100 ML IV SCH ×2 (06:38→17:33)
[2022-08-27] MEDS: LEVOTHYROXINE 0.025 MG TAB PO SCH (06:39)
--- NOTE | 2022-08-27 07:35 | NUR ---
RECEIVED REPORT FROM SECURITY DEVELOPER NURSE. PATIENT LYING DOWN IN BED, ON ETT TO VENT, CLEARY CATH IN PLACE, WOUND DRESSINGS IN PLACE. NGTUBE IN PLACE, ZOHREH PICC LINE INTACT, PATENT, DRESSINGS IN PLACE. REVIEWED PLAN OF CARE WITH PATIENT. SEDATED, UNABLE TO COMPREHEND. SAFETY MEASURES IN PLACE, CALL LIGHT WITHIN REACH. WILL CONTINUE TO MONITOR.
[2022-08-27 07:40] LABS: MAGNESIUM 1.6 mg/dL (1.8-2.4); PHOSPHORUS 2.6 mg/dL (2.5-4.9)
--- NOTE | 2022-08-27 07:45 | NUR ---
RECEIVED ON A [employer]uityAPE R860 VENTILATOR PLUGGED INTO RED OUTLET TOLERATING WELL WITHOUT ADVERSE REACTIONS NOTED TO AN ENDOTRACHEAL TUBE #8.0 SECURED AT 23cm TEETH/GUM LINE WITH AN ANCHOR FAST CUFF PRESSURE CHECKED NOTED AMBU BAG AT BEDSIDE SEDATED RESTING COMFORTABLY ENDOTRACHEAL SUCTION FOR LARGE THIN PALE YELLOW SECRETIONS AIRWAY PATENT
[2022-08-27] MEDS ORDERED: VANCOMYCIN 1,000 MG in NACL 0.9% 250 ML IV SCH (09:00)
[2022-08-27] MEDS ORDERED: MAGNESIUM OXIDE 400 MG TAB PO SCH (09:00)
[2022-08-27] MEDS: methylPREDNISolone SS 40 MG/ML VIAL IVP SCH ×2 (09:34→21:18)
[2022-08-27] MEDS: PANTOPRAZOLE 40 MG INJ VIAL IVP SCH (09:34)
[2022-08-27] MEDS: MAGNESIUM OXIDE 400 MG TAB PO SCH (09:35)
[2022-08-27] MEDS: QUEtiapine FUMARATE 25 MG TAB PO SCH ×2 (09:35→21:18)
[2022-08-27] MEDS: HYDROCOLLOID DRESSING TP SCH (09:36)
--- NOTE | 2022-08-27 09:37 | NUR ---
SCHEDULED MEDICATIONS DUE GIVEN. WILL CONTINUE TO MONITOR.
--- NOTE | 2022-08-27 10:41 | NUR ---
SEDATED RESTING WELL EQUAL CHEST RISE ENDOTRACHEAL SUCTION FOR SMALL THIN PALE YELLOW SECRETIONS AIRWAY PATENT
[2022-08-27] MEDS: PROPOFOL 1000 MG/100 ML PREMIX 100 ML IV PRN ×4 (10:43→23:33)
[2022-08-27] MEDS: GAUZE TP SCH (13:00)
[2022-08-27] MEDS: COLLAGENASE 250 UNIT/GM TP SCH (13:00)
--- NOTE | 2022-08-27 13:12 | NUR ---
SEDATED NO EVIDENCE FOR RESPIRATORY DISTRESS NOTED GOOD CHEST RISE AND AERATION THROUGHOUT BILATERAL LUNG LINARES AIRWAY PATENT
--- NOTE | 2022-08-27 13:14 | NUR ---
08/27/22 RD FOLLOW UP COMPLETED PLEASE REFER TO NUTRITION ASSESSMENT UNDER CARE ACTIVITY FOR ESTIMATED NUTRITIONAL NEEDS. 1. MONITOR NPO STATUS 2. WHEN/IF TUBE FEEDING READY TO BE STARTED RECOMMEND NEPRO 1.8 @ 40ML/HR GOAL RATE WITH FWF 200ML Q6H OR PER MD -WILL PROVIDE 1728KCAL, 77G PROTEIN, AND 1497 ML FREE WATER DAILY MEETING 82% OF ESTIMATED KCAL AND 110% OF ESTIMATED PROTEIN NEEDS; ADEQUATE -START AT 20ML/HR AND INCREASE BY 20ML Q4H TOLERATED UNTIL THE GOAL IS REACHED 3. MONITOR GASTRIC RESIDUAL, WEIGHT CHANGES AND NUTRITION-RELATED LAB VALUES 4. RD TO FOLLOW-UP 2-3 DAYS, HIGH RISK REVIEWED BY CALVIN MATHEWS RD
[2022-08-27] MEDS: INSULIN LISPRO SLIDING SCALE 100 UNITS/ML VIAL SUBQ PRN ×3 (14:09→23:54)
--- NOTE | 2022-08-27 14:18 | NUR ---
SCHEDULED MEDICATIONS DUE GIVEN. WOUND CARE DRESSINGS CHANGED PER MD ORDERS. WILL CONTINUE TO MONITOR.
--- NOTE | 2022-08-27 14:48 | NUR ---
STABLE NO APPARENT DISTRESS NOTED GOOD AERATION THROUGHOUT BILATERAL LUNG LINARES AIRWAY PATENT
--- NOTE | 2022-08-27 16:49 | NUR ---
REMAINS SEDATED RESTING COMFORTABLY NO SOB NOTED EQUAL CHEST RISE GOOD AERATION THROUGHOUT BILATERAL LUNG LINARES AIRWAY PATENT
--- NOTE | 2022-08-27 17:34 | NUR ---
SCHEDULED MEDICATIONS DUE GIVEN. WILL CONTINUE TO MONITOR.
[2022-08-27] MEDS ORDERED: POTASSIUM CHLORIDE 20% 40 MEQ/15 ML UDC GT SCH (18:35)
--- NOTE | 2022-08-27 18:44 | NUR ---
SCHEDULED MEDICATIONS DUE GIVEN. WILL CONTINUE TO MONITOR.
[2022-08-28] VITALS (25 sets, daily range): BP systolic 83–160; BP diastolic 5–83
[2022-08-28] MEDS: ALBUTEROL SULFATE/IPRATROPIU 3 ML SOL IH SCH ×4 (00:30→19:28)
[2022-08-28] MEDS: PROPOFOL 1000 MG/100 ML PREMIX 100 ML IV PRN ×4 (04:25→20:33)
[2022-08-28] MEDS: MEROPENEM 1,000 MG in NACL 0.9% 50 ML IV SCH ×3 (04:57→20:55)
[2022-08-28 05:02] LABS: BASOPHILS % (AUTO) 0.1 % (0.0-2.0); HEMATOCRIT 30.5 % (36-52); HEMOGLOBIN 10.4 g/dL (12.0-18.0); LYMPHOCYTES % (AUTO) 13.8 % (20.5-51.1); MEAN CORPUSCULAR HEMOGLOBIN 28 pg (27-31); MEAN CORPUSCULAR HGB CONC 34 g/dL (33-37); MEAN CORPUSCULAR VOLUME 81.7 fL (80-94); MONOCYTES # (AUTO) 0.4 K/uL (0.8-1.0); MONOCYTES % (AUTO) 6.1 % (1.7-9.3); NEUTROPHILS # (AUTO) 5.6 K/uL (1.8-7.7); PLATELET COUNT (AUTO) 170 K/uL (140-450); RED BLOOD CELL COUNT(AUTO) 3.73 MIL/uL (4.20-6.10); RED CELL DISTRIBUTION WIDTH 16.9 % (11.6-13.7)
[2022-08-28 05:10] LABS: ANION GAP 9.5 (8-16); CARBON DIOXIDE 25.5 mmol/L (21-32); CREATININE 1.1 mg/dL (0.6-1.3)
[2022-08-28 05:11] LABS: PROTHROMBIN TIME 11.5 secs (10.8-13.4)
[2022-08-28 05:16] LABS: MAGNESIUM 1.4 mg/dL (1.8-2.4); PHOSPHORUS 2.9 mg/dL (2.5-4.9)
[2022-08-28] MEDS: levETIRAcetam 500 MG in NACL 0.9% 100 ML IV SCH ×2 (06:08→18:30)
[2022-08-28] MEDS: LEVOTHYROXINE 0.025 MG TAB PO SCH (06:09)
[2022-08-28] MEDS: BLOOD GLUCOSE MONITORING 1 DEV DEV FS SCH ×3 (06:33→18:29)
[2022-08-28] MEDS: MAGNESIUM OXIDE 400 MG TAB PO SCH (09:00)
[2022-08-28] MEDS: QUEtiapine FUMARATE 25 MG TAB PO SCH ×2 (09:00→20:55)
[2022-08-28] MEDS: methylPREDNISolone SS 40 MG/ML VIAL IVP SCH ×2 (09:41→20:56)
[2022-08-28] MEDS: PANTOPRAZOLE 40 MG INJ VIAL IVP SCH (09:41)
[2022-08-28] MEDS ORDERED: ePHEDrine 50 MG/ML VIAL ONE ×2 (10:00→11:43)
[2022-08-28] MEDS ORDERED: ROCURONIUM 50 MG/5 ML VIAL IV ONE ×2 (10:00→11:22)
[2022-08-28] MEDS ORDERED: SEVOFLURANE 250 ML BTL INH ONE (10:00)
--- NOTE | 2022-08-28 10:45 | NUR ---
PT OFF TO OR AT THIS TIME
[2022-08-28] MEDS ORDERED: BUPIVACAINE-MPF 0.25% 30 ML VIAL INJ ONE (10:48)
[2022-08-28] MEDS ORDERED: LIDOCAINE 1% 500 MG/50 ML VIAL ONE (10:48)
[2022-08-28] MEDS ORDERED: HYDROmorphone 1 MG/ML AMP IVP PRN (12:05)
[2022-08-28] MEDS ORDERED: hydrALAZINE 20 MG/ML VIAL IVP PRN (12:05)
[2022-08-28] MEDS ORDERED: BLOOD GLUCOSE MONITORING 1 DEV DEV FS SCH (12:05)
[2022-08-28] MEDS ORDERED: LABETALOL 20 MG/4 ML VIAL IVP PRN (12:05)
[2022-08-28] MEDS: NACL 0.9% 1,000 ML IV SCH ×2 (12:05→22:05)
--- NOTE | 2022-08-28 13:15 | NUR ---
PT HAD TRACHEOSTOMY TODAY. TOLERATED PROCEDURE WELL. SEEMS MORE COMFORTABLE THEN WITH ET TUBE. PT IS ON VENTILATOR PRVC MODE. SETTINGS OF RATE 20, TIDAL VOLUME 450, PEEP +5, AND FiO2 30%. PT IS TOLERATING SETTINGS AND NO RERSPIRATORY DISTRESS IS NOTED. WILL CONTINUE TO MONITOR PT.
[2022-08-28] MEDS: COLLAGENASE 250 UNIT/GM TP SCH (13:21)
[2022-08-28] MEDS: GAUZE TP SCH (13:22)
--- NOTE | 2022-08-28 18:09 | NUR ---
FAMILY AT BEDSIDE
[2022-08-28] MEDS: INSULIN LISPRO SLIDING SCALE 100 UNITS/ML VIAL SUBQ PRN (18:34)
[2022-08-29] VITALS (28 sets, daily range): BP systolic 83–140; BP diastolic 38–86
[2022-08-29] MEDS: ALBUTEROL SULFATE/IPRATROPIU 3 ML SOL IH SCH ×3 (01:45→13:58)
[2022-08-29] MEDS: INSULIN LISPRO SLIDING SCALE 100 UNITS/ML VIAL SUBQ PRN ×3 (01:47→18:30)
[2022-08-29] MEDS: PROPOFOL 1000 MG/100 ML PREMIX 100 ML IV PRN ×2 (01:57→06:24)
[2022-08-29] MEDS: MEROPENEM 1,000 MG in NACL 0.9% 50 ML IV SCH ×2 (05:03→14:49)
[2022-08-29 05:15] LABS: BASOPHILS % (AUTO) 0.3 % (0.0-2.0); EOSINOPHILS % (AUTO) 0.1 % (0.0-4.0); HEMATOCRIT 29.3 % (36-52); HEMOGLOBIN 9.7 g/dL (12.0-18.0); LYMPHOCYTES % (AUTO) 10.1 % (20.5-51.1); MEAN CORPUSCULAR HEMOGLOBIN 27 pg (27-31); MEAN CORPUSCULAR HGB CONC 33 g/dL (33-37); MEAN CORPUSCULAR VOLUME 82.2 fL (80-94); MONOCYTES # (AUTO) 0.3 K/uL (0.8-1.0); MONOCYTES % (AUTO) 2.8 % (1.7-9.3); NEUTROPHILS # (AUTO) 8.9 K/uL (1.8-7.7); NEUTROPHILS % (AUTO) 86.7 % (42.2-75.2); PLATELET COUNT (AUTO) 154 K/uL (140-450); RED BLOOD CELL COUNT(AUTO) 3.56 MIL/uL (4.20-6.10); WHITE BLOOD COUNT (AUTO) 10.2 K/uL (4.8-10.8)
[2022-08-29 05:41] LABS: POTASSIUM 3.3 mmol/L (3.5-5.1)
[2022-08-29] MEDS: levETIRAcetam 500 MG in NACL 0.9% 100 ML IV SCH ×2 (06:04→18:28)
[2022-08-29] MEDS: LEVOTHYROXINE 0.025 MG TAB PO SCH (06:05)
[2022-08-29 06:25] LABS: CARBON DIOXIDE 22.3 mmol/L (21-32); CREATININE 1.2 mg/dL (0.6-1.3)
[2022-08-29] MEDS: BLOOD GLUCOSE MONITORING 1 DEV DEV FS SCH ×4 (06:26→18:29)
[2022-08-29 07:32] LABS: MAGNESIUM 1.5 mg/dL (1.8-2.4); PHOSPHORUS 3.3 mg/dL (2.5-4.9)
[2022-08-29] MEDS ORDERED: LORazepam 2 MG/ML VIAL IVP PRN (08:00)
[2022-08-29] MEDS ORDERED: MORPHINE SULFATE 4 MG/ML SYR IVP PRN (08:00)
[2022-08-29] MEDS: NACL 0.9% 1,000 ML IV SCH (08:22)
[2022-08-29] MEDS: QUEtiapine FUMARATE 25 MG TAB PO SCH (08:55)
[2022-08-29] MEDS: PANTOPRAZOLE 40 MG INJ VIAL IVP SCH (08:55)
[2022-08-29] MEDS: MAGNESIUM OXIDE 400 MG TAB PO SCH (08:56)
[2022-08-29] MEDS ORDERED: VANCOMYCIN 1,000 MG in NACL 0.9% 250 ML IV SCH (09:00)
[2022-08-29] MEDS: methylPREDNISolone SS 40 MG/ML VIAL IVP SCH (09:00)
[2022-08-29] MEDS ORDERED: QUET25TA46 PO (10:22)
[2022-08-29] MEDS ORDERED: LEVE250T1 PO (10:22)
[2022-08-29] MEDS ORDERED: LEVO25CA2 PO (10:22)
--- NOTE | 2022-08-29 10:47 | NUR ---
WOUND CARE NOTE: WOUND ASSESSMENT DONE WITH PRIMARY RN CRISTINE. PT. WITH S/P TRACHEOSTOMY AND PEG TUBE INSERTION. PT. WITH RECTAL TUBE AND F/C FOR MOISTURE CONTROL, SACRALCOCCYX WOUND JOHANN-WOUND SKIN MASD IMPROVING, REMAIN ON UN-STAGEABLE. BLE ULCERS HYDROCOLLOID DRESSING CHANGE AREAS IMPROVING. WILL CONTINUE SANTYL. POC DISCUSSED WITH PRIMARY RN. -TRACH JOHANN-STOMA, MOIST, NO ACTIVE BLEEDING -PEG JOHANN-STOMA SKIN DRY AND CLEAN -COCCYX PRESSURE INJURY UN-STAGEABLE WITH 8X3.5CM WOUND BED 100% ALLISON/YELLOW SLOUGH TISSUE, AREA MOIST, NO ODOR, JOHANN WOUND SKIN DRY, NON-BLANCHABLE REDNESS FURTHER DAMAGE INDICATED. -LEFT LE ANTERIOR VASCULAR ULCER 10X5X 0.2 CM. WOUND BED PINK, DRY, NO DRAINAGE, NO ODOR. WOUND EDGES FLAT AND ATTACHED, IRREGULAR SHAPE. JOHANN WOUND DRY, INTACT. - LEFT LOWER EXTREMITY LATERAL MALLEOLUS VASCULAR ULCER 1X1.5X 0.2 CM. WOUND BED PINK, DRY, NO DRAINAGE, NO ODOR. WOUND EDGES FLAT AND ATTACHED, IRREGULAR SHAPE. JOHANN-WOUND DRY, INTACT -LEFT POSTERIOR LEG CALF VASCULAR ULCER 4X3X0.1CM WOUND BED RED, MOIST, NO DRAINAGE, NO ODOR. WOUND EDGES FLAT AND ATTACHED, IRREGULAR SHAPE. JOHANN-WOUND DRY, INTACT - LEFT PLANTAR FOOT UN-STAGEABLE WOUND 2X2 CM. DRY STABLE BROWN SCAB, NO DRAINAGE, NO ODOR. JOHANN-WOUND, DRY, INTACT. - RIGHT POSTERIOR LATERAL VASCULAR ULCER HEALED WITH THIN SCAR PALE PINK, FOAM DRESSING APPLIED
[2022-08-29] MEDS: COLLAGENASE 250 UNIT/GM TP SCH (13:39)
[2022-08-29] MEDS: GAUZE TP SCH (13:40)
--- NOTE | 2022-08-29 14:45 | NUR ---
SBAR TO JASMEET(RN) AT [facility] [address] , DR CARDOSO @ [phone] AWARE CAPSULE INSPECTOR TIME 20:30 PER [facility] VIA [facility].
--- NOTE | 2022-08-29 15:23 | NUR ---
08/29/22 RD FOLLOW UP COMPLETED PLEASE REFER TO NUTRITION ASSESSMENT UNDER CARE ACTIVITY FOR ESTIMATED NUTRITIONAL NEEDS. 1. RECOMMEND DECREASING NEPRO 1.8 TO GOAL RATE 45 ML/HR, FWF 200ML Q6H OR PER MD -WITH PROPOFOL @ 22 ML/HR (PROVIDES 580 KCAL/DAY), WILL PROVIDE 2480 KCAL, 85 G PROTEIN, AND 1567 ML FREE WATER DAILY MEETING 100% OF ESTIMATED KCAL AND PROTEIN NEEDS; ADEQUATE 2. MONITOR GASTRIC RESIDUAL, WEIGHT CHANGES AND NUTRITION-RELATED LAB VALUES 3. RD TO FOLLOW-UP 2-3 DAYS, HIGH RISK REVIEWED BY CALVIN MATHEWS RD
--- NOTE | 2022-08-29 19:00 | NUR ---
MANSI SOTELO Addendum: 08/29/22 at 1904 by Agency Hal SEO RN BRADLEY HAIDER HERE AWARE OF TRANSFER , RECEIVED ADDRESSTO LOCATION, PHONE NUMBER AND PHONE NUMBER
--- NOTE | 2022-08-29 19:08 | NUR ---
MATTHEW IS AWARE OF TRANSFER AT THIS TIME
== END 2022-08-29 07:20 | DRG 5 ==
LOC: MED 18:27 → MIC 22:40 → MTU 22:40 → MIC 23:40 → MTU 07-25 12:45 → MIC 08-07 14:30 → MTU 08-14 14:15 → MIC 08-19 10:45
PROVIDERS: ADMIT Family Medicine; ATTEND Family Medicine
PROC: 02HV33Z Insertion of Infusion Device into Superior Vena Cava, Percutaneous Approach (ICD-10-PCS; 2022-07-07)
PROC: B548ZZA Ultrasonography of Superior Vena Cava, Guidance (ICD-10-PCS; 2022-07-07)
PROC: 5A1955Z Respiratory Ventilation, Greater than 96 Consecutive Hours (ICD-10-PCS; principal; 2022-07-08)
PROC: 0BH17EZ Insertion of Endotracheal Airway into Trachea, Via Natural or Artificial Opening (ICD-10-PCS; 2022-07-08)
PROC: 4A00X4Z Measurement of Central Nervous Electrical Activity, External Approach (ICD-10-PCS; 2022-07-09)
PROC: 30233N1 Transfusion of Nonautologous Red Blood Cells into Peripheral Vein, Percutaneous Approach (ICD-10-PCS; 2022-07-23)
PROC: 0B9J8ZX Drainage of Left Lower Lung Lobe, Via Natural or Artificial Opening Endoscopic, Diagnostic (ICD-10-PCS; 2022-08-19)
PROC: 0BH17EZ Insertion of Endotracheal Airway into Trachea, Via Natural or Artificial Opening (ICD-10-PCS; 2022-08-19)
PROC: 5A1935Z Respiratory Ventilation, Less than 24 Consecutive Hours (ICD-10-PCS; 2022-08-19)
PROC: 0BH17EZ Insertion of Endotracheal Airway into Trachea, Via Natural or Artificial Opening (ICD-10-PCS; 2022-08-20)
PROC: 5A1955Z Respiratory Ventilation, Greater than 96 Consecutive Hours (ICD-10-PCS; 2022-08-20)
PROC: 0B110F4 Bypass Trachea to Cutaneous with Tracheostomy Device, Open Approach (ICD-10-PCS; 2022-08-28)
PROC: 0DH63UZ Insertion of Feeding Device into Stomach, Percutaneous Approach (ICD-10-PCS; 2022-08-28)
DX: A41.9 Sepsis, unspecified organism (principal); N17.0 Acute kidney failure with tubular necrosis; R65.21 Severe sepsis with septic shock; D69.6 Thrombocytopenia, unspecified; E87.20 Acidosis, unspecified; T68.XXXA Hypothermia, initial encounter; J18.9 Pneumonia, unspecified organism; E83.51 Hypocalcemia; E87.1 Hypo-osmolality and hyponatremia; E86.0 Dehydration; J96.01 Acute respiratory failure with hypoxia; N39.0 Urinary tract infection, site not specified; D64.9 Anemia, unspecified; L97.529 Non-pressure chronic ulcer of other part of left foot with unspecified severity; L97.929 Non-pressure chronic ulcer of unspecified part of left lower leg with unspecified severity; E11.621 Type 2 diabetes mellitus with foot ulcer; S81.802A Unspecified open wound, left lower leg, initial encounter; X58.XXXA Exposure to other specified factors, initial encounter; L03.116 Cellulitis of left lower limb; F15.10 Other stimulant abuse, uncomplicated; F16.10 Hallucinogen abuse, uncomplicated; F12.10 Cannabis abuse, uncomplicated; I12.9 Hypertensive chronic kidney disease with stage 1 through stage 4 chronic kidney disease, or unspecified chronic kidney disease; R00.1 Bradycardia, unspecified; E11.22 Type 2 diabetes mellitus with diabetic chronic kidney disease; N18.32 Chronic kidney disease, stage 3b; Y95 Nosocomial condition; T38.0X5A Adverse effect of glucocorticoids and synthetic analogues, initial encounter; Z20.822 Contact with and (suspected) exposure to COVID-19; Z79.82 Long term (current) use of aspirin; Z79.899 Other long term (current) drug therapy; Y93.89 Activity, other specified; Y92.89 Other specified places as the place of occurrence of the external cause; Y99.8 Other external cause status; Z93.1 Gastrostomy status; Z78.1 Physical restraint status; Z59.00 Homelessness unspecified
CPT/HCPCS: 31500; 36415; 36430; 36556; 36600; 70450; 71045; 73590; 74018; 76604; 76770; 80048; 80053; 80202; 80305; 81001; 82140; 82533; 82550; 82803; 82948; 83605; 83735; 83880; 84100; 84439; 84443; 84480; 84484; 85018; 85025; 85610; 85730; 86886; 86900; 86901; 86920; 87040; 87070; 87075; 87081; 87086; 87186; 87205; 89220; 92526; 93005; 93925; 93970; 94002; 94003; 94640; 94667; 95816; 96361; 96365; 96375; 97110; 97112; 97116; 97163-GP; 97530; 99291; A6248; C9113; G0482; J0171; J0330; J0360; J0461; J0610; J0692; J1265; J1450; J1580; J1644; J1815; J1940; J1953; J2001; J2060; J2185; J2250; J2405; J2543; J2704; J2765; J2920; J2930; J2997; J3010; J3370; J3372; J3475; J3480; J3490; J7030; J7060; J7608; J7613; J7644; P9016; Q0092